=== PATIENT | male | born 1950 | race Hispanic/Latino ===

== ENCOUNTER 2017-01-06 06:16 | Inpatient (IN) | payer BC, MEDICARE ==
[2017-01-06 07:12] VITALS: BMI 32.5
--- NOTE | 2017-01-06 08:01 | ED PDOC ---
Arrival/HPI - General Chief Complaint: GI Problem Time Seen by Provider: 01/06/17 08:01 Historian: Patient - History of Present Illness Narrative History of Present Illness (Text): 01/06/17 13:57 A 66 year old male, whose past medical history includes perianal abscess, presents to the Emergency department complaining of 2 day duration rectal pain. Patient reports feels similar to previous symptoms. Patient denies any fevers, chills, nausea, vomiting, abdominal pain or any other complaints at this time. Time/Duration: Other (2 days) Symptom Onset: Sudden Symptom Course: Unchanged Quality: Other (pain) Activities at Onset: Rest Modifying Factors (Text): none Context: Home Associated Symptoms (Text): none Past Medical History - Provider Review Nursing Documentation Reviewed: Yes - Cardiac Hx Pacemaker: No - Pulmonary Hx Asthma: Yes Hx Chronic Obstructive Pulmonary Disease (COPD): Yes Hx Emphysema: Yes Hx Pneumonia: Yes (03/2014, 03/2016) Hx Sleep Apnea: Yes Other/Comment: c-pap at night, uses portable and home o2 and nubulizer machine at home - Neurological Hx Paralysis: No - Hematological/Oncological Hx Cancer: Yes (colon dx 04/2014) Hx Chemotherapy: Yes (completed 2014) - Musculoskeletal/Rheumatological Hx Falls: No - Genitourinary/Gynecological Other/Comment: colon ca - Psychiatric Hx Anxiety: Yes Hx Emotional Abuse: No Hx Physical Abuse: No Hx Substance Use: No Other/Comment: drinks 4/5 beers a day, smokes 1ppd - Surgical History Other/Comment: umbilical hernia sx, colon resection 2013, vascular acces device r pac 09/2014 rermoved 2 2015, i and d perianal abcess, colonoscopy 2013 and 2014 - Anesthesia Hx Anesthesia Reactions: No Hx Malignant Hyperthermia: No - Suicidal Assessment Feels Threatened In Home Enviroment: No Family/Social History - Physician Review Nursing Documentation Reviewed: Yes Family/Social History: No Known Family HX Smoking Status: Former Smoker Hx Alcohol Use: Yes (4/5 beers) Hx Substance Use: No Allergies/Home Meds Allergies/Adverse Reactions: Allergies No Known Allergies Allergy (Verified 01/06/17 07:12) Home Medications: Home Meds Medication Instructions Recorded Confirmed Arformoterol Tartrate [Brovana] 1 inh INH BID 12/23/14 01/06/17 Budesonide [Pulmicort Respules] 0.25 mg NEB BID PRN 04/27/15 01/06/17 Aspirin [Aspirin EC] 81 mg PO DAILY 10/23/15 01/06/17 Cholecalciferol (Vitamin D3) 1 tab PO DAILY 10/23/15 01/06/17 [Vitamin D3] Albuterol HFA [Ventolin HFA 90 0.09 mg IH PRN PRN 04/12/16 01/06/17 mcg/actuation (8 g)] Prednisone 4 mg PO DAILY 04/12/16 01/06/17 Tiotropium [place] Inhaler 1 inhaler INH DAILY 04/12/16 01/06/17 [Spiriva Inhalation Handihaler Device] Albuterol Sulfate [Proair Hfa] 2 puff IH PRN PRN 01/06/17 01/06/17 Review of Systems - Physician Review All systems were reviewed & negative as marked: Yes Physical Exam - Physical Exam Narrative Physical Exam (Text): 01/06/17 14:06 - Review of Systems Constitutional: Normal. absent: Fatigue, Weight Change, Fevers, chills Eyes: Normal ENT: Normal Respiratory: Normal absent: SOB, Cough, Sputum Cardiovascular: Normal absent: Chest pain, Palpitations, Syncope Gastrointestinal: Normal absent: Abdominal pain, Diarrhea, Nausea, Vomiting Genitourinary: Present: rectal pain, absent: Dysuria, Frequency, Hematuria Musculoskeletal: Normal. absent: Arthralgias, Back Pain, Neck Pain Skin: Normal Neurological: Normal absent: Focal Weakness Endocrine: Normal Hemo/Lymphatic: Normal Psychiatric: Normal - Physical exam Patient appears age appropriate, speaking full sentences without difficulty - Systems Exam Head: Present: Atraumatic, Normocephalic Pupils: Present: PERRL Extraocular Muscles: Present: EOMI Conjunctiva: Present: Normal Mouth: Present: Moist Mucous Membranes Neck: Present: Normal Range of Motion. No: MIDLINE TENDERNESS, Paraspinal Tenderness Respiratory/Chest: Present: Clear to Auscultation, Good Air Exchange. No: Respiratory Distress, Accessory Muscle Use, Tachypneic Cardiovascular: Present: Regular Rate and Rhythm, Normal S1, S2, Peripheral Pulses Present. No: Murmurs Abdomen: Present: Normal Bowel Sounds, No: Tenderness, Peritoneal Signs, Rebound, Guarding, Distention Back: Present: Normal Inspection. No: Midline Tenderness, Paraspinal Tenderness Upper Extremity: Present: Normal Inspection. No: Cyanosis, Edema Lower Extremity: Present: Normal Inspection. No: Edema Neurological: Present: GCS=15, Speech Normal, cranial nerves II through XII fully intact with no cerebellar abnormality, neuro-sensory fully intact. No focal neurological deficits. Skin: Present: Warm, Dry, Normal Color. No: Rashes Lymphatic: Present: OX3, NI, NC Psychiatric: Present: Alert, Oriented x 3, Normal Insight, Normal Concentration Rectal: fluctuant mass around rectum 2 cm in circumference Vital Signs Reviewed: Yes Vital Signs Temp Pulse Resp BP Pulse Ox 01/06/17 15:20 98.8 F 88 18 157/84 H 98 01/06/17 13:34 98.2 F 80 16 138/89 97 01/06/17 13:31 88 16 142/90 96 01/06/17 10:54 95 H 18 123/70 96 01/06/17 07:36 99.3 F 96 H 18 133/74 95 01/06/17 07:14 98.2 F 102 H 17 121/72 93 L Temperature: Afebrile Blood Pressure: Normal Pulse: Tachycardic Respiratory Rate: Normal Appearance: Positive for: Well-Appearing, Non-Toxic, Comfortable Pain Distress: None Mental Status: Positive for: Alert and Oriented X 3 Medical Decision Making ED Course and Treatment: 01/06/17 08:08 Impression: 66 year old male who has a history of perianal abscess, complains of rectal pain. On physical rectal exam, patient had fluctuant mass around rectum about 2 cm in circumference. Plan: -- CT pelvis w/IV contrast -- Labs -- Toradol -- Reassess and disposition Prior Visits: Notes and results from previous visits were reviewed. Patient last seen in the ED on 04/12/16 for evaluation of worsening shortness of breath. Progress Notes: CT pelvis with contrast: Creator : Alfa Solis MD IMPRESSION: Perianal abscess measuring 18 x 34 mm 01/06/17 13:[address] Gallegos and Dr. Penaloza. Dr. Gallegos states to admit patient and he will go to OR tomorrow. patient is aware and agrees with the plan. Dr. Bertrand, PMD, was paged and waiting for her call back. 01/06/17 14:[address] Bertrand, who accepts patient to her service. - Lab Interpretations Lab Results: 01/06/17 08:41 01/06/17 08:41 Lab Results 01/06/17 11:30: Blood Type A POSITIVE, Antibody Screen Negative, BBK History Checked Patient has bt 01/06/17 08:41: WBC 14.2 H, RBC 4.59, Hgb 14.9, Hct 44.7, MCV 97.4, MCH 32.5, MCHC 33.3, RDW 13.5, Plt Count 169, MPV 11.1 H, Gran % 88.7 H, Lymph % (Auto) 6.7 L, [place] % (Auto) 4.3, Eos % (Auto) 0.2 L, Baso % (Auto) 0.1, Gran # 12.61 H , Lymph # 1.0 L, [place] # 0.6, Eos # 0.0, Baso # 0.02, PT 10.4, INR 0.96, APTT 30.2, Sodium 137, Potassium 4.3, Chloride 97, Carbon Dioxide 32, Anion Gap 12, BUN 8, Creatinine 0.6, Est GFR ( Amer) > 60, Est GFR (Non-Af Amer) > 60, Random Glucose 97, Calcium 9.4, Total Bilirubin 0.6, AST 23, ALT 34, Alkaline Phosphatase 65, Total Protein 7.3, Albumin 3.9, Globulin 3.4, Albumin/Globulin Ratio 1.1 I have reviewed the lab results: Yes - RAD Interpretation Radiology Orders: 01/06/17 PELVIS W/IV CONTRAST ONLY [CT] Stat - Medication Orders Current Medication Orders: Aspirin (Ecotrin) 81 mg PO DAILY MARIELA Sodium Chloride (Sodium Chloride 0.9%) 1,000 mls @ 100 mls/hr IV .Q10H MARIELA Last Admin: 01/06/17 14:30 Dose: 100 MLS/HR eMAR Start Stop Document 01/06/17 14:30 VÍCTOR (Rec: 01/06/17 15:01 VÍCTOR [id number]) Intravenous Solution Start Date 01/06/17 Start Time 14:30 Ciprofloxacin (Cipro 200mg/100ml D5w) 100 mls @ 67 mls/hr IVPB Q12 MARIELA PRN Reason: Protocol Stop: 01/06/17 23:30 Metronidazole (Flagyl) 100 mls @ 100 mls/hr IVPB Q8 MARIELA PRN Reason: Protocol Pantoprazole Sodium (Protonix Inj) 40 mg IVP DAILY MARIELA Pantoprazole Sodium (Protonix Inj) 40 mg IVP DAILY MARIELA Tiotropium [place] (Spiriva) mcg INH DAILY MARIELA Discontinued Medications Clindamycin Phosphate 600 mg/ (Sodium Chloride) 54 mls @ 108 mls/hr IVPB STAT STA PRN Reason: Protocol Stop: 01/06/17 14:04 Last Admin: 01/06/17 14:30 Dose: 108 MLS/HR eMAR Start Stop Document 01/06/17 14:30 SZA (Rec: 01/06/17 15:01 SZA [id number]) Intravenous Solution Start Date 01/06/17 Start Time 14:30 End Date 01/06/17 End time 15:00 Total Infusion Time 30 Iohexol (Omnipaque 350 150 Ml) Confirm Administered Dose 150 ml .ROUTE .STK-MED ONE Stop: 01/06/17 10:12 Ketorolac Tromethamine (Toradol) 30 mg IVP STAT STA Stop: 01/06/17 08:20 Last Admin: 01/06/17 08:49 Dose: 30 MG IVP Administration Document 01/06/17 08:49 SS (Rec: 01/06/17 08:51 [facility] [place]-[id number]) Charges for Administration # of IVP Administrations 1 Pneumococcal Polyvalent Vaccine (Pneumovax 23 Vaccine) 0.5 ml IM .ONCE ONE Stop: 01/06/17 16:51 - Scribe Statement The provider has reviewed the documentation as recorded by the Scribemil Martinez All medical record entries made by the Brissaibemil were at my direction and personally dictated by me. I have reviewed the chart and agree that the record accurately reflects my personal performance of the history, physical exam, medical decision making, and the department course for this patient. I have also personally directed, reviewed, and agree with the discharge instructions and disposition. Disposition/Present on Arrival - Present on Arrival Any Indicators Present on Arrival: No History of DVT/PE: No History of Uncontrolled Diabetes: No Urinary Catheter: No History of Decub. Ulcer: No History Surgical Site Infection Following: None - Disposition Have Diagnosis and Disposition been Completed?: Yes Diagnosis: Rectal abscess Disposition: HOSPITALIZED Disposition Time: 13:39 Patient Plan: Admission Patient Problems: Current Active Problems Problem Status Diagnosed Rectal abscess Acute Condition: STABLE
[2017-01-06 08:52] LABS: ADD MANUAL DIFF? NO
[2017-01-06 09:13] LABS: BASO # 0.02 K/mm3 (0.0-2.0); BASO % 0.1 % (0.0-3.0); EOS % 0.2 % (1.5-5.0); GRAN # 12.61 (1.4-6.5); GRAN % 88.7 % (50.0-68.0); HEMATOCRIT 44.7 % (42.0-52.0); LYMPH % 6.7 % (22.0-35.0); MEAN CELL VOLUME 97.4 fL (80.0-105.0); MEAN CORPUSCULAR HEMOGLOBIN 32.5 pg (25.0-35.0); MEAN CORPUSCULAR HGB CONC 33.3 g/dl (31.0-37.0); MEAN PLATELET VOLUME 11.1 fl (7.0-11.0); MONO # 0.6 (0.1-0.6); MONO % 4.3 % (1.0-6.0); PLATELET COUNT 169 10^3/uL (120.0-450.0); RED CELL DISTRIBUTION WIDTH 13.5 % (11.5-14.5); WHITE BLOOD COUNT 14.2 10^3/ul (4.5-11.0)
[2017-01-06 09:23] LABS: INR 0.96 (0.93-1.08); PARTIAL THROMBOPLASTIN TIME 30.2 Seconds (23.7-30.8)
[2017-01-06 09:30] LABS: ALB/GLOB RATIO 1.1 (1.1-1.8); ALKALINE PHOSPHATASE 65 U/L (38-133); ALT/SGPT 34 U/L (7-56); AST/SGOT 23 U/L (15-59); BILIRUBIN,TOTAL 0.6 mg/dL (0.2-1.3); BLOOD UREA NITROGEN 8 mg/dL (7-21); CALCIUM 9.4 mg/dL (8.4-10.5); CARBON DIOXIDE 32 mmol/L (21-33); CHLORIDE 97 mmol/L (95-110); GFR AFRICAN-AMERICAN > 60; GLUCOSE,RANDOM 97 mg/dL (70-110); POTASSIUM 4.3 mmol/L (3.6-5.0); SODIUM 137 mmol/L (132-148); TOTAL PROTEIN 7.3 g/dL (5.8-8.3)
--- NOTE | 2017-01-06 11:12 | CT ---
PROCEDURE: CT Pelvis with contrast HISTORY: perianal abscess COMPARISON: None. TECHNIQUE: Contiguous axial images of the pelvis with contrast. Coronal and sagittal reformats generated. Contrast dose: 150 cc of Omni 350 Radiation dose: Total exam DLP = 1296 mGy-cm. This CT exam was performed using one or more of the following dose reduction techniques: Automated exposure control, adjustment of the mA and/or kV according to patient size, and/or use of iterative reconstruction technique. FINDINGS: BLADDER: Unremarkable. No mass. REPRODUCTIVE ORGANS: Unremarkable. VISUALIZED BOWEL: Unremarkable. PERITONEUM: Unremarkable, as visualized. No free fluid. No free air. LYMPH NODES: Unremarkable. No enlarged lymph nodes. VASCULATURE: Unremarkable. BONES: No fracture or focal lesion. OTHER FINDINGS: There is an 18 x 34 mm fluid collection in the perianal area to the right of midline. This is seen on image 99 series 5. Findings are consistent with an abscess. IMPRESSION: Perianal abscess measuring 18 x 34 mm
--- NOTE | 2017-01-06 14:07 | CP.PCM.CON ---
<Tremaine Sweeney - Last Filed: 01/06/17 14:20> History of Present Illness - History of Present Illness History of Present Illness: General Surgery Consult Note for Dr. Gallegos CC: Perianal Abscess HPI: This is a 66M with a PMH of COPD, Colon Ca, and tiffany-rectal abscess 2 year ago, who presents to the ED with a tiffany-rectal abscess for the past 2 days. Patient reports the abscess as being acutely active now however admits to chronic draining. He denies any subjective fevers at home, chills, SOB, Nausea, vomiting or diarrhea. PMH: See Above PSH: Colectomy, I&D of Tiffany-anal Abscess All: NKDA Social: 80+ pack years tobacco, 40+ years 10 beers per day Review of Systems - Review of Systems All systems: reviewed and no additional remarkable complaints except Past Patient History - Past Social History Smoking Status: Former Smoker - CARDIAC Hx Pacemaker: No - PULMONARY Hx Asthma: Yes Hx Chronic Obstructive Pulmonary Disease (COPD): Yes Hx Emphysema: Yes Hx Pneumonia: Yes (03/2014, 03/2016) Hx Sleep Apnea: Yes Other/Comment: c-pap at night, uses portable and home o2 and nubulizer machine at home - NEUROLOGICAL Hx Paralysis: No - HEMATOLOGICAL/ONCOLOGICAL Hx Cancer: Yes (colon dx 04/2014) Hx Chemotherapy: Yes (completed 2014) - MUSCULOSKELETAL/RHEUMATOLOGICAL Hx Falls: No - GENITOURINARY/GYNECOLOGICAL Other/Comment: colon ca - PSYCHIATRIC Hx Anxiety: Yes Hx Emotional Abuse: No Hx Physical Abuse: No Hx Substance Use: No Other/Comment: drinks 4/5 beers a day, smokes 1ppd - SURGICAL HISTORY Other/Comment: umbilical hernia sx, colon resection 2013, vascular acces device r pac 09/2014 rermoved 2 2015, i and d perianal abcess, colonoscopy 2013 and 2014 - ANESTHESIA Hx Anesthesia Reactions: No Hx Malignant Hyperthermia: No Meds Allergies/Adverse Reactions: Allergies Allergy/AdvReac Type Severity Reaction Status Date / Time No Known Allergies Allergy Verified 01/06/17 07:12 - Medications Medications: Current Medications Clindamycin Phosphate 600 mg/ (Sodium Chloride) 54 mls @ 108 mls/hr IVPB STAT STA PRN Reason: Protocol Stop: 01/06/17 14:04 Physical Exam - Constitutional Appears: Non-toxic, No Acute Distress - Head Exam Head Exam: ATRAUMATIC, NORMOCEPHALIC - Eye Exam Eye Exam: EOMI, Normal appearance - ENT Exam ENT Exam: Mucous Membranes Moist, Normal Exam - Respiratory Exam Respiratory Exam: NORMAL BREATHING PATTERN - Cardiovascular Exam Cardiovascular Exam: +S1, +S2 - GI/Abdominal Exam GI & Abdominal Exam: Hernia. absent: Distended, Firm, Guarding, Soft - Extremities Exam Extremities exam: Positive for: normal inspection - Neurological Exam Neurological exam: Alert, Oriented x3 - Skin Skin Exam: Dry, Intact Results - Vital Signs Recent Vital Signs: Last Vital Signs Temp 98.2 F 01/06/17 13:34 Pulse 80 01/06/17 13:34 Resp 16 01/06/17 13:34 BP 138/89 01/06/17 13:34 Pulse Ox 97 01/06/17 13:34 - Labs Result Diagrams: 01/06/17 08:41 01/06/17 08:41 Labs: Laboratory Results - last 24 hr 01/06/17 01/06/17 08:41 11:30 WBC 14.2 H RBC 4.59 Hgb 14.9 Hct 44.7 MCV 97.4 MCH 32.5 MCHC 33.3 RDW 13.5 Plt Count 169 MPV 11.1 H Gran % 88.7 H Lymph % (Auto) 6.7 L [place] % (Auto) 4.3 Eos % (Auto) 0.2 L Baso % (Auto) 0.1 Gran # 12.61 H Lymph # 1.0 L [place] # 0.6 Eos # 0.0 Baso # 0.02 PT 10.4 INR 0.96 APTT 30.2 Sodium 137 Potassium 4.3 Chloride 97 Carbon Dioxide 32 Anion Gap 12 BUN 8 Creatinine 0.6 Est GFR ( Amer) > 60 Est GFR (Non-Af Amer) > 60 Random Glucose 97 Calcium 9.4 Total Bilirubin 0.6 AST 23 ALT 34 Alkaline Phosphatase 65 Total Protein 7.3 Albumin 3.9 Globulin 3.4 Albumin/Globulin Ratio 1.1 Blood Type A POSITIVE Antibody Screen Negative BBK History Checked Patient has bt - Imaging and Cardiology CT scan - abdomen Status: Image reviewed by me, Report reviewed by me CT scan - pelvis Status: Image reviewed by me, Report reviewed by me Assessment & Plan - Assessment and Plan (Free Text) Assessment: This is a 64M with a PMH of COPD and Colon Ca S/P colectomy presenting with a ventral hernia and a tiffany-anal abscess OR tomorrow for I7D under sedation continue medical management per primary team D/W Dr. El Sweeney PGY-1 <Eric Gallegos - Last Filed: 01/08/17 08:26> Meds - Medications Medications: Current Medications Acetaminophen (Tylenol 325mg Tab) 650 mg PO Q6H PRN PRN Reason: Fever >100.4 F Last Admin: 01/08/17 05:14 Dose: 650 mg Albuterol/Ipratropium (Duoneb 3 Mg/0.5 Mg (3 Ml) Ud) 3 ml IH Q2H PRN PRN Reason: Shortness of Breath Albuterol/Ipratropium (Duoneb 3 Mg/0.5 Mg (3 Ml) Ud) 3 ml IH [id number] [facility] Last Admin: 01/08/17 07:30 Dose: 3 ml Aspirin (Ecotrin) 81 mg PO DAILY [facility] Last Admin: 01/07/17 13:09 Dose: Not Given Hydromorphone HCl (Dilaudid) 1 mg IVP Q3 PRN PRN Reason: Pain, moderate (4-7) Sodium Chloride (Sodium Chloride 0.9%) 1,000 mls @ 100 mls/hr IV .Q10H [facility] Last Admin: 01/07/17 13:39 Dose: 100 mls/hr Metronidazole (Flagyl) 100 mls @ 100 mls/hr IVPB Q8 MARIELA PRN Reason: Protocol Last Admin: 01/08/17 05:13 Dose: 100 mls/hr Ceftriaxone Sodium (Rocephin 1 Gram Ivpb) 1 gm in 100 mls @ 100 mls/hr IVPB DAILY [facility] PRN Reason: Protocol Stop: 01/10/17 03:07 Last Admin: 01/08/17 04:18 Dose: 100 mls/hr Nicotine (Nicoderm Cq) 1 patch TD DAILY [facility] Stop: 01/10/17 10:00 Pantoprazole Sodium (Protonix Inj) 40 mg IVP DAILY [facility] Last Admin: 01/07/17 12:46 Dose: 40 mg Pantoprazole Sodium (Protonix Inj) 40 mg IVP DAILY [facility] Last Admin: 01/07/17 13:26 Dose: Not Given Polyethylene Glycol (Miralax) 17 gm PO BID [facility] Last Admin: 01/07/17 17:22 Dose: 17 gm Tiotropium [place] (Spiriva) 18 mcg INH DAILY [facility] Last Admin: 01/07/17 14:10 Dose: 18 mcg Results - Vital Signs Recent Vital Signs: Last Vital Signs Temp 99.4 F 01/08/17 07:27 Pulse 102 H 01/08/17 07:27 Resp 20 01/08/17 07:27 BP 127/85 01/08/17 07:27 Pulse Ox 94 L 01/08/17 07:27 - Labs Result Diagrams: 01/08/17 06:30 01/08/17 06:30 Labs: Laboratory Results - last 24 hr 01/07/17 01/08/17 01/08/17 06:45 06:30 06:30 WBC 10.0 D RBC 3.92 Hgb 12.5 L Hct 38.8 L MCV 99.0 MCH 31.9 MCHC 32.2 RDW 13.8 Plt Count 145 MPV 10.6 Gran % 88.7 H Lymph % (Auto) 5.4 L [place] % (Auto) 5.3 Eos % (Auto) 0.5 L Baso % (Auto) 0.1 Gran # 8.83 H Lymph # 0.5 L [place] # 0.5 Eos # 0.1 Baso # 0.01 Sodium 138 137 Potassium 4.0 3.6 Chloride 99 98 Carbon Dioxide 30 31 Anion Gap 13 12 BUN 7 6 L Creatinine 0.6 0.6 Est GFR ( Amer) > 60 > 60 Est GFR (Non-Af Amer) > 60 > 60 Random Glucose 96 100 Calcium 8.7 8.5 Total Bilirubin 0.7 0.6 AST 20 19 ALT 36 33 Alkaline Phosphatase 52 53 Total Protein 6.5 6.2 Albumin 3.4 3.2 Globulin 3.1 3.0 Albumin/Globulin Ratio 1.1 1.1 Assessment & Plan - Assessment and Plan (Free Text) Plan: Dx Constipation recurrent perirectal abscess Severe )2 dependent COBPD Obesirt Tobacco addiction Plan I & D with sedation Consult done under my direct supervision Kimberly Gallegos MD FACS
[2017-01-06] MEDS: Sodium Chloride 0.9% 1,000 ML IV SCH (14:30)
--- NOTE | 2017-01-06 14:41 | RAD ---
HISTORY: pre-op COMPARISON: 06/08/2016 FINDINGS: LUNGS: No active pulmonary disease. PLEURA: No significant pleural effusion identified, no pneumothorax apparent. CARDIOVASCULAR: Normal. OSSEOUS STRUCTURES: No significant abnormalities. VISUALIZED UPPER ABDOMEN: Normal. OTHER FINDINGS: None. IMPRESSION: No active disease.
[2017-01-06] MEDS ORDERED: Pneumococcal 23-Valent Vaccine IM ONE (16:50)
[2017-01-06] MEDS ORDERED: Albuterol-Ipratrop 3 mg / 0.5 (3 ml) UD IH PRN (18:07)
[2017-01-06] MEDS: metroNIDAZOLE IV 500 mg/100 ml 100 ML IVPB SCH (18:57)
[2017-01-06] MEDS: Albuterol-Ipratrop 3 mg / 0.5 (3 ml) UD IH SCH (19:50)
--- NOTE | 2017-01-06 20:22 | HP ---
HISTORY OF PRESENT ILLNESS: The patient is a 66-year-old known to me from previous admission, came t o Emergency Room because of perirectal discomfort. He had similar episode almost 2 years ago, so he came to Emergency Room. He states he did have problems going on for some time, but got worse recentl y, so he thought he should get some medical attention denies any fever or chills. No nausea, vomitin g. No rectal bleeding. He does have discharge. PAST MEDICAL HISTORY: Significant for: 1. CA colon and he had hemicolectomy done, followed by chemotherapy. 2. History of chronic obstructive pulmonary disease. 3. History of asthmatic bronchitis. ALLERGIES: He is not allergic to any medication. SOCIAL HISTORY: He is , lives with his . No history of smoking, drinking or alcohol use. MEDICATIONS AT HOME: He is on Spiriva, prednisone 4 mg daily, vitamin D, Pulmicort, aspirin 81 daily , Brovana 1 inhaler twice a day, ProAir 2 puffs q.i.d., and Ventolin. REVIEW OF SYSTEMS: Significant for perirectal discomfort. PHYSICAL EXAMINATION: GENERAL: He is awake and alert, communicative. VITAL SIGNS: He is afebrile, pulse 80, respirations 16, blood pressure 138/89. LUNGS: Bilateral diffusely decreased breath sounds. HEART: S1, S2 audible. ABDOMEN: Soft, nontender, no rebound, no guarding. NEUROLOGIC: He is awake and alert, communicative. He has . LABORATORY DATA: WBC is 14.2, hemoglobin 14.9, hematocrit 44.7, platelet of 169. PT 10.4, INR 0.96, PTT 30.2. Chemistry: Sodium 137, potassium 4.3, chloride 97, CO2 of 32, BUN 8, creatinine 0.6, blo od sugar of 97. LFTs are within normal limits. X-ray chest: No active disease. The patient had a CT scan of the pelvis done that shows 1834 mm fluid collection in the perianal area to the right of t he midline consistent with perianal abscess. ASSESSMENT: 1. Perianal abscess. 2. Chronic obstructive pulmonary disease. 3. Obstructive sleep apnea. 4. Morbid obesity. 5. History of carcinoma of colon. 6. History of asthmatic bronchitis. PLAN: The patient has been started on Cipro and Flagyl. I will continue him on nebulizer treatment. Give him Protonix and IV fluid. He is scheduled for I and D in the OR in a.m. Dr. Gallegos has be en consulted. Will follow up CBC and CMP in a.m. Juan Bertrand MD cc: [phone] TT: 01/06/2017 20:21:29 mn
[2017-01-06] MEDS ORDERED: Morphine 4 mg/ml ISec IVP PRN (21:25)
[2017-01-06] MEDS ORDERED: Ciprofloxacin 200mg/100ml D5W 100 ML IVPB SCH (22:00)
[2017-01-07] MEDS: Sodium Chloride 0.9% 1,000 ML IV SCH ×2 (00:05→13:39)
[2017-01-07] MEDS: metroNIDAZOLE IV 500 mg/100 ml 100 ML IVPB SCH ×3 (00:06→21:50)
[2017-01-07] MEDS: Albuterol-Ipratrop 3 mg / 0.5 (3 ml) UD IH SCH ×4 (01:43→20:47)
[2017-01-07 07:09] LABS: ADD MANUAL DIFF? NO; BASO # 0.01 K/mm3 (0.0-2.0); BASO % 0.1 % (0.0-3.0); EOS # 0.1 (0.0-0.7); EOS % 0.7 % (1.5-5.0); GRAN # 11.08 (1.4-6.5); GRAN % 83.7 % (50.0-68.0); HEMATOCRIT 41.7 % (42.0-52.0); LYMPH # 1.3 (1.2-3.4); LYMPH % 9.8 % (22.0-35.0); MEAN CELL VOLUME 98.1 fL (80.0-105.0); MEAN CORPUSCULAR HGB CONC 32.6 g/dl (31.0-37.0); MEAN PLATELET VOLUME 10.7 fl (7.0-11.0); MONO # 0.8 (0.1-0.6); MONO % 5.7 % (1.0-6.0); PLATELET COUNT 149 10^3/uL (120.0-450.0); RED CELL DISTRIBUTION WIDTH 13.7 % (11.5-14.5); WHITE BLOOD COUNT 13.2 10^3/ul (4.5-11.0)
[2017-01-07 07:53] LABS: ALB/GLOB RATIO 1.1 (1.1-1.8); ALKALINE PHOSPHATASE 52 U/L (38-133); ALT/SGPT 36 U/L (7-56); AST/SGOT 20 U/L (15-59); BILIRUBIN,TOTAL 0.7 mg/dL (0.2-1.3); BLOOD UREA NITROGEN 7 mg/dL (7-21); CALCIUM 8.7 mg/dL (8.4-10.5); CARBON DIOXIDE 30 mmol/L (21-33); CHLORIDE 99 mmol/L (95-110); GFR AFRICAN-AMERICAN > 60; GLUCOSE,RANDOM 96 mg/dL (70-110); SODIUM 138 mmol/L (132-148); TOTAL PROTEIN 6.5 g/dL (5.8-8.3)
[2017-01-07] MEDS ORDERED: Iodixanol 320 MG/ML 100 ML BOTTLE IV ONE (09:45)
[2017-01-07] MEDS ORDERED: Bupivacaine 0.5% Inj(30mL) ONE (10:22)
[2017-01-07] MEDS ORDERED: Lidocaine 1% Inj (20ml) ONE (10:22)
[2017-01-07] MEDS ORDERED: Ketamine 10 mg/ml Inj (20 ml) ONE (10:35)
[2017-01-07] MEDS ORDERED: Midazolam 2 MG/2 ML VIAL ONE (10:38)
[2017-01-07] MEDS ORDERED: metroNIDAZOLE IV 500 mg/100 ml 500 MG/100 ML BAG ONE (10:55)
--- NOTE | 2017-01-07 11:26 | CARD ---
APPROVED REPORT EKG Measurement Heart [id number] MI [id number] <Conclusion> Sinus rhythm with premature atrial complexes Low voltage QRS Septal infarct, age undetermined Abnormal ECG
--- NOTE | 2017-01-07 11:28 | PCM.SURG1 ---
Surgeon's Initial Post Op Note - Surgeon's Notes Surgeon: El Film Washer: Justino PGY2 Type of Anesthesia: IV Sedation, Local Pre-Operative Diagnosis: Perirectal abscess Operative Findings: same Post-Operative Diagnosis: same Operation Performed: I&D of perirectal abscess Specimen/Specimens Removed: cultures Estimated Blood Loss: EBL {In ML}: 30 Blood Products Given: N/A Drains Used: No Drains Post-Op Condition: Good Date of Surgery/Procedure: 01/07/17 Time of Surgery/Procedure: 11:27
[2017-01-07] MEDS ORDERED: HYDROmorphone 1 mg/ml ISec IVP PRN (11:30)
[2017-01-07] MEDS ORDERED: Lactated Ringer's 1,000 ML IV SCH (11:56)
[2017-01-07 12:07] VITALS: RESP 20
[2017-01-07] MEDS: Tiotropium 18 mcg Cap For Inhalation INH SCH (14:10)
[2017-01-07] MEDS: POLYETHYLENE GLYCOL 3350 17 GM/Dose PACKET PO SCH (17:22)
--- NOTE | 2017-01-07 20:24 | PN ---
DATE: 01/07/2017 The patient is a 66-year-old, seen and examined, lying in bed, comfortable. No nausea, vomiting, or diarrhea. PHYSICAL EXAMINATION: VITAL SIGNS: He is afebrile, temperature 100.8, pulse 97, respirations 20, blood pressure 133/74. LUNGS: Bilateral airflow. HEART: S1, S2 audible. ABDOMEN: Soft, obese, nontender, no rebound, no guarding. NEUROLOGIC: He is awake and alert, communicative. LABORATORY EXAMINATION: WBC 13.2, hemoglobin 13.6, hematocrit 41.7, platelets 149. PT 10.4, INR 0.9 6. Chemistry: Sodium 138, potassium 4.0, chloride 99, CO2 30, BUN 7, creatinine 0.6, blood sugar of 96. LFTs are within normal limits. ASSESSMENT: 1. Perianal abscess, status post incision and drainage. 2. Chronic obstructive pulmonary disease. 3. Obstructive sleep apnea. 4. Hypertension. 5. History of carcinoma of colon, status post hemicolectomy. PLAN: Currently, the patient is on analgesic, nebulizer treatment. He is getting metronidazole. He is on a laxative. Will continue IV fluids. Will follow up this patient in a.m. Juan Bertrand MD cc: [phone] TT: 01/07/2017 20:23:45 Confirmation # [id number] Dictation # [id number]
[2017-01-08] MEDS: Albuterol-Ipratrop 3 mg / 0.5 (3 ml) UD IH SCH ×4 (01:16→20:21)
[2017-01-08] MEDS: cefTRIAXone 1 gm 1 GM/100 ML BAG IVPB SCH ×2 (04:18→09:32)
[2017-01-08] MEDS: metroNIDAZOLE IV 500 mg/100 ml 100 ML IVPB SCH ×4 (05:13→21:21)
[2017-01-08 07:09] LABS: ADD MANUAL DIFF? NO
[2017-01-08 07:16] LABS: BASO # 0.01 K/mm3 (0.0-2.0); BASO % 0.1 % (0.0-3.0); EOS # 0.1 (0.0-0.7); EOS % 0.5 % (1.5-5.0); GRAN # 8.83 (1.4-6.5); GRAN % 88.7 % (50.0-68.0); HEMATOCRIT 38.8 % (42.0-52.0); LYMPH # 0.5 (1.2-3.4); LYMPH % 5.4 % (22.0-35.0); MEAN CORPUSCULAR HEMOGLOBIN 31.9 pg (25.0-35.0); MEAN CORPUSCULAR HGB CONC 32.2 g/dl (31.0-37.0); MEAN PLATELET VOLUME 10.6 fl (7.0-11.0); MONO # 0.5 (0.1-0.6); MONO % 5.3 % (1.0-6.0); PLATELET COUNT 145 10^3/uL (120.0-450.0); RED CELL DISTRIBUTION WIDTH 13.8 % (11.5-14.5)
[2017-01-08 07:33] LABS: ALB/GLOB RATIO 1.1 (1.1-1.8); ALKALINE PHOSPHATASE 53 U/L (38-133); ALT/SGPT 33 U/L (7-56); AST/SGOT 19 U/L (15-59); BILIRUBIN,TOTAL 0.6 mg/dL (0.2-1.3); BLOOD UREA NITROGEN 6 mg/dL (7-21); CALCIUM 8.5 mg/dL (8.4-10.5); CARBON DIOXIDE 31 mmol/L (21-33); CHLORIDE 98 mmol/L (98-107); GFR AFRICAN-AMERICAN > 60; GLUCOSE,RANDOM 100 mg/dL (70-110); POTASSIUM 3.6 mmol/L (3.6-5.0); SODIUM 137 mmol/L (132-148); TOTAL PROTEIN 6.2 g/dL (5.8-8.3)
[2017-01-08] MEDS: POLYETHYLENE GLYCOL 3350 17 GM/Dose PACKET PO SCH ×2 (09:31→17:03)
[2017-01-08] MEDS: Tiotropium 18 mcg Cap For Inhalation INH SCH (09:32)
--- NOTE | 2017-01-08 12:15 | CP.PCM.PN ---
Subjective - Date & Time of Evaluation Date of Evaluation: 01/08/17 Time of Evaluation: 07:15 - Subjective Subjective: SURGERY PROGRESS NOTE FOR DR. BENSON 66M seen and examined at bedside. Patient continues to state he has pain in the surgical site. States he had a BM this morning. Objective - Vital Signs/Intake and Output Vital Signs (last 24 hours): Temp Pulse Resp BP Pulse Ox 99.4 F 102 H 20 127/85 94 L 01/08/17 07:27 01/08/17 07:27 01/08/17 07:27 01/08/17 07:27 01/08/17 07:27 Intake and Output: 01/08/17 01/08/17 06:59 18:59 Intake Total 180 Balance 180 - Medications Medications: Current Medications Acetaminophen (Tylenol 325mg Tab) 650 mg PO Q6H PRN PRN Reason: Fever >100.4 F Last Admin: 01/08/17 05:14 Dose: 650 mg Albuterol/Ipratropium (Duoneb 3 Mg/0.5 Mg (3 Ml) Ud) 3 ml IH Q2H PRN PRN Reason: Shortness of Breath Albuterol/Ipratropium (Duoneb 3 Mg/0.5 Mg (3 Ml) Ud) 3 ml IH [id number] [facility] Last Admin: 01/08/17 07:30 Dose: 3 ml Aspirin (Ecotrin) 81 mg PO DAILY [facility] Last Admin: 01/07/17 13:09 Dose: Not Given Hydromorphone HCl (Dilaudid) 1 mg IVP Q3 PRN PRN Reason: Pain, moderate (4-7) Sodium Chloride (Sodium Chloride 0.9%) 1,000 mls @ 100 mls/hr IV .Q10H [facility] Last Admin: 01/07/17 13:39 Dose: 100 mls/hr Metronidazole (Flagyl) 100 mls @ 100 mls/hr IVPB Q8 [facility]A PRN Reason: Protocol Last Admin: 01/08/17 05:13 Dose: 100 mls/hr Ceftriaxone Sodium (Rocephin 1 Gram Ivpb) 1 gm in 100 mls @ 100 mls/hr IVPB DAILY [facility] PRN Reason: Protocol Stop: 01/10/17 03:07 Last Admin: 01/08/17 09:32 Dose: 100 mls/hr Nicotine (Nicoderm Cq) 1 patch TD DAILY [facility] Stop: 01/10/17 10:00 Last Admin: 01/08/17 09:37 Dose: Not Given Pantoprazole Sodium (Protonix Inj) 40 mg IVP DAILY [facility] Last Admin: 01/08/17 09:32 Dose: Not Given Pantoprazole Sodium (Protonix Inj) 40 mg IVP DAILY [facility] Last Admin: 01/08/17 09:04 Dose: Not Given Polyethylene Glycol (Miralax) 17 gm PO BID [facility] Last Admin: 01/08/17 09:31 Dose: Not Given Tiotropium [place] (Spiriva) 18 mcg INH DAILY [facility] Last Admin: 01/08/17 09:32 Dose: 18 mcg - Labs Labs: 01/08/17 06:30 01/08/17 06:30 PT 10.4 Seconds (9.9-11.8) 01/06/17 08:41 INR 0.96 (0.93-1.08) 01/06/17 08:41 APTT 30.2 Seconds (23.7-30.8) 01/06/17 08:41 - Constitutional Appears: Non-toxic, No Acute Distress - Head Exam Head Exam: ATRAUMATIC - Respiratory Exam Respiratory Exam: Clear to Ausculation Bilateral, NORMAL BREATHING PATTERN - Cardiovascular Exam Cardiovascular Exam: REGULAR RHYTHM, +S1, +S2 - GI/Abdominal Exam GI & Abdominal Exam: Soft. absent: Distended, Firm, Guarding, Rigid, Tenderness , Rebound - Rectal Exam Additional comments: packing in place, no current drainage. mild induration. tenderness on palpation - Neurological Exam Neurological Exam: Alert, Awake - Skin Skin Exam: Dry, Intact, Normal Color, Warm Assessment and Plan - Assessment and Plan (Free Text) Assessment: 66M s/p perirectal abscess incision and drainage POD#1 Plan: - pain control - packing changes - dressing changes - continue antibiotics Further recs discuss with Dr. El Blake, PGY1
--- NOTE | 2017-01-09 00:53 | OP ---
PROCEDURE DATE: 01/07/2017 DATE OF ADMISSION: 01/06/2017 to room 566, bed 1. DATE OF PROCEDURE: 01/07/2017. SURGEON: Eric Gallegos MD ASSISTANTS: 1. Adrián Badillo DO (PGY-2). 2. Tyra Alicia DO (medical student). INPATIENT CODER: Dr. Herrera ANESTHESIA: General - LMA -- Marcaine 0.5-11 mL. PREOPERATIVE DIAGNOSES: 1. Recurrent ischial rectal abscess. 2. Constipation. 3. Severe COBPD. 4. Obesity. POSTOPERATIVE DIAGNOSES: 1. Recurrent ischial rectal abscess. 2. Constipation. 3. Severe COBPD. 4. Obesity. PROCEDURE: Incision and drainage of ischial rectal abscess. OPERATIVE INDICATION: The patient is a 66-year-old male who has had severe recurrence of r ight buttock pain that he last had 2 years earlier and was treated in this hospital with incision and drainage under local anesthesia. This time, he is insistent on intravenous sedation as the local dr lopez was exquisitely painful. Risks, benefits, alternatives and their anticipated outcomes were di scussed with the patient and he signs the informed consent for the procedure. Significant comorbidit ies include super morbid obesity and extremely severe COBPD. The patient says he has quit smoking 4 months ago and smokes between 1 and 2 packages of cigarettes a day; however, he continues to smell of cigarette smoke now and it is hard to believe that he quit 4 months ago and still smells of cigarett es. He denies constipation, but, with very careful questioning, it is apparent that he was straining very hard to move his bowels at the time he developed this pain and subsequent infection. OPERATIVE NOTE: The patient was brought to the operating room from the holding area. He is identifi ed by his wrist band and undergoes timeout procedure and is placed on the table in a supine manner. He is left in a lithotomy position with intravenous sedation and oxygenation monitoring by the anesth esiologist and, due to extreme abdominal girth and pressure upon the thoracic cavity, it is apparent that adequate ventilation is not to be obtained this way and intralaryngeal mask anesthesia is initia nancy. The area of the perineum is electrically clipped, prepped with Betadine and, utilizing an 18-gauge ne edle and 5 mL syringe, the abscess cavity is found adjacent to the anus on the right lateral aspect a nd this area is then infiltrated and incised with the scalpel and the hydraulic pile hammer operator's finger inserted into same and loculations broken up and abscess cultured aerobically and anaerobically at this point. Significant bleeding is encountered and this requires packing of 1 inch iodoform gauze to control the bleeding at this point. It is planned that this packing will remain for at least 48 hours because o f this excessive bleeding state. A dry dressing is placed over this, secured with tape and the patient is awakened, extubated and jackman sported to the recovery room in a satisfactory condition. Sponge, instrument and suture count were v erified as correct at the end of the procedure. Estimated blood loss during this procedure was appro ximately 30-35 mL of blood. The physical therapist assistant was present throughout the case from the beginning to the end and was extremel y helpful in obtaining adequate exposure and packing the wound once the bleeding was controlled. This dictation will be electronically signed without being read. Eric Gallegos MD cc: [phone] TT: 01/09/2017 00:52:52 sara
[2017-01-09] MEDS: Albuterol-Ipratrop 3 mg / 0.5 (3 ml) UD IH SCH ×2 (02:00→09:01)
[2017-01-09] MEDS: metroNIDAZOLE IV 500 mg/100 ml 100 ML IVPB SCH (05:12)
[2017-01-09 07:25] VITALS: BP 141/88; PULSE 103; TEMP 98.6; O2SAT 97
--- NOTE | 2017-01-09 08:06 | DS ---
The patient is a 66-year-old, seen and examined, ambulatory. Complained of some perirectal fullness. He has a bit packing there. He had some bleeding on his bed sheets, but denies any nausea or vomit ing. No fever or chills. PHYSICAL EXAMINATION: VITAL SIGNS: He is afebrile, pulse 80, respirations 20, blood pressure 115/74. LUNGS: Bilateral fair airflow, no rhonchi or crackle. HEART: S1, S2 audible. No murmur. ABDOMEN: Soft, nontender, no rebound, no guarding. NEUROLOGIC: He is awake and alert, communicative, ambulatory. LABORATORY EXAMINATION: WBCs 10, hemoglobin 12.5, hematocrit 38, platelet 145. Chemistry: Sodium 1 37, potassium 3.6, chloride 98, CO2 31, BUN 6, creatinine 0.6, blood sugar of 100. ASSESSMENT: 1. Perianal abscess, status post incision and drainage. 2. Hypertension. 3. Hyperlipidemia. 4. Chronic obstructive pulmonary disease. PLAN: The patient is currently getting analgesics. He is on stool softener. He is getting MiraLax twice. He is on nicotine patch. We will continue that. He is getting Rocephin and metronidazole. Currently, he is on liquid diet. That will be advanced as per surgical team. Juan Bertrand MD cc: [phone] TT: 01/09/2017 08:05:45 en
--- NOTE | 2017-01-09 09:07 | CP.PCM.PCO ---
Physician Communication Note - Physician Communication Note Physician Communication Note: OK DC Home-PO AB/NO Packing-f/u prn/Rx Miralax
[2017-01-09] MEDS: cefTRIAXone 1 gm 1 GM/100 ML BAG IVPB SCH (09:16)
[2017-01-09] MEDS: POLYETHYLENE GLYCOL 3350 17 GM/Dose PACKET PO SCH (09:16)
[2017-01-09] MEDS: Tiotropium 18 mcg Cap For Inhalation INH SCH (09:16)
--- NOTE | 2017-01-09 16:33 | DS ---
The patient is a 66-year-old, seen and examined, sitting in chair, comfortable, anxious to go home. Eating and tolerating. PHYSICAL EXAMINATION: VITAL SIGNS: He is afebrile, pulse 103, respirations 20, blood pressure 141/88. LUNGS: Bilateral fair airflow, no rhonchi or crackle. HEART: S1, S2 audible. ABDOMEN: Soft, nontender, no rebound, no guarding. NEUROLOGIC: The patient is awake and alert, communicative, ambulatory. EXTREMITIES: Bilateral legs, no edema. LABORATORY EXAM: There is no new lab available today. ASSESSMENT: 1. Status post perianal abscess, status post incision and drainage. 2. Hypertension. 3. Chronic obstructive pulmonary disease. 4. Hyperlipidemia. PLAN: The patient is being discharged home on Cipro 500 twice a day, Flagyl 500 q. 8 hours. He is g iven prescription for Percocet as needed. He is advised to take MiraLax twice a day. Will follow up this patient as outpatient. He will follow up with Dr. Gallegos as outpatient. Juan Bertrand MD cc: [phone] TT: 01/09/2017 16:33:30 sissy
== END 2017-01-09 12:34 | disposition home or self-care (01) | DRG 989 ==
LOC: ED 06:16 → ERH 14:06 → 5RNO 15:45
PROVIDERS: ADMIT Internal Medicine; ATTEND Internal Medicine
PROC: 0J9B0ZZ Drainage of Perineum Subcutaneous Tissue and Fascia, Open Approach (ICD-10-PCS; principal; 2017-01-07 10:30)
DX: K61.2 Anorectal abscess (principal); J44.9 Chronic obstructive pulmonary disease, unspecified; E66.01 Morbid (severe) obesity due to excess calories; K59.00 Constipation, unspecified; G47.33 Obstructive sleep apnea (adult) (pediatric); E78.5 Hyperlipidemia, unspecified; I10 Essential (primary) hypertension; J45.909 Unspecified asthma, uncomplicated; K43.9 Ventral hernia without obstruction or gangrene; Z79.82 Long term (current) use of aspirin; Z85.038 Personal history of other malignant neoplasm of large intestine; Z87.01 Personal history of pneumonia (recurrent); F17.210 Nicotine dependence, cigarettes, uncomplicated; Z90.49 Acquired absence of other specified parts of digestive tract; Z92.21 Personal history of antineoplastic chemotherapy; F41.9 Anxiety disorder, unspecified; R40.2412 Glasgow coma scale score 13-15, at arrival to emergency department; G47.30 Sleep apnea, unspecified

== ENCOUNTER 2017-04-09 07:57 | Inpatient (IN) | payer BC, MEDICARE ==
--- NOTE | 2017-04-09 09:36 | ED PDOC ---
Arrival/HPI - General Time Seen by Provider: 04/09/17 09:20 Historian: Patient - History of Present Illness Narrative History of Present Illness (Text): 04/09/17 08:10 Miles Neal is a 66 year old male, whose past medical history includes perianal abscess, presents to the Emergency department complaining of four day duration rectal pain. Patient reports taking antibiotics for his symptoms and has improved since. Patient denies any fevers, chills, nausea, vomiting, abdominal pain or any other complaints at this time. Time/Duration: < week (4 days) Symptom Onset: Sudden Symptom Course: Improving Modifying Factors (Text): None Context: Home Associated Symptoms (Text): None Past Medical History - Provider Review Nursing Documentation Reviewed: Yes - Cardiac Hx Pacemaker: No - Pulmonary Hx Asthma: Yes Hx Chronic Obstructive Pulmonary Disease (COPD): Yes Hx Emphysema: Yes Hx Pneumonia: Yes (03/2014, 03/2016) Hx Sleep Apnea: Yes Other/Comment: c-pap at night, uses portable and home o2 and nubulizer machine at home - Neurological Hx Paralysis: No - Hematological/Oncological Hx Blood Transfusions: No Hx Blood Transfusion Reaction: No - Integumentary Hx Dermatological Disorder: Yes Other/Comment: multiple skin discolorations b/l hands and arms - Musculoskeletal/Rheumatological Hx Musculoskeletal Disorders: No - Genitourinary/Gynecological Other/Comment: colon ca - Psychiatric Hx Emotional Abuse: No Hx Physical Abuse: No Hx Substance Use: No - Surgical History Other/Comment: umbilical hernia sx, colon resection 2013, vascular acces device r pac 09/2014 rermoved 2 2015, i and d perianal abcess, colonoscopy 2013 and 2014 - Anesthesia Hx Anesthesia Reactions: No Hx Malignant Hyperthermia: No - Suicidal Assessment Feels Threatened In Home Enviroment: No Family/Social History - Physician Review Nursing Documentation Reviewed: Yes Family/Social History: Unknown Family HX Smoking Status: Former Smoker Hx Alcohol Use: Yes (4/5 beers) Hx Substance Use: No Allergies/Home Meds Allergies/Adverse Reactions: Allergies No Known Allergies Allergy (Verified 04/09/17 12:46) Home Medications: Home Meds Medication Instructions Recorded Confirmed Arformoterol Tartrate [Brovana] 1 inh INH BID 12/23/14 01/06/17 Budesonide [Pulmicort Respules] 0.25 mg NEB BID PRN 04/27/15 01/06/17 Aspirin [Aspirin EC] 81 mg PO DAILY 10/23/15 01/06/17 Cholecalciferol (Vitamin D3) 1 tab PO DAILY 10/23/15 01/06/17 [Vitamin D3] Albuterol HFA [Ventolin HFA 90 0.09 mg IH PRN PRN 04/12/16 01/06/17 mcg/actuation (8 g)] Prednisone 4 mg PO DAILY 04/12/16 01/06/17 Tiotropium [place] Inhaler 1 inhaler INH DAILY 04/12/16 01/06/17 [Spiriva Inhalation Handihaler Device] Albuterol Sulfate [Proair Hfa] 2 puff IH PRN PRN 01/06/17 01/06/17 Review of Systems - Physician Review All systems were reviewed & negative as marked: Yes - Review of Systems Constitutional: absent: Fevers Respiratory: absent: SOB Genitourinary Male: Other (rectal pain). absent: Frequency, Hematuria Physical Exam Vital Signs Reviewed: Yes Vital Signs Pulse Resp BP Pulse Ox 04/09/17 13:14 89 20 120/60 96 Temperature: Afebrile Blood Pressure: Normal Pulse: Regular Respiratory Rate: Normal Appearance: Positive for: Well-Appearing, Non-Toxic, Comfortable Pain Distress: None Mental Status: Positive for: Alert and Oriented X 3 - Systems Exam Head: Present: Atraumatic, Normocephalic Pupils: Present: PERRL Extroacular Muscles: Present: EOMI Conjunctiva: Present: Normal Mouth: Present: Moist Mucous Membranes Neck: Present: Normal Range of Motion Respiratory/Chest: Present: Clear to Auscultation, Good Air Exchange. No: Respiratory Distress, Accessory Muscle Use Cardiovascular: Present: Regular Rate and Rhythm, Normal S1, S2. No: Murmurs Abdomen: Present: Normal Bowel Sounds. No: Tenderness, Distention, Peritoneal Signs Rectal: Present: Other (open wound in anus and erythematous perianal abscess) Back: Present: Normal Inspection Upper Extremity: Present: Normal Inspection. No: Cyanosis, Edema Lower Extremity: Present: Normal Inspection. No: Edema Neurological: Present: GCS=15, CN II-XII Intact, Speech Normal Skin: Present: Warm, Dry, Normal Color. No: Rashes Psychiatric: Present: Alert, Oriented x 3, Normal Insight, Normal Concentration Medical Decision Making ED Course and Treatment: 04/09/17 08:10 Impression: 66 year old male with rectal pain. Plan: -- Labs -- Consultations -- Reassess and disposition Progress Notes: 04/09/2017 08:20 Case was diagnosed with Dr. Gallegos, who is aware of the plan and requested blood work. Patient will follow up for re-evaluation with Dr. Gallegos. 04/09/17 11:15 CT Abdomen and Pelvis: Creator : Alfa Solis MD FINDINGS: LOWER THORAX: Unremarkable. LIVER: Unremarkable. No gross lesion or ductal dilatation. Small cysts. GALLBLADDER AND BILE DUCTS: Unremarkable. PANCREAS: Unremarkable. No gross lesion or ductal dilatation. SPLEEN: Unremarkable. ADRENALS: Unremarkable. No mass. KIDNEYS AND URETERS: Unremarkable. No hydronephrosis. No solid mass. VASCULATURE: Unremarkable. No aortic aneurysm. BOWEL:There are 2 separate left perirectal fluid collections consistent with abscess. The lower most collection measures 28 mm wide by 52 mm AP by 62 mm in height. The more superiorly located collection measures 29 mm with by 41 mm AP and 40 mm in height. These collections most likely communicate. There is some displacement of the rectum to the right. These are seen above the level of the levator muscles. Findings best seen on coronal image 104 and axial images 149 through 163 APPENDIX: Unremarkable. Normal appendix. PERITONEUM: Unremarkable. No free fluid. No free air. There is some thinning and bulging of the anterior abdominal wall without a discrete defect LYMPH NODES: Unremarkable. No enlarged lymph nodes. BLADDER: Unremarkable. REPRODUCTIVE: Unremarkable. BONES: No acute fracture. OTHER FINDINGS:None. IMPRESSION: Left-sided perirectal abscess collections. See comments 04/09/17 12:33 Reevaluation: Case discussed with Dr. El MD who is aware of the plan and be admitting patient for antibiotics and consult will be placed. Request for [facility] consult. Case discussed with Dr. Bertrand who will take patient on her service. - Lab Interpretations Lab Results: 04/09/17 10:00 04/09/17 10:00 Lab Results 04/09/17 10:00: PT 11.8, INR 1.09 H, APTT 32.9 H 04/09/17 10:00: Sodium 134, Potassium 3.9, Chloride 97 L, Carbon Dioxide 28, Anion Gap 13, BUN 10, Creatinine 0.6, Est GFR ( Amer) > 60, Est GFR (Non- Af Amer) > 60, Random Glucose 95, Calcium 9.2, Magnesium 1.9, Total Bilirubin 0.9, AST 22, ALT 31, Alkaline Phosphatase 66, Total Protein 7.1, Albumin 3.8, Globulin 3.3, Albumin/Globulin Ratio 1.2 04/09/17 10:00: WBC 17.4 H D, RBC 4.43, Hgb 14.6, Hct 43.2, MCV 97.5, MCH 33.0, MCHC 33.8, RDW 14.7 H, Plt Count 108 L, MPV 10.7, Gran % 89.9 H, Lymph % (Auto) 4.7 L, [place] % (Auto) 5.2, Eos % (Auto) 0.1 L, Baso % (Auto) 0.1, Gran # 15.63 H , Lymph # 0.8 L, [place] # 0.9 H, Eos # 0.0, Baso # 0.01 WBC elevated at 17 I have reviewed the lab results: Yes - RAD Interpretation Radiology Orders: 04/09/17 09:56 ABD & PELVIS W/O PO OR IV CONT [CT] Stat Supervisor Cell Efficiency: Radiologist - Medication Orders Current Medication Orders: Albuterol/Ipratropium (Duoneb 3 Mg/0.5 Mg (3 Ml) Ud) 3 ml IH [id number] [facility] Last Admin: 04/09/17 15:14 Dose: 3 ml Albuterol/Ipratropium (Duoneb 3 Mg/0.5 Mg (3 Ml) Ud) 3 ml IH Q2H PRN PRN Reason: Shortness of Breath Budesonide (Pulmicort Respules) 0.5 mg IH [id number] [facility]EL[facility] Ciprofloxacin (Cipro 400mg/200ml Dsw) 400 mg in 200 mls @ 133.3 mls/hr IVPB Q12 [facility]ELA PRN Reason: Protocol Stop: 04/10/17 11:31 Metronidazole (Flagyl) 500 mg in 100 mls @ 100 mls/hr IVPB Q8 [facility]ELA PRN Reason: Protocol Folic Acid 1 mg/ Thiamine HCl 100 mg/ Multivitamins/Vitamin C 10 ml/ Dextrose 1 ,011.2 mls @ 150 mls/hr IV .[id number] [facility] Lorazepam (Ativan) 1 mg IVP Q6H PRN; Protocol PRN Reason: Symptoms of alcohol withdrawl Methylprednisolone (Solu-Medrol) 20 mg IVP Q12 [facility] Last Admin: 04/09/17 15:19 Dose: 20 mg Discontinued Medications Ciprofloxacin (Cipro 400mg/200ml Dsw) 400 mg in 200 mls @ 133.3 mls/hr IVPB STAT STA PRN Reason: Protocol Stop: 04/09/17 13:04 Last Admin: 04/09/17 15:56 Dose: 133.3 mls/hr Metronidazole (Flagyl) 500 mg in 100 mls @ 100 mls/hr IVPB STAT STA PRN Reason: Protocol Stop: 04/09/17 12:33 Last Admin: 04/09/17 13:20 Dose: 100 mls/hr - Scribe Statement The provider has reviewed the documentation as recorded by the Scribe 04/09/2017 Nathaly Loyd Provider Scribe Attestation: All medical record entries made by the Scribe were at my direction and personally dictated by me. I have reviewed the chart and agree that the record accurately reflects my personal performance of the history, physical exam, medical decision making, and the department course for this patient. I have also personally directed, reviewed, and agree with the discharge instructions and disposition. Disposition/Present on Arrival - Present on Arrival Any Indicators Present on Arrival: No History of DVT/PE: No History of Uncontrolled Diabetes: No Urinary Catheter: No History Surgical Site Infection Following: None - Disposition Have Diagnosis and Disposition been Completed?: Yes Diagnosis: Rectal abscess Disposition: HOSPITALIZED Disposition Time: 11:36 Patient Plan: Admission Condition: FAIR
[2017-04-09 10:13] LABS: BASO # 0.01 K/mm3 (0.0-2.0); BASO % 0.1 % (0.0-3.0); EOS % 0.1 % (1.5-5.0); GRAN # 15.63 (1.4-6.5); GRAN % 89.9 % (50.0-68.0); HEMOGLOBIN 14.6 gm/dL (14.0-18.0); LYMPH # 0.8 (1.2-3.4); LYMPH % 4.7 % (22.0-35.0); MEAN CELL VOLUME 97.5 fL (80.0-105.0); MEAN CORPUSCULAR HGB CONC 33.8 g/dl (31.0-37.0); MEAN PLATELET VOLUME 10.7 fl (7.0-11.0); MONO # 0.9 (0.1-0.6); MONO % 5.2 % (1.0-6.0); PLATELET COUNT 108 10^3/uL (120.0-450.0); RBC 4.43 10^6/uL (3.5-6.1); RED CELL DISTRIBUTION WIDTH 14.7 % (11.5-14.5); WHITE BLOOD COUNT 17.4 10^3/ul (4.5-11.0)
[2017-04-09 10:22] LABS: ALB/GLOB RATIO 1.2 (1.1-1.8); ALBUMIN 3.8 g/dL (3.0-4.8); ALT/SGPT 31 U/L (7-56); AST/SGOT 22 U/L (15-59); BLOOD UREA NITROGEN 10 mg/dL (7-21); CALCIUM 9.2 mg/dL (8.4-10.5); GFR AFRICAN-AMERICAN > 60; GFR NON-AFRICAN AMERICAN > 60; MAGNESIUM 1.9 mg/dL (1.7-2.2)
[2017-04-09 10:23] LABS: INR 1.09 (0.93-1.08); PARTIAL THROMBOPLASTIN TIME 32.9 Seconds (23.7-30.8); PROTHROMBIN TIME 11.8 Seconds (9.9-11.8)
--- NOTE | 2017-04-09 11:10 | CT ---
PROCEDURE: CT Abdomen and Pelvis without intravenous contrast HISTORY: rectal pain r/o perirectal abscess COMPARISON: None. TECHNIQUE: Without contrast.. Contrast Dose: Radiation dose: Total exam DLP = 1137 mGy-cm. This CT exam was performed using one or more of the following dose reduction techniques: Automated exposure control, adjustment of the mA and/or kV according to patient size, and/or use of iterative reconstruction technique. FINDINGS: LOWER THORAX: Unremarkable. LIVER: Unremarkable. No gross lesion or ductal dilatation. Small cysts. GALLBLADDER AND BILE DUCTS: Unremarkable. PANCREAS: Unremarkable. No gross lesion or ductal dilatation. SPLEEN: Unremarkable. ADRENALS: Unremarkable. No mass. KIDNEYS AND URETERS: Unremarkable. No hydronephrosis. No solid mass. VASCULATURE: Unremarkable. No aortic aneurysm. BOWEL: There are 2 separate left perirectal fluid collections consistent with abscess. The lower most collection measures 28 mm wide by 52 mm AP by 62 mm in height. The more superiorly located collection measures 29 mm with by 41 mm AP and 40 mm in height. These collections most likely communicate. There is some displacement of the rectum to the right. These are seen above the level of the levator muscles. Findings best seen on coronal image 104 and axial images 149 through 163 APPENDIX: Unremarkable. Normal appendix. PERITONEUM: Unremarkable. No free fluid. No free air. There is some thinning and bulging of the anterior abdominal wall without a discrete defect LYMPH NODES: Unremarkable. No enlarged lymph nodes. BLADDER: Unremarkable. REPRODUCTIVE: Unremarkable. BONES: No acute fracture. OTHER FINDINGS: None. IMPRESSION: Left-sided perirectal abscess collections. See comments
[2017-04-09] MEDS ORDERED: metroNIDAZOLE IV 500 mg/100 ml 500 MG/100 ML BAG IVPB STA (11:34)
[2017-04-09] MEDS ORDERED: Ciprofloxacin 400mg/200ml D5W 400 MG/200 ML BAG IVPB STA (11:34)
--- NOTE | 2017-04-09 11:36 | CP.PCM.PCO ---
Physician Communication Note - Physician Communication Note Physician Communication Note: + Abscess(CT)/WBC 17K-Needs OR I & D
--- NOTE | 2017-04-09 11:41 | CP.PCM.HP ---
History of Present Illness - History of Present Illness History of Present Illness: H&P for Dr. Gallegos CC: Perianal abscess Miles Neal 66M, PMHx includes bowel resection in 2013 for colon cancer and perianal abscesses in 2013 and December 2016, presents to the ED complaining of consistent sharp rectal pain starting on Friday which gets better when not laying on that side. Takes advil with minimal relief. Patient reports taking old antibiotics Cipro & Flagyl for his symptoms and has improved since. denies any drainage at this time. Patient denies any fevers, chills, nausea, vomiting, abdominal pain or any other complaints at this time. PMH: COPD, ColonCa, perianal abscess PSH: Colectomy, I&D of Tiffany-anal Abscess All: NKDA SocialHx: smokes 1PPD, 80+ pack years tobacco, 40+ years 10 beers per day Review of Systems - Review of Systems All systems: reviewed and no additional remarkable complaints except Past Patient History - Past Social History Smoking Status: Heavy Smoker > 10 Cigarettes Daily Alcohol: > 2 Drinks/Day - CARDIAC Hx Pacemaker: No - PULMONARY Hx Asthma: Yes Hx Chronic Obstructive Pulmonary Disease (COPD): Yes Hx Emphysema: Yes Hx Pneumonia: Yes (03/2014, 03/2016) Hx Sleep Apnea: Yes Other/Comment: c-pap at night, uses portable and home o2 and nubulizer machine at home - NEUROLOGICAL Hx Paralysis: No - HEMATOLOGICAL/ONCOLOGICAL Hx Blood Transfusions: No Hx Blood Transfusion Reaction: No - INTEGUMENTARY Hx Dermatological Problems: Yes Other/Comment: multiple skin discolorations b/l hands and arms - MUSCULOSKELETAL/RHEUMATOLOGICAL Hx Musculoskeletal Disorders: No - GENITOURINARY/GYNECOLOGICAL Other/Comment: colon ca - PSYCHIATRIC Hx Emotional Abuse: No Hx Physical Abuse: No Hx Substance Use: No - SURGICAL HISTORY Other/Comment: umbilical hernia sx, colon resection 2013, vascular acces device r pac 09/2014 rermoved 2 2015, i and d perianal abcess, colonoscopy 2013 and 2014 - ANESTHESIA Hx Anesthesia Reactions: No Hx Malignant Hyperthermia: No Meds Allergies/Adverse Reactions: Allergies Allergy/AdvReac Type Severity Reaction Status Date / Time No Known Allergies Allergy Verified 01/06/17 07:12 Physical Exam - Constitutional Appears: No Acute Distress, Older Than Stated Age - Head Exam Head Exam: ATRAUMATIC - Eye Exam Eye Exam: EOMI - Respiratory Exam Respiratory Exam: Prolonged Expiratory Phase, Wheezes, NORMAL BREATHING PATTERN. absent: Accessory Muscle Use - Cardiovascular Exam Cardiovascular Exam: RRR, +S1, +S2 - GI/Abdominal Exam GI & Abdominal Exam: Hernia, Normal Bowel Sounds Additional comments: Ventral Hernia - Rectal Exam Additional comments: abscess and incision superior portion of the right anus Results - Labs Result Diagrams: 04/09/17 10:00 04/09/17 10:00 Labs: Laboratory Results - last 24 hr 04/09/17 04/09/17 04/09/17 10:00 10:00 10:00 WBC 17.4 H D RBC 4.43 Hgb 14.6 Hct 43.2 MCV 97.5 MCH 33.0 MCHC 33.8 RDW 14.7 H Plt Count 108 L MPV 10.7 Gran % 89.9 H Lymph % (Auto) 4.7 L Desha % (Auto) 5.2 Eos % (Auto) 0.1 L Baso % (Auto) 0.1 Gran # 15.63 H Lymph # 0.8 L Desha # 0.9 H Eos # 0.0 Baso # 0.01 PT 11.8 INR 1.09 H APTT 32.9 H Sodium 134 Potassium 3.9 Chloride 97 L Carbon Dioxide 28 Anion Gap 13 BUN 10 Creatinine 0.6 Est GFR ( Amer) > 60 Est GFR (Non-Af Amer) > 60 Random Glucose 95 Calcium 9.2 Magnesium 1.9 Total Bilirubin 0.9 AST 22 ALT 31 Alkaline Phosphatase 66 Total Protein 7.1 Albumin 3.8 Globulin 3.3 Albumin/Globulin Ratio 1.2 Assessment & Plan - Assessment and Plan (Free Text) Assessment: 66M recurrent perianal abscess Plan: - admit to hosptial
--- NOTE | 2017-04-09 12:40 | CP.PCM.CON ---
History of Present Illness - History of Present Illness History of Present Illness: Consult General Surgery- Dr. Gallegos CC: Perianal abscess Miles Neal 66M, PMHx includes bowel resection in 2013 for colon cancer and perianal abscesses in 2013 and December 2016, presents to the ED complaining of consistent sharp rectal pain starting on Friday which gets better when not laying on that side. Takes advil with minimal relief. Patient reports taking old antibiotics Cipro & Flagyl for his symptoms and has improved since. denies any drainage at this time. Patient denies any fevers, chills, nausea, vomiting, abdominal pain or any other complaints at this time. PMH: COPD, ColonCa, perianal abscess PSH: Colectomy, I&D of Tiffany-anal Abscess All: NKDA SocialHx: smokes 1PPD, 80+ pack years tobacco, 40+ years 10 beers per day Review of Systems - Review of Systems All systems: reviewed and no additional remarkable complaints except Past Patient History - Past Social History Smoking Status: Heavy Smoker > 10 Cigarettes Daily - CARDIAC Hx Pacemaker: No - PULMONARY Hx Asthma: Yes Hx Chronic Obstructive Pulmonary Disease (COPD): Yes Hx Emphysema: Yes Hx Pneumonia: Yes (03/2014, 03/2016) Hx Sleep Apnea: Yes Other/Comment: c-pap at night, uses portable and home o2 and nubulizer machine at home - NEUROLOGICAL Hx Paralysis: No - HEMATOLOGICAL/ONCOLOGICAL Hx Blood Transfusions: No Hx Blood Transfusion Reaction: No - INTEGUMENTARY Hx Dermatological Problems: Yes Other/Comment: multiple skin discolorations b/l hands and arms - MUSCULOSKELETAL/RHEUMATOLOGICAL Hx Musculoskeletal Disorders: No - GENITOURINARY/GYNECOLOGICAL Other/Comment: colon ca - PSYCHIATRIC Hx Emotional Abuse: No Hx Physical Abuse: No Hx Substance Use: No - SURGICAL HISTORY Other/Comment: umbilical hernia sx, colon resection 2013, vascular acces device r pac 09/2014 rermoved 2 2016, i and d perianal abcess, colonoscopy 2013 and 2014 - ANESTHESIA Hx Anesthesia Reactions: No Hx Malignant Hyperthermia: No Meds Allergies/Adverse Reactions: Allergies Allergy/AdvReac Type Severity Reaction Status Date / Time No Known Allergies Allergy Verified 04/09/17 12:46 - Medications Medications: Current Medications Albuterol/Ipratropium (Duoneb 3 Mg/0.5 Mg (3 Ml) Ud) 3 ml IH [id number] MARIELA Albuterol/Ipratropium (Duoneb 3 Mg/0.5 Mg (3 Ml) Ud) 3 ml IH Q2H PRN PRN Reason: Shortness of Breath Budesonide (Pulmicort Respules) 0.5 mg IH [id number] MARIELA Ciprofloxacin (Cipro 400mg/200ml Dsw) 400 mg in 200 mls @ 133.3 mls/hr IVPB STAT STA PRN Reason: Protocol Stop: 04/09/17 13:04 Methylprednisolone (Solu-Medrol) 20 mg IVP Q12 MARIELA Physical Exam - Constitutional Appears: No Acute Distress, Older Than Stated Age - Eye Exam Eye Exam: EOMI - ENT Exam ENT Exam: Mucous Membranes Moist - Respiratory Exam Respiratory Exam: Decreased Breath Sounds, Wheezes. absent: Accessory Muscle Use - Cardiovascular Exam Cardiovascular Exam: REGULAR RHYTHM, +S1, +S2 Results - Labs Result Diagrams: 04/09/17 10:00 04/09/17 10:00 Assessment & Plan - Assessment and Plan (Free Text) Assessment: 66M recurrent perianal abscess Plan: - IVF & abx - NPO past midnight - Pain control - DVT ppx - OR tomorrow for I&D - further Recs per Dr. El Hahn PGY1 - Date & Time Date: 04/09/17 Time: 10:00
[2017-04-09] MEDS: Albuterol-Ipratrop 3 mg / 0.5 (3 ml) UD IH SCH ×2 (15:14→19:12)
[2017-04-09] MEDS: MethylPREDNISolone 40 mg Vial IVP SCH ×2 (15:19→22:26)
[2017-04-09] MEDS ORDERED: Folic Acid 1 MG, Thiamine 100 MG, Multivitamin (MVI) 10 ML in Dextrose 5% In Water 1,00... IV SCH (16:00)
--- NOTE | 2017-04-09 16:30 | CON ---
REASON FOR CONSULTATION: Chronic obstructive pulmonary disease. REFERRING PHYSICIAN: Dr. Eric Gallegos. HISTORY OF PRESENT ILLNESS: History was obtained via extensive discussion with the patient and . I have also discussed the case with Dr. Eric Gallegos at length. I have also reviewed the chart at length. PAST MEDICAL HISTORY: The patient is a 66-year-old male with past medical history significant for advanced chronic obstructive pulmonary disease, on home oxygen, colon cancer (2013), recurrent perianal abscesses, who presents to [facility] with worsening rectal pain over the past few days. The patient was seen by Dr. Gallegos in the emergency room. Dr. Gallegos does recommend surgery at this point in time. I was thus asked to evaluate this patient prior to surgery. Again, I did discuss the case with the patient and at length. The patient is not short of breath at rest. The patient does suffer from chronic dyspnea on exertion. The patient also has a chronic cough with minimal sputum production--not changed recently. He has no history of chest pain, coughing up of blood, or chest pain--made worse with deep respirations. There is no history of temperature, chills, or infectious exposure. There is no history of night sweats, weight loss or appetite change prior to the above events. No history of leg or calf pains. No history of syncope or diaphoresis. No history of recent travel or trauma. REVIEW OF SYSTEMS: No history of nausea, vomiting, or diarrhea. No acute urinary symptoms. No new neurological or musculoskeletal complaints. Rest of the review of systems is negative. ALLERGIES: No known allergies. SOCIAL HISTORY: Positive for extensive tobacco usage. No alcohol. FAMILY HISTORY: No inheritable diseases. HOME MEDICATIONS: Include oxycodone, Spiriva, prednisone, Flagyl, ciprofloxacin, Pulmicort, Brovana, ProAir, and albuterol HFA. PHYSICAL EXAMINATION GENERAL: The patient appears comfortable at the present time. He is not short of breath at rest. VITALS: Temperature is 98.0, pulse 89, respirations 18. Blood pressure is 102/ 60.. Oxygen saturation on nasal cannula is 98%. HEENT: Normocephalic, atraumatic. No JVD. CARDIOVASCULAR: Systolic ejection murmur at the lower left sternal border. No S3 gallop. LUNGS: Decreased breath sounds at the bases. No rhonchi. No wheezing. EXTREMITIES: No clubbing, cyanosis, or edema. Calves are nontender to palpation. GASTROINTESTINAL: Abdomen is soft, nontender, nondistended. Bowel sounds are positive. SKIN: No acute rash. NEUROLOGIC: Limited at the present time. PERTINENT LABORATORY DATA: CAT scan of the abdomen and pelvis was done earlier today. There is a left-sided perirectal abscess collection noted. The lower thorax is unremarkable. CBC: White count 17.4, hemoglobin 14.6, hematocrit 43.2, platelets of 108,000. Complete metabolic profile: Chloride 97. Rest of the metabolic profiles are within normal limits. IMPRESSION: 1. Perirectal abscess. 2. Leukocytosis. 3. Advanced chronic obstructive pulmonary disease. 4. Hypertension. PLAN: Again, I did discuss the case with the patient, , and Dr. Gallegos at length. The patient presents to [facility] with a 2-day history of worsening rectal pain. CAT scan of the abdomen and pelvis was done--which showed a left perirectal abscess. The patient was thus admitted for additional evaluation and surgery. On extensive questioning, the patient offers no new pulmonary symptoms. There is no significant bronchospasm on physical exam. In addition, there is no significant alveolar/arterial gradient. The patient is currently on daily Medrol. I will start nebulizer treatments and low-dose intravenous steroids for now. I also recommended to Dr. Gallegos that the patient get stress doses of steroids before and after surgery. He agrees. Additional pulmonary intervention will be based on the clinical status of the patient. I also discussed the above with Dr. Bertrand. Thank you very much for this pulmonary consultation. Tulio Hart MD MTDKecia
[2017-04-09 18:54] VITALS: BMI 30.5
[2017-04-09] MEDS ORDERED: Pneumococcal 23-Valent Vaccine IM ONE (18:54)
[2017-04-09] MEDS: Budesonide 0.5 mg/2 ml Inhal Susp UD IH SCH (19:12)
[2017-04-09] MEDS: metroNIDAZOLE IV 500 mg/100 ml 500 MG/100 ML BAG IVPB SCH (22:25)
[2017-04-09] MEDS: Albuterol-Ipratrop 3 mg / 0.5 (3 ml) UD IH PRN (23:01)
[2017-04-10] MEDS: Albuterol-Ipratrop 3 mg / 0.5 (3 ml) UD IH SCH ×4 (01:03→20:58)
--- NOTE | 2017-04-10 02:48 | HP ---
HISTORY OF PRESENT ILLNESS: The patient is 66 years old, known to me from multiple previous admissions. The patient states since yesterday he was having some perirectal discomfort. He thought it was going to get better. The patient stated that he had some old medicine leftover Cipro and Flagyl that he started to take with some improvement, but then persisted, so he came to emergency room for further evaluation. PAST MEDICAL HISTORY: 1. The patient has a significant past medical history of COPD. 2. History of CA colon status post partial colectomy in 2013. 3. History of perianal abscess in 2013 and 2016. 4. COPD. 5. Hypertension. 6. Hyperlipidemia. ALLERGIES: He is not allergic to any medication. MEDICATION AT HOME: The patient is on oxycodone, Spiriva, prednisone, Flagyl 500 t.i.d., Cipro 500 twice a day, vitamin D, Pulmicort, aspirin, and Brovana. SOCIAL HISTORY: He is , lives with his . Actively smokes and is smoking for 45 years. He does drink 4 or 5 beers daily. REVIEW OF SYSTEMS: Significant for perianal discomfort. PHYSICAL EXAMINATION GENERAL: He is awake, alert and oriented, mild shortness of breath VITAL SIGNS: She is afebrile, pulse 89, respirations 20, blood pressure 120/60. LUNGS: Bilateral decreased breath sounds. HEART: S1 and S2 audible. ABDOMEN: Soft, obese, nontender. No rebound, no guarding. NEUROLOGIC: The patient is awake and alert. RECTAL: Has perianal abscess. EXTREMITIES: Bilateral leg, no edema. LABORATORY DATA: WBC 17.4, hemoglobin 14.3, hematocrit 43, platelets 108. PT 11.8, INR 1.09. Chemistry: Sodium 134, potassium 3.9, chloride 97, CO2 of 28, BUN 10, creatinine 0.6, blood sugar of 95. Had CT scan of the abdomen and pelvis done that shows left-sided perirectal abscess. ASSESSMENT: 1. Left perirectal abscess. 2. History of cancer colon status post partial colectomy. 3. Chronic obstructive pulmonary disease. 4. Morbid obesity. PLAN: Start the patient on nebulizer treatment. Currently, he is on IV fluid and he is on Flagyl and Cipro, he will continue that, and Dr. Malagon has arranged for I and D tomorrow. Juan Bertrand MD [facility] # [id number]
[2017-04-10] MEDS ORDERED: Sodium Chloride 0.9% 100 ML IV SCH (04:00)
[2017-04-10] MEDS: Ciprofloxacin 400mg/200ml D5W 400 MG/200 ML BAG IVPB SCH ×2 (05:09→15:06)
[2017-04-10] MEDS: Sodium Chloride 0.9% 100 ML IV SCH ×2 (05:10→18:25)
[2017-04-10] MEDS: Budesonide 0.5 mg/2 ml Inhal Susp UD IH SCH (07:15)
[2017-04-10 07:28] LABS: HEMOGLOBIN 14.1 gm/dL (14.0-18.0); MEAN CORPUSCULAR HEMOGLOBIN 32.5 pg (25.0-35.0); MEAN CORPUSCULAR HGB CONC 33.5 g/dl (31.0-37.0); MEAN PLATELET VOLUME 11.1 fl (7.0-11.0); RBC 4.34 10^6/uL (3.5-6.1); RED CELL DISTRIBUTION WIDTH 14.3 % (11.5-14.5); WHITE BLOOD COUNT 14.5 10^3/ul (4.5-11.0)
[2017-04-10 07:45] LABS: BLOOD UREA NITROGEN 12 mg/dL (7-21); GFR AFRICAN-AMERICAN > 60; GFR NON-AFRICAN AMERICAN > 60
--- NOTE | 2017-04-10 08:17 | PN ---
DATE: 04/10/2017 SUBJECTIVE: The patient appears very comfortable at rest. He is not short of breath. PHYSICAL EXAMINATION VITALS: Temperature is 98.0, pulse 84, respirations 18, Blood pressure 115/72. Oxygen saturation on nasal cannula is 98%. HEENT: Normocephalic and atraumatic. NECK: No JVD. CARDIOVASCULAR: Systolic ejection murmur at the lower left sternal border. No S3 gallop. LUNGS: Decreased breath sounds at the bases. No rhonchi. No wheezing. EXTREMITIES: No clubbing, cyanosis, or edema. Calves are nontender to palpation. GI: Abdomen is soft, nontender, nondistended. Bowel sounds are positive. SKIN: No acute rash. NEUROLOGIC: Limited at the present time. IMPRESSION: 1. Perirectal abscess. 2. Leukocytosis. 3. Advanced chronic obstructive pulmonary disease. 4. Hypertension. PLAN: The patient appears very comfortable this morning. He is not short of breath at rest. Oxygen saturation on nasal canula is 98%. On physical exam, no significant bronchospasm is noted. I will continue with the current nebulizer treatments and low dose intravenous steroids for now. In addition, the patient did receive a stress dose of steroids at approximately 5:00 a.m. - discussed with nurse. The patient will also receive a stress dose of steroids later this afternoon - after surgery. The patient is for rectal surgery later today. I will discuss the above with Dr. Gallegos this morning. Tulio Hart MD MTDD
[2017-04-10] MEDS ORDERED: Succinylcholine 200 mg/10 ml Inj IV ONE (10:07)
[2017-04-10] MEDS ORDERED: Midazolam 2 MG/2 ML VIAL ONE (10:07)
[2017-04-10] MEDS ORDERED: Etomidate 20 mg/10ml Inj IV ONE (10:07)
[2017-04-10] MEDS ORDERED: Lidocaine 1% Inj (20ml) ONE ×2 (10:07→10:48)
[2017-04-10] MEDS ORDERED: Rocuronium 10 mg/ml (5 ml) ONE (10:08)
[2017-04-10] MEDS ORDERED: Bupivacaine 0.5% Inj(30mL) ONE (10:09)
[2017-04-10] MEDS ORDERED: Albuterol HFA 90 mcg/actuation (8 g) ONE (10:20)
[2017-04-10] MEDS ORDERED: Ciprofloxacin 400mg/200ml D5W IVPB ONE (10:25)
[2017-04-10] MEDS ORDERED: MethylPREDNISolone 40 mg Vial ONE (10:30)
[2017-04-10] MEDS ORDERED: Neostigmine Methylsulfate 3mg/3ml Syringe IV ONE ×2 (10:44→11:03)
[2017-04-10] MEDS ORDERED: HYDROmorphone 0.5 mg/0.5 ml ISec IVP PRN ×2 (11:18→11:19)
--- NOTE | 2017-04-10 11:26 | PCM.SURG1 ---
Surgeon's Initial Post Op Note - Surgeon's Notes Surgeon: Dr. Gallegos Fine Craft Artist: PGY1, Eleanor OMS3 Pre-Operative Diagnosis: Perianal abscess Operative Findings: Abscess at 3o'clock position. drained 20cc of pus Post-Operative Diagnosis: same Operation Performed: Incision and drainage of perianal abscess Specimen/Specimens Removed: culture Estimated Blood Loss: EBL {In ML}: 15 Drains Used: No Drains Post-Op Condition: Good Date of Surgery/Procedure: 04/10/17 Time of Surgery/Procedure: 10:40
[2017-04-10] MEDS ORDERED: Sodium Chloride 0.9% 1,000 ML IV SCH (11:30)
[2017-04-10] MEDS ORDERED: cefTRIAXone 1 gm 100 ML IVPB SCH (12:45)
--- NOTE | 2017-04-10 13:24 | PN ---
HISTORY OF PRESENT ILLNESS: The patient is [id number] seen and examined in recovery room status post I and D of perirectal abscess, mild shortness of breath, complaint of some sore throat since he was intubated. PHYSICAL EXAMINATION VITAL SIGNS: He is afebrile, pulse 90, respirations 15, blood pressure 147/78. LUNGS: Bilateral fair airflow, decreased breath sounds. HEART: S1 and S2 audible. ABDOMEN: Soft, obese, nontender. No rebound, no guarding. NEUROLOGIC: He is awake and alert, arousable, answers simple questions. LABORATORY DATA: WBC is 14.5, hemoglobin 14, hematocrit 42, platelets 117. Chemistry: Sodium 136, potassium 4.2, chloride 97, CO2 of 30, BUN 12, creatinine 0.5, blood sugar of 121. ASSESSMENT: 1. Perirectal abscess, status post I and D tomorrow. 2. Chronic obstructive pulmonary disease. 3. As per surgical notes had 20 mL puss drained and sent for cultures. 4. History of cancer colon, status post partial colectomy. PLAN: Currently, the patient is on metronidazole. We will add Rocephin analgesics as noted. He has been started on stool softeners. Followup CBC, CMP in a.m. Juan Bertrand MD
[2017-04-10] MEDS: MethylPREDNISolone 40 mg Vial IVP SCH ×2 (15:09→21:12)
[2017-04-10] MEDS: metroNIDAZOLE IV 500 mg/100 ml 500 MG/100 ML BAG IVPB SCH ×2 (15:10→21:12)
[2017-04-10 18:20] VITALS: RESP 20
[2017-04-10] MEDS: POLYETHYLENE GLYCOL 3350 17 GM/Dose PACKET PO SCH (18:25)
--- NOTE | 2017-04-10 19:43 | CP.PCM.PCO ---
Physician Communication Note - Physician Communication Note Physician Communication Note: I will be away til 04/28:Antionette will cover
[2017-04-11] MEDS: Albuterol-Ipratrop 3 mg / 0.5 (3 ml) UD IH SCH ×4 (01:34→19:55)
[2017-04-11] MEDS: metroNIDAZOLE IV 500 mg/100 ml 500 MG/100 ML BAG IVPB SCH ×3 (05:12→22:04)
[2017-04-11 07:17] LABS: HEMOGLOBIN 12.8 gm/dL (14.0-18.0); MEAN CELL VOLUME 98.3 fL (80.0-105.0); MEAN CORPUSCULAR HGB CONC 32.6 g/dl (31.0-37.0); MEAN PLATELET VOLUME 10.4 fl (7.0-11.0); PLATELET COUNT 142 10^3/uL (120.0-450.0); RED CELL DISTRIBUTION WIDTH 14.6 % (11.5-14.5); WHITE BLOOD COUNT 15.4 10^3/ul (4.5-11.0)
[2017-04-11 08:04] LABS: BAND 1 % (0-2); LYMPHOCYTE 1 % (22.0-35.0); MONOCYTE 1 % (1.0-6.0); NEUTROPHIL 97 % (50.0-70.0); PLATELET ESTIMATE NORMAL (NORMAL)
--- NOTE | 2017-04-11 08:27 | PN ---
DATE: 04/11/2017 PULMONARY NOTE SUBJECTIVE: The patient appears comfortable this morning. He is not short of breath at rest. PHYSICAL EXAMINATION: VITALS: Temperature is 97.6, pulse 88, respirations 16-18, Blood pressure 125/77. Oxygen saturation on nasal cannula is 96%. HEENT: Normocephalic and atraumatic. NECK: No JVD. CARDIOVASCULAR: Systolic ejection murmur at the lower left sternal border. No S3 gallop. LUNGS: Decreased breath sounds at the bases. No rhonchi. No wheezing. EXTREMITIES: No clubbing, cyanosis, or edema. Calves are nontender to palpation. GASTROINTESTINAL: Abdomen is soft, nontender, nondistended. Bowel sounds are positive. SKIN: No acute rash. NEUROLOGIC: Limited at the present time. IMPRESSION: 1. Perirectal abscess--status post surgery. 2. Leukocytosis. 3. Advanced chronic obstructive pulmonary disease. 4. Hypertension. PLAN: The patient appears comfortable this morning. He is not short of breath at rest. He states he is feeling much better overall. I did discuss the case with the night nurse at length. The night nurse stated that the patient had a very good night. On physical exam, no significant bronchospasm is noted. In addition, there is no significant alveolar-arterial gradient. I will continue with the current nebulizer treatments and change analyst to oral steroids this morning. The patient did receive stress-dose steroids before and after surgery. I would continue with the surgical evaluation/treatment. Input by Dr. Gallegos is noted. Clinical status of this patient has certainly improved. He is advised to be out of bed as much as possible. I will discuss the above with the attending physician. Tulio Hart MD MTDD
--- NOTE | 2017-04-11 09:11 | CP.PCM.PN ---
Subjective - Date & Time of Evaluation Date of Evaluation: 04/11/17 Time of Evaluation: 09:06 - Subjective Subjective: General Surgery Dr. Gallegos Patient seen and examined this morning at bedside. No acute events overnight. Patient states that he is feeling well, currently has no complaints. Denies F/C , N/V, SOB or CP. Objective - Vital Signs/Intake and Output Vital Signs (last 24 hours): Temp Pulse Resp BP Pulse Ox 97.9 F 84 20 116/73 94 L 04/11/17 07:30 04/11/17 07:30 04/11/17 07:30 04/11/17 07:30 04/11/17 07:30 Intake and Output: 04/11/17 04/11/17 06:59 18:59 Intake Total 2840 Balance 2840 - Medications Medications: Current Medications Albuterol/Ipratropium (Duoneb 3 Mg/0.5 Mg (3 Ml) Ud) 3 ml IH [id number] [facility] Last Admin: 04/11/17 08:27 Dose: 3 ml Albuterol/Ipratropium (Duoneb 3 Mg/0.5 Mg (3 Ml) Ud) 3 ml IH Q2H PRN PRN Reason: Shortness of Breath Last Admin: 04/09/17 23:01 Dose: 3 ml Budesonide (Pulmicort Respules) 0.5 mg IH [id number] [facility] Last Admin: 04/10/17 07:15 Dose: 0.5 mg Docusate Sodium (Colace) 100 mg PO DAILY [facility] Last Admin: 04/10/17 15:07 Dose: Not Given Hydromorphone HCl (Dilaudid) 0.5 mg IVP Q4H PRN PRN Reason: Pain, moderate (4-7) Metronidazole (Flagyl) 500 mg in 100 mls @ 100 mls/hr IVPB Q8 MARIELA PRN Reason: Protocol Last Admin: 04/11/17 05:12 Dose: 100 mls/hr Sodium Chloride (Sodium Chloride 0.9%) 100 mls @ 75 mls/hr IV .Q1H20M [facility] Last Admin: 04/10/17 18:25 Dose: 75 mls/hr Ceftriaxone Sodium (Rocephin 1 Gram Ivpb) 1 gm in 100 mls @ 100 mls/hr IVPB DAILY MARIELA PRN Reason: Protocol Lorazepam (Ativan) 1 mg IVP Q6H PRN; Protocol PRN Reason: Symptoms of alcohol withdrawl Metoclopramide HCl (Reglan) 10 mg IV ONCE PRN PRN Reason: Nausea/Vomiting Ondansetron HCl (Zofran Inj) 4 mg IVP ONCE PRN PRN Reason: Nausea/Vomiting Polyethylene Glycol (Miralax) 17 gm PO BID [facility] Last Admin: 04/10/17 18:25 Dose: 17 gm Prednisone (Prednisone Tab) 20 mg PO DAILY [facility] Thiamine HCl (Vitamin B1 Tab) 100 mg PO DAILY [facility] Last Admin: 04/10/17 15:10 Dose: 100 mg - Labs Labs: 04/11/17 06:45 04/10/17 07:00 PT 11.8 Seconds (9.9-11.8) 04/09/17 10:00 INR 1.09 (0.93-1.08) H 04/09/17 10:00 APTT 32.9 Seconds (23.7-30.8) H 04/09/17 10:00 - Constitutional Appears: No Acute Distress - ENT Exam ENT Exam: Mucous Membranes Moist - Respiratory Exam Respiratory Exam: NORMAL BREATHING PATTERN. absent: Accessory Muscle Use, Respiratory Distress - Cardiovascular Exam Cardiovascular Exam: REGULAR RHYTHM - Rectal Exam Additional comments: Dressing C/D/I, incision healing appropriately - Neurological Exam Neurological Exam: Alert, Awake, Oriented x3 - Psychiatric Exam Psychiatric exam: Normal Affect, Normal Mood - Skin Skin Exam: Dry, Normal Color, Warm Assessment and Plan - Assessment and Plan (Free Text) Assessment: 66 yo M POD 1 for I&D of rectal abscess Plan: Daily dry dressing changes Clear for discharge Recommend PO steroids and abx on discharge Jose Sargent PGY 1
[2017-04-11] MEDS: POLYETHYLENE GLYCOL 3350 17 GM/Dose PACKET PO SCH ×2 (09:22→18:38)
[2017-04-11] MEDS: cefTRIAXone 1 gm 1 GM/100 ML BAG IVPB SCH (09:22)
--- NOTE | 2017-04-11 15:08 | PN ---
SUBJECTIVE: The patient is a 66-year-old, seen on examined, sitting in chair, seems to be comfortable. PHYSICAL EXAMINATION VITAL SIGNS: He is afebrile. Pulse 84, respirations 20, blood pressure 116/73. LUNGS: Bilateral fair airflow. No rhonchi or crackles. Still have mild shortness of breath. HEART: S1, S2, audible. ABDOMEN: Soft, obese, nontender. No rebound. No guarding. Had soft bowel movements. NEUROLOGIC: He is awake and alert. Communicative. GENITOURINARY: Perirectal area has been removed. LABORATORY DATA: WBC is 15.4, hemoglobin 12.8, hematocrit 39, platelets 142,000. Chemistry; sodium 136, potassium 4.2, chloride 97, CO2 is 30, BUN 12, creatinine 0.5, blood sugar 121. ASSESSMENT: 1. Perirectal sepsis status post incision and drainage. 2. Hypertension. 3. Morbid obesity. 4. History of carcinoma of colon status post partial colectomy. PLAN: Currently, the patient is on nebulizer treatment. We will continue lab. Continue him on stool softener. He is on Flagyl and Rocephin. He is eating and tolerating. I will discontinue his IV fluid, encourage ambulation, and we will reevaluate the patient in a.m. and discharge plan according to surgical team. Juan Bertrand MD
[2017-04-11] MEDS: Albuterol-Ipratrop 3 mg / 0.5 (3 ml) UD IH PRN (23:48)
[2017-04-12] MEDS: Albuterol-Ipratrop 3 mg / 0.5 (3 ml) UD IH SCH ×2 (01:18→07:23)
[2017-04-12] MEDS: metroNIDAZOLE IV 500 mg/100 ml 500 MG/100 ML BAG IVPB SCH ×2 (06:06→06:13)
[2017-04-12 08:19] VITALS: BP 127/81; PULSE 76; TEMP 97.8; O2SAT 96
--- NOTE | 2017-04-12 08:25 | CP.PCM.PN ---
Subjective - Date & Time of Evaluation Date of Evaluation: 04/12/17 Time of Evaluation: 08:21 - Subjective Subjective: General Surgery Progress Note Resident: Yash Attending: El HPI: Patient seen and examined at bedside. Doing well with no complaints at this time. No pain. Ready to go home. Denies N/V/CP/SOB Objective - Vital Signs/Intake and Output Vital Signs (last 24 hours): Temp Pulse Resp BP Pulse Ox 97.8 F 76 20 127/81 96 04/12/17 08:15 04/12/17 08:15 04/12/17 08:15 04/12/17 08:15 04/12/17 08:15 Intake and Output: 04/12/17 04/12/17 06:59 18:59 Intake Total 960 Balance 960 - Medications Medications: Current Medications Albuterol/Ipratropium (Duoneb 3 Mg/0.5 Mg (3 Ml) Ud) 3 ml IH [id number] [facility] Last Admin: 04/12/17 07:23 Dose: 3 ml Albuterol/Ipratropium (Duoneb 3 Mg/0.5 Mg (3 Ml) Ud) 3 ml IH Q2H PRN PRN Reason: Shortness of Breath Last Admin: 04/11/17 23:48 Dose: 3 ml Budesonide (Pulmicort Respules) 0.5 mg IH [id number] [facility] Last Admin: 04/10/17 07:15 Dose: 0.5 mg Docusate Sodium (Colace) 100 mg PO DAILY [facility] Last Admin: 04/11/17 09:21 Dose: 100 mg Hydromorphone HCl (Dilaudid) 0.5 mg IVP Q4H PRN PRN Reason: Pain, moderate (4-7) Metronidazole (Flagyl) 500 mg in 100 mls @ 100 mls/hr IVPB Q8 MARIELA PRN Reason: Protocol Last Admin: 04/12/17 06:13 Dose: 100 mls/hr Ceftriaxone Sodium (Rocephin 1 Gram Ivpb) 1 gm in 100 mls @ 100 mls/hr IVPB DAILY MARIELA PRN Reason: Protocol Last Admin: 04/11/17 09:22 Dose: 100 mls/hr Lorazepam (Ativan) 1 mg IVP Q6H PRN; Protocol PRN Reason: Symptoms of alcohol withdrawl Metoclopramide HCl (Reglan) 10 mg IV ONCE PRN PRN Reason: Nausea/Vomiting Ondansetron HCl (Zofran Inj) 4 mg IVP ONCE PRN PRN Reason: Nausea/Vomiting Polyethylene Glycol (Miralax) 17 gm PO BID [facility] Last Admin: 04/11/17 18:38 Dose: 17 gm Prednisone (Prednisone Tab) 20 mg PO DAILY [facility] Last Admin: 04/11/17 09:22 Dose: 20 mg Thiamine HCl (Vitamin B1 Tab) 100 mg PO DAILY [facility] Last Admin: 04/11/17 09:22 Dose: 100 mg - Labs Labs: 04/11/17 06:45 04/10/17 07:00 PT 11.8 Seconds (9.9-11.8) 04/09/17 10:00 INR 1.09 (0.93-1.08) H 04/09/17 10:00 APTT 32.9 Seconds (23.7-30.8) H 04/09/17 10:00 - Constitutional Appears: Well, No Acute Distress - Eye Exam Eye Exam: EOMI - ENT Exam ENT Exam: Mucous Membranes Moist - Respiratory Exam Respiratory Exam: Clear to Ausculation Bilateral - Cardiovascular Exam Cardiovascular Exam: REGULAR RHYTHM - GI/Abdominal Exam GI & Abdominal Exam: Soft. absent: Distended, Tenderness Additional comments: perirectal abscess s/p ID healing, no evidence of acute infection - Neurological Exam Neurological Exam: Alert, Awake, Oriented x3 Assessment and Plan - Assessment and Plan (Free Text) Assessment: 66 y/o WM s/p I&D * Dressing changed * continue dressing change with 4x4 and tape qd by family member, no visiting nurse necessary * will discuss with Dr. El Berrios DO PGY-1
[2017-04-12] MEDS: POLYETHYLENE GLYCOL 3350 17 GM/Dose PACKET PO SCH (10:17)
[2017-04-12] MEDS: cefTRIAXone 1 gm 1 GM/100 ML BAG IVPB SCH (10:17)
--- NOTE | 2017-04-13 03:39 | DS ---
HISTORY OF PRESENT ILLNESS: The patient is 66 years old morbidly obese who came in with perirectal discomfort. He is having some discomfort for more than 24 hour prior to came into the hospital, was taken to OR, had I and D done. Has been on IV antibiotic, doing well, packing was removed, cleared by surgery. PHYSICAL EXAMINATION: GENERAL: Today, he is awake and alert, communicative. VITAL SIGNS: He is afebrile, pulse 76, respirations 20 and blood pressure 127/81. HEAD AND NECK: sclerae. [place]un[place] conjunctivae. LUNGS: Bilateral diffusely decreased breath sounds. HEART: S1 and S2 audible. No murmur. ABDOMEN: Soft and nontender. No rebound. No guarding. NEUROLOGIC: The patient is awake and alert, communicative. LABORATORY DATA: There is no new labs were available today. ASSESSMENT: 1. Perirectal abscess, status post incision and drainage. 2. Chronic obstructive pulmonary disease. 3. Hypertension. 4. Morbid obesity. 5. History of carcinoma of colon, status post partial colectomy. PLAN: The patient is going to be discharge home on Cipro 500 twice a day, Flagyl 500 q. 8 hours, and she is given tapering dose of Prednisone 20 mg twice a day for 5 days. We will followup with as outpatient and will resume his medication as prior to admission. Juan Bertrand MD
--- NOTE | 2017-04-28 16:05 | OP ---
LOCATION: Room #564, bed 2. PROCEDURE DATE: 04/10/2017 SURGEON: Eric Gallegos MD DROP PIT WORKER: DO Selma, PGY-1. SECOND JOB CHANGE CREW MEMBER: Eleanor, medical student. KNOWLEDGE ENGINEER: Dr. Johnston. PREOPERATIVE DIAGNOSES: 1. Recurring perirenal/prerectal abscess. 2. Severe chronic obstructive bronchopulmonary disease. POSTOPERATIVE DIAGNOSES: 1. Recurring prerectal abscess. 2. Severe chronic obstructive bronchopulmonary disease with extremely deep ischial rectal abscess. 4. Chronic obstructive pulmonary disease. 5. Impending delirium tremens. PROCEDURES: On 04/10/2017 is incision and drainage of a perirectal ischial abscess. OPERATIVE INDICATION: The patient is a 66-year-old male who has had a previous ischial rectal abscess three months earlier drained by this physician and the patient was lost followup. He was advised to start on bowel softening agents (MiraLax), but did not care to do this and with progressive consultation and straining and forcing he developed sudden onset of pain 2 days prior to admission and when the fevers became too high and the pain too much he finally agreed with his 's recommendation to come to the emergency room. He was seen there by this surgeon and the resident staff, found to have an elevated white count of 17,000. CAT scan demonstrating a multiloculated deep ischial rectal abscess on the left side this time as compared to the right three months earlier. His past history includes very severe chronic obstructive pulmonary disease that is steroid dependent and oxygen dependent. He has difficulty walking more than several steps without becoming short of breath. He also admits to drinking 1 to 6 packs of beer daily and has not had anything to drink for the last 24 hours and is looking somewhat shaky at this point. Despite the patient's refusal to stay in the hospital, his insisted that he stay and we explained the risks, benefits, alternatives and their anticipated outcomes and with the anticipated general anesthesia and sedation it involves the patient finally sign the informed consent. Extensive discussion was held at this point with the anesthesiologist, Dr. Johnston explaining the patient's unusual presentation and risks involved. The patient will require intubation for airway control due to massive Pickwickian abdominal girth, compression of the thorax and is extremely advanced steroid dependent emphysema. OPERATIVE NOTE: The patient is brought from the holding area to the operating room. He was identified by his wrist band and undergoes time-out procedure. He was placed on the table under a lithotomy position and undergoes the induction of general anesthesia and insertion of an endotracheal tube. His legs are now placed in lithotomy position on the stirrups with sequential compression devices being employed and the perineum and its region are now examined, prepped with Betadine and then the patient is aseptically draped. Due to the extremely deep location more than 6 cm from the anal verge the abscess localized by the operating surgeon with a 10 mL syringe and an 18-gauge needle. We were able to obtain 5 mL of puss immediately and this is in the anatomic lithotomy position approximately at 3 o'clock from the anal opening. Cruciate incision is made along side of the site with the cautery scalpel using coagulating current to help control the bleeding and deeper incision is made with the cautery and invagination by the operative index finger extended to full length reaches the abscess and is able to breakup loculations and drain the multicompartmented abscess seen. The wound was lavaged with saline, reexamine by the remainder of the team and packed with 1 inch iodoform gauze for hemostatic purposes. A dry dressing was placed on the same, the skin incision has been infiltrated with bupivacaine 0.5% as 12 mL for postoperative pain management. The patient is now awaken. He is extubated carefully. He is breathing freely and he is transported from the operating room in to the recovery room satisfactorily. Sponge, instrument and suture count was verified as correct at the end of the procedure. Estimated blood loss during this procedure was less than 10 to 20 mL of blood. The surgical team was present throughout the operation and was essential exposing, assisting in drainage of this very deep ischial rectal abscess. Eric Gallegos MD
== END 2017-04-12 14:33 | disposition home or self-care (01) | DRG 345 ==
LOC: ED 09:18 → ERH 11:36 → 5RNO 13:45
PROVIDERS: ADMIT Internal Medicine; ATTEND Internal Medicine
PROC: 0D9P0ZZ Drainage of Rectum, Open Approach (ICD-10-PCS; principal; 2017-04-10 10:00)
DX: K61.2 Anorectal abscess (principal); F10.231 Alcohol dependence with withdrawal delirium; Z99.81 Dependence on supplemental oxygen; E66.01 Morbid (severe) obesity due to excess calories; J44.9 Chronic obstructive pulmonary disease, unspecified; I10 Essential (primary) hypertension; E78.5 Hyperlipidemia, unspecified; F17.210 Nicotine dependence, cigarettes, uncomplicated; G47.30 Sleep apnea, unspecified; K62.89 Other specified diseases of anus and rectum; Z90.49 Acquired absence of other specified parts of digestive tract; Z85.038 Personal history of other malignant neoplasm of large intestine; Z87.01 Personal history of pneumonia (recurrent); Z79.82 Long term (current) use of aspirin; R40.2412 Glasgow coma scale score 13-15, at arrival to emergency department; Z68.30 Body mass index [BMI] 30.0-30.9, adult; B95.2 Enterococcus as the cause of diseases classified elsewhere; J02.9 Acute pharyngitis, unspecified

== ENCOUNTER 2017-05-16 09:18 | Inpatient (IN) | payer MEDICARE, OTHER ==
[2017-05-16 09:27] VITALS: BMI 29.8
[2017-05-16] MEDS ORDERED: Albuterol-Ipratrop 3 mg / 0.5 (3 ml) UD IH STA (09:41)
[2017-05-16] MEDS ORDERED: Magnesium Sulfate 2 GM in Sodium Chloride 0.9% 100 ML IVPB ONE (09:43)
[2017-05-16] MEDS ORDERED: Albuterol-Ipratrop 3 mg / 0.5 (3 ml) UD IH PRN (10:01)
[2017-05-16 10:04] LABS: BASO # 0.02 K/mm3 (0.0-2.0); BASO % 0.2 % (0.0-3.0); EOS # 0.2 (0.0-0.7); EOS % 2.1 % (1.5-5.0); GRAN # 7.65 (1.4-6.5); GRAN % 76.8 % (50.0-68.0); LYMPH # 1.4 (1.2-3.4); LYMPH % 13.9 % (22.0-35.0); MEAN PLATELET VOLUME 10.5 fl (7.0-11.0); MONO # 0.7 (0.1-0.6); RED CELL DISTRIBUTION WIDTH 13.9 % (11.5-14.5)
--- NOTE | 2017-05-16 10:08 | ED PDOC ---
Arrival/HPI - General Chief Complaint: Shortness Of Breath Time Seen by Provider: 05/16/17 09:27 Historian: Patient - History of Present Illness Narrative History of Present Illness (Text): 05/16/17 10:06 A 67 year old male ex smoker, whose past medical history includes, perianal abscess, dyspenea on exertion, COPD exacerbation, presents to the emergency department for shortness of breath, which began several days ago. The patient reports associated with the sob he has a productive cough with green phlegm and a subjective fever. He denies chest pain, nausea, vomiting, or any other complaints at this time. The patient has a 90 pack smoke history. Time/Duration: < week (few days ) Symptom Onset: Gradual Symptom Course: Unchanged Activities at Onset: Light Context: Home Past Medical History - Provider Review Nursing Documentation Reviewed: Yes - Travel History Have you recently traveled outside [place] w/in the past 3 mons?: No - Infectious Disease Hx of Infectious Diseases: None - Cardiac Hx Pacemaker: No - Pulmonary Hx Respiratory Disorders: Yes Hx Asthma: Yes Hx Chronic Obstructive Pulmonary Disease (COPD): Yes Hx Emphysema: Yes Hx Pneumonia: Yes (03/2014, 03/2016) Hx Sleep Apnea: Yes Other/Comment: c-pap at night, uses portable and home o2 and nebulizer machine at home - Neurological Hx Paralysis: No - HEENT Hx HEENT Disorder: No - Renal Hx Renal Disorder: No - Endocrine/Metabolic Hx Endocrine Disorders: No - Hematological/Oncological Hx Blood Transfusions: No Hx Blood Transfusion Reaction: No - Integumentary Hx Dermatological Disorder: Yes (PERIRECTAL ABSCESS 04-09-17) Other/Comment: multiple skin discolorations b/l hands and arms - Musculoskeletal/Rheumatological Hx Musculoskeletal Disorders: No - Gastrointestinal Hx Gastrointestinal Disorders: Yes (PERIRECTAL ABSCESS 04-09-17,PERIANAL ABSCESS ) Other/Comment: COLON RESECTION-COLON CA COMPLETED CHEMO. - Genitourinary/Gynecological Hx Genitourinary Disorders: No - Psychiatric Hx Substance Use: No - Surgical History Other/Comment: umbilical hernia sx, colon resection 2013, vascular acces device r pac 09/2014 rermoved 2 2015, i and d perianal abcess, colonoscopy 2013 and 2014 - Anesthesia Hx Anesthesia Reactions: No Hx Malignant Hyperthermia: No - Suicidal Assessment Feels Threatened In Home Enviroment: No Family/Social History - Physician Review Nursing Documentation Reviewed: Yes Family/Social History: No Known Family HX Smoking Status: Current Some Days Smoker Hx Alcohol Use: Yes ([employer].LAST DRANK LAST WEEK 6 BEERS.) Hx Substance Use: No Allergies/Home Meds Allergies/Adverse Reactions: Allergies No Known Allergies Allergy (Verified 05/16/17 11:37) Home Medications: Home Meds Medication Instructions Recorded Confirmed Arformoterol Tartrate [Brovana] 1 inh INH BID 12/23/14 05/16/17 Budesonide [Pulmicort Respules] 0.25 mg NEB BID PRN 04/27/15 05/16/17 Aspirin [Aspirin EC] 81 mg PO DAILY 10/23/15 05/16/17 Cholecalciferol (Vitamin D3) 1 tab PO DAILY 10/23/15 05/16/17 [Vitamin D3] Albuterol HFA [Ventolin HFA 90 0.09 mg IH PRN PRN 04/12/16 05/16/17 mcg/actuation (8 g)] Prednisone 4 mg PO DAILY 04/12/16 05/16/17 Tiotropium Melissa Inhaler 1 inhaler INH DAILY 04/12/16 05/16/17 [Spiriva Inhalation Handihaler Device] Albuterol Sulfate [Proair Hfa] 2 puff IH PRN PRN 01/06/17 05/16/17 Review of Systems - Physician Review All systems were reviewed & negative as marked: Yes - Review of Systems Constitutional: Fevers (subjective) Respiratory: SOB, Cough, Sputum Cardiovascular: absent: Chest Pain Gastrointestinal: absent: Diarrhea, Nausea, Vomiting Physical Exam Vital Signs Reviewed: Yes Vital Signs Temp Pulse Resp BP Pulse Ox 05/16/17 11:35 97.8 F 102 H 05/16/17 11:19 107 H 20 131/82 95 05/16/17 10:29 20 96 05/16/17 09:19 97.8 F 98 H 24 130/101 H 97 Temperature: Afebrile Blood Pressure: Hypertensive Pulse: Tachycardic Respiratory Rate: Normal Appearance: Positive for: Well-Appearing, Non-Toxic, Comfortable Pain Distress: Mild Mental Status: Positive for: Alert and Oriented X 3 - Systems Exam Head: Present: Atraumatic, Normocephalic Pupils: Present: PERRL Extroacular Muscles: Present: EOMI Conjunctiva: Present: Normal Mouth: Present: Moist Mucous Membranes Neck: Present: Normal Range of Motion Respiratory/Chest: Present: Wheezes (bilateral expiratory wheezing with fair air entry), Other (no focal consolidation is appreciated). No: Respiratory Distress, Accessory Muscle Use Cardiovascular: Present: Regular Rate and Rhythm, Normal S1, S2. No: Murmurs Abdomen: Present: Normal Bowel Sounds. No: Tenderness, Distention, Peritoneal Signs Back: Present: Normal Inspection Upper Extremity: Present: Normal Inspection. No: Cyanosis, Edema Lower Extremity: Present: Normal Inspection. No: Edema Neurological: Present: GCS=15, CN II-XII Intact, Speech Normal Skin: Present: Warm, Dry, Normal Color. No: Rashes Psychiatric: Present: Alert, Oriented x 3, Normal Insight, Normal Concentration Medical Decision Making ED Course and Treatment: 05/16/17 10:22 Impression: A 67 year old male with shortness of breath Differential Diagnosis included but are not limited to: Plan: -- Chest X-ray -- EKG -- Labs -- Douneb, Budesonide, Levaquin, IV fluids, Prednisolone -- Reassess and disposition Prior Visits: Notes and results from previous visits were reviewed. The patient was last seen in the emergency department on 04/09/17 for rectal pain. The patient was hospitalized. Progress Notes: EKG: Ordered, reviewed, and independently interpreted the EKG. Rate : 97 BPM Rhythm : Sinus Rhythm Interpretation : Normal axis, normal intervals. 05/16/17 10:25 Chest X-ray Impression: No active disease. 05/16/17 11:[address] Ellis and he wants the patient to be monitored in ICU for 24 hours, will admit to Dr. Mera for admission. - Lab Interpretations Lab Results: 05/16/17 09:50 05/16/17 09:50 Lab Results 05/16/17 09:58: pCO2 73 H*, pO2 99.0, HCO3 43.2 H*, ABG pH 7.38, ABG Total CO2 45.4 H, ABG O2 Saturation 98.8 H, ABG O2 Content 20.1, ABG Base Excess 14.0 H, ABG Hemoglobin 15.1, ABG Carboxyhemoglobin 3.2 H, POC ABG HHb (Measured) 1.1, ABG Methemoglobin 1.2, ABG O2 Capacity 20.3, Hgb O2 Saturation 94.5 L, FiO2 28.0 05/16/17 09:50: Sodium 136, Potassium 3.8, Chloride 89 L, Carbon Dioxide 38 H, Anion Gap 13, BUN 12, Creatinine 0.5, Est GFR ( Amer) > 60, Est GFR (Non- Af Amer) > 60, Random Glucose 100, Calcium 9.1, Total Bilirubin 0.7, AST 30, ALT 41, Alkaline Phosphatase 68, Lactate Dehydrogenase 234 L, Total Creatine Kinase 33 L, Troponin I < 0.01, NT-Pro-B Natriuret Pep 188, Total Protein 7.0, Albumin 4.0, Globulin 3.0, Albumin/Globulin Ratio 1.3 05/16/17 09:50: WBC 10.0 D, RBC 4.60, Hgb 15.2, Hct 46.0, MCV 100.0, MCH 33.0, MCHC 33.0, RDW 13.9, Plt Count 175, MPV 10.5, Gran % 76.8 H, Lymph % (Auto) 13.9 L, Barnes % (Auto) 7.0 H, Eos % (Auto) 2.1, Baso % (Auto) 0.2, Gran # 7.65 H , Lymph # 1.4, Barnes # 0.7 H, Eos # 0.2, Baso # 0.02 - RAD Interpretation Radiology Orders: 05/16/17 09:40 CHEST PORTABLE [RAD] Stat - Medication Orders Current Medication Orders: Albuterol/Ipratropium (Duoneb 3 Mg/0.5 Mg (3 Ml) Ud) 3 ml IH [id number] [facility] Last Admin: 05/16/17 15:57 Dose: 3 ml Albuterol/Ipratropium (Duoneb 3 Mg/0.5 Mg (3 Ml) Ud) 3 ml IH Q2H PRN PRN Reason: Shortness of Breath Aspirin (Ecotrin) 81 mg PO DAILY [facility] Last Admin: 05/16/17 11:20 Dose: 81 mg Budesonide (Pulmicort Respules) 0.5 mg IH [id number] [facility] Famotidine (Pepcid) 20 mg PO 1000,2200 [facility] Heparin Sodium (Porcine) (Heparin) 5,000 units SC Q12 [facility] PRN Reason: Protocol Levofloxacin (Levaquin) 500 mg PO DAILY [facility] Last Admin: 05/16/17 10:59 Dose: 500 mg Methylprednisolone (Solu-Medrol) 60 mg IVP Q6 [facility] Last Admin: 05/16/17 11:41 Dose: Discontinued Medications Albuterol/Ipratropium (Duoneb 3 Mg/0.5 Mg (3 Ml) Ud) 3 ml IH STAT STA Stop: 05/16/17 09:42 Last Admin: 05/16/17 09:50 Dose: 3 ml Magnesium Sulfate 2 gm/ Sodium (Chloride) 104 mls @ 102 mls/hr IVPB ONCE ONE Stop: 05/16/17 10:44 Last Admin: 05/16/17 10:13 Dose: 102 mls/hr Methylprednisolone (Solu-Medrol) 125 mg IVP STAT STA Stop: 05/16/17 09:41 Last Admin: 05/16/17 10:13 Dose: 125 mg Pneumococcal Polyvalent Vaccine (Pneumovax 23 Vaccine) 0.5 ml IM .ONCE ONE Stop: 05/16/17 13:38 - Scribe Statement The provider has reviewed the documentation as recorded by the Lisa Richey Provider Scribe Attestation: All medical record entries made by the Brissaibemil were at my direction and personally dictated by me. I have reviewed the chart and agree that the record accurately reflects my personal performance of the history, physical exam, medical decision making, and the department course for this patient. I have also personally directed, reviewed, and agree with the discharge instructions and disposition. Disposition/Present on Arrival - Present on Arrival Any Indicators Present on Arrival: No History of DVT/PE: No History of Uncontrolled Diabetes: No Urinary Catheter: No History of Decub. Ulcer: No History Surgical Site Infection Following: None - Disposition Have Diagnosis and Disposition been Completed?: Yes Diagnosis: COPD exacerbation, Dyspnea on exertion Disposition: HOSPITALIZED Disposition Time: 10:50 Condition: FAIR ED Critical Care Documentation - Critical Care Total Time (mins): 40 Documented critical care: time excludes all time spent performing seperately billable procedures.
[2017-05-16 10:16] LABS: ALB/GLOB RATIO 1.3 (1.1-1.8); ALKALINE PHOSPHATASE 68 U/L (38-126); ALT/SGPT 41 U/L (7-56); AST/SGOT 30 U/L (17-59); BILIRUBIN,TOTAL 0.7 mg/dL (0.2-1.3); BLOOD UREA NITROGEN 12 mg/dL (7-21); CALCIUM 9.1 mg/dL (8.4-10.5); CARBON DIOXIDE 38 mmol/L (21-33); CHLORIDE 89 mmol/L (98-107); GFR AFRICAN-AMERICAN > 60; GLUCOSE,RANDOM 100 mg/dL (70-110); POTASSIUM 3.8 mmol/L (3.6-5.0); SODIUM 136 mmol/L (132-148)
--- NOTE | 2017-05-16 10:16 | RAD ---
HISTORY: r/o infiltrate COMPARISON: 01/06/2017 FINDINGS: LUNGS: No active pulmonary disease. PLEURA: No significant pleural effusion identified, no pneumothorax apparent. CARDIOVASCULAR: Normal. OSSEOUS STRUCTURES: No significant abnormalities. VISUALIZED UPPER ABDOMEN: Normal. OTHER FINDINGS: None. IMPRESSION: No active disease.
[2017-05-16 10:17] LABS: ARTERIAL BLOOD GAS O2 CAPACITY 20.3 mL/dl (16-24); ARTERIAL BLOOD GAS O2 CONTENT 20.1 ML/dl (15-23); ARTERIAL BLOOD GAS PH 7.38 (7.35-7.45); ARTERIAL BLOOD HGB O2 SAT 94.5 % (95.0-98.0); CARBOXYHEMOGLOBIN 3.2 % (0.5-1.5); HHB 1.1 % (0-5); METHEMOGLOBIN 1.2 % (0.0-3.0)
[2017-05-16 10:21] LABS: ARTERIAL BLOOD GAS HCO3 43.2 mmol/L (21-28)
[2017-05-16 10:29] LABS: TROPONIN I < 0.01 ng/mL
[2017-05-16] MEDS: levoFLOXacin 500 MG TAB PO SCH (10:59)
--- NOTE | 2017-05-16 11:17 | CP.PCM.CON ---
History of Present Illness - History of Present Illness History of Present Illness: Pqtient is 67yo male with PMHx of COPD, on home o2, 2LPM, SHORTY on CPAP, presents with worsening SOB. Pt reports symptoms of SOB began 2 days ago characterized by increased cough productive of yellow sputum, worsening SOB, particularly on exertion, without any fever, chills, chest pain, N/V, dizziness, ALONZO, abd pain. No other constitutional symptoms. Upon arrival to the ER patient given, Solumedrol 125mg x 1 IV, Magnesium, Levaquin, Duonebs. Pt reports feeling better since arrival. CXR clear. PMHx: as above PSHx: umbilical hernia sx, colon resection 2013, vascular acces device r pac 2014 rermoved 2 2015, i and d perianal abcess, colonoscopy 2013 and 2014 Allergies: NKDA FHx: NC Meds: as per EMR Review of Systems - Review of Systems Review of Systems: as per hpi Past Patient History - Infectious Disease Hx of Infectious Diseases: None - Past Social History Smoking Status: Current Some Days Smoker - CARDIAC Hx Pacemaker: No - PULMONARY Hx Respiratory Disorders: Yes Hx Asthma: Yes Hx Chronic Obstructive Pulmonary Disease (COPD): Yes Hx Emphysema: Yes Hx Pneumonia: Yes (03/2014, 03/2016) Hx Sleep Apnea: Yes Other/Comment: c-pap at night, uses portable and home o2 and nebulizer machine at home - NEUROLOGICAL Hx Paralysis: No - HEENT Hx HEENT Problems: No - RENAL Hx Chronic Kidney Disease: No - ENDOCRINE/METABOLIC Hx Endocrine Disorders: No - HEMATOLOGICAL/ONCOLOGICAL Hx Blood Transfusions: No Hx Blood Transfusion Reaction: No - INTEGUMENTARY Hx Dermatological Problems: Yes (PERIRECTAL ABSCESS 04-09-17) Other/Comment: multiple skin discolorations b/l hands and arms - MUSCULOSKELETAL/RHEUMATOLOGICAL Hx Musculoskeletal Disorders: No - GASTROINTESTINAL Hx Gastrointestinal Disorders: Yes (PERIRECTAL ABSCESS 04-09-17,PERIANAL ABSCESS ) Other/Comment: COLON RESECTION-COLON CA COMPLETED CHEMO. - GENITOURINARY/GYNECOLOGICAL Hx Genitourinary Disorders: No - PSYCHIATRIC Hx Substance Use: No - SURGICAL HISTORY Other/Comment: umbilical hernia sx, colon resection 2013, vascular acces device r pac 09/2014 rermoved 2 2015, i and d perianal abcess, colonoscopy 2013 and 2014 - ANESTHESIA Hx Anesthesia Reactions: No Hx Malignant Hyperthermia: No Meds Allergies/Adverse Reactions: Allergies Allergy/AdvReac Type Severity Reaction Status Date / Time No Known Allergies Allergy Verified 04/09/17 12:46 - Medications Medications: Current Medications Albuterol/Ipratropium (Duoneb 3 Mg/0.5 Mg (3 Ml) Ud) 3 ml IH [id number] [facility] Albuterol/Ipratropium (Duoneb 3 Mg/0.5 Mg (3 Ml) Ud) 3 ml IH Q2H PRN PRN Reason: Shortness of Breath Aspirin (Ecotrin) 81 mg PO DAILY [facility] Budesonide (Pulmicort Respules) 0.5 mg IH [id number] [facility] Levofloxacin (Levaquin) 500 mg PO DAILY [facility] Last Admin: 05/16/17 10:59 Dose: 500 mg Methylprednisolone (Solu-Medrol) 60 mg IVP Q6 [facility] Physical Exam - Constitutional Appears: Well, Non-toxic - Head Exam Head Exam: ATRAUMATIC, NORMAL INSPECTION - Eye Exam Eye Exam: EOMI - Neck Exam Neck exam: Positive for: Full Rom - Respiratory Exam Respiratory Exam: Decreased Breath Sounds, Wheezes - Cardiovascular Exam Cardiovascular Exam: RRR, +S1, +S2 - GI/Abdominal Exam GI & Abdominal Exam: Normal Bowel Sounds, Soft - Extremities Exam Extremities exam: Positive for: normal inspection - Back Exam Back exam: NORMAL INSPECTION - Neurological Exam Neurological exam: Alert, Oriented x3 - Psychiatric Exam Psychiatric exam: Normal Affect Results - Vital Signs Recent Vital Signs: Last Vital Signs Temp 97.8 F 05/16/17 09:19 Pulse 98 H 05/16/17 09:19 Resp 20 05/16/17 10:29 BP 130/101 H 05/16/17 09:19 Pulse Ox 96 05/16/17 10:29 - Labs Result Diagrams: 05/16/17 09:50 05/16/17 09:50 Labs: Laboratory Results - last 24 hr 05/16/17 05/16/17 05/16/17 09:50 09:50 09:58 WBC 10.0 D RBC 4.60 Hgb 15.2 Hct 46.0 MCV 100.0 MCH 33.0 MCHC 33.0 RDW 13.9 Plt Count 175 MPV 10.5 Gran % 76.8 H Lymph % (Auto) 13.9 L Meeker % (Auto) 7.0 H Eos % (Auto) 2.1 Baso % (Auto) 0.2 Gran # 7.65 H Lymph # 1.4 Meeker # 0.7 H Eos # 0.2 Baso # 0.02 pCO2 73 H* pO2 99.0 HCO3 43.2 H* ABG pH 7.38 ABG Total CO2 45.4 H ABG O2 Saturation 98.8 H ABG O2 Content 20.1 ABG Base Excess 14.0 H ABG Hemoglobin 15.1 ABG Carboxyhemoglobin 3.2 H POC ABG HHb (Measured) 1.1 ABG Methemoglobin 1.2 ABG O2 Capacity 20.3 Hgb O2 Saturation 94.5 L FiO2 28.0 Sodium 136 Potassium 3.8 Chloride 89 L Carbon Dioxide 38 H Anion Gap 13 BUN 12 Creatinine 0.5 Est GFR ( Amer) > 60 Est GFR (Non-Af Amer) > 60 Random Glucose 100 Calcium 9.1 Total Bilirubin 0.7 AST 30 ALT 41 Alkaline Phosphatase 68 Lactate Dehydrogenase 234 L Total Creatine Kinase 33 L Troponin I < 0.01 NT-Pro-B Natriuret Pep 188 Total Protein 7.0 Albumin 4.0 Globulin 3.0 Albumin/Globulin Ratio 1.3 - Imaging and Cardiology Chest x-ray Status: Image reviewed by me, Report reviewed by me Assessment & Plan - Assessment and Plan (Free Text) Assessment: 67yo male a/w SOB, COPD exacerbation - currently afebrile, HD stable, mild increased work of breathing - ABG with compensated chronic resp acidosis, pH 7.38 - CXR with no definitive infiltrate - not requiring BIPAP at this time COPD exacerbation SOB Recommend: - Solumedrol IV 60mg Q6hr IV - Duonebs Q4hr PRN - Levaquin IV - BIPAP PRN - FS control - Resume home meds - DVT ppx - Admit to MICU monitoring
[2017-05-16] MEDS: Albuterol-Ipratrop 3 mg / 0.5 (3 ml) UD IH SCH ×4 (11:41→23:34)
[2017-05-16] MEDS ORDERED: Pneumococcal 23-Valent Vaccine IM ONE (13:37)
--- NOTE | 2017-05-16 15:40 | CARD ---
APPROVED REPORT EKG Measurement Heart [id number] <Conclusion> Sinus rhythm with premature atrial complexes Low voltage QRS Cannot rule out Anteroseptal infarct, age undetermined Abnormal ECG
[2017-05-16] MEDS: Budesonide 0.5 mg/2 ml Inhal Susp UD IH SCH (19:33)
--- NOTE | 2017-05-16 19:39 | CON ---
DATE: 05/16/2017 HISTORY OF PRESENT ILLNESS: The patient is a 67-year-old male, with past medical history significant for advanced chronic obstructive pulmonary disease, positive extensive smoking history, hypertension, history of recent perianal abscess, history of colon cancer, who presents to [facility] with a 4-day history of increasing shortness of breath at rest, dyspnea on exertion, cough, and sputum production. There is no history of chest pain, coughing up of blood, or chest pain-made worse with deep respirations. There is no history of temperatures, chills, or infectious exposure. There is no history of night sweats, weight loss, or appetite change prior to the above events. No history of leg or calf pains. No history of syncope or diaphoresis. No history of recent travel or trauma. ALLERGIES: NO KNOWN ALLERGIES. SOCIAL HISTORY: Positive for extensive tobacco usage. No alcohol. FAMILY HISTORY: No inheritable diseases. HOME MEDICATIONS: Include Brovana, ProAir, Spiriva, prednisone, budesonide, aspirin, and vitamin D. REVIEW OF SYSTEMS: No history of nausea, vomiting, or diarrhea. No acute urinary symptoms. No new neurologic or musculoskeletal complaints. Rest of the review of systems is negative. PHYSICAL EXAMINATION: GENERAL: The patient is moderately short of breath, but in no acute distress. He is not using accessory muscles for breathing. VITAL SIGNS: Temperature 97.8, pulse 98, respirations approximately 24, blood pressure 130/100. oxygen saturation on nasal cannula is 96%. HEENT: Normocephalic, atraumatic. No JVD. CARDIOVASCULAR: Systolic ejection murmur at the lower left sternal border. No S3 gallop. LUNGS: Severely decreased breath sounds bilaterally. End expiratory wheezing is appreciated. No rhonchi. GASTROINTESTINAL: Abdomen is soft, nontender, and nondistended. Bowel sounds are positive. EXTREMITIES: No clubbing, cyanosis, or edema. Calves are nontender to palpation. SKIN: No acute rash. NEUROLOGIC: Limited at the present time. PERTINENT LABORATORY DATA: Chest x-ray was done this morning and reviewed. It shows no acute disease. Arterial blood gas was also done on 2 L nasal cannula. Results are: The pH 7.38, PCO2 of 73, PO2 of 99. CBC: White count 10.0, hemoglobin 15.2, hematocrit 46.0, and platelets are 175. Complete metabolic profile: Chloride 89, carbon dioxide 38, and LDH 234. Rest of the metabolic profile is within normal limits. IMPRESSION: 1. Acute bronchitis. 2. Severe chronic obstructive pulmonary disease. 3. Compensated respiratory insufficiency. 4. Hypertension. PLAN: I did discuss the case with the patient and at length. I have also discussed the case with the ER physician (Dr. Gambino) at length. The patient presents to [facility] with a 4-day history of worsening pulmonary symptoms. I did review the chest x-ray as above. It shows no acute disease. I have also reviewed arterial blood gas. The arterial blood gas reveals CO2 retention, but with normal pH. I did review the patient's old records. His current CO2 level is well above his baseline. Again, I did discuss the case with Dr. Gambino at length. At this point in time, I am recommending an ICU evaluation. Hopefully, the ICU team will see him shortly. On physical examination, there is severe bronchospasm noted. I will start frequent nebulizer treatments and high dose intravenous steroids. There is no history of temperature or chills. There is no leukocytosis. However, given the patient's age and above history, I will also start oral antibiotic therapy. Pancultures have been obtained and will be analyzed when feasible. Again, I did the case with the patient and at length. I will also touch-base with the ICU team and the attending physician as well. Thank you very much for this pulmonary consultation. Tulio Hart MD MTDD
[2017-05-17] MEDS: Albuterol-Ipratrop 3 mg / 0.5 (3 ml) UD IH SCH ×6 (04:25→23:38)
[2017-05-17 05:20] LABS: HEMATOCRIT 45.1 % (42.0-52.0); MEAN CELL VOLUME 99.6 fl (80.0-105.0); MEAN CORPUSCULAR HEMOGLOBIN 33.1 pg (25.0-35.0); MEAN CORPUSCULAR HGB CONC 33.3 g/dl (31.0-37.0); MEAN PLATELET VOLUME 10.3 fl (7.0-11.0); RED CELL DISTRIBUTION WIDTH 13.9 % (11.5-14.5); WHITE BLOOD COUNT 7.2 10^3/ul (4.5-11.0)
[2017-05-17 05:25] LABS: ALB/GLOB RATIO 1.3 (1.1-1.8); ALKALINE PHOSPHATASE 65 U/L (38-126); ALT/SGPT 47 U/L (7-56); AST/SGOT 28 U/L (17-59); BILIRUBIN,TOTAL 0.6 mg/dL (0.2-1.3); BLOOD UREA NITROGEN 12 mg/dL (7-21); CALCIUM 9.1 mg/dL (8.4-10.5); CHLORIDE 90 mmol/L (98-107); GFR AFRICAN-AMERICAN > 60; GLUCOSE,RANDOM 151 mg/dL (70-110); POTASSIUM 4.1 mmol/L (3.6-5.0); SODIUM 138 mmol/L (132-148); TOTAL PROTEIN 7.1 g/dL (5.8-8.3)
[2017-05-17 05:32] LABS: CARBON DIOXIDE 38 mmol/L (21-33)
[2017-05-17] MEDS: Budesonide 0.5 mg/2 ml Inhal Susp UD IH SCH ×2 (07:10→19:47)
[2017-05-17 07:35] LABS: ARTERIAL BLOOD GAS O2 CAPACITY 20.6 mL/dl (16-24); ARTERIAL BLOOD GAS O2 CONTENT 20.4 ML/dl (15-23); ARTERIAL BLOOD GAS PH 7.35 (7.35-7.45); ARTERIAL BLOOD HGB O2 SAT 95.6 % (95.0-98.0); CARBOXYHEMOGLOBIN 2.4 % (0.5-1.5); HHB 0.8 % (0-5); METHEMOGLOBIN 1.2 % (0.0-3.0)
[2017-05-17 07:37] LABS: ARTERIAL BLOOD GAS HCO3 45.3 mmol/L (21-28)
[2017-05-17] MEDS: levoFLOXacin 500 MG TAB PO SCH (09:28)
--- NOTE | 2017-05-17 11:39 | PN ---
DIGITAL MEDIA COORDINATOR NOTE DATE: 05/17/2017 SUBJECTIVE: The patient is resting in bed. No acute distress this morning. Has nasal cannula O2. Oxygenation is stable. Has history of hypercapnic respiratory failure and does wear a BiPAP at bedtime. No significant congestion, no increase cough. No chest pain. No fever, chills, nausea, vomiting. PHYSICAL EXAMINATION VITAL SIGNS: The patient is afebrile, pulse is 99, respirations are 24, BP is 126/84. SKIN: Warm and dry. HEENT: Head is atraumatic and normocephalic. Eyes reactive to light. Ears, nose and throat seem to be within normal limits. NECK: Supple. No JVD, no thyroid enlargement, no lymph nodes. HEART: Regular rate and rhythm. Normal S1 and S2. LUNGS: Reveal decreased breath sounds bilaterally. ABDOMEN: Soft, but obese. GENITALIA AND RECTAL: Deferred. MUSCULOSKELETAL: No joint deformities. EXTREMITIES: Reveal no significant lower extremity edema. NEUROLOGIC: He seemed to be grossly intact. LABORATORY DATA: As far as his laboratories, his white count is 7.2, hemoglobin is 15.0, hematocrit 45.1 and platelets of 172,000. Arterial blood gas reveals a pH of 7.35, pCO2 of 82, pO2 of 111. He is still on 2 liters of nasal cannula. The patient's sodium is 138, potassium 4.1, chloride 90, CO2 of 38 with a BUN of 12, creatinine is 0.5 and glucose of 151. Chest x-ray reveals no infiltrates. IMPRESSION: This patient has respiratory failure with hypercapnia and severe exacerbation of his COPD. He has history of obstructive sleep apnea, obesity, as well as past history of colon CA. PLAN: We will continue with BiPAP p.r.n. Patient is getting O2 via nasal cannula. He is on DuoNeb as a bronchodilator. He is getting subcutaneously heparin, Levaquin as an antibiotic and is getting Pulmicort via nebulizer and Solu-Medrol. We will continue to treat aggressively along with the other consultants and the primary care doctor. Ilya Ho MD
--- NOTE | 2017-05-17 12:56 | HP ---
CHIEF COMPLAINT AND HISTORY OF PRESENT ILLNESS: This is a 67-year-old male, who has come in to the hospital with shortness of breath. He said that shortness of breath started about a week ago and since progressively getting worse. He does have COPD that is advanced and requires home O2. He has obstructive sleep apnea and uses a CPAP machine. The patient says his coughing was getting worse. The patient has no complaints of any chest pain. He says his shortness of breath is better this morning after getting his initial treatment in the ER. He has no nausea, no vomiting, no fevers or chills, no dysuria or frequency. He denies any hemoptysis. He has no night sweats or weight loss. No swelling in the legs. REVIEW OF SYMPTOMS: All other review of symptoms are within normal limits except what is mentioned. ALLERGIES: NO KNOWN DRUG ALLERGIES. HOME MEDICATIONS: He is on vitamin D, aspirin, budesonide, Spiriva, ProAir, Brovana. PAST SURGICAL HISTORY: 1. Umbilical hernia surgery. 2. Colon resection in 2013. 3. I and D of perianal abscess. 4. Colonoscopy. SOCIAL HISTORY: He does have history of smoking. He has a [id number] smoking history. He denies drug use. PHYSICAL EXAMINATION: VITAL SIGNS: Temperature is 98.2, pulse of 90, blood pressure is 135/103, respiration is 30, O2 saturation is 94%. Height is 6 feet. Weight is 220 pounds. BMI is 29.8. GENERAL: The patient lying in bed, uncomfortable, and in no acute distress. HEENT: Atraumatic and normocephalic. Anicteric sclerae. Moist mucosa. [place] conjunctivae. No oral lesions. NECK: No JVD, anterior and posterior adenopathy, thyromegaly, or bruits. CARDIOVASCULAR: S1 and S2 regular. No murmur, rubs, or gallop. LUNGS: Good bilateral air entry. Mild wheezing bilaterally. No rhonchi. ABDOMEN: Bowel sounds are positive. Soft, nontender and nondistended. No hepatosplenomegaly. No rebound and no guarding EXTREMITIES: No cyanosis, clubbing, or edema. NEUROLOGIC: No facial asymmetry. Tongue is midline. No uvula deviation. Power is 5/5 upper extremity and lower extremity. Sensation intact in upper extremity and lower extremity. PSYCHIATRIC: He is awake, alert and oriented x3. No anxiety or depression. He has normal affect. GENITOURINARY: No CVA tenderness. VASCULAR: 2+ pulses in the carotid pulses and pedal pulses. SKIN: No erythema or nodules SPINE: Shows normal curvature. EXTREMITIES: No cyanosis and clubbing, no edema. LABORATORY DATA: White count of 10.0, hemoglobin 15.2, platelet count is 175. He has ABG that shows a pH of 7.38 with a pCO2 of 73. Sodium 136, potassium is 3.8. He has AST/ALT 30 and 41. Troponin 0.01. His chest x-ray shows no infiltrates. EKG done shows sinus rhythm with PAC, heart rate is 97, low voltage QRS. ASSESSMENT: 1. Acute chronic obstructive pulmonary disease exacerbation. 2. Acute bronchitis. 3. Hypertension. 4. History of colon cancer. PLAN: At this time, the patient is going to be admitted to the hospital. He is in the ICU because of an elevated pCO2 and the fact that he is tachypneic. He does say he is feeling better. He has mild tachycardia on the monitor at about 100. He was given Pepcid. He is on Solu-Medrol. He is going to continue with aspirin. He is on heparin for DVT prophylaxis. The patient is on Levaquin for antibiotics. He is going to continue with BiPAP at night. Kendell Mera MD
--- NOTE | 2017-05-17 15:44 | PN ---
PULMONARY PROGRESS NOTE LOCATION: Room 128, bed 5, ICU. SUBJECTIVE: The patient is feeling remarkably better from his admission yesterday. He was in acute respiratory distress with impending respiratory failure. He had progression of cold, cough and expectoration for several days and failed to call us. By the time they called, he was on his way to the emergency room. He was seen by myself and Dr. Hart. He was put in the intensive care unit where he is at the present time. He had significant CO2 retention with impending respiratory failure. His baseline pCO2 is usually elevated at baseline, so that normalizing this was inconceivable. The patient feels much better today, although he was so weak and could not talk yesterday. He is awake and alert. He has no appetite and he is not eating, but he certainly is able to talk and to remember his past to a great detail. He is nervous about this hospital admission stating that this was the worse he has ever been. He has been on vigorous bronchodilator therapy with corticosteroids and Daliresp. He has done well on the Daliresp but this is a major deterioration. He has past history of colon cancer, perianal abscess, long smoking history, hypertension. He is currently not smoking and feeling better. PHYSICAL EXAMINATION: GENERAL: He is more comfortable, in no acute respiratory distress, in extreme this; however, he is still dyspneic at rest with some tachypnea. VITAL SIGNS: His respiratory rate is 22. He is afebrile with a blood pressure 138/84, oxygen saturation is 96% on supplemental oxygen. NECK: Supple. No JVD, no lymphadenopathy, no bruits. CARDIOVASCULAR: Regular rhythm S1 and S2. Has no gallop or rub. There is a soft murmur at the lower left sternal border. CHEST: Reveals global decrease in breath sounds. There is still some wheezing noted, minimal rhonchi. Remarkably better when compared to the noted yesterday, but still not normal for him. ABDOMEN: Abdomen is soft. Bowel sounds normoactive without mass, guarding, rebound. No organomegaly. EXTREMITIES: Reveals no clubbing, cyanosis, or edema. There is no Lucie's sign. SKIN: Shows no rashes, excoriations. NEUROLOGIC: Awake, alert, orientated. Motor, sensory, and coordination is normal. Babinski downgoing with deep tendon reflexes normal. LABORATORY DATA: Most recent blood gas done this morning still shows an elevated pCO2, but the pH is 7.35 showing that this is compensated. We will see what his eventual blood gas will be after continuing vigorous therapy. CLINICAL IMPRESSION: 1. Severe chronic obstructive pulmonary disease. 2. Status post impending respiratory failure. 3. Respiratory insufficiency. 4. Acute bronchitis. 5. Compensated respiratory acidosis. 6. Morbid obesity. 7. Obstructive sleep apnea. 8. Hypertension. PLAN: At this time, I have spoken to the patient's who will bring in the CPAP from home. He will use that while he is here in the hospital. He will continue with his current medications. We will continue the same doses, decrease steroids in the morning. Continue vigorous support with antibiotics. I would like to keep him in the intensive care unit overnight. Again repeat the blood gas in the morning and see how he is doing at that time. If he is better he may be able to be discharged to telemetry. He will need several more days here, but his improvement at this point in time is almost miraculous. I am happy, I want to see him improve this morning, but if he is still not "out of the wood". We will continue to work with him carefully and decide on the need for further intervention. Thank you for the opportunity. Actually it is always a pleasure to see my patient Miles and we will follow him closely until he is significantly better and able to be discharged. David Humphreys MD
[2017-05-17] MEDS: Simethicone 80 mg Chewtab PO PRN (16:59)
[2017-05-18] MEDS: Albuterol-Ipratrop 3 mg / 0.5 (3 ml) UD IH SCH ×5 (04:17→20:59)
[2017-05-18 05:26] LABS: BASO # 0.02 K/mm3 (0.0-2.0); BASO % 0.1 % (0.0-3.0); EOS % 0.1 % (1.5-5.0); GRAN # 15.14 (1.4-6.5); GRAN % 91.8 % (50.0-68.0); HEMATOCRIT 45.5 % (42.0-52.0); LYMPH # 0.8 (1.2-3.4); LYMPH % 4.7 % (22.0-35.0); MEAN CELL VOLUME 101.8 fl (80.0-105.0); MEAN CORPUSCULAR HEMOGLOBIN 32.7 pg (25.0-35.0); MEAN CORPUSCULAR HGB CONC 32.1 g/dl (31.0-37.0); MEAN PLATELET VOLUME 10.6 fl (7.0-11.0); MONO # 0.6 (0.1-0.6); MONO % 3.3 % (1.0-6.0); PLATELET COUNT 187 10^3/uL (120.0-450.0); WHITE BLOOD COUNT 16.5 10^3/ul (4.5-11.0)
[2017-05-18 05:36] LABS: BLOOD UREA NITROGEN 21 mg/dL (7-21); CALCIUM 9.2 mg/dL (8.4-10.5); CHLORIDE 90 mmol/L (98-107); GFR AFRICAN-AMERICAN > 60; GLUCOSE,RANDOM 135 mg/dL (70-110); POTASSIUM 4.2 mmol/L (3.6-5.0); SODIUM 138 mmol/L (132-148)
[2017-05-18 05:42] LABS: CARBON DIOXIDE 40 mmol/L (21-33)
[2017-05-18 05:48] LABS: ARTERIAL BLOOD GAS HCO3 36.1 mmol/L (21-28); ARTERIAL BLOOD GAS O2 CAPACITY 17.2 mL/dl (16-24); ARTERIAL BLOOD GAS O2 CONTENT 16.8 ML/dl (15-23); ARTERIAL BLOOD GAS PH 7.45 (7.35-7.45); ARTERIAL BLOOD HGB O2 SAT 94.5 % (95.0-98.0); CARBOXYHEMOGLOBIN 2.1 % (0.5-1.5); HHB 2.1 % (0-5); METHEMOGLOBIN 1.3 % (0.0-3.0)
[2017-05-18] MEDS: Budesonide 0.5 mg/2 ml Inhal Susp UD IH SCH ×2 (07:02→20:59)
[2017-05-18 07:25] LABS: NEUTROPHIL 93 % (50.0-70.0); PLATELET ESTIMATE NORMAL (NORMAL)
[2017-05-18] MEDS: Simethicone 80 mg Chewtab PO PRN (08:30)
[2017-05-18] MEDS: levoFLOXacin 500 MG TAB PO SCH (09:17)
--- NOTE | 2017-05-18 09:17 | RAD ---
HISTORY: COPD COMPARISON: Chest x-ray performed 05/16/17 TECHNIQUE: Chest, one view. FINDINGS: LUNGS: No focal consolidation. Please note that chest x-ray has limited sensitivity for the detection of pulmonary masses. PLEURA: No significant pleural effusion identified. No definite pneumothorax . CARDIOVASCULAR: Mild cardiomegaly. OSSEOUS STRUCTURES: Degenerative changes of the spine. VISUALIZED UPPER ABDOMEN: Unremarkable. OTHER FINDINGS: None. IMPRESSION: No focal consolidation, significant pleural effusion, or definite pneumothorax identified.
--- NOTE | 2017-05-18 09:46 | PN ---
DATE: 05/18/2017 SUBJECTIVE: The patient has no complaints of any chest pain or shortness of breath. No headache. He states his breathing is better. PHYSICAL EXAMINATION: VITAL SIGNS: Temperature is 97.7, pulse of 100, blood pressure of 130/67, respirations 28. GENERAL: The patient is lying in bed, flat, comfortable. HEENT: No oral lesion. Anicteric sclerae. Moist mucosa. NECK: No JVD, adenopathy, or thyromegaly. CARDIOVASCULAR: S1 and S2, regular. No murmurs, rubs, or gallops. LUNGS: Clear to auscultation bilaterally. No wheeze, rales, or rhonchi. ABDOMEN: Bowel sounds are positive, soft, nontender and nondistended. EXTREMITIES: No cyanosis, clubbing or edema. LABORATORY DATA: White count of 16.5, hemoglobin 14.6. Creatinine 0.6. ASSESSMENT: 1. Acute chronic obstructive pulmonary disease exacerbation. 2. Acute bronchitis. 3. Hypertension. 4. History of colon cancer. PLAN: The patient is currently comfortable. The patient's elevated white count is most likely secondary to the steroids. The patient had an ABG done, pH is 7.45 and the pCO2 is 52, it has improved. The patient's bicarb is 40. He is on heparin for DVT prophylaxis. He is on nebulizer treatment. He is on antibiotics with Levaquin. The patient is on steroids. We will need to start decreasing the patient's steroids. I will defer to pulmonary. The patient is on CPAP at night. Kendell Mera MD
--- NOTE | 2017-05-18 09:47 | PN ---
[employer] NOTE DATE: 05/18/2017 SUBJECTIVE: The patient is resting in bed, breathing comfortably with O2 via nasal canula. He did tolerate his BiPAP overnight. The patient has no complaints of increased cough or congestion. No fever or chills. No nausea or vomiting. No chest pain. No abdominal pain. No diarrhea. PHYSICAL EXAMINATION VITAL SIGNS: Note that he has temperature of 97.7, pulse is 100, respirations are 28, and blood pressure is 13/67. HEENT: Head is atraumatic and normocephalic. Eyes; reactive to light. Ear, nose, and throat seem to be within normal limits. NECK: Supple. No JVD. No thyroid enlargement. No lymph nodes. HEART: Regular rate and rhythm. Normal S1 and S2, but slightly tachycardic. LUNGS: Reveals decreased breath sounds bilaterally. No significant rales or rhonchi. ABDOMEN: Soft, nontender. Normal bowel sounds, but sightly obese. GENITALIA AND RECTAL: Deferred. MUSCULOSKELETAL: No joint deformities. EXTREMITIES: Reveal no significant lower extremity edema. NEUROLOGIC: He seemed to be grossly intact. LABORATORY DATA: As far as his laboratories are concern his white count is of 16.5, hemoglobin is 14.6, hematocrit 45.5 with platelets of 187,000. Arterial blood gas reveals a pH of 7.45, pCO2 of 52, pO2 of 75. Sodium is 138, potassium 4.2, chloride 90, CO2 of 40 with a BUN of 21, creatinine is 0.6, and glucose of 135. Chest x-ray is pending. IMPRESSION: The patient has respiratory failure with hypercapnia and was admitted with severe exacerbation of his chronic obstructive pulmonary disease. He does have a history of obstructive sleep apnea, obesity, and a past history of colon cancer. PLAN: As far as our plan, we will continue with BiPAP p.r.n. Patient is getting O2 via nasal cannula and we will continue with his DuoNeb as a bronchodilator, Levaquin antibiotic, heparin subcutaneously prophylactically, and he is on Pulmicort and Solu-Medrol as well. The patient will be followed closely and at this time we will consult the primary care doctor to see if, being transfer to the floor if appropriate. Ilya Ho MD [facility] # [id number]
--- NOTE | 2017-05-18 13:44 | PN ---
PULMONARY PROGRESS NOTE LOCATION: In the ICU, 128, bed 5. SUBJECTIVE: The patient is markedly improved today. He is sitting up in the chair talking and eating. He is feeling considerably better. He did have his CPAP last night and feels better. His CO2 retention is improving slowly. It is progressively lower with each blood drawing. This morning his pCO2 is 50 and he is compensating better. He is feeling stronger and is being prepared to leave the intensive care unit for a telemetry bed. PHYSICAL EXAMINATION GENERAL: The patient is comfortable, in no acute respiratory distress. VITAL SIGNS: Vital signs are stable. He is afebrile. His respiratory rate is down to 18, blood pressure is 138/80, oxygen saturation is 96% on room air. NECK: Supple. No JVD. No lymphadenopathy. No bruits. CARDIOVASCULAR: Regular rhythm, S1 and S2 without murmur, gallop or rub. CHEST: Better breath sounds. No wheezing appreciated. Minimal rhonchi. Clinically improved. ABDOMEN: Soft. Bowels sounds normoactive without mass, guarding, rebound or organomegaly. EXTREMITIES: Revealed no clubbing, cyanosis or edema. NEUROLOGIC: Reveals no focal findings. LABORATORY DATA: No new laboratory studies are known except for the blood gas which is discussed here above. CLINICAL IMPRESSION: 1. More than severe chronic obstructive pulmonary disease. 2. Status post impending respiratory failure. 3. Respiratory insufficiency. 4. Acute bronchitis. 5. Obstructive sleep apnea. 6. Morbid obesity. PLAN: The patient may go up to the floor and we will taper his corticosteroids appropriately. He will need his CPAP now and for ever. Weight loss is essential but he must be eating to permit discharge down the road. He has been urged to do so. We will discuss the case with Dr. Wade who is following tomorrow and decide on the need for further intervention. I will see him one week after discharge in my office as usual and continue to follow as necessary in the hospital. It is always a pleasure to see the patient. David Humphreys MD
[2017-05-19] MEDS: Albuterol-Ipratrop 3 mg / 0.5 (3 ml) UD IH SCH ×6 (00:22→20:07)
[2017-05-19] MEDS: Budesonide 0.5 mg/2 ml Inhal Susp UD IH SCH ×2 (07:29→20:07)
[2017-05-19] MEDS: levoFLOXacin 500 MG TAB PO SCH (11:07)
--- NOTE | 2017-05-19 13:54 | PN ---
DATE: 05/19/2017 SUBJECTIVE: The patient has no complaints of any chest pain. No shortness of breath. No headache or dizziness. PHYSICAL EXAMINATION: VITAL SIGNS: Temperature is 97.8, pulse of 95, blood pressure of 132/94, respirations 18. GENERAL: The patient is lying in bed, flat, comfortable. HEENT: No oral lesion. Anicteric sclerae. Moist mucosa. NECK: No JVD, adenopathy, or thyromegaly. CARDIOVASCULAR: S1 and S2, regular. No murmurs, rubs, or gallops. LUNGS: Clear to auscultation bilaterally. No wheeze, rales, or rhonchi. ABDOMEN: Bowel sounds are positive, soft, nontender and nondistended. EXTREMITIES: No cyanosis, clubbing or edema. ASSESSMENT: 1. Acute chronic obstructive pulmonary disease exacerbation, improving. 2. Acute bronchitis. 3. Hypertension. 4. History of colon cancer. PLAN: The patient is currently improving in his symptomatology. The patient's last ABG done yesterday shows that the pH is 7.45 with a pCO2 of 52. He does get Levaquin for antibiotics. The patient is on Solu-Medrol. I will decrease the patient's Solu-Medrol dosages. He is going to continue on heparin for DVT prophylaxis. He is on nebulizer treatment, as he continues to do well, possible discharge tomorrow. He has been seen by physical therapy. Kendell Mera MD
--- NOTE | 2017-05-19 18:56 | PN ---
PULMONARY PROGRESS NOTE DATE OF SERVICE: 05/19/2017 SUBJECTIVE: The patient was seen and examined at bedside. He states he feels better. He is currently receiving inhalation treatment with DuoNeb with added inhalant steroids and he is also on intravenous steroids as well as antibiotics Levaquin. PHYSICAL EXAMINATION: VITAL SIGNS: His temperature is 97.8 orally, pulse 95, respirations 20, pulse oximetry is 94% on nasal cannula, blood pressure is 132/94. HEAD, EARS, NOSE, AND THROAT: This was in normal limits. NECK: Supple with no jugular vein distention. CHEST: Symmetrical. CARDIOVASCULAR: Regular S1 and S2. No S3. No murmur. LUNGS: Markedly diminished breath sounds bilaterally with prolonged expiration. No wheezing but [id number] airway obstruction. GASTROINTESTINAL: Soft and nontender with no organomegaly. EXTREMITIES: No clubbing, cyanosis, or edema. NEUROLOGIC: No focal deficits. SKIN: Clear with no skin rashes. LABORATORY DATA: There is no new laboratory data for today. IMPRESSION: 1. Exacerbation of severe chronic obstructive pulmonary disease. 2. Chronic respiratory acidosis. 3. Acute bronchitis. 4. Obstructive sleep apnea. 5. Morbid obesity. PLAN: The patient's condition is gradually improving. He is currently relatively comfortable at rest, although on the physical examination appears very tight. There is no wheezing, but breath sounds are markedly diminished bilaterally. He will continue to receive high doses of intravenous steroids as well as inhalant steroids and DuoNeb. With this treatment, his airway obstruction should continue to resolve. Repeat arterial blood gasses will be advised in the next day or 2. Dr. Hart will follow this patient starting tomorrow. Beltran Wade MD
[2017-05-20] MEDS: Albuterol-Ipratrop 3 mg / 0.5 (3 ml) UD IH SCH ×4 (00:01→11:26)
--- NOTE | 2017-05-20 07:39 | PN ---
DATE: 05/20/2017 SUBJECTIVE: The patient appears comfortable this morning. He is not short of breath at rest. PHYSICAL EXAMINATION VITAL SIGNS: Temperature is 97.9, pulse 80, respirations 18, blood pressure is 143/86. Oxygen saturation on nasal canula is 95%. HEENT: Normocephalic, atraumatic. NECK: No JVD. CARDIOVASCULAR: Systolic ejection murmur at lower left sternal border. No S3 gallop. LUNGS: Much improved breath sounds bilaterally. Minimal rhonchi. Much less wheezing. EXTREMITIES: No clubbing, cyanosis, or edema. Calves are nontender to palpation. GASTROINTESTINAL: Abdomen is soft, nontender, nondistended. Bowel sounds are positive. SKIN: No acute rash. NEUROLOGIC: Limited at the present time. IMPRESSION: 1. Acute bronchitis. 2. Severe chronic obstructive pulmonary disease. 3. Compensated respiratory insufficiency. 4. Hypertension. PLAN: The patient appears much more comfortable this morning. He is not short of breath at rest. He does state that he is feeling much better overall. On physical exam, his bronchospasm is significantly less. In addition, the oxygen saturation on nasal cannula is now 95%. I will continue the current nebulizer treatments and decrease the intravenous steroids this morning. The patient remains on oral antibiotic therapy. There are no temperatures noted. Clinical status of the patient is significantly improved - compared to the initial presentation. The patient is advised to be out of bed as much as possible. I will discuss the above with the attending physician. Tulio Hart MD MTDD
[2017-05-20] MEDS: Budesonide 0.5 mg/2 ml Inhal Susp UD IH SCH (07:46)
[2017-05-20] MEDS: levoFLOXacin 500 MG TAB PO SCH (09:22)
[2017-05-20] MEDS ORDERED: MethylPREDNISolone 40 mg Vial IVP SCH (10:00)
[2017-05-20 11:01] VITALS: BP 127/83; PULSE 79; RESP 20; TEMP 98; O2SAT 96
--- NOTE | 2017-05-21 22:26 | DS ---
DISCHARGE DIAGNOSES: 1. Chronic obstructive pulmonary disease acute exacerbation. 2. Hypertension. 3. History of colon cancer. 4. Leukocytosis. HOSPITAL COURSE: The patient was admitted with COPD exacerbation, treated with Solu-Medrol and IV antibiotics. He is being discharged in stable condition. Respiratory status improved. PHYSICAL EXAMINATION: GENERAL: On discharge, comfortable in bed in no acute distress. VITAL SIGNS: Temperature 98.7, heart rate 90 per minute, blood pressure 130/90, respiratory rate 18 per minute, oxygen saturation 98% room air. HEENT: Normal. CHEST: Air entry present and equal bilaterally. No added sounds. CARDIOVASCULAR: Exam within normal limits. ABDOMEN: Soft and nontender. No hepatosplenomegaly. EXTREMITIES: No edema. CENTRAL NERVOUS SYSTEM: Alert and oriented x3. No focal sensory or motor deficit. CONDITION ON DISCHARGE: Stable. DISPOSITION: Discharge home. FOLLOWUP: Follow up with the PCP in one week. Follow up with Dr. Bertrand in one week. DISCHARGE MEDICATIONS: 1. Aspirin 81 mg daily. 2. Pepcid 20 mg daily. 3. Levaquin 500 mg p.o. daily. 4. Medrol pack. DIET: Regular. Time spent in preparing discharge and coordinating care 60 minutes. Sandy Jackson MD
== END 2017-05-20 16:25 | disposition home or self-care (01) | DRG 191 ==
LOC: ED 09:18 → ERH 10:50 → CCU 12:13 → 3RNO 05-18 15:31
PROVIDERS: ADMIT Internal Medicine Nephrology; ATTEND Internal Medicine Nephrology
PROC: 3E0F7GC Introduction of Other Therapeutic Substance into Respiratory Tract, Via Natural or Artificial Opening (ICD-10-PCS; 2017-05-16)
PROC: 5A09457 Assistance with Respiratory Ventilation, 24-96 Consecutive Hours, Continuous Positive Airway Pressure (ICD-10-PCS; principal; 2017-05-17)
DX: J44.1 Chronic obstructive pulmonary disease with (acute) exacerbation (principal); E87.2 Acidosis; J20.9 Acute bronchitis, unspecified; J44.0 Chronic obstructive pulmonary disease with (acute) lower respiratory infection; I10 Essential (primary) hypertension; G47.33 Obstructive sleep apnea (adult) (pediatric); Z99.81 Dependence on supplemental oxygen; D72.829 Elevated white blood cell count, unspecified; T38.0X5A Adverse effect of glucocorticoids and synthetic analogues, initial encounter; E66.9 Obesity, unspecified; Z68.29 Body mass index [BMI] 29.0-29.9, adult; Z87.01 Personal history of pneumonia (recurrent); Z85.038 Personal history of other malignant neoplasm of large intestine; Z87.891 Personal history of nicotine dependence

== ENCOUNTER 2018-09-14 05:17 | Inpatient (IN) | payer MEDICARE, SELFPAY ==
[2018-09-14] MEDS ORDERED: Albuterol-Ipratrop 3 mg / 0.5 (3 ml) UD IH STA ×3 (05:25→05:57)
[2018-09-14] MEDS ORDERED: Albuterol-Ipratrop 3 mg / 0.5 (3 ml) UD ONE (05:25)
--- NOTE | 2018-09-14 05:25 | ED PDOC ---
Arrival/HPI - General Time Seen by Provider: 09/14/18 05:20 Historian: Patient, Spouse, EMS - History of Present Illness Narrative History of Present Illness (Text): 09/14/18 05:23 Miles Neal is a 68 year old male, whose past medical history includes COPD, obstructive sleep apnea, hypertension, perianal abscess, and colon cancer, who presents to the emergency department brought in by EMS for shortness of breath. Patient states he has been experiencing progressively worsening shortness of breath over the past 2 days. notified EMS and patient was given 1 Albuterol and 1 Atrovent treatment en route to the hospital. Patient denies any chest pain, back pain, abdominal pain, headache, dizziness, or any other complaints. Time/Duration: < week Symptom Onset: Gradual Symptom Course: Unchanged Activities at Onset: Light Context: Home Past Medical History - Infectious Disease Hx of Infectious Diseases: None - Cardiac Hx Pacemaker: No - Pulmonary Hx Chronic Obstructive Pulmonary Disease (COPD): Yes - Neurological Hx Paralysis: No - HEENT Hx HEENT Disorder: No - Renal Hx Renal Disorder: No - Endocrine/Metabolic Hx Endocrine Disorders: No - Hematological/Oncological Hx Blood Transfusions: No Hx Blood Transfusion Reaction: No - Integumentary Hx Dermatological Disorder: Yes (PERIRECTAL ABSCESS 04-09-17) Other/Comment: multiple skin discolorations b/l hands and arms - Musculoskeletal/Rheumatological Hx Musculoskeletal Disorders: No - Gastrointestinal Hx Gastrointestinal Disorders: Yes (PERIRECTAL ABSCESS 04-09-17,PERIANAL ABSCESS -2016) Other/Comment: COLON RESECTION-COLON CA COMPLETED CHEMO. - Genitourinary/Gynecological Hx Genitourinary Disorders: No - Psychiatric Hx Substance Use: No - Surgical History Other/Comment: umbilical hernia sx, colon resection 2013, vascular acces device r pac 09/2014 rermoved 2 2016, i and d perianal abcess, colonoscopy 2013 and 2014 - Anesthesia Hx Anesthesia Reactions: No Hx Malignant Hyperthermia: No - Suicidal Assessment Feels Threatened In Home Enviroment: No Family/Social History - Physician Review Nursing Documentation Reviewed: Yes Family/Social History: Unknown Family HX Smoking Status: Current Some Days Smoker Hx Alcohol Use: Yes ([employer].LAST DRANK LAST WEEK 6 BEERS.) Hx Substance Use: No Allergies/Home Meds Allergies/Adverse Reactions: Allergies No Known Allergies Allergy (Verified 05/16/17 11:37) Home Medications: Home Meds Medication Instructions Recorded Confirmed Arformoterol Tartrate [Brovana] 1 inh INH BID 12/23/14 09/14/18 Budesonide [Pulmicort Respules] 0.25 mg NEB BID PRN 04/27/15 09/14/18 Cholecalciferol (Vitamin D3) 1 tab PO DAILY 10/23/15 09/14/18 [Vitamin D3] Albuterol HFA [Ventolin HFA 90 0.09 mg IH PRN PRN 04/12/16 09/14/18 mcg/actuation (8 g)] Prednisone 4 mg PO BID 04/12/16 09/14/18 Tiotropium [place] Inhaler 1 puff INH DAILY 04/12/16 09/14/18 [Spiriva Inhalation Handihaler Device] Albuterol Sulfate [Proair Hfa] 2 puff IH PRN PRN 01/06/17 09/14/18 Review of Systems - Physician Review All systems were reviewed & negative as marked: Yes - Review of Systems Constitutional: Normal. absent: Fevers Eyes: Normal ENT: Normal Respiratory: SOB Cardiovascular: absent: Chest Pain Gastrointestinal: Normal. absent: Abdominal Pain, Nausea, Vomiting Genitourinary Male: Normal. absent: Dysuria, Frequency, Hematuria, Urinary Output Changes Musculoskeletal: Normal. absent: Back Pain, Neck Pain Skin: Normal. absent: Rash Neurological: Normal. absent: Headache, Dizziness Endocrine: Normal Hemo/Lymphatic: Normal Psychiatric: Normal Physical Exam Vital Signs Reviewed: Yes Appearance: Positive for: Comfortable - Systems Exam Head: Present: Atraumatic, Normocephalic Pupils: Present: PERRL Extroacular Muscles: Present: EOMI Conjunctiva: Present: Normal Mouth: Present: Moist Mucous Membranes Neck: Present: Normal Range of Motion Respiratory/Chest: Present: Decreased Breath Sounds (Decreased breath sounds bilaterally). No: Respiratory Distress, Accessory Muscle Use Cardiovascular: Present: Regular Rate and Rhythm, Normal S1, S2. No: Murmurs Abdomen: No: Tenderness, Distention, Peritoneal Signs Back: Present: Normal Inspection Upper Extremity: Present: Normal Inspection. No: Cyanosis, Edema Lower Extremity: Present: Normal Inspection. No: Edema Neurological: Present: GCS=15, CN II-XII Intact, Speech Normal Skin: Present: Warm, Dry, Normal Color. No: Rashes Psychiatric: Present: Alert, Oriented x 3, Normal Insight, Normal Concentration Medical Decision Making ED Course and Treatment: 09/14/18 05:23 Impression: 68 year old male brought in by EMS complaining of worsening shortness of breath. Plan: -- EKG -- CXR -- Labs, cardiac enzymes, BNP -- Reassess and disposition Prior Visits: Notes and results from previous visits were reviewed. Progress Notes: Reviewed EKG, sinus tachycardia at 122 bpm. Wavy baseline. Non-specific ST/T wave changes. 09/14/18 05:55 CXR reviewed, shows no acute processes. - Scribe Statement The provider has reviewed the documentation as recorded by the Lisa Rosas Provider Scribe Attestation: All medical record entries made by the Scribe were at my direction and personally dictated by me. I have reviewed the chart and agree that the record accurately reflects my personal performance of the history, physical exam, medical decision making, and the department course for this patient. I have also personally directed, reviewed, and agree with the discharge instructions and disposition. Disposition/Present on Arrival - Present on Arrival Any Indicators Present on Arrival: No History of DVT/PE: No History of Uncontrolled Diabetes: No Urinary Catheter: No History of Decub. Ulcer: No History Surgical Site Infection Following: None - Disposition Have Diagnosis and Disposition been Completed?: Yes Diagnosis: COPD exacerbation Disposition: HOSPITALIZED Disposition Time: 07:09 Condition: GOOD
[2018-09-14] MEDS ORDERED: Magnesium Sulfate 2 gm/50 ml 2 GM/50 ML BAG IVPB ONE (05:57)
[2018-09-14 06:16] LABS: HEMOGLOBIN 16.7 g/dL (14.0-18.0); MEAN CELL VOLUME 99.4 fl (80.0-105.0); MEAN CORPUSCULAR HEMOGLOBIN 32.3 pg (25.0-35.0); MEAN CORPUSCULAR HGB CONC 32.5 g/dl (31.0-37.0); MEAN PLATELET VOLUME 12.3 fl (7.0-11.0); RBC 5.17 10^6/uL (3.5-6.1); RED CELL DISTRIBUTION WIDTH 14.4 % (11.5-14.5); WHITE BLOOD COUNT 16.2 10^3/uL (4.5-11.0)
[2018-09-14] MEDS ORDERED: cefTRIAXone 1 gm 1 GM/100 ML BAG IV STA (06:43)
[2018-09-14] MEDS ORDERED: Azithromycin 500MG/NS 250ml 500 MG/250 ML BAG IV STA (06:43)
[2018-09-14 07:31] LABS: INR 0.94; PARTIAL THROMBOPLASTIN TIME 35.8 Seconds (25.1-36.5); PROTHROMBIN TIME 10.8 SECONDS (9.4-12.5)
[2018-09-14 07:36] LABS: ALB/GLOB RATIO 1.3 (1.1-1.8); ALBUMIN 4.2 g/dL (3.0-4.8); ALT/SGPT 30 U/L (7-56); AST/SGOT 35 U/L (17-59); BLOOD UREA NITROGEN 10 mg/dL (7-21); CALCIUM 9.5 mg/dL (8.4-10.5); GFR NON-AFRICAN AMERICAN > 60
[2018-09-14 07:43] LABS: B-TYPE NATRIURETIC PEPTIDE 402 pg/mL (0-450); TROPONIN I 0.06 ng/mL
[2018-09-14] MEDS: Albuterol-Ipratrop 3 mg / 0.5 (3 ml) UD IH SCH ×3 (08:59→20:02)
--- NOTE | 2018-09-14 09:15 | RAD ---
Date of service: 09/14/2018 HISTORY: sob COMPARISON: 09/01/2018 FINDINGS: LUNGS: No active pulmonary disease. PLEURA: No significant pleural effusion identified, no pneumothorax apparent. CARDIOVASCULAR: No aortic atherosclerotic calcification present. Normal cardiac size. No pulmonary vascular congestion. OSSEOUS STRUCTURES: No significant abnormalities. VISUALIZED UPPER ABDOMEN: Normal. OTHER FINDINGS: None. IMPRESSION: No active disease.
[2018-09-14 11:23] LABS: ARTERIAL BLOOD GAS HCO3 32.1 mmol/L (21-28); ARTERIAL BLOOD GAS O2 CAPACITY 21.9 mL/dl (16-24); ARTERIAL BLOOD GAS O2 CONTENT 21.9 ML/dl (15-23); ARTERIAL BLOOD GAS O2 SAT 100.1 % (95-98); ARTERIAL BLOOD GAS TCO2 34.8 mmol.L (22-28)
[2018-09-14 11:36] LABS: ARTERIAL BLOOD GAS PCO2 88 mm/Hg (35-45); ARTERIAL BLOOD GAS PH 7.17 (7.35-7.45)
[2018-09-14] MEDS: diltiaZEM 120 mg/24 Hours CD Cap PO SCH (12:33)
[2018-09-14] MEDS: MethylPREDNISolone 40 mg Vial IV SCH ×2 (12:37→18:22)
[2018-09-14 12:53] LABS: ARTERIAL BLOOD GAS HCO3 31.9 mmol/L (21-28); ARTERIAL BLOOD GAS HEMOGLOBIN 15.1 g/dL (11.7-17.4); ARTERIAL BLOOD GAS O2 CAPACITY 20.7 mL/dl (16-24); ARTERIAL BLOOD GAS O2 CONTENT 20.6 ML/dl (15-23); ARTERIAL BLOOD GAS O2 SAT 99.5 % (95-98); ARTERIAL BLOOD GAS PH 7.26 (7.35-7.45); ARTERIAL BLOOD GAS TCO2 34.1 mmol.L (22-28)
[2018-09-14 12:54] LABS: ARTERIAL BLOOD GAS PCO2 71 mm/Hg (35-45)
--- NOTE | 2018-09-14 14:11 | CARD ---
APPROVED REPORT Date of service: 09/14/2018 EKG Measurement Heart [id number] CO [id number] [id number] <Conclusion> Sinus tachycardia with premature supraventricular complexes and fusion complexes Low voltage QRS Cannot rule out Anteroseptal infarct, age undetermined Abnormal ECG Baseline Artefact ,please repeat
--- NOTE | 2018-09-14 18:20 | HP ---
DATE OF EXAM: 09/14/2018 HISTORY OF PRESENT ILLNESS: The patient is 68 years old, who states he has not been feeling well for couple of weeks. He is followed by Dr. Musa, who has been sending this practitioner. He was given [id number] Robitussin and denies any fever, no chills. He states, lately, his shortness of breath has been getting worse to the point he could not catch his breath, so he came to the emergency room for further evaluation. The patient states last night, his shortness of breath got well, he told his who called EMS and they gave him a nebulizer treatment. He was found to be hypoxic, so they brought him to emergency room. PAST MEDICAL HISTORY: Significant for: 1. COPD. 2. Hypertension. 3. History of colon cancer. 4. History of perianal abscess, he was admitted for that in 05/2017. 5. Obstructive sleep apnea. PAST SURGICAL HISTORY: Significant for: 1. Umbilical hernia repair. 2. Colon resection in 2013 for CA colon and has partial colectomy done. 3. History of perianal abscess I&D. SOCIAL HISTORY: He used to be a heavy smoker, socially drinks here and there. MEDICATIONS AT HOME: He is on aspirin 81 daily, he is on Spiriva, prednisone 4 mg daily, vitamin D. He is on Pulmicort. He is on Brovana, ProAir as needed. REVIEW OF SYSTEMS: Significant for shortness of breath and cough. PHYSICAL EXAMINATION: GENERAL: He is awake, alert, oriented, communicative. VITAL SIGNS: He is afebrile, pulse 116, respirations 18, blood pressure 129/81. LUNGS: Bilateral fair airflow. Few expiratory rhonchi. decreased breath sounds. HEART: S1 and S2 audible. ABDOMEN: Soft, obese, nontender. No rebound, no guarding. NEUROLOGIC: The patient is awake. alert, oriented, communicative. LABORATORY EXAM: WBC 16, hemoglobin 16.7, hematocrit 51.4, platelets 274. PT 10.8, INR 0.94. Chemistry: Sodium 137, potassium 4.2, chloride 94, CO2 34, BUN 10, creatinine 0.6, blood sugar 176. ASSESSMENT: 1. Chronic obstructive pulmonary disease exacerbation. 2. History of hypertension. 3. History of cancer of colon. 4. History of active smoking. PLAN: The patient will be admitted on telemetry. We will start him on IV steroid. He is on nebulizer treatment. He is on aspirin 81 daily. We will start him on Rocephin and Zithromax and pulmonary consult by has been requested. Juan Bertrand MD
[2018-09-14 18:55] VITALS: BMI 29.5
[2018-09-14] MEDS ORDERED: Influenza Vaccine 60 mcg/0.5 mL SYR (4YR UP) IM ONE (18:56)
[2018-09-14] MEDS ORDERED: Pneumococcal 23-Valent Vaccine IM ONE (18:56)
[2018-09-15] MEDS: MethylPREDNISolone 40 mg Vial IV SCH ×4 (00:47→17:28)
[2018-09-15] MEDS: Albuterol-Ipratrop 3 mg / 0.5 (3 ml) UD IH SCH ×4 (01:48→21:20)
[2018-09-15] MEDS: diltiaZEM 120 mg/24 Hours CD Cap PO SCH (09:30)
[2018-09-15] MEDS: cefTRIAXone 1 gm 1 GM/100 ML BAG IVPB SCH (09:31)
[2018-09-15] MEDS ORDERED: Azithromycin 500MG/NS 250ml 500 MG/250 ML BAG IVPB SCH (10:00)
--- NOTE | 2018-09-15 10:34 | CARD ---
APPROVED REPORT Date of service: 09/15/2018 EKG Measurement Heart [id number] IL 150P15 [id number] <Conclusion> Normal sinus rhythm Low voltage QRS Cannot rule out Anterior infarct, age undetermined T wave abnormality, consider lateral ischemia Abnormal ECG
--- NOTE | 2018-09-15 14:08 | PN ---
DATE: 09/14/2018 PULMONARY PROGRESS NOTE SUBJECTIVE: The patient feels markedly improved today following admission yesterday. The patient on further questioning, states that there was an error at home with oxygen being put up to 5 or 6 liters per minute. This caused progressive shortness of breath and lethargy. When he came to the emergency room, he had CO2 retention and respiratory insufficiency. He is markedly improved today. The patient does state that he had been feeling feverish over several days prior to admission, but this feeling was not progressive, it was evaluated by Dr. Musa's office. He was a receiving antitussives. It is unknown whether he received antibiotics. The patient remains compliant with outpatient therapy including continuous positive airway pressure for sleep apnea. PHYSICAL EXAMINATION: GENERAL: The patient is awake, alert, oriented, in no acute respiratory distress. VITAL SIGNS: Stable. The patient remains afebrile, pulse 80, respiratory rate 16, blood pressure 130/80, oxygen saturation 96% on supplemental oxygen. CHEST AND HEART: Regular rhythm, S1 and S2. Soft systolic ejection murmur at the lower left sternal border. LUNGS: Global decrease in breath sound. Minimal rhonchi. No wheezing appreciated. ABDOMEN: Soft. Bowels sounds normoactive without mass, guarding, rebound or organomegaly. EXTREMITIES: Reveal no clubbing, cyanosis or edema. There is no Homans' sign. NEUROLOGICAL: Reveals no focal findings. LABORATORY DATA: Reviewed. At this time, the patient was concerned of hypoglycemia which had been a problem in the recent past. We did a stat fingerstick which showed his blood sugar to be 141. The nurse was to call his primary medical doctor with these results. ASSESSMENT: 1. Exacerbation of chronic obstructive pulmonary disease. 2. Carbon dioxide retention secondary to increased FIO2 oxygen. 3. Cancer of his colon. 4. Obstructive sleep apnea. PLAN: Continue vigorous supportive care. Use of BiPAP while here in the hospital. Continue antibiotics; being treated with Rocephin and Zithromax. We will follow closely with you and decide on the need for further intervention based on his clinical findings. We will discuss case with the patient's later today. David Humphreys MD [facility] # [id number]
--- NOTE | 2018-09-15 15:53 | PN ---
DATE: 09/15/2018 SUBJECTIVE: The patient has no complaints of any chest pain or shortness of breath. He says his breathing is better . PHYSICAL EXAMINATION: VITAL SIGNS: Temperature is 97.9, pulse of 95, blood pressure is 131/77, respirations 20. GENERAL: The patient is lying in bed, flat, comfortable. HEENT: No oral lesion. Anicteric sclerae. Moist mucosa. NECK: No JVD, adenopathy, or thyromegaly. CARDIOVASCULAR: S1 and S2, regular. No murmurs, rubs, or gallops. LUNGS: Clear to auscultation bilaterally. No wheeze, rales, or rhonchi. ABDOMEN: Bowel sounds are positive, soft, nontender and nondistended. EXTREMITIES: No cyanosis, clubbing or edema. LABS: The patient had a white count of 16.2, hemoglobin 16.7, creatinine is 0.6. Troponin was 0.2 and then was 0.09. ASSESSMENT: 1. Acute chronic obstructive pulmonary disease. 2. Hypertension. 3 Tobacco use. 4. Obese with the body mass index of 29. PLAN: The patient had an elevated troponin. He has been placed on aspirin. He is on Rocephin for antibiotics and the patient is on Solu-Medrol for his breathing. The patient is on Tylenol as needed for pain. He is on Zofran for nausea. He is on Cardizem for his blood pressure. He is on nebulizer treatments and this will be continued. Kendell Mera MD
[2018-09-16] MEDS: MethylPREDNISolone 40 mg Vial IV SCH ×2 (00:05→05:08)
[2018-09-16] MEDS: Albuterol-Ipratrop 3 mg / 0.5 (3 ml) UD IH SCH ×3 (02:12→20:55)
--- NOTE | 2018-09-16 08:26 | CON ---
DATE: 09/14/2018 PULMONARY CONSULTATION HISTORY OF PRESENT ILLNESS: We were asked to evaluate this 68 years old man in the emergency room. He was brought in by his spouse with chief complaint of increased shortness of breath. The also stated that his breathing got worse since he started coughing and not being able to expectorate very thick secretions. Otherwise, he is known with severe chronic obstructive pulmonary disease, on home oxygen 24/7. He is also on oral steroids 8 mg of Medrol every day. He is on nebulizer treatment with Brovana and budesonide twice a day. He also has obstructive sleep apnea and using CPAP nightly. 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 PAST MEDICAL HISTORY: Includes colon cancer, perianal abscess and obesity. PAST SURGICAL HISTORY: Includes colon resection in 2013, vascular abscess in 2015. FAMILY HISTORY: Negative for inherited diseases. SOCIAL HISTORY: Included heavy smoking, he smoked up until recently. He was also a social drinker, never used illicit drugs. ALLERGIES: NO KNOWN ALLERGIES. HOME MEDICATIONS: As above in history of present illness. Prednisone, Spiriva, Brovana, budesonide and CPAP. REVIEW OF SYSTEMS: Conducted by reviewing all sources. CONSTITUTIONAL: No fevers. No fatigue. HEAD, EAR, NOSE AND THROAT: No sore throat. No runny nose. PULMONARY: See history of present illness. CARDIOVASCULAR: No chest pain. No palpitations. GASTROINTESTINAL: No nausea, vomiting or diarrhea. The rest of the systems was reviewed and found to be negative. PHYSICAL EXAMINATION: VITAL SIGNS: His blood pressure is 140/70, pulse 84, respirations 22, oxygen saturation on BiPAP is 92%. HEENT: Head normocephalic and atraumatic. NECK: Supple with no jugular vein distentions. CHEST: Few bilateral rhonchi and few expiratory wheezes. GASTROINTESTINAL: Soft, nontender, obese. Bowel sounds present. EXTREMITIES: 2+ pedal edema. No cyanosis. SKIN: No acute skin rash. NEUROLOGIC: No focal deficits. ASSESSMENT: 1. Exacerbation of severe chronic obstructive pulmonary disease. 2. Chronic respiratory failure. 3. Hypoxia. 4. Obstructive sleep apnea. PLAN: I have reviewed his chest x-ray that reveals mild hyperinflation. No cardiomegaly, no congestive changes, and no infiltrates. The patient started on BiPAP, tolerating BiPAP well so far. He will be able to be downgraded to nasal cannula with nebulizer treatment, intravenous steroids. Blood cultures and blood work still pending. The patient's condition is extremely guarded. Beltran Wade MD
--- NOTE | 2018-09-16 09:24 | PN ---
DATE: 09/16/2018 PULMONARY NOTE SUBJECTIVE: The patient appears comfortable this morning. He is not short of breath at rest. PHYSICAL EXAMINATION: VITAL SIGNS: Temperature is 97.1, pulse 78, respirations 18, and blood pressure 128/84. Oxygen saturation on nasal cannula is 97%. HEENT: Normocephalic, atraumatic. NECK: No JVD. CARDIOVASCULAR: Systolic ejection murmur at the lower left sternal border. No S3 gallop. LUNGS: Decreased breath sounds at the bases. Minimal rhonchi. No wheezing. EXTREMITIES: No clubbing, cyanosis, or edema. Calves are nontender to palpation. GI: Abdomen is soft, nontender, and nondistended. Bowel sounds are positive. SKIN: No acute rash. NEUROLOGIC: Exam limited at the present time. PERTINENT LABORATORY DATA: Chest x-ray was done on 09/14/2018, and reviewed. There is no active disease present. IMPRESSION: 1. Acute bronchitis. 2. Advanced chronic obstructive pulmonary disease. 3. Obstructive sleep apnea. 4. Chronic respiratory insufficiency. 5. Hypertension. PLAN: The patient appears comfortable this morning. He is not short of breath at rest. He does state to feeling much better overall. On physical exam, there is no significant bronchospasm noted. In addition, there is no significant alveolar-arterial gradient. I will continue the current nebulizer treatments and decrease the intravenous steroids this morning. I will also add inhaled Pulmicort. The patient remains on antibiotic therapy. There are no temperatures noted. Clinical status of the patient is certainly improved this morning - compared to his initial presentation. However, given the above, the patient's future status/prognosis does remain guarded. I will discuss the above the attending physician. Tulio Hart MD [facility]
[2018-09-16] MEDS ORDERED: Enoxaparin 100 mg Syringe ONE (11:59)
[2018-09-16 13:07] LABS: HEMOGLOBIN 14.8 g/dL (14.0-18.0); MEAN CELL VOLUME 99.6 fl (80.0-105.0); MEAN CORPUSCULAR HEMOGLOBIN 31.8 pg (25.0-35.0); MEAN PLATELET VOLUME 10.5 fl (7.0-11.0); RBC 4.65 10^6/uL (3.5-6.1); RED CELL DISTRIBUTION WIDTH 13.9 % (11.5-14.5); WHITE BLOOD COUNT 14.3 10^3/uL (4.5-11.0)
[2018-09-16 14:27] LABS: BLOOD UREA NITROGEN 29 mg/dL (7-21); CALCIUM 9.7 mg/dL (8.4-10.5); GFR NON-AFRICAN AMERICAN > 60
[2018-09-16 14:28] LABS: ALB/GLOB RATIO 1.3 (1.1-1.8); ALBUMIN 3.9 g/dL (3.0-4.8); ALT/SGPT 42 U/L (7-56); AST/SGOT 37 U/L (17-59)
--- NOTE | 2018-09-16 16:29 | PN ---
DATE: 09/16/2018 SUBJECTIVE: The patient is 68 years old, seen and examined, sitting by the edge of the bed, compliant of shortness of breath, complaint of decreased appetite, complaint of headache. As per , he is getting very weak, has difficulty walking even at home. PHYSICAL EXAMINATION: VITAL SIGNS: He is afebrile, pulse 78, respirations 18, and blood pressure 128/84. LUNGS: Bilateral diffusely decreased breath sounds. HEART: S1 and S2 audible. ABDOMEN: Soft, obese, nontender. No rebound, no guarding. NEUROLOGIC: The patient is awake. alert, oriented, able to communicate. EXTREMITIES: Bilateral legs no edema. LABORATORY EXAMINATION: His blood sugar is 191, troponin of 0.21, followup was 0.09. Blood pressures are negative. ASSESSMENT: 1. Chronic obstructive pulmonary disease exacerbation. 2. Positive troponin, probably demand ischemia. 3. Terminal chronic obstructive pulmonary disease and exacerbation. 4. History of cancer of colon, status post partial colectomy. 5. Deconditioning and difficulty walking. PLAN: We will request for physical therapy evaluation and probably we will benefit from TCU. We will request for TCU evaluation also. We will follow up echocardiogram. Awaiting cardiology input. Juan Bertrand MD
--- NOTE | 2018-09-16 16:33 | CP.PCM.PCO ---
Physician Communication Note - Physician Communication Note Physician Communication Note: COPD exac, on solumedrol, antibx, duonebs, bronchodilators, PT eval pending
[2018-09-16] MEDS: MethylPREDNISolone 40 mg Vial IVP SCH (17:00)
[2018-09-16] MEDS: Budesonide 0.5 mg/2 ml Inhal Susp UD IH SCH (20:55)
[2018-09-16] MEDS: Enoxaparin 100 mg Syringe SC SCH (22:28)
[2018-09-17] MEDS: MethylPREDNISolone 40 mg Vial IVP SCH ×3 (01:10→21:51)
--- NOTE | 2018-09-17 01:33 | CON ---
DATE: 09/16/2018 CARDIOLOGY CONSULTATION HISTORY: The patient is a 68-year-old male, who presents with exertional dyspnea including dyspnea at rest. He denies chest pain. On admission, he was found to have elevated troponins consistent with a non-STEMI. The patient's overwhelming problem is severe COPD and the patient continues to smoke. He has had no cardiac workup in the past. However, according to his significant other, an echocardiogram in the past showed ischemic and segmental wall motion abnormalities. SOCIAL HISTORY: The patient is an active smoker. REVIEW OF SYSTEM: A 14-point review of systems is reviewed in detail. The patient had colon cancer in 2013, treated with surgery, and currently he is on a baby aspirin. No previous myocardial infarction that he is aware of. PHYSICAL EXAMINATION: GENERAL: The patient is in bed with mild dyspnea. VITAL SIGNS: Stable. NECK: Negative JVD. LUNGS: Markedly decreased breath sounds. HEART: Reveals S1, S2. EXTREMITIES: Chronic edematous changes noted. LABORATORY DATA: EKG shows normal sinus rhythm with right axis deviation with nonspecific ST-T changes. The troponins were reported to be mildly elevated. IMPRESSION: 1. Jbm-FH-[id number] myocardial infarction. 2. High probability for coronary artery disease. 3. Severe chronic obstructive pulmonary disease. 4. Rule out pulmonary hypertension. 5. Dyspnea. 6. History of colon cancer. PLAN: Given these findings, the patient will be started on anticoagulation. He will need a catheterization once his dyspnea is a little more stable. His old records cannot be obtained at this time, given the [employer] is nonfunctional. Sreedhar Bell MD
[2018-09-17] MEDS: Albuterol-Ipratrop 3 mg / 0.5 (3 ml) UD IH SCH ×4 (02:30→20:57)
[2018-09-17 06:41] LABS: BASO # 0.01 K/mm3 (0.0-2.0); BASO % 0.1 % (0.0-3.0); GRAN # 9.78 (1.4-6.5); GRAN % 89.8 % (50.0-68.0); HEMOGLOBIN 14.4 g/dL (14.0-18.0); LYMPH # 0.8 (1.2-3.4); LYMPH % 7.4 % (22.0-35.0); MEAN CELL VOLUME 101.1 fl (80.0-105.0); MEAN CORPUSCULAR HEMOGLOBIN 31.2 pg (25.0-35.0); MEAN CORPUSCULAR HGB CONC 30.9 g/dl (31.0-37.0); MEAN PLATELET VOLUME 10.9 fl (7.0-11.0); MONO # 0.3 (0.1-0.6); MONO % 2.7 % (1.0-6.0); RBC 4.61 10^6/uL (3.5-6.1); RED CELL DISTRIBUTION WIDTH 14.1 % (11.5-14.5); WHITE BLOOD COUNT 10.9 10^3/uL (4.5-11.0)
[2018-09-17 07:11] LABS: ALB/GLOB RATIO 1.4 (1.1-1.8); ALT/SGPT 42 U/L (7-56); AST/SGOT 39 U/L (17-59); BLOOD UREA NITROGEN 30 mg/dL (7-21); CALCIUM 9.5 mg/dL (8.4-10.5); GFR NON-AFRICAN AMERICAN > 60
[2018-09-17] MEDS: Budesonide 0.5 mg/2 ml Inhal Susp UD IH SCH ×2 (08:15→20:57)
[2018-09-17] MEDS: cefTRIAXone 1 gm 1 GM/100 ML BAG IVPB SCH (09:28)
[2018-09-17] MEDS: diltiaZEM 120 mg/24 Hours CD Cap PO SCH (09:29)
[2018-09-17] MEDS: Enoxaparin 100 mg Syringe SC SCH ×2 (09:30→21:51)
--- NOTE | 2018-09-17 10:32 | CP.PCM.CON ---
<Edi Brewer - Last Filed: 09/17/18 10:49> History of Present Illness - History of Present Illness History of Present Illness: Davy Brewer PGY2 - ICU Consult Note Consult Reason: ICU Evaluation HPI: 68 year old male with past medical history of colon cancer s/p resection, tobacco abuse, COPD on home O2 who presented to [facility] [place] ED complaining of difficulty breathing x 2 days and confusion. Patient was evaluated in ED with EKG showing sinus tachycardia and non-specific ST/T wave changes, CXR with mild hyperinflation and absent congestion and admitted for COPD exacerbation. Patient noted to have elevated troponin and cardiology was consulted for NSTEMI placed on anticoagulation. While on floors patient exhibited increased effort in breathing while on BiPAP and ICU was consulted for the increased respiratory effort. Patient reports his respiratory effort has improved since admission. at bedside reports that patient does appear to look better than while at their residence but does show continued periods of confusion and forgetfulness. Patient denies chest pain, nausea, vomiting, fever, chills, headache, changes in vision, abdominal pain, diarrhea, constipation, weakness, urinary complaints, swelling of his lower extremities. He does report skin changes on his posterior forearms bilaterally. PMH: Colon cancer s/p resection, COPD on home O2, Tobacco abuse, SHORTY, HTN, perianal abscess PSH: Colon resection 2013 SOCHX: Tobacco: Current every day smoker, ETOH:Social, ID: Denies ALL: NKDA MEDS: Brovana BID Pulmicort 0.25mg NEB BID PRN Vit D3 1 tab daily Ventolin HFA 90mcg 0.09 mg IH PRN Spiriva 1 inhalation Daily Proair Hfa 2 puff PRN Review of Systems - Review of Systems All systems: reviewed and no additional remarkable complaints except (as mentioned in HPI) Past Patient History - Infectious Disease Hx of Infectious Diseases: None - Past Social History Smoking Status: Current Some Days Smoker Alcohol: Social Drugs: Denies - CARDIAC Hx Pacemaker: No - PULMONARY Hx Chronic Obstructive Pulmonary Disease (COPD): Yes - NEUROLOGICAL Hx Paralysis: No - HEENT Hx HEENT Problems: No - RENAL Hx Chronic Kidney Disease: No - ENDOCRINE/METABOLIC Hx Endocrine Disorders: No - HEMATOLOGICAL/ONCOLOGICAL Hx Blood Transfusions: No Hx Blood Transfusion Reaction: No - INTEGUMENTARY Hx Dermatological Problems: Yes (PERIRECTAL ABSCESS 04-09-17) Other/Comment: multiple skin discolorations b/l hands and arms - MUSCULOSKELETAL/RHEUMATOLOGICAL Hx Musculoskeletal Disorders: No - GASTROINTESTINAL Hx Gastrointestinal Disorders: Yes (PERIRECTAL ABSCESS 04-09-17,PERIANAL ABSCESS ) Other/Comment: COLON RESECTION-COLON CA COMPLETED CHEMO. - GENITOURINARY/GYNECOLOGICAL Hx Genitourinary Disorders: No - PSYCHIATRIC Hx Substance Use: No - SURGICAL HISTORY Other/Comment: umbilical hernia sx, colon resection 2013, vascular acces device r pac 09/2014 rermoved 2 2015, i and d perianal abcess, colonoscopy 2013 and 2014 - ANESTHESIA Hx Anesthesia Reactions: No Hx Malignant Hyperthermia: No Meds Allergies/Adverse Reactions: Allergies Allergy/AdvReac Type Severity Reaction Status Date / Time No Known Allergies Allergy Verified 05/16/17 11:37 - Medications Medications: Current Medications Acetaminophen (Tylenol 325mg Tab) 650 mg PO Q6H PRN PRN Reason: Fever >100.4 F Albuterol/Ipratropium (Duoneb 3 Mg/0.5 Mg (3 Ml) Ud) 3 ml IH Q2H PRN PRN Reason: Shortness of Breath Albuterol/Ipratropium (Duoneb 3 Mg/0.5 Mg (3 Ml) Ud) 3 ml IH [id number] [facility] Last Admin: 09/17/18 08:15 Dose: 3 ml Aspirin (Ecotrin) 81 mg PO DAILY [facility] Last Admin: 09/17/18 09:29 Dose: 81 mg Azithromycin (Zithromax) 500 mg PO DAILY [facility] Last Admin: 09/17/18 09:29 Dose: 500 mg Budesonide (Pulmicort Respules) 0.5 mg IH [id number] [facility] Last Admin: 09/17/18 08:15 Dose: 0.5 mg Diltiazem HCl (Cardizem Cd) 120 mg PO DAILY [facility] Last Admin: 09/17/18 09:29 Dose: 120 mg Enoxaparin Sodium (Lovenox) 100 mg SC Q12 [facility] Last Admin: 09/17/18 09:30 Dose: 100 mg Ceftriaxone Sodium (Rocephin 1 Gram Ivpb) 1 gm in 100 mls @ 100 mls/hr IVPB DAILY [facility]; Protocol Stop: 09/19/18 10:59 Last Admin: 09/17/18 09:28 Dose: 100 mls/hr Methylprednisolone (Solu-Medrol) 40 mg IVP Q12 [facility] Last Admin: 09/17/18 09:30 Dose: 40 mg Ondansetron HCl (Zofran Inj) 4 mg IVP Q6H PRN PRN Reason: Nausea/Vomiting Physical Exam - Constitutional Additional comments: dyspnea - Head Exam Head Exam: ATRAUMATIC, NORMAL INSPECTION, NORMOCEPHALIC - Eye Exam Eye Exam: EOMI, PERRL - ENT Exam ENT Exam: Mucous Membranes Moist - Neck Exam Neck exam: Positive for: Full Rom - Respiratory Exam Respiratory Exam: Decreased Breath Sounds. absent: Rales, Rhonchi Additional comments: increased respiratory effort - Cardiovascular Exam Cardiovascular Exam: REGULAR RHYTHM, +S1, +S2. absent: Systolic Murmur - GI/Abdominal Exam GI & Abdominal Exam: Distended, Normal Bowel Sounds, Soft. absent: Firm, Guarding, Rigid, Tenderness - Extremities Exam Extremities exam: Negative for: calf tenderness, pedal edema - Neurological Exam Neurological exam: Alert, Oriented x3 Additional comments: motor and sensory grossly intact Patient able to move extremities past midline - Psychiatric Exam Psychiatric exam: Normal Affect, Normal Mood - Skin Skin Exam: Dry Additional comments: ecchymosis noted along bilateral forearms Results - Vital Signs Recent Vital Signs: Last Vital Signs Temp 97.6 F 09/17/18 08:12 Pulse 88 09/17/18 09:29 Resp 20 09/17/18 08:12 BP 133/87 09/17/18 09:29 Pulse Ox 94 L 09/17/18 08:12 - Labs Result Diagrams: 09/17/18 06:00 09/17/18 06:00 Labs: Laboratory Results - last 24 hr 09/16/18 09/16/18 09/17/18 10:30 10:30 06:00 WBC 14.3 H 10.9 D RBC 4.65 4.61 Hgb 14.8 14.4 Hct 46.3 46.6 MCV 99.6 101.1 MCH 31.8 31.2 MCHC 32.0 30.9 L RDW 13.9 14.1 Plt Count 196 204 MPV 10.5 10.9 Gran % 89.8 H Lymph % (Auto) 7.4 L [place] % (Auto) 2.7 Eos % (Auto) 0.0 L Baso % (Auto) 0.1 Gran # 9.78 H Lymph # (Auto) 0.8 L [place] # (Auto) 0.3 Eos # (Auto) 0.0 Baso # (Auto) 0.01 Sodium 138 Potassium 5.1 H Chloride 95 L Carbon Dioxide 39 H Anion Gap 9 L BUN 29 H Creatinine 0.6 L Est GFR ( Amer) > 60 Est GFR (Non-Af Amer) > 60 Random Glucose 138 H Calcium 9.7 Phosphorus Magnesium Total Bilirubin 0.4 AST 37 ALT 42 Alkaline Phosphatase 66 Total Protein 7.0 Albumin 3.9 Globulin 3.1 Albumin/Globulin Ratio 1.3 09/17/18 06:00 WBC RBC Hgb Hct MCV MCH MCHC RDW Plt Count MPV Gran % Lymph % (Auto) [place] % (Auto) Eos % (Auto) Baso % (Auto) Gran # Lymph # (Auto) [place] # (Auto) Eos # (Auto) Baso # (Auto) Sodium 139 Potassium 5.4 H Chloride 93 L Carbon Dioxide > 40 H Anion Gap 12 BUN 30 H Creatinine 0.6 L Est GFR ( Amer) > 60 Est GFR (Non-Af Amer) > 60 Random Glucose 114 H Calcium 9.5 Phosphorus 3.3 Magnesium 2.5 H Total Bilirubin 0.5 AST 39 ALT 42 Alkaline Phosphatase 60 Total Protein 6.9 Albumin 4.0 Globulin 2.9 Albumin/Globulin Ratio 1.4 Assessment & Plan - Assessment and Plan (Free Text) Assessment: 68 year old male with past medical history of HTN, SHORTY, obesity, tobacco abuse, COPD on home O2 who presented to [facility] for 2 day history of shortness of breath, admitted for COPD exacerbation and NSTEMI. Cardiology, Pulmonology are consulted and following patient. Patient is admitted to ICU for increased respiratory effort and monitoring. Plan: NEURO: -AAOX3 -Monitor neuro status for changes CARDIO: NSTEMI -Troponin elevation with EKG showin nonspecific ST/T wave changes -Continue aspirin, cardizem, lovenox per cardio -Cardio consulted and following -On anticoagulation, pending potential cath when dyspnea improves Hx HTN -Continue cardizem -Maintain MAP >65 PULM: Acute COPD exacerbation -Leukocytosis, dyspnea, productive cough -Pulmonology consulted and following -Continue IV steroids, Aithromycin, rocephin, duoneb, pulmicort -Maintain SaO2 >88% -Continue BiPAP on 02/03 with FiO2 35% GI: -Hx of Colon cancer s/p resection -HHD -IV zofran RENAL: - Maintain euvolemia, replete lytes - Goal Mg 2, Phos 4 ID: COPD exacerbation -Continue abx as per primary -Leukocytosis resolved, afebrile -Blood culture negative s/p 3 days DERM: Ecchymosis of bilateral foearm/wrist -likely secondary to anti-coagulation GI/DVT ppx HHD, tolerating diet Lovenox for NSTEMI Patient seen, case and plan discussed with attending, Dr. Gan - Date & Time Date: 09/17/18 Time: 11:29 <Peterson Mora - Last Filed: 09/17/18 13:08> Meds - Medications Medications: Current Medications Acetaminophen (Tylenol 325mg Tab) 650 mg PO Q6H PRN PRN Reason: Fever >100.4 F Albuterol/Ipratropium (Duoneb 3 Mg/0.5 Mg (3 Ml) Ud) 3 ml IH Q2H PRN PRN Reason: Shortness of Breath Albuterol/Ipratropium (Duoneb 3 Mg/0.5 Mg (3 Ml) Ud) 3 ml IH [id number] [facility] Last Admin: 09/17/18 08:15 Dose: 3 ml Aspirin (Ecotrin) 81 mg PO DAILY [facility] Last Admin: 09/17/18 09:29 Dose: 81 mg Azithromycin (Zithromax) 500 mg PO DAILY [facility] Last Admin: 09/17/18 09:29 Dose: 500 mg Budesonide (Pulmicort Respules) 0.5 mg IH [id number] [facility] Last Admin: 09/17/18 08:15 Dose: 0.5 mg Diltiazem HCl (Cardizem Cd) 120 mg PO DAILY [facility] Last Admin: 09/17/18 09:29 Dose: 120 mg Enoxaparin Sodium (Lovenox) 100 mg SC Q12 [facility] Last Admin: 09/17/18 09:30 Dose: 100 mg Ceftriaxone Sodium (Rocephin 1 Gram Ivpb) 1 gm in 100 mls @ 100 mls/hr IVPB DA JOANNA [facility]; Protocol Stop: 09/19/18 10:59 Last Admin: 09/17/18 09:28 Dose: 100 mls/hr Methylprednisolone (Solu-Medrol) 40 mg IVP Q12 [facility] Last Admin: 09/17/18 09:30 Dose: 40 mg Ondansetron HCl (Zofran Inj) 4 mg IVP Q6H PRN PRN Reason: Nausea/Vomiting Results - Vital Signs Recent Vital Signs: Last Vital Signs Temp 97.6 F 09/17/18 08:12 Pulse 94 H 09/17/18 11:50 Resp 20 09/17/18 08:12 BP 133/87 09/17/18 09:29 Pulse Ox 94 L 09/17/18 08:12 - Labs Result Diagrams: 09/17/18 06:00 09/17/18 06:00 Labs: Laboratory Results - last 24 hr 09/16/18 09/16/18 09/17/18 10:30 10:30 06:00 WBC 14.3 H 10.9 D RBC 4.65 4.61 Hgb 14.8 14.4 Hct 46.3 46.6 MCV 99.6 101.1 MCH 31.8 31.2 MCHC 32.0 30.9 L RDW 13.9 14.1 Plt Count 196 204 MPV 10.5 10.9 Gran % 89.8 H Lymph % (Auto) 7.4 L [place] % (Auto) 2.7 Eos % (Auto) 0.0 L Baso % (Auto) 0.1 Gran # 9.78 H Lymph # (Auto) 0.8 L [place] # (Auto) 0.3 Eos # (Auto) 0.0 Baso # (Auto) 0.01 Sodium 138 Potassium 5.1 H Chloride 95 L Carbon Dioxide 39 H Anion Gap 9 L BUN 29 H Creatinine 0.6 L Est GFR ( Amer) > 60 Est GFR (Non-Af Amer) > 60 Random Glucose 138 H Calcium 9.7 Phosphorus Magnesium Total Bilirubin 0.4 AST 37 ALT 42 Alkaline Phosphatase 66 Total Protein 7.0 Albumin 3.9 Globulin 3.1 Albumin/Globulin Ratio 1.3 09/17/18 06:00 WBC RBC Hgb Hct MCV MCH MCHC RDW Plt Count MPV Gran % Lymph % (Auto) [place] % (Auto) Eos % (Auto) Baso % (Auto) Gran # Lymph # (Auto) [place] # (Auto) Eos # (Auto) Baso # (Auto) Sodium 139 Potassium 5.4 H Chloride 93 L Carbon Dioxide > 40 H Anion Gap 12 BUN 30 H Creatinine 0.6 L Est GFR ( Amer) > 60 Est GFR (Non-Af Amer) > 60 Random Glucose 114 H Calcium 9.5 Phosphorus 3.3 Magnesium 2.5 H Total Bilirubin 0.5 AST 39 ALT 42 Alkaline Phosphatase 60 Total Protein 6.9 Albumin 4.0 Globulin 2.9 Albumin/Globulin Ratio 1.4 Assessment & Plan - Assessment and Plan (Free Text) Plan: Patient seen and examined on rounds with resident, agree with note with following additions/exceptions: Patient is 68 year old male with past medical history of colon cancer s/p resection, tobacco abuse, COPD on home O2 who presented to [facility] [facility] ED complaining of difficulty breathing x 2 days. Admitted for COPD exacerbation, on BIPAP. Currently afebrile, BP stable, comfortable in NAD, RR 18-20. Labs, imaging, chart reveiwed. ABG with chronic resp acidosis Troponin downtrending Elevated troponin COPD exacerbation Tobacco use SOB Recommend: - supp o2 as needed, goal sat 90%, BIPAP at night and as needed - duonebs PRN - Solumedrol 40mg IV BID - titrate off BIPAP - ASA, Plavix, Statin, - would avoid BB - Lovenox - follow up cardio, possible cath - GI ppx - DVT ppx - Transfer to MICU Critical care time 35 minutes
--- NOTE | 2018-09-17 12:54 | PN ---
DATE: 09/17/2018 SUBJECTIVE: The patient appears comfortable this morning. He is not short of breath at rest. PHYSICAL EXAMINATION: VITAL SIGNS: Temperature 98.9, pulse 77, respirations 18/20, blood pressure 129/88. Oxygen saturation on room air - 94%. Oxygen saturation on nasal cannula - 96%. HEENT: Normocephalic, atraumatic. NECK: No JVD. CARDIOVASCULAR: Systolic ejection murmur at the lower left sternal border. No S3 gallop. LUNGS: Improved breath sounds at the bases. Minimal/less rhonchi. No wheezing. EXTREMITIES: No clubbing, cyanosis or edema. Calves are nontender to palpation. GASTROINTESTINAL: Abdomen is soft, nontender and nondistended. Bowel sounds are positive. SKIN: No acute rash. NEUROLOGIC: Limited at the present time. IMPRESSION: 1. Acute bronchitis. 2. Advanced chronic obstructive pulmonary disease. 3. Obstructive sleep apnea. 4. [id number] respiratory insufficiency. 5. Hypertension. PLAN: The patient appears very comfortable this morning. He is not short of breath at rest. He does state to feeling much better overall. On physical exam, his bronchospasm continues to slowly resolve. In addition, the alveolar-arterial gradient is also less. I will continue with the current nebulizer treatments and decrease the intravenous steroids this morning. The patient remains on antibiotic therapy. There are no temperatures noted. The leukocytosis has resolved. Inputs by Internal Medicine and Cardiology are also noted. Clinical status of the patient appears significantly improved - compared to the initial presentation. However, again, the future status/prognosis for this patient remains guarded - as he continues to have advanced lung disease. I will discuss the above with the attending physician. Tuilo Hart MD MTDD
--- NOTE | 2018-09-17 13:32 | PN ---
DATE: 09/17/2018 CARDIOLOGY FOLLOWUP SUBJECTIVE: The patient remains dyspneic and is currently on BiPAP. OBJECTIVE: VITAL SIGNS: Blood pressure 133/87, heart rates in the 80s. NECK: Negative JVD. LUNGS: Markedly decreased breath sounds. HEART: Reveal S1, S2. EXTREMITIES: Without change. LABORATORY DATA: BUN and creatinine unremarkable. Hemoglobin is 14. IMPRESSION: 1. Marked dyspnea. 2. Severe chronic obstructive pulmonary disease. 3. Non-ST elevation myocardial infarction. 4. Coronary artery disease. 5. History of colon cancer. Given these findings, I will call the ICU to transfer into the intensive care unit. The patient's respiratory distress with warrant following his respiratory status more closely. Sreedhar Bell MD
[2018-09-18 06:34] LABS: BASO # 0.01 K/mm3 (0.0-2.0); BASO % 0.1 % (0.0-3.0); GRAN # 6.32 (1.4-6.5); GRAN % 84.7 % (50.0-68.0); HEMOGLOBIN 13.9 g/dL (14.0-18.0); LYMPH # 0.9 (1.2-3.4); LYMPH % 12.1 % (22.0-35.0); MEAN CELL VOLUME 100.9 fl (80.0-105.0); MEAN CORPUSCULAR HEMOGLOBIN 31.1 pg (25.0-35.0); MEAN CORPUSCULAR HGB CONC 30.8 g/dl (31.0-37.0); MEAN PLATELET VOLUME 10.7 fl (7.0-11.0); MONO # 0.2 (0.1-0.6); MONO % 3.1 % (1.0-6.0); RBC 4.47 10^6/uL (3.5-6.1); RED CELL DISTRIBUTION WIDTH 13.7 % (11.5-14.5); WHITE BLOOD COUNT 7.5 10^3/uL (4.5-11.0)
[2018-09-18 07:22] LABS: BLOOD UREA NITROGEN 31 mg/dL (7-21); CALCIUM 9.3 mg/dL (8.4-10.5); GFR NON-AFRICAN AMERICAN > 60
[2018-09-18] MEDS: Albuterol-Ipratrop 3 mg / 0.5 (3 ml) UD IH SCH ×3 (07:45→20:01)
[2018-09-18] MEDS: Budesonide 0.5 mg/2 ml Inhal Susp UD IH SCH ×2 (07:45→20:02)
--- NOTE | 2018-09-18 07:48 | CP.CCUPN ---
<DaniellaEdi - Last Filed: 09/18/18 10:03> CCU Subjective - Physician Review Subjective (Free Text): 09/18/18 09:58 Patient seen and examined this AM. No acute events reported overnight. Patient is noted to be resting comfrtably in bed in no apparent distress off of BIPAP. Patient reports improved respiratory effort. Denies chest pain, abdominal pain, weakness, numbness, headache, nausea, vomiting, fever, chills. CCU Objective - Vital Signs / Intake & Output Intake and Output (Last 8hrs): Intake & Output 09/17/18 09/18/18 09/18/18 22:59 06:59 14:59 Output Total 350 Balance -350 Output: Urine 350 Urine, Voided 350 Other: # Voids Urine, Voided 1 - Physical Exam Head: Positive for: Atraumatic, Normocephalic Pupils: Positive for: PERRL Extroacular Muscles: Positive for: EOMI Conjunctiva: Positive for: Normal Mouth: Positive for: Moist Mucous Membranes Neck: Positive for: Normal Range of Motion Respiratory/Chest: Positive for: Decreased Breath Sounds (Decreased breath sounds bilaterally). Negative for: Respiratory Distress, Accessory Muscle Use, Wheezes, Rales, Rhonchi, Tachypneic Cardiovascular: Positive for: Regular Rate and Rhythm, Normal S1, S2. Negative for: Murmurs Abdomen: Negative for: Tenderness, Distention, Peritoneal Signs Back: Positive for: Normal Inspection Upper Extremity: Positive for: Normal Inspection. Negative for: Cyanosis, Edema Lower Extremity: Positive for: Normal Inspection. Negative for: Edema Neurological: Positive for: GCS=15, CN II-XII Intact, Speech Normal Skin: Positive for: Warm, Dry, Other (ecchymosis of uper extremities b/l). Negative for: Rashes Psychiatric: Positive for: Alert, Oriented x 3, Normal Insight, Normal Concentration - Medications Active Medications: Active Medications Generic Name Dose Route Start Last Admin Trade Name Freq PRN Reason Stop Dose Admin Acetaminophen 650 mg 09/14/18 07:48 Tylenol 325mg Tab PO Q6H PRN Fever >100.4 F Albuterol/Ipratropium 3 ml 09/14/18 07:48 Duoneb 3 Mg/0.5 Mg (3 Ml) Ud IH Q2H PRN Shortness of Breath Albuterol/Ipratropium 3 ml 09/14/18 08:00 09/17/18 20:57 Duoneb 3 Mg/0.5 Mg (3 Ml) Ud IH 3 ml [id number] MARIELA Administration Aspirin 81 mg 09/14/18 10:00 09/17/18 09:29 Ecotrin PO 81 mg DAILY MARIELA Administration Azithromycin 500 mg 09/17/18 10:00 09/17/18 09:29 Zithromax PO 500 mg DAILY MARIELA Administration Budesonide 0.5 mg 09/16/18 20:00 09/17/18 20:57 Pulmicort Respules IH 0.5 mg [id number] MARIELA Administration Diltiazem HCl 120 mg 09/14/18 12:00 09/17/18 09:29 Cardizem Cd PO 120 mg DAILY MARIELA Administration Enoxaparin Sodium 100 mg 09/16/18 22:00 09/17/18 21:51 Lovenox SC 100 mg Q12 MARIELA Administration Ceftriaxone Sodium 1 gm in 100 mls @ 100 mls/hr 09/15/18 10:00 09/17/18 09:28 Rocephin 1 Gram Ivpb IVPB 09/19/18 10:59 100 mls/hr DAILY MARIELA Administration Protocol Methylprednisolone 40 mg 09/17/18 10:00 09/17/18 21:51 Solu-Medrol IVP 40 mg Q12 MARIELA Administration Ondansetron HCl 4 mg 09/14/18 07:48 Zofran Inj IVP Q6H PRN Nausea/Vomiting Polyethylene Glycol 17 gm 09/18/18 10:00 Miralax PO DAILY [facility] - Patient Studies Lab Studies: Microbiology Studies 09/14/18 08:40 Blood Culture - Preliminary Blood NO GROWTH AFTER 3 DAYS 09/14/18 08:20 Blood Culture - Preliminary Blood NO GROWTH AFTER 3 DAYS Lab Studies 09/18/18 09/18/18 Range/Units 06:00 06:00 WBC 7.5 D (4.5-11.0) 10^3/uL RBC 4.47 (3.5-6.1) 10^6/uL Hgb 13.9 L (14.0-18.0) g/dL Hct 45.1 (42.0-52.0) % MCV 100.9 (80.0-105.0) fl MCH 31.1 (25.0-35.0) pg MCHC 30.8 L (31.0-37.0) g/dl RDW 13.7 (11.5-14.5) % Plt Count 163 (120.0-450.0) 10^3/uL MPV 10.7 (7.0-11.0) fl Gran % 84.7 H (50.0-68.0) % Lymph % (Auto) 12.1 L (22.0-35.0) % [place] % (Auto) 3.1 (1.0-6.0) % Eos % (Auto) 0.0 L (1.5-5.0) % Baso % (Auto) 0.1 (0.0-3.0) % Gran # 6.32 (1.4-6.5) Lymph # (Auto) 0.9 L (1.2-3.4) [place] # (Auto) 0.2 (0.1-0.6) Eos # (Auto) 0.0 (0.0-0.7) Baso # (Auto) 0.01 (0.0-2.0) K/mm3 Sodium 138 (132-148) mmol/L Potassium 5.2 H (3.6-5.0) mmol/L Chloride 94 L (98-107) mmol/L Carbon Dioxide 40 H (21-33) mmol/L Anion Gap 9 L (10-20) BUN 31 H (7-21) mg/dL Creatinine 0.5 L (0.8-1.5) mg/dl Est GFR ( Amer) > 60 Est GFR (Non-Af Amer) > 60 Random Glucose 110 (70-110) mg/dL Calcium 9.3 (8.4-10.5) mg/dL Laboratory Results - last 24 hr 09/18/18 09/18/18 06:00 06:00 WBC 7.5 D RBC 4.47 Hgb 13.9 L Hct 45.1 MCV 100.9 MCH 31.1 MCHC 30.8 L RDW 13.7 Plt Count 163 MPV 10.7 Gran % 84.7 H Lymph % (Auto) 12.1 L [place] % (Auto) 3.1 Eos % (Auto) 0.0 L Baso % (Auto) 0.1 Gran # 6.32 Lymph # (Auto) 0.9 L [place] # (Auto) 0.2 Eos # (Auto) 0.0 Baso # (Auto) 0.01 Sodium 138 Potassium 5.2 H Chloride 94 L Carbon Dioxide 40 H Anion Gap 9 L BUN 31 H Creatinine 0.5 L Est GFR ( Amer) > 60 Est GFR (Non-Af Amer) > 60 Random Glucose 110 Calcium 9.3 Review of Systems - Review of Systems All systems: reviewed and no additional remarkable complaints except (as mentioned in HPI) Critical Care Progress Note - Nutrition Nutrition: Nutrition Category Date Time Status Heart Healthy Diet [DIET] Diets 09/14/18 Breakfast Active Assessment/Plan - Assessment and Plan (Free Text) Assessment: 68 year old male with past medical history of HTN, SHORTY, obesity, tobacco abuse, COPD on home O2 who presented to [facility] for 2 day history of shortness of breath, admitted for COPD exacerbation and NSTEMI. Cardiology, Pulmonology are consulted and following patient. Patient has been stabilized from a respiratory stand point. Plan: NEURO: -AAOX3, resting comfortably in bed -Monitor neuro status for changes CARDIO: NSTEMI -Troponin elevation with EKG showin nonspecific ST/T wave changes -Continue aspirin, cardizem, lovenox per cardio -Cardio consulted and following -On anticoagulation, potential cath per cardio Hx HTN -Continue cardizem -Maintain MAP >65 PULM: Acute COPD exacerbation -Leukocytosis, dyspnea, productive cough -Pulmonology consulted and following -Continue IV steroids, Azithromycin, rocephin, duoneb, pulmicort -Maintain SaO2 >90% -Continue BiPAP on 02/03 with FiO2 35% GI: -Hx of Colon cancer s/p resection -HHD -IV zofran RENAL: - Maintain euvolemia, replete lytes as necessary - Goal Mg 2, Phos 4 ID: COPD exacerbation -Continue abx as per primary -Leukocytosis resolved, afebrile -Blood culture negative GI/DVT ppx HHD, tolerating diet Lovenox for NSTEMI Dispo: Patient to be transferred out of ICU to telemetry Patient seen, case and plan discussed with attending, Dr. Gan - Date & Time Date: 09/18/18 Time: 10:03 <Peterson Mora - Last Filed: 09/18/18 11:37> CCU Objective - Vital Signs / Intake & Output Vital Signs (Last 4 hours): Vital Signs Pulse BP 09/18/18 09:57 86 128/77 Intake and Output (Last 8hrs): Intake & Output 09/17/18 09/18/18 09/18/18 22:59 06:59 14:59 Intake Total 240 Output Total 350 400 Balance -350 -160 Weight 204 lb 4.8 oz Intake: Oral 240 Output: Urine 350 400 Urine, Voided 350 400 Other: # Voids Urine, Voided 1 - Medications Active Medications: Active Medications Generic Name Dose Route Start Last Admin Trade Name Freq PRN Reason Stop Dose Admin Acetaminophen 650 mg 09/14/18 07:48 Tylenol 325mg Tab PO Q6H PRN Fever >100.4 F Albuterol/Ipratropium 3 ml 09/14/18 07:48 Duoneb 3 Mg/0.5 Mg (3 Ml) Ud IH Q2H PRN Shortness of Breath Albuterol/Ipratropium 3 ml 09/14/18 08:00 09/18/18 07:45 Duoneb 3 Mg/0.5 Mg (3 Ml) Ud IH 3 ml [id number] MARIELA Administration Aspirin 81 mg 09/14/18 10:00 09/18/18 09:56 Ecotrin PO 81 mg DAILY MARIELA Administration Azithromycin 500 mg 09/17/18 10:00 09/18/18 09:55 Zithromax PO 500 mg DAILY MARIELA Administration Budesonide 0.5 mg 09/16/18 20:00 09/18/18 07:45 Pulmicort Respules IH 0.5 mg [id number] MARIELA Administration Diltiazem HCl 120 mg 09/14/18 12:00 09/18/18 09:57 Cardizem Cd PO 120 mg DAILY MARIELA Administration Enoxaparin Sodium 100 mg 09/16/18 22:00 09/18/18 09:58 Lovenox SC 100 mg Q12 MARIELA Administration Ceftriaxone Sodium 1 gm in 100 mls @ 100 mls/hr 09/15/18 10:00 09/18/18 09:56 Rocephin 1 Gram Ivpb IVPB 09/19/18 10:59 100 mls/hr DAILY MARIELA Administration Protocol Methylprednisolone 40 mg 09/17/18 10:00 09/18/18 09:57 Solu-Medrol IVP 40 mg Q12 MARIELA Administration Ondansetron HCl 4 mg 09/14/18 07:48 Zofran Inj IVP Q6H PRN Nausea/Vomiting Polyethylene Glycol 17 gm 09/18/18 10:00 09/18/18 09:58 Miralax PO 17 gm DAILY MARIELA Administration - Patient Studies Lab Studies: Microbiology Studies 09/14/18 08:40 Blood Culture - Preliminary Blood NO GROWTH AFTER 4 DAYS 09/14/18 08:20 Blood Culture - Preliminary Blood NO GROWTH AFTER 4 DAYS Lab Studies 09/18/18 09/18/18 09/18/18 Range/Units 06:00 06:00 06:00 WBC 7.5 D (4.5-11.0) 10^3/uL RBC 4.47 (3.5-6.1) 10^6/uL Hgb 13.9 L (14.0-18.0) g/dL Hct 45.1 (42.0-52.0) % MCV 100.9 (80.0-105.0) fl MCH 31.1 (25.0-35.0) pg MCHC 30.8 L (31.0-37.0) g/dl RDW 13.7 (11.5-14.5) % Plt Count 163 (120.0-450.0) 10^3/uL MPV 10.7 (7.0-11.0) fl Gran % 84.7 H (50.0-68.0) % Lymph % (Auto) 12.1 L (22.0-35.0) % [place] % (Auto) 3.1 (1.0-6.0) % Eos % (Auto) 0.0 L (1.5-5.0) % Baso % (Auto) 0.1 (0.0-3.0) % Gran # 6.32 (1.4-6.5) Lymph # (Auto) 0.9 L (1.2-3.4) [place] # (Auto) 0.2 (0.1-0.6) Eos # (Auto) 0.0 (0.0-0.7) Baso # (Auto) 0.01 (0.0-2.0) K/mm3 Sodium 138 (132-148) mmol/L Potassium 5.2 H (3.6-5.0) mmol/L Chloride 94 L (98-107) mmol/L Carbon Dioxide 40 H (21-33) mmol/L Anion Gap 9 L (10-20) BUN 31 H (7-21) mg/dL Creatinine 0.5 L (0.8-1.5) mg/dl Est GFR ( Amer) > 60 Est GFR (Non-Af Amer) > 60 Random Glucose 110 (70-110) mg/dL Calcium 9.3 (8.4-10.5) mg/dL Phosphorus 3.3 (2.5-4.5) mg/dL Magnesium 2.5 H (1.7-2.2) mg/dL Laboratory Results - last 24 hr 09/18/18 09/18/18 09/18/18 06:00 06:00 06:00 WBC 7.5 D RBC 4.47 Hgb 13.9 L Hct 45.1 MCV 100.9 MCH 31.1 MCHC 30.8 L RDW 13.7 Plt Count 163 MPV 10.7 Gran % 84.7 H Lymph % (Auto) 12.1 L [place] % (Auto) 3.1 Eos % (Auto) 0.0 L Baso % (Auto) 0.1 Gran # 6.32 Lymph # (Auto) 0.9 L [place] # (Auto) 0.2 Eos # (Auto) 0.0 Baso # (Auto) 0.01 Sodium 138 Potassium 5.2 H Chloride 94 L Carbon Dioxide 40 H Anion Gap 9 L BUN 31 H Creatinine 0.5 L Est GFR ( Amer) > 60 Est GFR (Non-Af Amer) > 60 Random Glucose 110 Calcium 9.3 Phosphorus 3.3 Magnesium 2.5 H Critical Care Progress Note - Nutrition Nutrition: Nutrition Category Date Time Status Heart Healthy Diet [DIET] Diets 09/14/18 Breakfast Active Assessment/Plan - Assessment and Plan (Free Text) Plan: Patient seen and examined on rounds with resident, agree with note with following additions/exceptions: Patient is 68 year old male with past medical history of colon cancer s/p resection, tobacco abuse, COPD on home O2 who presented to [facility] complaining of difficulty breathing x 2 days. Admitted for COPD exacerbation, on BIPAP. Currently afebrile, BP stable, comfortable in NAD, RR 18-20 on 2LNC sat 95% Labs, imaging, chart reveiwed. ABG with chronic resp acidosis Troponin downtrending Cardiology following, no plans for cath for now Elevated troponin COPD exacerbation Tobacco use SOB Recommend: - supp o2 as needed, goal sat 90%, BIPAP at night and as needed - duonebs PRN - Solumedrol 40mg IV BID - ASA, Plavix, Statin, - would avoid BB - Lovenox - follow up cardio - GI ppx - DVT ppx - transfer to telemetry, stable
--- NOTE | 2018-09-18 08:16 | PN ---
DATE: 09/18/2018 SUBJECTIVE: The patient appears comfortable this morning. He is not short of breath at rest. He is now in the ICU. OBJECTIVE: VITAL SIGNS: Temperature is 98.2, pulse 84, respirations 18, blood pressure 158/94. Oxygen saturation on nasal cannula is 96%. HEENT: Normocephalic, atraumatic. NECK: No JVD. CARDIOVASCULAR: Systolic ejection murmur at the lower left sternal border. No S3 gallop. LUNGS: Minimal bilateral rhonchi. No wheezing. EXTREMITIES: No clubbing, cyanosis or edema. Calves are nontender to palpation. GASTROINTESTINAL: Abdomen is soft, nontender and nondistended. Bowel sounds are positive. SKIN: No acute rash. NEUROLOGIC: Limited at the present time. IMPRESSION: 1. Acute bronchitis. 2. Advanced chronic obstructive pulmonary disease. 3. Obstructive sleep apnea. 4. Acute on chronic respiratory insufficiency. 5. Hypertension. PLAN: The patient appears quite comfortable this morning. He is not short of breath at rest. He is currently in the ICU. I did discuss the case with the ICU team and nurse at length. Apparently, the patient did become more short of breath late yesterday morning and was transferred to the ICU. Again, today, he appears quite comfortable, and feels much better. On physical exam, there is certainly less bronchospasm noted. In addition, there is no significant alveolar-arterial gradient. I will continue the current nebulizer treatments and intravenous steroids (decreased yesterday) for now. Input by Cardiology (Dr. Bell) is also noted. Clinical status of the patient is certainly improved - compared to his initial presentation. However, given the above, the future status/prognosis for this patient does remain very guarded. Again, I did discuss the above with the ICU team this morning. I will discuss the above with the attending physician later this morning. Tulio Hart MD KATIA
--- NOTE | 2018-09-18 08:26 | PN ---
DATE: 09/17/2018 SUBJECTIVE: The patient is a 68-year-old, was seen and examined this morning. Seemed to be very short of breath, tachypneic, tachycardic and was hypoxic, so he was started on BiPAP. His pulse ox improved and was being transferred to ICU. PHYSICAL EXAMINATION GENERAL: He was on BiPAP, unable to eat because of shortness of breath getting worse when he eats. VITAL SIGNS: He is afebrile, pulse 93, respirations 37, and blood pressure 131/69. LUNGS: Bilateral diffusely decreased breath sound. HEART: S1 and S2 audible. ABDOMEN: Soft, obese, nontender. No rebound. No guarding. NEUROLOGICAL: The patient is awake, alert, oriented, and communicative. LABORATORY EXAM: WBC is 10.9, hemoglobin 14, hematocrit 46 and platelet 204. Chemistry: Sodium 139, potassium 5.4, chloride 93, CO2 of 14, BUN 30, creatinine 0.6, blood sugar of 114. ASSESSMENT AND PLAN: 1. Chronic obstructive pulmonary disease exacerbation. 2. Hypoxia. 3. Bronchospasm. 4. Non-ST elevation myocardial infarction, probably demand ischemia, rule out coronary artery disease. 5. History of colon cancer, status post partial colectomy. 6. Chronic anemia. PLAN: The patient is being transferred to ICU. We will continue the patient on calcium channel blockers, continue nebulizer treatment. He is on aspirin. He has been started on Lovenox. Continue on Rocephin. He is on IV steroids, Zithromax. We will follow up the patient in a.m. He is complaining of constipation. We will start him on MiraLax. We will reevaluate the patient in a.m. Juan Bertrand MD
[2018-09-18] MEDS: cefTRIAXone 1 gm 1 GM/100 ML BAG IVPB SCH (09:56)
[2018-09-18] MEDS: MethylPREDNISolone 40 mg Vial IVP SCH ×2 (09:57→21:53)
[2018-09-18] MEDS: diltiaZEM 120 mg/24 Hours CD Cap PO SCH (09:57)
[2018-09-18] MEDS: POLYETHYLENE GLYCOL 3350 17 GM/Dose PACKET PO SCH (09:58)
[2018-09-18] MEDS: Enoxaparin 100 mg Syringe SC SCH ×2 (09:58→21:53)
[2018-09-18] MEDS ORDERED: Magnesium Citrate Oral SOL (300 ml) PO ONE (12:22)
--- NOTE | 2018-09-18 14:00 | CP.PCM.PCO ---
Physician Communication Note - Physician Communication Note Physician Communication Note: Pt.breathing better,on oxygen nasal cannula,for transfer to telemetry,cont.
--- NOTE | 2018-09-18 14:42 | PN ---
DATE: 09/18/2018 CARDIOLOGY FOLLOWUP SUBJECTIVE: The patient's breathing is improved today. PHYSICAL EXAMINATION: VITAL SIGNS: Blood pressure 128/77, heart rate in the 80s. The patient is on nasal O2. NECK: Neck negative JVD. LUNGS: Decreased breath sounds. HEART: Reveal S1 and S2. EXTREMITIES: Without change. LABORATORY DATA: Hemoglobin is 13.9. Chemistries, BUN and creatinine unremarkable. IMPRESSION: 1. Exacerbation of chronic obstructive pulmonary disease. 2. Non-ST elevated myocardial infarction. 3. Dyspnea, which is better. 4. High probability for coronary artery disease. 5. History of a dilated cardiomyopathy. Given these findings, we will repeat the echocardiogram today. The patient will likely need a cardiac catheterization once his breathing is improved, so that he can tolerate the procedure. Sreedhar Bell MD
--- NOTE | 2018-09-18 15:02 | PN ---
DATE: 09/18/2018 SUBJECTIVE: The patient is 68-year-old, who yesterday because of . He was on BiPAP and started IV steroids and nebulizer treatment, doing well. He is off of BiPAP on nasal cannula. Seems to be comfortable. No shortness of breath. PHYSICAL EXAMINATION: VITAL SIGNS: He is afebrile, pulse 86, respirations 19, and blood pressure 128/77. LUNGS: Bilateral diffusely decreased breath sound. HEART: S1 and S2 audible. ABDOMEN: Soft, obese, and nontender. No rebound. No guarding. NEUROLOGICAL: He is awake, alert, oriented, and communicative. Moves all extremities. EXTREMITIES: Bilateral leg no edema. LABORATORY DATA: WBC 7.5, hemoglobin 13.9, hematocrit 45.1, and platelets 163. Chemistry; sodium 138, potassium 5.2, chloride 94, CO2 of 40, BUN 31, and creatinine 0.5. Blood sugar of 110. ASSESSMENT: 1. Chronic obstructive pulmonary disease exacerbation. 2. Hypoxia, status post CO2 retention. 3. Non-ST elevation myocardial infarction. 4. History of carcinoma of colon. PLAN: Currently the patient is on diltiazem. He is getting nebulizer treatment. He is on aspirin. He is on Lovenox. Complaint of constipation, I will give a dose of magnesium sulfate. The patient is clinically stable. He will be transferred to telemetry later on today or tomorrow. Juan Bertrand MD
[2018-09-19] MEDS: Albuterol-Ipratrop 3 mg / 0.5 (3 ml) UD IH SCH ×3 (02:10→20:00)
[2018-09-19] MEDS: Budesonide 0.5 mg/2 ml Inhal Susp UD IH SCH ×2 (08:09→21:30)
--- NOTE | 2018-09-19 09:03 | PN ---
DATE: 09/19/2018 PULMONARY NOTE SUBJECTIVE: The patient appears comfortable this morning. He is not short of breath at rest. He does state to feeling much better. PHYSICAL EXAMINATION: VITALS: Temperature is 98.1, pulse is 88, respiratory rate 20, blood pressure 115/86. Oxygen saturation on nasal cannula is 95%. HEENT: Normocephalic, atraumatic. No JVD. CARDIOVASCULAR: Systolic ejection murmur at the lower left sternal border. No S3 gallop. LUNGS: Minimal/less rhonchi. No wheezing. EXTREMITIES: No clubbing, cyanosis, or edema. Calves are nontender to palpation. GASTROINESTINAL: Abdomen is soft, nontender, and nondistended. Bowel sounds are positive. SKIN: No acute rash. NEUROLOGIC EXAM: Limited at the present time. IMPRESSION: 1. Acute bronchitis. 2. Advanced chronic obstructive pulmonary disease. 3. Obstructive sleep apnea. 4. Acute on chronic respiratory insufficiency. 5. Rule out myocardial infarction. PLAN: The patient appears very comfortable this morning. He is not short of breath at rest. He does state to feeling much, much better overall. I did discuss the case with the ICU nurse. The ICU nurse stated that the patient had a very good night. On physical exam, the patient's bronchospasm continues to resolve. In addition, the alveolar-arterial gradient also continues to resolve. I will continue the current nebulizer treatments and decrease the intravenous steroids this morning. Input by Cardiology (Dr. Bell) is also noted. Clinical status of the patient is significantly improved - compared to the initial presentation. However, given the above, the patient's overall status/prognosis does remain guarded. I will discuss the above with the entire ICU team in the next few moments. I will also discuss the above with the attending physician later this morning. Tulio Hart MD MTDKecia
[2018-09-19] MEDS: MethylPREDNISolone 40 mg Vial IVP SCH ×2 (09:20→21:13)
[2018-09-19] MEDS: cefTRIAXone 1 gm 1 GM/100 ML BAG IVPB SCH (09:21)
[2018-09-19] MEDS: Enoxaparin 100 mg Syringe SC SCH ×2 (09:22→21:14)
[2018-09-19] MEDS: POLYETHYLENE GLYCOL 3350 17 GM/Dose PACKET PO SCH (09:23)
[2018-09-19] MEDS: diltiaZEM 120 mg/24 Hours CD Cap PO SCH (09:24)
[2018-09-19] MEDS ORDERED: A C T ELECTRONICS XX ONE ×2 (15:31→19:35)
[2018-09-19] MEDS: Albuterol-Ipratrop 3 mg / 0.5 (3 ml) UD IH PRN ×2 (18:03→21:30)
--- NOTE | 2018-09-19 20:50 | PN ---
DATE: 09/19/2018 SUBJECTIVE: The patient is 68-year-old, seen and examined. He seems to be more comfortable, still has shortness of breath. PHYSICAL EXAMINATION: VITAL SIGNS: He is afebrile, pulse 92, respirations 21, and blood pressure 129/75. LUNGS: Bilateral poor airflow. Diffusely decreased breath sounds. Occasional soft rhonchi. HEART: S1 and S2 audible. ABDOMEN: Soft, obese, and nontender. No rebound. No guarding. NEUROLOGICAL: He is awake and alert, able to communicative. Moves all extremities. EXTREMITIES: Bilateral leg, no edema. LABORATORY DATA: No new labs available today. ASSESSMENT: 1. Chronic obstructive pulmonary disease exacerbation. 2. Bronchospasm. 3. Non-ST elevation myocardial infarction. 4. History of carcinoma of colon. PLAN: The patient is being transferred to telemetry. We will continue diltiazem. He is being given IV steroid. He is on Lovenox. His steroids are being tapped slowly. I will discussed with Dr. Bell. If we need to do nuclear stress test, that might be hard since he has bronchospasm and terminal COPD. We will follow him closely. Juan Bertrand MD
[2018-09-20] MEDS: Albuterol-Ipratrop 3 mg / 0.5 (3 ml) UD IH SCH ×3 (07:00→19:59)
[2018-09-20] MEDS: Budesonide 0.5 mg/2 ml Inhal Susp UD IH SCH ×2 (07:00→19:59)
--- NOTE | 2018-09-20 07:50 | PN ---
DATE: 09/20/2018 PULMONARY NOTE SUBJECTIVE: The patient appears quite comfortable this morning. He is not short of breath at rest. PHYSICAL EXAMINATION: VITALS: Temperature is 98.2, pulse 95, respirations 18, blood pressure 118/84. Oxygen saturation on nasal cannula is 97%. HEENT: Normocephalic and atraumatic. No JVD. CARDIOVASCULAR: Systolic ejection murmur at the lower left sternal border. No S3 gallop. LUNGS: Much less/minimal rhonchi. No wheezing. EXTREMITIES: No clubbing, cyanosis, or edema. Calves are nontender to palpation. GASTROINTESTINAL: Abdomen is soft, nontender, and nondistended. Bowel sounds are positive. SKIN: No acute rash. NEUROLOGIC: Exam limited at the present time. IMPRESSION: 1. Acute bronchitis. 2. Advanced chronic obstructive pulmonary disease. 3. Obstructive sleep apnea. 4. Pwmno-[id number] respiratory insufficiency. 5. Rule out myocardial infarction. PLAN: The patient appears quite comfortable this morning. He is not short of breath at rest. He does state to feeling much, much better overall. The patient is now on the telemetry unit. On physical exam, the patient's bronchospasm continues to resolve. In addition, the alveolar-arterial gradient also continues to resolve. I will continue the current nebulizer treatments and low-dose intravenous steroids (decreased yesterday) for now. Input by Cardiology is also noted. The patient remains on therapeutic Lovenox. Clinical status of the patient is significantly improved - compared to the initial presentation. However, given the above, the patient's overall status/prognosis does remain guarded. I will discuss the above with Dr. Bertrand. Tulio Hart MD [facility]
[2018-09-20] MEDS: POLYETHYLENE GLYCOL 3350 17 GM/Dose PACKET PO SCH (09:10)
[2018-09-20] MEDS: Enoxaparin 100 mg Syringe SC SCH ×2 (09:10→22:24)
[2018-09-20] MEDS: diltiaZEM 120 mg/24 Hours CD Cap PO SCH (09:11)
[2018-09-20] MEDS: MethylPREDNISolone 40 mg Vial IVP SCH ×2 (09:19→22:24)
--- NOTE | 2018-09-20 14:00 | PN ---
DATE: 09/20/2018 CARDIOLOGY FOLLOWUP SUBJECTIVE: The patient's breathing is somewhat better. PHYSICAL EXAMINATION: VITAL SIGNS: Blood pressure 130/84, heart rate in the 90s. NECK: Negative JVD. LUNGS: Decreased breath sounds. HEART: Reveal S1, S2. EXTREMITIES: Without edema. SKIN: Has multiple ecchymoses. LABORATORY DATA: Hemoglobin is 12.9. Chemistries; BUN and creatinine are 21 and 0.5. His INR is 0.94 with a platelet count of 163. IMPRESSION: 1. Severe chronic obstructive pulmonary disease. 2. Non-ST elevation myocardial infarction. 3. Improvement of his dyspnea. 4. History of a dilated cardiomyopathy. RECOMMENDATIONS: Given these findings, I have discussed with the patient and his ; I have recommended a cardiac catheterization to the patient given his non-STEMI and high probability for CAD. Risks and benefits have been discussed with the patient. The patient refuses at this time and does not want the procedure done at all costs. He understands the implication of his decision. Sreedhar Bell MD
--- NOTE | 2018-09-20 15:22 | PN ---
DATE: 09/20/2018 SUBJECTIVE: The patient is 68-year-old, seen and examined, sitting in chair, having his lunch. Still has shortness of breath, off of BiPAP. On the 2 liter nasal canula, seems to be comfortable. PHYSICAL EXAMINATION: VITAL SIGNS: He is afebrile. Pulse 99, respiration 21 and blood pressure 136/79. LUNGS: Bilateral diffusely decreased breath sounds. HEART: S1 and S2, audible. ABDOMEN: Soft, obese and nontender. No rebound. No guarding. NEUROLOGICAL: The patient is awake, alert, oriented, communicative and able to ambulate. Complaining of constipation. Has a big blood blister. ASSESSMENT: 1. Chronic obstructive pulmonary disease, exacerbation. 2. Terminal chronic obstructive pulmonary disease. 3. Positive troponin, possible non-ST elevation myocardial infarction. 4. Morbid obesity. 5. Hypertension. 6. History of cancer colon. PLAN: Currently, the patient is on IV steroid. He is on Zithromax. He is on nebulizer treatment. Give him one stool softener. I will request for TCU evaluation. If accepted can be transferred to TCU. Juan Bertrand MD
[2018-09-21] MEDS: Albuterol-Ipratrop 3 mg / 0.5 (3 ml) UD IH SCH ×5 (03:35→21:05)
[2018-09-21] MEDS: Budesonide 0.5 mg/2 ml Inhal Susp UD IH SCH ×3 (07:08→21:05)
--- NOTE | 2018-09-21 08:09 | PN ---
DATE: 09/21/2018 SUBJECTIVE: The patient appears very comfortable this morning. He is not short of breath at rest. PHYSICAL EXAMINATION: VITAL SIGNS: Temperature 97.8, pulse 85, respirations 19, blood pressure 113/70. Oxygen saturation on nasal cannula is 95%. HEENT: Normocephalic, atraumatic. No JVD. CARDIOVASCULAR: Systolic ejection murmur at the lower left sternal border. No S3 gallop. LUNGS: Clear bilaterally this morning. EXTREMITIES: No clubbing, cyanosis or edema. Calves are nontender to palpation. GASTROINTESTINAL: Abdomen is soft, nontender and nondistended. Bowel sounds are positive. SKIN: No acute rash. NEUROLOGIC: Exam limited at the present time. IMPRESSION: 1. Acute bronchitis. 2. Advanced chronic obstructive pulmonary disease. 3. Obstructive sleep apnea. 4. Qrruk-gc-ivwrher respiratory insufficiency. 5. Rule out myocardial infarction. PLAN: The patient appears very comfortable this morning. He is not short of breath at rest. He does state to feeling much, much better overall. On physical exam, the patient's lungs are now clear. In addition, the oxygen saturation on nasal cannula is 95%. I will continue the current nebulizer treatments and change to oral steroids this morning. The patient also remains on oral antibiotic therapy. There are no temperatures noted. The leukocytosis has resolved. Input by Cardiology (Dr. Bell) is also noted. Clinical status of the patient is significantly improved - compared to the initial presentation. However, given the above, the future status/prognosis for this patient does remain guarded. I will discuss the above with the attending physician. Tulio Hart MD MTDD
--- NOTE | 2018-09-21 08:41 | PN ---
DATE: 09/19/2018 SUBJECTIVE: The patient's breathing is better at rest. OBJECTIVE: VITAL SIGNS: Blood pressure 116/80, heart rates in the 80s. NECK: Negative JVD. LUNGS: Decreased breath sounds. HEART: Reveal S1, S2. EXTREMITIES: Without change. LABORATORY DATA: BUN and creatinine is 31 and 0.5. Hemoglobin is 13.9. IMPRESSION: 1. Severe chronic obstructive pulmonary disease. 2. Dyspnea, which is better. 3. Non-ST elevation myocardial infarction. 4. High probability for coronary artery disease. 5. History of dilated cardiomyopathy. Given these findings and the an partial prerenal azotemia, we will hold off on any diuretics. I have discussed with the patient about the need for a cardiac catheterization given his high probability for CAD, given his non-STEMI and extensive smoking history. The patient will think about it and he will considered it after he wants to go home and before considering any cardiac procedures. Sreedhar Bell MD
[2018-09-21] MEDS ORDERED: Lidocaine 2% Inj (20ml) ONE (09:13)
[2018-09-21] MEDS ORDERED: Iohexol 350mgl/ml 50 ML ONE (09:15)
[2018-09-21] MEDS ORDERED: Midazolam 2 MG/2 ML VIAL ONE (09:42)
[2018-09-21] MEDS ORDERED: Iohexol 350 MG/100 ML VIAL ONE (09:48)
[2018-09-21] MEDS ORDERED: Sodium Chloride 0.9% 1,000 ML IV SCH (10:15)
--- NOTE | 2018-09-21 12:29 | CARDCATH ---
PROCEDURE DATE: 09/21/2018 HISTORY: The patient is a 68-year-old male who presented with severe COPD exacerbation. He was found to have elevated troponins. After stabilization of his dyspnea, the patient was brought here for cardiac catheterization. PROCEDURE: The right and left heart catheterization with coronary arteriography, left ventriculogram, and supra-aortic valvular injection. The right femoral artery was cannulated with a 6-Macanese sheath. The right femoral vein was cannulated with a 7-Macanese sheath. There were no complications. I performed moderate sedation which included the presence of an independent trained observer that assisted in monitoring the patient's level of consciousness and physiologic status. After administration of Versed and fentanyl, my intraservice time was 30 minutes. The findings on catheterization included; Hemodynamic data which revealed a mean right atrial pressure of 8 mmHg, RV pressure was 28/13 mmHg, PA pressure was 27/20 mmHg, mean pulmonary capillary wedge pressure was 14 mmHg. His coronary anatomy revealed a right dominant circulation. The RCA was within normal limits. No critical lesions were noted. The left main artery was unremarkable. The LAD and diagonal vessels revealed intimal irregularities without critical lesions. There is a 50% stenosis in the proximal portion of the diagonal vessel. The circumflex artery consisted of two branching obtuse marginal branches. The first obtuse marginal branch revealed a 50% stenosis in its proximal portion. Supra-aortic valvular injection revealed no aortic insufficiency. Manual compression was used to close the femoral artery site. The patient tolerated the procedure well. In summary, the procedure revealed mildly elevated pulmonary pressures with no significant pulmonary hypertension. Dilated cardiomyopathy with an EF of 35%. 50% lesions in the obtuse marginal branch and diagonal vessels. No stents were necessary. Given these findings, the patient's treatment will be cessation of smoking, daily aspirin, as well as statin therapy. Afterload reduction for his cardiomyopathy would be appropriate. I have asked the patient to stop his alcohol intake for 2 months to evaluate its effect on alcohol and see whether there is improvement of his LV function. Sreedhar Bell MD
[2018-09-21 13:45] LABS: ALB/GLOB RATIO 1.3 (1.1-1.8); ALBUMIN 3.4 g/dL (3.0-4.8); ALT/SGPT 68 U/L (7-56); AST/SGOT 33 U/L (17-59); BLOOD UREA NITROGEN 28 mg/dL (7-21); CALCIUM 8.9 mg/dL (8.4-10.5); GFR NON-AFRICAN AMERICAN > 60
--- NOTE | 2018-09-21 13:51 | CARD ---
APPROVED REPORT Date of service: 09/21/2018 EKG Measurement Heart [id number] <Conclusion> Sinus rhythm with premature atrial complexes Septal infarct, age undetermined Abnormal ECG
[2018-09-21] MEDS: Digoxin 250 mcg (0.25 mg) Tab PO SCH (17:28)
--- NOTE | 2018-09-21 20:22 | CP.PCM.PCO ---
Physician Communication Note - Physician Communication Note Physician Communication Note: s/p cardiac cath revealed pulm htn,non obstructive cad,dilated cmpthy
--- NOTE | 2018-09-21 20:24 | CP.PCM.PCO ---
Physician Communication Note - Physician Communication Note Physician Communication Note: pt eval pending,tcu eval pending
[2018-09-22] MEDS: Albuterol-Ipratrop 3 mg / 0.5 (3 ml) UD IH SCH ×4 (01:29→20:23)
[2018-09-22 07:32] LABS: BASO # 0.01 K/mm3 (0.0-2.0); BASO % 0.1 % (0.0-3.0); EOS % 0.1 % (1.5-5.0); GRAN # 11.65 (1.4-6.5); GRAN % 80.3 % (50.0-68.0); HEMOGLOBIN 14.8 g/dL (14.0-18.0); LYMPH # 1.9 (1.2-3.4); LYMPH % 13.4 % (22.0-35.0); MEAN CELL VOLUME 98.3 fl (80.0-105.0); MEAN CORPUSCULAR HGB CONC 31.6 g/dl (31.0-37.0); MEAN PLATELET VOLUME 11.4 fl (7.0-11.0); MONO # 0.9 (0.1-0.6); MONO % 6.1 % (1.0-6.0); RBC 4.77 10^6/uL (3.5-6.1); RED CELL DISTRIBUTION WIDTH 13.3 % (11.5-14.5); WHITE BLOOD COUNT 14.5 10^3/uL (4.5-11.0)
--- NOTE | 2018-09-22 07:34 | PN ---
DATE: 09/22/2018 PULMONARY NOTE SUBJECTIVE: The patient appears comfortable this morning. He is not short of breath at rest. PHYSICAL EXAMINATION: VITALS: Temperature is 97.6, pulse 96, respirations 17, blood pressure 122/70. Oxygen saturation on nasal cannula is 96%. HEENT: Normocephalic, atraumatic. No JVD. CARDIOVASCULAR: Systolic ejection murmur at the lower left sternal border. No S3 gallop. LUNGS: Clear bilaterally this morning. EXTREMITIES: No clubbing, cyanosis, or edema. Calves are nontender to palpation. GASTROINTESTINAL: Abdomen is soft, nontender, and nondistended. Bowel sounds are positive. SKIN: No acute rash. +ecchymotic areas on arms. NEUROLOGIC: Exam limited at the present time. IMPRESSION: 1. Acute bronchitis. 2. Advanced chronic obstructive pulmonary disease. 3. Obstructive sleep apnea. 4. Psilr-cc-klbiyvl respiratory insufficiency. 5. Rule out myocardial infarction. 6. Dilated cardiomyopathy. PLAN: The patient appears comfortable this morning. He is not short of breath at rest. He does state to feeling much better overall. I did discuss the case with the night nurse at length. The night nurse stated that the patient had a quiet night pulmonary-art. On physical exam, the patient's lungs are now clear. In addition, the alveolar-arterial gradient is also much less. I will continue the current nebulizer treatments and oral steroids (changed yesterday) for now. The patient remains on oral antibiotic therapy. There are no temperatures noted. The leukocytosis has resolved. Clinical status of the patient is significantly improved - compared to the initial presentation. However, given the above, the future status/prognosis for this patient does remain guarded. I will discuss the above with the attending physician. Tulio Hart MD KATIA
[2018-09-22] MEDS: Budesonide 0.5 mg/2 ml Inhal Susp UD IH SCH ×2 (07:40→20:24)
[2018-09-22 07:44] LABS: ALB/GLOB RATIO 1.4 (1.1-1.8); ALBUMIN 3.7 g/dL (3.0-4.8); ALT/SGPT 65 U/L (7-56); AST/SGOT 35 U/L (17-59); BLOOD UREA NITROGEN 25 mg/dL (7-21); CALCIUM 8.9 mg/dL (8.4-10.5); GFR NON-AFRICAN AMERICAN > 60
--- NOTE | 2018-09-22 08:07 | PN ---
DATE: 09/21/2018 SUBJECTIVE: The patient is 68 years old, seen and examined, lying in bed, seems to be comfortable except for mild shortness of breath, underwent cardiac cath. No significant dizziness, however, he has 50% occlusion in RCA and LAD, requiring no intervention; however, he had left ventricular dysfunction with ejection fraction of 35%. As per Dr. Bell, no pulmonary hypertension noted and RV function seem to be okay. PHYSICAL EXAMINATION: On examination; GENERAL: He is awake, alert, oriented, and communicative. VITAL SIGNS: He is afebrile. Pulse 97, respirations 19, and blood pressure 113/70. LUNGS: Bilateral diffusely decreased breath sounds. HEART: S1 and S2 audible. ABDOMEN: Soft and nontender. No rebound. No guarding. NEUROLOGIC: The patient is awake, alert, oriented, and communicative. LABORATORY DATA: There is no lab available today. ASSESSMENT: 1. Chronic obstructive pulmonary disease exacerbation. 2. Hypertension. 3. Hyperlipidemia. 4. Active smoker. 5. Status post CO2 retention and was on bilateral positive airway pressure. PLAN: Continue the patient on nebulizer treatment. He has been started on digoxin, cut down his steroids slowly. He is on IV fluid. We will follow up CMP and CBC in a.m. Juan Bertrand MD
[2018-09-22] MEDS: POLYETHYLENE GLYCOL 3350 17 GM/Dose PACKET PO SCH (10:19)
--- NOTE | 2018-09-22 11:47 | CP.PCM.APN ---
Subjective - Date & Time of Evaluation Date of Evaluation: 09/22/18 Time of Evaluation: 10:00 - Subjective Subjective: pt seen and examined at bedside. pt states he is weak and cannot walk - states he wants to go home, pt refusing P.T with physical therapist present Review of Systems - Constitutional Constitutional: Fatigue, Weakness Objective - Vital Signs/Intake and Output Vital Signs (last 24 hours): Temp Pulse Resp BP Pulse Ox 97.6 F 100 H 17 105/57 L 96 09/21/18 18:28 09/22/18 10:20 09/21/18 18:28 09/22/18 10:20 09/21/18 17:00 Intake and Output: 09/22/18 09/22/18 06:59 18:59 Intake Total 180 Output Total 600 Balance -420 - Medications Medications: Current Medications Acetaminophen (Tylenol 325mg Tab) 650 mg PO Q6H PRN PRN Reason: Fever >100.4 F Last Admin: 09/21/18 17:27 Dose: 650 mg Albuterol/Ipratropium (Duoneb 3 Mg/0.5 Mg (3 Ml) Ud) 3 ml IH Q2H PRN PRN Reason: Shortness of Breath Last Admin: 09/19/18 21:30 Dose: 3 ml Albuterol/Ipratropium (Duoneb 3 Mg/0.5 Mg (3 Ml) Ud) 3 ml IH [id number] [facility] Last Admin: 09/22/18 07:40 Dose: 3 ml Aspirin (Ecotrin) 81 mg PO DAILY [facility] Last Admin: 09/22/18 10:19 Dose: 81 mg Azithromycin (Zithromax) 500 mg PO DAILY [facility] Last Admin: 09/22/18 10:18 Dose: 500 mg Budesonide (Pulmicort Respules) 0.5 mg IH [id number] [facility] Last Admin: 09/22/18 07:40 Dose: 0.5 mg Digoxin (Lanoxin) 0.25 mg PO 1400 [facility] Last Admin: 09/21/18 17:28 Dose: 0.25 mg Lisinopril (Zestril) 5 mg PO DAILY [facility] Last Admin: 09/22/18 10:20 Dose: 5 mg Ondansetron HCl (Zofran Inj) 4 mg IVP Q6H PRN PRN Reason: Nausea/Vomiting Polyethylene Glycol (Miralax) 17 gm PO DAILY [facility] Last Admin: 09/22/18 10:19 Dose: Not Given Prednisone (Prednisone Tab) 40 mg PO DAILY [facility] Last Admin: 09/22/18 10:18 Dose: 40 mg - Labs Labs: 09/22/18 07:00 09/22/18 07:00 PT 10.8 SECONDS (9.4-12.5) 09/14/18 06:50 INR 0.94 09/14/18 06:50 APTT 35.8 Seconds (25.1-36.5) 09/14/18 06:50 - Constitutional Appears: Non-toxic - Head Exam Head Exam: NORMAL INSPECTION, NORMOCEPHALIC - ENT Exam ENT Exam: Mucous Membranes Moist - Neck Exam Neck Exam: Normal Inspection - Respiratory Exam Respiratory Exam: Decreased Breath Sounds - Cardiovascular Exam Cardiovascular Exam: +S1, +S2 - GI/Abdominal Exam GI & Abdominal Exam: Soft, Normal Bowel Sounds - Extremities Exam Additional comments: right hand hematoma, right and left upper extremeties very ecchomytic - Psychiatric Exam Psychiatric exam: Normal Affect, Normal Mood - Skin Skin Exam: Mottled, Warm Assessment and Plan - Assessment and Plan (Free Text) Plan: All Active Problems COPD exacerbation (Acute) Dyspnea on exertion (Acute) Pt is a 68 yr old male with pmh sig for COPD, active tobacco usage, htn, hld admitted with sob treated for COPD exacerbation, acute bronchitis and elevated trop s/p cardiac cath with dilated cm and ef 35% now with medical mgmt copd exacerbation and acute bronchitis stable continue dounebs prednisone 40daily pulmicort pul recs reviewed elevated trop s/p cardaic cath - Nonobst. CAD, EF 35% active smoker smoking cessation recommended right hand hematoma Dr Gallegos consulted per discussion with PmD, plan for home in am will continue to monitor BPCI/TIC - BPCIA/TIC Educated pt/family on BPCIA/CIR/Med to Bed Programs: Yes Flyers given, including [facility] Beneficiary letter: Yes Pt/family verbalized understanding & agreed to program: Yes
[2018-09-22] MEDS: Digoxin 250 mcg (0.25 mg) Tab PO SCH (14:33)
--- NOTE | 2018-09-22 15:15 | CARD ---
APPROVED REPORT Date of service: 09/18/2018 EXAM: Two-dimensional and M-mode echocardiogram with Doppler and color Doppler. INDICATION Dyspnea 2D DIMENSIONS Left Atrium (2D)4.1 (1.6-4.0cm)IVSd1.2 (0.7-1.1cm) LVDd5.5 (3.9-5.9cm)PWd1.2 (0.7-1.1cm) LVDs5.0 (2.5-4.0cm)FS (%) 9.6 % LVEF (%)25.0 (>50%) M-Mode DIMENSIONS Aortic Root3.50 (2.2-3.7cm)Aortic Cusp Exc.1.70 (1.5-2.0cm) Aortic Valve AoV Peak Ralurmas617.0cm/Gala Peak GR.9mmHg Mitral Valve MV E Hcpjaqve88.5cm/sMV A Bgvutxpn97.4cm/sE/A ratio0.9 TDI Lateral E' Peak V7.60cm/sMedial E' Peak V7.99cm/sE/Lateral E'10.1 E/Medial E'9.6 Pulmonary Valve PV Peak Mcbjxtpv93.4cm/sPV Peak Grad.3mmHg Tricuspid Valve TR Peak Xgssuznk363bh/sRAP IPSVAMGQ52ocRrNH Peak Gr.7mmHg [id number] LEFT VENTRICLE There is borderline concentric left ventricular hypertrophy. The systolic function is moderately to severely impaired. RIGHT VENTRICLE The right ventricle apex is not well visualized. ATRIA The left atrium is mildly dilated. The right atrium is not well visualized. AORTIC VALVE The aortic valve is calcified but opens well. MITRAL VALVE The mitral valve is thickened but opens well. Mitral regurgitation is mild. TRICUSPID VALVE The tricuspid valve leaflets are thickened , but open well. There is mild tricuspid regurgitation. There is no pulmonary hypertension. PULMONIC VALVE The pulmonic valve is not well visualized. PERICARDIAL EFFUSION There is no pericardial effusion. <Conclusion> Global LV hypokinesis Dilated LA Mild MR and TR No pulmoanry hypertension
--- NOTE | 2018-09-22 16:19 | PN ---
DATE: 09/22/2018 CARDIOLOGY FOLLOWUP SUBJECTIVE: The patient's breathing is much improved. PHYSICAL EXAMINATION: VITAL SIGNS: Blood pressure 105/68, heart rate 100. NECK: Negative JVD. LUNGS: Without rales. HEART: Reveal S1, S2. EXTREMITIES: Without edema. LABORATORY DATA: BUN and creatinine are unremarkable. The hemoglobin is 14. IMPRESSION: 1. Status post catheterization without complications. 2. Nonobstructive coronary artery disease. 3. No pulmonary hypertension. 4. Dilated cardiomyopathy with an ejection fraction of 35%. Given these findings, the patient's COPD has improved. I have advised the patient to stop drinking alcohol. We will reevaluate his LV function to rule out alcoholic cause of his dilated cardiomyopathy. Sreedhar Bell MD
--- NOTE | 2018-09-22 21:16 | PN ---
DATE: 09/22/2018 SUBJECTIVE: The patient is 68 years old, seen and examined. He has a big blood blister on his right dorsum of the hand since he was on Lovenox. He had cardiac cath done. He has noncritical coronaries. He states his breathing is better, although he got short of breath when he was walking to the bathroom. PHYSICAL EXAMINATION: VITAL SIGNS: He is afebrile, pulse 102, respirations 20, and blood pressure 102/65. LUNGS: Bilateral fair airflow. Diffusely decreased breath sounds. HEART: S1 and S2 audible. ABDOMEN: Soft, obese, and nontender. No rebound. No guarding. NEUROLOGIC: He is awake, alert, oriented, able to communicate. EXTREMITIES: On his bilateral forearm, he has purplish bruise because of subcutaneous bleed. LABORATORY DATA: WBC 14.5, hemoglobin 14, hematocrit 46, and platelets 193. Chemistry, sodium 138, potassium 4.7, chloride 97, CO2 of 38, BUN 25, creatinine 0.85, and blood sugar 83. ASSESSMENT: 1. Chronic obstructive pulmonary disease exacerbation. 2. History of cancer of colon. 3. Nonocclusive coronaries. 4. Bilateral hand bruise, status post aspiration by Dr. Malagon. 5. Carbon dioxide retention. 6. Left ventricular dysfunction. PLAN: Currently, the patient is off of anticoagulant. We will continue him on aspirin, continue digoxin, and continue nebulizer treatment. We will discontinue his Zithromax, taper down his steroid. The patient is refusing to go to TCU. If he remains stable, possible discharge in the a.m. Juan Bertrand MD
[2018-09-23] MEDS: Albuterol-Ipratrop 3 mg / 0.5 (3 ml) UD IH SCH ×4 (01:21→19:47)
--- NOTE | 2018-09-23 07:49 | PN ---
DATE: 09/23/2018 PULMONARY NOTE SUBJECTIVE: The patient appears very comfortable this morning. He is not short of breath at rest. PHYSICAL EXAMINATION: VITALS: Temperature is 98, pulse 97, respirations 18-20, blood pressure 94/60. Oxygen saturation on nasal cannula is 99%. HEENT: Normocephalic, atraumatic. No JVD. CARDIOVASCULAR: Systolic ejection murmur at the lower left sternal border. No S3 gallop. LUNGS: Clear bilaterally. EXTREMITIES: No clubbing, cyanosis, or edema. Calves are nontender to palpation. GASTROINTESTINAL: Abdomen is soft, nontender, and nondistended. Bowel sounds are positive. SKIN: No acute rash. Positive ecchymotic areas on arms. NEUROLOGIC: Exam limited at the present time. IMPRESSION: 1. Acute bronchitis. 2. Advanced chronic obstructive pulmonary disease. 3. Obstructive sleep apnea. 4. Irqep-vj-oncauae respiratory insufficiency. 5. Rule out myocardial infarction. 6. Dilated cardiomyopathy. PLAN: The patient appears very comfortable this morning. He is not short of breath at rest. He does state to feeling much, much better overall. On physical exam, his lungs remain clear. In addition, the oxygen saturation on nasal cannula is now 99%. I will continue the current nebulizer treatments and oral steroids for now. Input by Cardiology (Dr. Bell) is also noted. Clinical status of the patient is significantly improved - compared to the initial presentation. The patient is now stating that he wants to go home, and is refusing a transfer to the transitional unit. Given the above, his overall status/prognosis does remain guarded. I will discuss the above with Dr. Bertrand. Tulio Hart MD KATIA
[2018-09-23] MEDS: Budesonide 0.5 mg/2 ml Inhal Susp UD IH SCH ×2 (08:44→19:47)
[2018-09-23] MEDS: POLYETHYLENE GLYCOL 3350 17 GM/Dose PACKET PO SCH (09:56)
--- NOTE | 2018-09-23 11:58 | PN ---
DATE: 09/23/2018 SUBJECTIVE: The patient's breathing is much improved. PHYSICAL EXAMINATION: VITAL SIGNS: Blood pressure is 94/60, the heart rates in the 90s. NECK: Negative JVD. LUNGS: Better air movement noted without rales or rhonchi. HEART: S1, S2. EXTREMITIES: Without edema. SKIN: Multiple ecchymoses. LABORATORY DATA: Hemoglobin is 14. Chemistries, BUN and creatinine are unremarkable. IMPRESSION: 1. Exacerbation of chronic obstructive pulmonary disease. 2. Severe chronic obstructive pulmonary disease. 3. No pulmonary hypertension. 4. Dilated cardiomyopathy which may be alcohol-related 5. Nonobstructive coronary artery disease. PLAN: Given these findings, the patient's cardiac status is doing well. From a cardiac perspective, the patient can be sent home on HANNAH inhibitor. I have asked the patient to refrain from alcohol. We should re-measure his LV function after several months of sustaining off of alcohol. Sreedhar Bell MD
[2018-09-23] MEDS: Digoxin 250 mcg (0.25 mg) Tab PO SCH (14:16)
--- NOTE | 2018-09-23 20:18 | PN ---
DATE: 09/23/2018 SUBJECTIVE: The patient is a 68-year-old, seen and examined, feels like shortness of breath better than before. He has large bruise, Dr. Malagon tried to aspirate, but it is probably clotted, so is in the dressing. The patient was offered to go to TCU, but he is adamant to go home; however, he desaturated and gets short of breath on walking. PHYSICAL EXAMINATION: VITAL SIGNS: He is afebrile, pulse 74, respirations 19, and blood pressure 87/62. LUNGS: Bilateral diffusely decreased breath sounds. HEART: S1 and S2 audible. ABDOMEN: Soft and nontender. No rebound. No guarding. NEUROLOGIC: The patient is awake, alert, oriented, and communicative. LABORATORY DATA: There is no new lab available today. ASSESSMENT: 1. Chronic obstructive pulmonary disease exacerbation. 2. Demand ischemia with positive troponin. 3. Hypotension. 4. Right hand hematoma. PLAN: The patient refused to go to TCU. We will reduce his lisinopril to 2.5 daily and cut down his steroid to 30 mg daily. We will reevaluate in a.m. and make disposition plan in a.m. Juan Bertrand MD
[2018-09-24] MEDS: Albuterol-Ipratrop 3 mg / 0.5 (3 ml) UD IH SCH ×3 (02:24→13:34)
[2018-09-24 06:01] VITALS: O2SAT 98
--- NOTE | 2018-09-24 08:12 | PN ---
DATE: 09/24/2018 SUBJECTIVE: The patient appears very comfortable this morning. He is not short of breath at rest. OBJECTIVE: VITAL SIGNS: Temperature is 98.2, pulse on the monitor is 86, respiratory rate 18, blood pressure 110/75. Oxygen saturation on nasal cannula is 98-100%. HEENT: Normocephalic, atraumatic. NECK: No JVD. CARDIOVASCULAR: Systolic ejection murmur at the lower left sternal border. No S3 gallop. LUNGS: Clear bilaterally. EXTREMITIES: No clubbing, cyanosis or edema. Calves are nontender to palpation. GI: Abdomen is soft, nontender and nondistended. Bowel sounds are positive. SKIN: No acute rash. Positive ecchymotic areas on arms. NEUROLOGIC: Limited at the present time. IMPRESSION: 1. Acute bronchitis. 2. Advanced chronic obstructive pulmonary disease. 3. Obstructive sleep apnea. 4. Tirgn-zm-kayhqvg respiratory insufficiency. 5. Rule out myocardial infarction. 6. Dilated cardiomyopathy. PLAN: The patient appears very comfortable this morning. He is not short of breath at rest. He does state to feeling much better overall and is asking to go home. On physical exam, his lungs remain clear. In addition, the oxygen saturation on nasal cannula is 98-100%. I will continue with the current nebulizer treatments and oral steroids for now. Input by Cardiology (Dr. Bell) is also noted. Clinical status of the patient is significantly improved - compared to the initial presentation. Again, he is asking to go home. I will discuss the above with the attending physician. Tulio Hart MD MTDD
[2018-09-24] MEDS: Budesonide 0.5 mg/2 ml Inhal Susp UD IH SCH (08:33)
[2018-09-24] MEDS: POLYETHYLENE GLYCOL 3350 17 GM/Dose PACKET PO SCH (10:23)
--- NOTE | 2018-09-24 11:25 | PN ---
DATE: 09/24/2018 SUBJECTIVE: The patient's breathing is much improved. PHYSICAL EXAMINATION: VITAL SIGNS: Blood pressure 110/75, heart rate in the 80s. NECK: Negative JVD. LUNGS: Without rales. HEART: With decreased breath sounds. HEART: S1, S2. EXTREMITIES: Without change. There is diffuse ecchymosis. LABORATORY DATA: Laboratories include hemoglobin of 14.8. Chemistries was not obtained today. IMPRESSION: 1. Dilated cardiomyopathy. 2. Severe chronic obstructive pulmonary disease. 3. Nonobstructive CAD. 4. No pulmonary hypertension. 5. Resolution of dyspnea. ASSESSMENT AND PLAN: Given these findings, the patient's cardiac status is stable on HANNAH inhibitors. I have discussed with the patient about his need to refrain from alcohol and cigarettes. We will re-measure his LV function after several months of refraining from alcohol. Sreedhar Bell MD
[2018-09-24 13:51] VITALS: BP 92/64; PULSE 115; RESP 21; TEMP 98.3
[2018-09-24] MEDS: Digoxin 250 mcg (0.25 mg) Tab PO SCH (14:50)
[2018-09-24 14:53] VITALS: PULSE 111
[2018-09-24] MEDS ORDERED: Mupirocin 2% Ointment 15 GM TUBE TOP SCH (18:00)
--- NOTE | 2018-09-24 20:16 | DS ---
HISTORY OF PRESENT ILLNESS: The patient is 68 years old, seen and examined, initially he was admitted with acute cough, congestion, and shortness of breath. He was unable to catch breath. He was hypoxic, tachycardic, and tachypneic. Initially, he was admitted on telemetry, later on he was transferred to ICU and remained on BiPAP. He remained on IV steroids, nebulizer treatment, started to respond. He was transferred back to telemetry. He has been doing well. During this episode, his troponin was positive. He was evaluated by Dr. Bell, who took him to [facility]. He was found to have 50% occlusive disease. No indication to do angioplasty. However, he was found to have LV function with ejection fraction of 35%, started on digoxin and lisinopril 2.5 to 5 mg daily, but the patient became hypotensive, so it was reduced to 2.5 daily. The patient was offered to go to TCU, but he refused and rather wanted to go home. PHYSICAL EXAMINATION: GENERAL: Today, he looks comfortable, less shortness of breath. VITAL SIGNS: He is afebrile, pulse 89, respirations 21, and blood pressure 110/75. LUNGS: Bilateral diffusely decreased breath sounds. HEART: S1 and S2, audible. ABDOMEN: Soft, obese, and nontender. No rebound. No guarding. NEUROLOGIC: The patient is awake, alert, oriented, and communicative. LABORATORY DATA: There is no new lab available today. ASSESSMENT: 1. Status post chronic obstructive pulmonary disease exacerbation. 2. Positive troponin, probably demand ischemia. 3. Status post cardiac cath and nonocclusive coronaries. 4. Right hand dorsum hematoma when he was on Lovenox. DISCHARGE PLAN: The patient is being discharged home. He is given tapering dose of steroids. He is on prednisone 20 mg twice a day for 3 days and 20 mg daily for 5 days. He has nebulized treatment. He has Spiriva and budesonide at home. He was given prescription of digoxin and lisinopril. He will follow with Dr. Humphreys and myself in two weeks. Juan Bertrand MD [facility] # [id number]
== END 2018-09-24 17:29 | disposition home or self-care (01) | DRG 191 ==
LOC: ED 05:17 → ERH 07:09 → 3RNO 15:34 → CCU 09-17 12:42 → 2RNO 09-19 13:56 → 2RSO 09-21 11:10
PROVIDERS: ADMIT Internal Medicine; ATTEND Internal Medicine
PROC: 4A023N8 Measurement of Cardiac Sampling and Pressure, Bilateral, Percutaneous Approach (ICD-10-PCS; principal; 2018-09-21)
PROC: B2111ZZ Fluoroscopy of Multiple Coronary Arteries using Low Osmolar Contrast (ICD-10-PCS; 2018-09-21)
PROC: B2161ZZ Fluoroscopy of Right and Left Heart using Low Osmolar Contrast (ICD-10-PCS; 2018-09-21)
DX: J44.1 Chronic obstructive pulmonary disease with (acute) exacerbation (principal); J96.11 Chronic respiratory failure with hypoxia; E87.2 Acidosis; I42.0 Dilated cardiomyopathy; J44.0 Chronic obstructive pulmonary disease with (acute) lower respiratory infection; J20.9 Acute bronchitis, unspecified; G47.33 Obstructive sleep apnea (adult) (pediatric); E78.5 Hyperlipidemia, unspecified; I25.89 Other forms of chronic ischemic heart disease; I25.10 Atherosclerotic heart disease of native coronary artery without angina pectoris; I10 Essential (primary) hypertension; D64.9 Anemia, unspecified; E66.01 Morbid (severe) obesity due to excess calories; F17.200 Nicotine dependence, unspecified, uncomplicated; S60.221A Contusion of right hand, initial encounter; S60.222A Contusion of left hand, initial encounter; Z68.29 Body mass index [BMI] 29.0-29.9, adult; Z79.82 Long term (current) use of aspirin; Z85.038 Personal history of other malignant neoplasm of large intestine; Z90.49 Acquired absence of other specified parts of digestive tract; Z99.81 Dependence on supplemental oxygen; T45.515A Adverse effect of anticoagulants, initial encounter

== ENCOUNTER 2018-11-28 10:47 | Inpatient (IN) | payer MEDICARE, SELFPAY ==
[2018-11-28] MEDS: Albuterol-Ipratrop 3 mg / 0.5 (3 ml) UD IH SCH ×4 (11:20→20:20)
[2018-11-28 11:35] LABS: HEMOGLOBIN 13.7 g/dL (14.0-18.0); RBC 4.49 10^6/uL (3.5-6.1); WHITE BLOOD COUNT 10.7 10^3/uL (4.5-11.0)
--- NOTE | 2018-11-28 11:35 | ED PDOC ---
Arrival/HPI - General Chief Complaint: Shortness Of Breath Time Seen by Provider: 11/28/18 11:04 Historian: Patient - History of Present Illness Narrative History of Present Illness (Text): 11/28/18 11:26 68 year old male, whose past medical history includes COPD, obstructive sleep apnea, hypertension, perianal abscess, and colon cancer s/p resection in 2013, who presents to the emergency department brought in by EMS for COPD exacerbation, worsening today. Patient states he has been feeling symptoms for 3 days, including possible low-grade fever. Patient informs of shortness of breath and cough with green sputum. Patient denies any sore throat, abdominal pain, headache, dizziness, nausea, vomiting, diarrhea, or any other complaints. Time/Duration: Prior to Arrival, < week (3 days) Symptom Onset: Gradual Symptom Course: Unchanged Activities at Onset: Light Context: Home Past Medical History - Provider Review Nursing Documentation Reviewed: Yes - Infectious Disease Hx of Infectious Diseases: None - Cardiac Hx Hypertension: Yes - Pulmonary Hx Chronic Obstructive Pulmonary Disease (COPD): Yes - Neurological Hx Paralysis: No - HEENT Hx HEENT Disorder: No - Renal Hx Renal Disorder: No - Endocrine/Metabolic Hx Endocrine Disorders: No - Hematological/Oncological Hx Blood Disorders: No - Integumentary Hx Dermatological Disorder: Yes (PERIRECTAL ABSCESS 04-09-17) - Musculoskeletal/Rheumatological Hx Musculoskeletal Disorders: No - Gastrointestinal Hx Gastrointestinal Disorders: Yes (PERIRECTAL ABSCESS 04-09-17,PERIANAL ABSCESS ) Other/Comment: COLON RESECTION-COLON CA COMPLETED CHEMO. - Genitourinary/Gynecological Hx Genitourinary Disorders: No - Psychiatric Hx Substance Use: No - Surgical History Other/Comment: umbilical hernia sx, colon resection 2013, vascular acces device r pac 09/2014 rermoved 2 2016, i and d perianal abcess, colonoscopy 2013 and 2014 - Anesthesia Hx Anesthesia Reactions: No Hx Malignant Hyperthermia: No - Suicidal Assessment Feels Threatened In Home Enviroment: No Family/Social History - Physician Review Nursing Documentation Reviewed: Yes Family/Social History: No Known Family HX Smoking Status: Current Some Days Smoker Hx Alcohol Use: Yes ([employer].LAST DRANK LAST WEEK 6 BEERS.) Hx Substance Use: No Allergies/Home Meds Allergies/Adverse Reactions: Allergies No Known Allergies Allergy (Verified 05/16/17 11:37) Home Medications: Home Meds Medication Instructions Recorded Confirmed Arformoterol Tartrate [Brovana] 1 inh INH BID 12/23/14 11/28/18 Budesonide [Pulmicort Respules] 0.25 mg NEB BID PRN 04/27/15 11/28/18 Cholecalciferol (Vitamin D3) 1 tab PO DAILY 10/23/15 11/28/18 [Vitamin D3] Albuterol HFA [Ventolin HFA 90 0.09 mg IH PRN PRN 04/12/16 11/28/18 mcg/actuation (8 g)] Tiotropium [place] Inhaler 1 puff INH DAILY 04/12/16 11/28/18 [Spiriva Inhalation Handihaler Device] Albuterol Sulfate [Proair Hfa] 2 puff IH PRN PRN 01/06/17 11/28/18 predniSONE [predniSONE Tab] 4 mg PO BID 11/28/18 11/28/18 Review of Systems - Physician Review All systems were reviewed & negative as marked: Yes - Review of Systems Constitutional: Fevers (subjective low-grade fever) Respiratory: SOB, Cough, Sputum, Wheezing Gastrointestinal: absent: Abdominal Pain, Diarrhea, Nausea, Vomiting Neurological: absent: Headache, Dizziness Physical Exam Vital Signs Reviewed: Yes Vital Signs Temp Pulse Resp BP Pulse Ox 11/28/18 11:06 22 11/28/18 10:47 97.8 F 118 H 22 153/82 H 95 Temperature: Afebrile Blood Pressure: Normal Pulse: Tachycardic Respiratory Rate: Normal Appearance: Positive for: Well-Appearing, Non-Toxic, Comfortable Pain Distress: None Mental Status: Positive for: Alert and Oriented X 3 - Systems Exam Head: Present: Atraumatic, Normocephalic Pupils: Present: PERRL Extroacular Muscles: Present: EOMI Conjunctiva: Present: Normal Mouth: Present: Moist Mucous Membranes Neck: Present: Normal Range of Motion Respiratory/Chest: Present: Wheezes (Bilaterally), Decreased Breath Sounds (Decreased breath sound bilaterally on anterior and posterior sides). No: Respiratory Distress Cardiovascular: Present: Regular Rate and Rhythm, Normal S1, S2. No: Murmurs Abdomen: No: Tenderness, Distention, Peritoneal Signs Back: Present: Normal Inspection Upper Extremity: Present: Normal Inspection. No: Cyanosis, Edema Lower Extremity: Present: Normal Inspection. No: Edema Neurological: Present: GCS=15, CN II-XII Intact, Speech Normal Skin: Present: Warm, Dry, Normal Color. No: Rashes Psychiatric: Present: Alert, Oriented x 3, Normal Insight, Normal Concentration Medical Decision Making ED Course and Treatment: 11/28/18 11:42 Impression: 68 year old male presents with COPD exacerbation Differential Diagnosis included but are not limited to: COPD Rule out pneumonia Plan: -- EKG -- Cardiac Iso, CMP, Mg -- CBC -- Chest X-ray -- Duoneb -- Solumedrol -- Reassess and disposition Prior Visits: Notes and results from previous visits were reviewed. Progress Notes: 11/28/18 14:50 Patient is feeling and doing better. Initial tests showed CO2 of 80 and has now dropped 54. 11/28/18 15:20 Patient states he is feeling much better and wants to go home. - RAD Interpretation Radiology Orders: 11/28/18 11:12 CHEST PORTABLE [RAD] Stat - Medication Orders Current Medication Orders: Albuterol/Ipratropium (Duoneb 3 Mg/0.5 Mg (3 Ml) Ud) 3 ml IH Q15M MARIELA Discontinued Medications Methylprednisolone (Solu-Medrol) 125 mg IVP STAT STA Stop: 11/28/18 11:12 - Scribe Statement The provider has reviewed the documentation as recorded by the Brissaibemil Friedman Provider Scribe Attestation: All medical record entries made by the Scribe were at my direction and personally dictated by me. I have reviewed the chart and agree that the record accurately reflects my personal performance of the history, physical exam, medical decision making, and the department course for this patient. I have also personally directed, reviewed, and agree with the discharge instructions and disposition. Disposition/Present on Arrival - Present on Arrival History of DVT/PE: No History of Uncontrolled Diabetes: No Urinary Catheter: No History of Decub. Ulcer: No History Surgical Site Infection Following: None - Disposition Forms: [employer] (Turkmen)
[2018-11-28 11:36] LABS: BASO # 0.03 K/mm3 (0.0-2.0); BASO % 0.3 % (0.0-3.0); EOS # 0.1 (0.0-0.7); EOS % 1.1 % (1.5-5.0); LYMPH # 0.9 (1.2-3.4); LYMPH % 8.2 % (22.0-35.0); MEAN CELL VOLUME 99.6 fl (80.0-105.0); MEAN CORPUSCULAR HEMOGLOBIN 30.5 pg (25.0-35.0); MEAN CORPUSCULAR HGB CONC 30.6 g/dl (31.0-37.0); MEAN PLATELET VOLUME 10.1 fl (7.0-11.0); MONO # 1.2 (0.1-0.6); MONO % 10.8 % (1.0-6.0); RED CELL DISTRIBUTION WIDTH 13.8 % (11.5-14.5)
[2018-11-28 11:40] LABS: VENOUS BLOOD GAS BASE EXCESS 9.6 mmol/L (0.0-2.0); VENOUS BLOOD GAS PO2 25 mm/Hg (30-55)
[2018-11-28] MEDS ORDERED: Albuterol-Ipratrop 3 mg / 0.5 (3 ml) UD IH SCH (11:45)
[2018-11-28 11:50] LABS: ALB/GLOB RATIO 1.1 (1.1-1.8); ALBUMIN 3.7 g/dL (3.0-4.8); ALT/SGPT 11 U/L (7-56); AST/SGOT 21 U/L (17-59); BLOOD UREA NITROGEN 13 mg/dL (7-21); CALCIUM 9.5 mg/dL (8.4-10.5); GFR NON-AFRICAN AMERICAN > 60
[2018-11-28 11:56] LABS: TROPONIN I 0.01 ng/mL
--- NOTE | 2018-11-28 12:07 | RAD ---
Date of service: 11/28/2018 HISTORY: r/o pneumonia COMPARISON: 09/14/2018 FINDINGS: LUNGS: No active pulmonary disease. PLEURA: No significant pleural effusion identified, no pneumothorax apparent. CARDIOVASCULAR: No atherosclerotic calcification present No radiographic findings to suggest acute or significant cardiovascular disease. OSSEOUS STRUCTURES: No significant abnormalities. VISUALIZED UPPER ABDOMEN: Normal. OTHER FINDINGS: None. IMPRESSION: No active disease. No significant interval change compared to the prior examination(s).
[2018-11-28 14:47] LABS: ARTERIAL BLOOD GAS HCO3 30.5 mmol/L (21-28); ARTERIAL BLOOD GAS HEMOGLOBIN 13.8 g/dL (11.7-17.4); ARTERIAL BLOOD GAS O2 CAPACITY 18.9 mL/dl (16-24); ARTERIAL BLOOD GAS O2 CONTENT 18.5 ML/dl (15-23); ARTERIAL BLOOD GAS O2 SAT 97.9 % (95-98); ARTERIAL BLOOD GAS PCO2 54 mm/Hg (35-45); ARTERIAL BLOOD GAS PH 7.36 (7.35-7.45); ARTERIAL BLOOD GAS TCO2 32.2 mmol.L (22-28)
[2018-11-28] MEDS ORDERED: Budesonide 0.25 mg/2 ml Inhal Susp UD INH SCH ×2 (18:21→21:04)
[2018-11-28] MEDS ORDERED: Albuterol-Ipratrop 3 mg / 0.5 (3 ml) UD IH PRN (18:22)
[2018-11-28] MEDS: Arformoterol 15 mcg/2 ml Inh Sol IH SCH (20:20)
[2018-11-28] MEDS: MethylPREDNISolone 40 mg Vial IV SCH (20:28)
[2018-11-28 21:08] VITALS: BMI 29.1
[2018-11-28] MEDS ORDERED: Pneumococcal 23-Valent Vaccine IM ONE (21:08)
[2018-11-28] MEDS ORDERED: Influenza Vaccine 60 mcg/0.5 mL SYR (4YR UP) IM ONE (21:08)
[2018-11-29] MEDS: Albuterol-Ipratrop 3 mg / 0.5 (3 ml) UD IH SCH ×4 (01:05→21:09)
--- NOTE | 2018-11-29 01:44 | HP ---
DATE OF EXAM: 11/28/2018 HISTORY OF PRESENT ILLNESS: The patient is a 68-year-old known to me from multiple previous admissions. The patient says he has been having cough, congestion, and upper respiratory symptoms for the last couple of days. One nurse practitioner came to the house, gave him Z-Nakul, he has been using his nebulizer, his cough and congestion got worse, so he came to emergency room for further evaluation. Currently, he has no sore throat. He was short of breath. He was found to have pulse ox of 80% on his way to the hospital. PAST MEDICAL HISTORY: 1. The patient does have a history of advanced COPD. 2. Hypertension. 3. Hyperlipidemia. 4. History of perianal abscess drainage 3 to 4 years ago. 5. History of CA colon, status post partial colectomy in 2013. 6. History of sleep apnea. ALLERGIES: THE PATIENT IS NOT ALLERGIC TO ANY MEDICATIONS. MEDICATIONS AT HOME: He is on lisinopril 2.5 daily, digoxin 0.25 daily, aspirin 81 daily, prednisone 4 mg twice a day, Spiriva, he is on vitamin D, he is getting Pulmicort, he is on Brovana, and he is on nebulizer treatment. SOCIAL HISTORY: He used to be very heavy smoker. He used to use 1 to 2 pack everyday for more than 45 years. He still smokes here and there. He used to drink heavy, but still drinks, but not as heavy as he used to drink before. He is and lives with his who also suffers from chronic disease including chronic pain in back and the neck area under the care of chronic pain management. PHYSICAL EXAMINATION: GENERAL: He is awake and alert, mild shortness of breath. VITAL SIGNS: He is afebrile, pulse 94, respirations 20, and blood pressure 114/74. LUNGS: Bilateral fair airflow. No rhonchi or crackle. Posteriorly on lung exam; he has bilateral expiratory rhonchi more pronounced in upper and mid lung area. HEART: S1 and S2 audible, ABDOMEN: Soft and nontender. No rebound. No guarding. NEUROLOGIC: He is awake and alert. Able to communicate. EXTREMITIES: He has bruises on his both arms. Bilateral leg, no edema. LABORATORY DATA: WBC 10.7, hemoglobin 13.7, hematocrit 44.7, and platelet 204. Chemistry; sodium 136, potassium 4.1, chloride 91, CO2 of 38, BUN 13, creatinine 0.5, blood sugar 106, . CPK 26. Troponin 0.01. His flu test is negative. X-ray chest, no active disease. ASSESSMENT: 1. Chronic obstructive pulmonary disease exacerbation. 2. Asthmatic bronchitis. 3. Hypertension. 4. History of carcinoma of colon. 5. Bronchospasm. 6. History of heavy smoking in the past. PLAN: The patient has been started on nebulizer treatment. He is on IV steroid. He is on nebulizer treatment. Dr. Humphreys has been consulted. We will follow up the patient in a.m. Juan Bertrand MD
[2018-11-29] MEDS: MethylPREDNISolone 40 mg Vial IV SCH (03:03)
--- NOTE | 2018-11-29 05:17 | CARD ---
APPROVED REPORT Date of service: 11/28/2018 EKG Measurement Heart [id number] [id number] <Conclusion> Sinus tachycardia Low voltage QRS Cannot rule out Anterior infarct, age undetermined Abnormal ECG
[2018-11-29] MEDS: Pantoprazole 40 mg EC Tab PO SCH (05:36)
[2018-11-29] MEDS: Budesonide 0.5 mg/2 ml Inhal Susp UD IH SCH ×2 (07:16→21:09)
[2018-11-29] MEDS: Arformoterol 15 mcg/2 ml Inh Sol IH SCH ×2 (07:16→21:09)
[2018-11-29] MEDS: MethylPREDNISolone 40 mg Vial IVP SCH ×2 (09:57→21:03)
[2018-11-29] MEDS ORDERED: levoFLOXacin 500 mg in D5W 500 MG/100 ML BAG IVPB SCH (10:00)
--- NOTE | 2018-11-29 11:46 | CON ---
DATE OF CONSULTATION: 11/29/2018 PULMONARY CONSULTATION REASON FOR PULMONARY CONSULTATION: Chronic obstructive pulmonary disease. REFERRING PHYSICIAN FOR THIS PULMONARY CONSULTATION: Dr. Bertrand HISTORY OF PRESENT ILLNESS: The patient is a chronically ill 68-year-old male, with past medical history significant for advanced chronic obstructive pulmonary disease, on home oxygen, obstructive sleep apnea, chronic respiratory insufficiency, hypertension, colon cancer, status post resection in 2013, who presents to [facility] with increasing shortness of breath at rest, dyspnea on exertion, cough, and sputum production for the past 3 days. There is no history of chest pain, coughing up of blood, or chest pain - brought on with deep respirations. The patient does state to low-grade fevers at home. No history of chills or infectious exposure. No history of night sweats, weight loss or appetite change prior to the above events. No history of calf pains. No history of syncope or diaphoresis. No history of recent travel or trauma. REVIEW OF SYSTEMS: No history of nausea, vomiting or diarrhea. No acute urinary symptoms. No new neurologic complaints. Rest of the review of systems is negative. ALLERGIES: NO KNOWN ALLERGIES. SOCIAL HISTORY: Positive for extensive tobacco usage, also positive for extensive alcohol usage. FAMILY HISTORY: No inheritable diseases. HOME MEDICATIONS: Include Zestril, Lanoxin, Ecotrin, prednisone, Spiriva, vitamins, Pulmicort, Brovana, ProAir, albuterol HFA. PHYSICAL EXAMINATION: GENERAL: The patient appears comfortable this morning. He is not short of breath at rest. He is not using accessory muscles for breathing. VITAL SIGNS: Last temperature recorded is 98.8, pulse this morning is approximately 88, respiratory rate 18/20, blood pressure 123/78. Oxygen saturation on nasal cannula is 94-95%. HEENT: Normocephalic, atraumatic. NECK: No JVD. CARDIOVASCULAR: Systolic ejection murmur at the lower left sternal border. No S3, gallop. LUNGS: Decreased breath sounds at the bases. Mild bilateral rhonchi. No wheezing. EXTREMITIES: No clubbing, cyanosis or edema. Calves are nontender to palpation. GI: Abdomen is soft, nontender and nondistended. Bowel sounds are positive. SKIN: No acute rash. NEUROLOGIC: Exam limited at the present time. PERTINENT LABORATORY DATA: Chest x-ray was done yesterday and reviewed. There is no active pulmonary disease noted. CBC: White count 10.7K, hemoglobin 13.7, hematocrit of 44.7, platelets of 207,000. Arterial blood gas was done on nasal cannula. Results are: PH 7.36, pCO2 of 54, pO2 of 81. Complete metabolic profile: Chloride 91, carbon dioxide 38, LDH 280. Rest of the metabolic profile is within normal limits. IMPRESSION: 1. Acute bronchitis. 2. Advanced chronic obstructive pulmonary disease, on home oxygen. 3. Obstructive sleep apnea. 4. Chronic respiratory insufficiency. 5. Hypertension. PLAN: This patient is a chronically ill 68-year-old male, with past medical history significant for advanced chronic obstructive pulmonary disease, who presents with a 3-day history of worsening pulmonary symptoms. I did review the chest x-ray as above. There are no acute significant changes noted. The patient has been placed on antibiotic therapy. There have been no temperatures measured in the hospital. There is no leukocytosis. On physical exam, the patient is in mild bronchospasm. I will continue with the current nebulizer treatments, but increase the dosage of inhaled steroids. I will also try decreasing the intravenous steroids. Hopefully, we can change to oral therapy in the next 24-48 hours. I have also reviewed the arterial blood gas. There is CO2 retention noted, but with normal pH - indicating that the patient has an advanced chronic pulmonary problem. We will continue with the supplemental oxygen for now. The patient does state to feeling much better this morning, and is clinically improved. However, given the above, the future status/prognosis for this patient does remain somewhat guarded. Additional pulmonary intervention will be based on the clinical status of the patient. I will discuss the above with Dr. Bertrand later this morning. Thank you very much for this pulmonary consultation. Tulio Hart MD [facility]
[2018-11-29] MEDS: Digoxin 250 mcg (0.25 mg) Tab PO SCH (15:07)
--- NOTE | 2018-11-29 19:51 | PN ---
DATE: 11/29/2018 SUBJECTIVE: The patient has no complaints of any chest pain. No shortness of breath or headaches. OBJECTIVE: VITAL SIGNS: Temperature is 98.2, pulse of 95, blood pressure is 79/54, and respirations 18. LABORATORY DATA: White count of 10.7, hemoglobin 13.7, and creatinine 0.5. ASSESSMENT: 1. Acute chronic obstructive pulmonary disease. 2. Hypertension. 3. Dyslipidemia. 4. Obstructive sleep apnea. 5. Bronchitis. PLAN: The patient is currently feeling better. He is on arformoterol for his acute COPD. The patient is on DuoNeb treatments. He is receiving aspirin daily. He is on Levaquin for antibiotics. He is on Protonix daily. He is on Solu-Medrol for his COPD. He is on lisinopril for his hypertension. He is on a heart-healthy diet. Kendell Mera MD
[2018-11-30] MEDS: Albuterol-Ipratrop 3 mg / 0.5 (3 ml) UD IH SCH ×4 (01:25→20:06)
[2018-11-30] MEDS: Pantoprazole 40 mg EC Tab PO SCH (06:44)
[2018-11-30] MEDS: Arformoterol 15 mcg/2 ml Inh Sol IH SCH ×2 (07:27→20:06)
[2018-11-30] MEDS: Budesonide 0.5 mg/2 ml Inhal Susp UD IH SCH ×2 (07:27→20:06)
--- NOTE | 2018-11-30 07:35 | PN ---
DATE: 11/30/2018 PULMONARY PROGRESS NOTE SUBJECTIVE: The patient appears comfortable this morning. He is not short of breath at rest. PHYSICAL EXAMINATION VITAL SIGNS: (Last noted in the computer); temperature is 97.6, pulse is 77, respirations 18/20, blood pressure 102/62. Oxygen saturation on nasal cannula is 96%. HEENT: Normocephalic, atraumatic. No JVD. CARDIOVASCULAR: Systolic ejection murmur at the lower left sternal border. No S3 gallop. LUNGS: Improved breath sounds at the bases. Minimal/less rhonchi. No wheezing. GI: Abdomen is soft, nontender and nondistended. Bowel sounds are positive. EXTREMITIES: No clubbing, cyanosis or edema. Calves are nontender to palpation. SKIN: No acute rash. NEUROLOGIC: Limited at the present time. IMPRESSION 1. Acute bronchitis. 2. Advanced chronic obstructive pulmonary disease, on home oxygen. 3. Obstructive sleep apnea. 4. Chronic respiratory insufficiency. 5. Hypertension. PLAN: The patient appears comfortable this morning. He is not short of breath at rest. He does state to feeling much better overall. On physical exam, his bronchospasm is certainly less. In addition, the alveolar-arterial gradient is also less. I will continue with the current nebulizer treatments and decrease the intravenous steroids this morning. The patient remains on intravenous Levaquin. There are no temperatures noted. There is no leukocytosis. Clinical status of the patient appears significantly improved overall. However, given the above, the patient's future status/prognosis does remain guarded. Hopefully, we can change to oral therapy in the next 24 hours. I will discuss the above with Dr. Bertrand. Tulio Hart MD MTDD
[2018-11-30 09:03] VITALS: RESP 18
[2018-11-30] MEDS: levoFLOXacin 500 MG TAB PO SCH (10:49)
[2018-11-30] MEDS: MethylPREDNISolone 40 mg Vial IVP SCH ×2 (10:56→21:06)
--- NOTE | 2018-11-30 13:41 | PN ---
DATE: 11/30/2018 SUBJECTIVE: The patient is a 68-year-old, seen and examined. He state he feel much better than before, still has cough and congestion, but definitely better than yesterday. PHYSICAL EXAMINATION: VITAL SIGNS: He is afebrile, pulse 89, respirations 18, blood pressure 107/66. LUNGS: Bilateral diffusely decreased breath sounds. Occasional expiratory rhonchi. HEART: S1 and S2 audible. ABDOMEN: Soft and nontender. No rebound. No guarding. NEUROLOGIC: He is awake and alert. Able to communicate. EXTREMITIES: Bilateral leg, no edema. LABORATORY DATA: Blood sugar is 140. Flu test is negative. ASSESSMENT: 1. Chronic obstructive pulmonary disease exacerbation. 2. Hypertension. 3. Bilateral leg edema. 4. Hyperlipidemia. 5. History of carcinoma of colon, status post partial colectomy. 6. Sleep apnea. PLAN: We will continue the patient on IV steroids. He is on nebulizer treatment. He is on GI prophylaxis. We will monitor his respiratory status in another 24 hours and if he remains stable and continue to improve, possible discharged plan in a.m. Juan Bertrand MD
[2018-11-30] MEDS: Digoxin 250 mcg (0.25 mg) Tab PO SCH (14:20)
[2018-11-30 14:21] VITALS: PULSE 81
[2018-11-30 14:58] VITALS: O2SAT 95
[2018-12-01] MEDS: Albuterol-Ipratrop 3 mg / 0.5 (3 ml) UD IH SCH ×3 (02:05→13:24)
[2018-12-01] MEDS ORDERED: Pantoprazole 40 mg EC Tab PO SCH (06:30)
[2018-12-01] MEDS: Arformoterol 15 mcg/2 ml Inh Sol IH SCH (07:27)
[2018-12-01] MEDS: Budesonide 0.5 mg/2 ml Inhal Susp UD IH SCH (07:27)
[2018-12-01 07:41] VITALS: TEMP 98.1
[2018-12-01] MEDS: Pantoprazole 40 mg EC Tab PO SCH (09:03)
[2018-12-01] MEDS: levoFLOXacin 500 MG TAB PO SCH (10:12)
[2018-12-01 10:14] VITALS: BP 118/73; PULSE 84
--- NOTE | 2018-12-01 12:04 | PN ---
DATE: 12/01/2018 PULMONARY NOTE SUBJECTIVE: The patient appears very comfortable this morning. He is not short of breath at rest. OBJECTIVE: VITALS (Last noted in the computer): Temperature is 97.9, pulse 90, respirations 18, blood pressure 101/65. Oxygen saturation on nasal cannula is 95% to 96%. HEENT: Normocephalic, atraumatic. No JVD. CARDIOVASCULAR: Systolic ejection murmur at the lower left sternal border. No S3 gallop. LUNGS: Clear bilaterally. EXTREMITIES: No clubbing, cyanosis, or edema. Calves are nontender to palpation. GASTROINTESTINAL: Abdomen is soft, nontender, and nondistended. Bowel sounds are positive. SKIN: No acute rash. NEUROLOGIC: Limited at the present time. IMPRESSION: 1. Acute bronchitis. 2. Advanced chronic obstructive pulmonary disease, on home oxygen. 3. Obstructive sleep apnea. 4. Chronic respiratory insufficiency. 5. Hypertension. PLAN: The patient appears very comfortable this morning. He is not short of breath at rest. He does state to feeling much, much better overall. On physical exam, the patient's lungs are now clear. In addition, there is no significant alveolar-arterial gradient. I will continue the current nebulizer treatments and change to oral steroids this morning. The patient has also been transitioned to oral antibiotic therapy. There are no temperatures noted. There is no leukocytosis. Clinical status of the patient is significantly improved overall. However, given the above, the future status/prognosis for this patient remains guarded. The patient is for discharge in the very near future - hopefully today. I will discuss the above with the attending physician. Tulio Hart MD MTDK[facility]
--- NOTE | 2018-12-01 23:25 | DS ---
HISTORY OF PRESENT ILLNESS: The patient is 68 years old, who came to emergency room for increasing cough, congestion, shortness of breath. On his way in the ambulance, he was desaturating up to 80%, was initially given BiPAP, given IV steroid, nebulizer treatment, started to improve, he was admitted for further management. No history of chest pain, however, he did have fever and chills. The patient responded very well to the treatment and being discharged home today. PHYSICAL EXAMINATION: GENERAL: Today, he is awake, alert, oriented, communicative. VITAL SIGNS: He is afebrile, pulse 84, respirations 18, and blood pressure 118/73. LUNGS: Bilateral good air flow. No rhonchi or crackle. HEART: S1 and S2 audible. ABDOMEN: Soft and nontender. No rebound. No guarding. NEUROLOGIC: The patient is awake and alert, able to communicate. ASSESSMENT: 1. Chronic obstructive pulmonary disease exacerbation. 2. Status post cardiac cath in 09/2018, he was found to have dilated cardiomyopathy with ejection fraction of 35% and 50% lesion in the obtuse marginal and diagonal vessel and there was no stent placed. 3. Hypertension. DISPOSITION: The patient is being discharged home today. DISCHARGE MEDICATIONS: He will continue lisinopril 2.5 mg daily, digoxin 0.25 mg daily, aspirin 81 mg daily, he was given prednisone 20 mg twice a day for 3 days and 20 mg daily for 5 days. He is advised to continue Pulmicort, Brovana, and he will be given Levaquin 500 mg daily for 5 more days. DISCHARGE INSTRUCTIONS: He will follow up with Dr. Humphreys and myself as outpatient. Juan Bertrand MD
== END 2018-12-01 14:09 | disposition home health service (06) | DRG 192 ==
LOC: ED 10:47 → ERH 15:22 → 5RSO 17:40
PROVIDERS: ADMIT Internal Medicine; ATTEND Internal Medicine
DX: J44.1 Chronic obstructive pulmonary disease with (acute) exacerbation (principal); J44.0 Chronic obstructive pulmonary disease with (acute) lower respiratory infection; G47.33 Obstructive sleep apnea (adult) (pediatric); Z99.81 Dependence on supplemental oxygen; Z85.038 Personal history of other malignant neoplasm of large intestine; I10 Essential (primary) hypertension; J20.9 Acute bronchitis, unspecified; E78.5 Hyperlipidemia, unspecified; F17.210 Nicotine dependence, cigarettes, uncomplicated; Z90.49 Acquired absence of other specified parts of digestive tract; G89.29 Other chronic pain; M54.9 Dorsalgia, unspecified; R60.0 Localized edema

== ENCOUNTER 2018-12-21 07:25 | Inpatient (IN) | payer MEDICARE, SELFPAY ==
[2018-12-21] MEDS ORDERED: Magnesium Sulfate 2 gm/50 ml 2 GM/50 ML BAG IVPB ONE (07:40)
[2018-12-21] MEDS: Albuterol-Ipratrop 3 mg / 0.5 (3 ml) UD IH SCH ×5 (07:46→19:29)
--- NOTE | 2018-12-21 07:46 | ED PDOC ---
Arrival/HPI - General Chief Complaint: Shortness Of Breath Time Seen by Provider: 12/21/18 07:33 Historian: Patient - History of Present Illness Narrative History of Present Illness (Text): 12/21/18 07:43 68 year old male, with past medical history of COPD, obstructive sleep apnea, hypertension, perianal abscess, and colon cancer, presents to the ED for evaluation of worsening shortness of breath since past few nights. Patient reports symptoms consistent with past episodes of COPD exacerbation. Patient additionally notes mukul-anal swelling and pain, requesting medical attention. He denies any other medical complaints. He denies any fever, chills, nausea, vomiting, diarrhea, abdominal pain, chest pain, headache, dizziness or any other complaints. PMD: Dr. Bertrand Time/Duration: < week Symptom Onset: Gradual Symptom Course: Unchanged Activities at Onset: Light Context: Home Past Medical History - Provider Review Nursing Documentation Reviewed: Yes - Infectious Disease Hx of Infectious Diseases: None - Cardiac Hx Hypertension: Yes - Pulmonary Hx Chronic Obstructive Pulmonary Disease (COPD): Yes - Neurological Hx Paralysis: No - HEENT Hx HEENT Disorder: No - Renal Hx Renal Disorder: No - Endocrine/Metabolic Hx Endocrine Disorders: No - Hematological/Oncological Hx Blood Disorders: No - Integumentary Hx Dermatological Disorder: Yes (PERIRECTAL ABSCESS 04-09-17) - Musculoskeletal/Rheumatological Hx Musculoskeletal Disorders: No - Gastrointestinal Hx Gastrointestinal Disorders: Yes (PERIRECTAL ABSCESS 04-09-17,PERIANAL ABSCESS ) Other/Comment: COLON RESECTION-COLON CA COMPLETED CHEMO. - Genitourinary/Gynecological Hx Genitourinary Disorders: No - Psychiatric Hx Psychophysiologic Disorder: Yes (H/O SMOKING CIGARETTES,DRINKS BEER OCCASIONALLY) Hx Emotional Abuse: No Hx Physical Abuse: No Hx Substance Use: No - Surgical History Other/Comment: umbilical hernia sx, colon resection 2013, vascular acces device r pac 09/2014 rermoved 2 2016, i and d perianal abcess, colonoscopy 2013 and 2014 - Anesthesia Hx Anesthesia Reactions: No Hx Malignant Hyperthermia: No - Suicidal Assessment Feels Threatened In Home Enviroment: No Family/Social History - Physician Review Nursing Documentation Reviewed: Yes Family/Social History: Unknown Family HX Smoking Status: Current Some Days Smoker Hx Alcohol Use: Yes (DRINKS BEER SOCIALLY.LAST DRANK LAST WEEK 6 BEERS.) Hx Substance Use: No Allergies/Home Meds Allergies/Adverse Reactions: Allergies No Known Allergies Allergy (Verified 11/28/18 17:56) Home Medications: Home Meds Medication Instructions Recorded Confirmed Arformoterol Tartrate [Brovana] 1 inh INH BID 12/23/14 12/21/18 Budesonide [Pulmicort Respules] 0.25 mg NEB BID PRN 04/27/15 12/21/18 Albuterol HFA [Ventolin HFA 90 0.09 mg IH PRN PRN 04/12/16 12/21/18 mcg/actuation (8 g)] Tiotropium [place] Inhaler 1 puff INH DAILY 04/12/16 12/21/18 [Spiriva Inhalation Handihaler Device] Albuterol Sulfate [Proair Hfa] 2 puff IH PRN PRN 01/06/17 12/21/18 predniSONE [predniSONE Tab] 4 mg PO BID 11/28/18 12/21/18 Review of Systems - Physician Review All systems were reviewed & negative as marked: Yes - Review of Systems Constitutional: absent: Fevers Eyes: absent: Vision Changes Respiratory: SOB Cardiovascular: absent: Chest Pain, FRASER Gastrointestinal: absent: Abdominal Pain, Diarrhea, Nausea, Vomiting Genitourinary Male: absent: Dysuria, Urinary Output Changes Musculoskeletal: absent: Back Pain, Neck Pain Skin: absent: Rash Neurological: absent: Headache, Dizziness, Focal Weakness Endocrine: absent: Diaphoresis Psychiatric: absent: Anxiety Physical Exam Vital Signs Reviewed: Yes Vital Signs Temp Pulse Resp BP Pulse Ox 12/21/18 07:26 98.3 F 118 H 20 135/62 97 Temperature: Afebrile Blood Pressure: Normal Pulse: Tachycardic Respiratory Rate: Normal Appearance: Positive for: Well-Appearing, Non-Toxic, Comfortable Pain Distress: None Mental Status: Positive for: Alert and Oriented X 3 - Systems Exam Head: Present: Atraumatic, Normocephalic Pupils: Present: PERRL Extroacular Muscles: Present: EOMI Conjunctiva: Present: Normal Mouth: Present: Moist Mucous Membranes Respiratory/Chest: Present: Decreased Breath Sounds (Diminished breath sounds bilaterally). No: Respiratory Distress, Accessory Muscle Use Cardiovascular: Present: Regular Rate and Rhythm, Normal S1, S2. No: Murmurs Abdomen: No: Tenderness, Distention, Peritoneal Signs Rectal: Present: Other (Perianal swelling) Upper Extremity: Present: Normal Inspection. No: Cyanosis, Edema Lower Extremity: Present: Normal Inspection. No: Edema Neurological: Present: GCS=15, CN II-XII Intact, Speech Normal Skin: Present: Warm, Dry, Normal Color. No: Rashes Psychiatric: Present: Alert, Oriented x 3, Normal Insight, Normal Concentration Medical Decision Making ED Course and Treatment: 12/21/18 07:40 Impression: 68 year old male presents to the ED for evaluation of worsening shortness of breath. Differential Diagnosis included but are not limited to: COPD exacerbation Plan: -- VBG -- EKG -- Labs -- Chest X-ray -- Duoneb -- Magnesium Sulfate -- Solumedrol -- Urinalysis -- Reassess and disposition Prior Visits: Notes and results from previous visits were reviewed. Progress Notes: 12/21/18 07:30 EKG reviewed, shows multifocal atrial tachycardia at 122 bpm, no acute ST/T wave changes. 12/21/18 09:55 Chest X-ray reviewed by radiologist, shows: FINDINGS: LUNGS: No active pulmonary disease. PLEURA: No significant pleural effusion identified, no pneumothorax apparent. CARDIOVASCULAR: No aortic atherosclerotic calcification present. Normal cardiac size. No pulmonary vascular congestion. OSSEOUS STRUCTURES: No significant abnormalities. VISUALIZED UPPER ABDOMEN: Normal. OTHER FINDINGS: None. IMPRESSION: No active disease. 12/21/18 14:39 initial bllod gas acut marilee chroinc res acidosis. nebs steriod mg given. tolerating bipap. mild improvement on abg. anbitiocs and surgery consulted for perianal abcess. accepted dr zuluaga icu. - RAD Interpretation Radiology Orders: 12/21/18 07:39 CHEST PORTABLE [RAD] Stat [place]term[place]k Drier Operator: Radiologist - EKG Interpretation Interpreted by ED Physician: Yes Type: 12 lead EKG - Medication Orders Current Medication Orders: Albuterol/Ipratropium (Duoneb 3 Mg/0.5 Mg (3 Ml) Ud) 3 ml IH Q15M MARIELA Stop: 12/21/18 08:16 Magnesium Sulfate (Magnesium Sulfate 2 Gm/50 Ml Water) 2 gm in 50 mls @ 50 mls/hr IVPB ONCE ONE Stop: 12/21/18 08:39 Discontinued Medications Methylprednisolone (Solu-Medrol) 125 mg IVP STAT STA Stop: 12/21/18 07:41 - Scribe Statement The provider has reviewed the documentation as recorded by the Brissaibe Manuel Fortune. All medical record entries made by the Brissaibemil were at my direction and personally dictated by me. I have reviewed the chart and agree that the record accurately reflects my personal performance of the history, physical exam, medical decision making, and the department course for this patient. I have also personally directed, reviewed, and agree with the discharge instructions and disposition. Disposition/Present on Arrival - Present on Arrival Any Indicators Present on Arrival: No History of DVT/PE: No History of Uncontrolled Diabetes: No Urinary Catheter: No History of Decub. Ulcer: No History Surgical Site Infection Following: None - Disposition Have Diagnosis and Disposition been Completed?: Yes Diagnosis: COPD exacerbation Disposition: HOSPITALIZED Disposition Time: 13:30 Condition: STABLE
[2018-12-21 08:08] LABS: VENOUS BLOOD GAS BASE EXCESS 13.9 mmol/L (0.0-2.0); VENOUS BLOOD GAS PO2 42 mm/Hg (30-55); VENOUS BLOOD PH 7.27 (7.32-7.43)
[2018-12-21 08:16] LABS: EOS % 0.2 % (1.5-5.0); HEMOGLOBIN 13.8 g/dL (14.0-18.0); LYMPH # 0.7 (1.2-3.4); LYMPH % 3.2 % (22.0-35.0); MEAN CELL VOLUME 100.9 fl (80.0-105.0); MEAN CORPUSCULAR HEMOGLOBIN 30.5 pg (25.0-35.0); MEAN CORPUSCULAR HGB CONC 30.2 g/dl (31.0-37.0); MONO # 1.4 (0.1-0.6); MONO % 6.1 % (1.0-6.0); PLATELET COUNT 150 10^3/uL (120.0-450.0); RBC 4.53 10^6/uL (3.5-6.1); RED CELL DISTRIBUTION WIDTH 14.4 % (11.5-14.5)
[2018-12-21 08:27] LABS: ALB/GLOB RATIO 1.2 (1.1-1.8); ALBUMIN 3.6 g/dL (3.0-4.8); ALT/SGPT 9 U/L (7-56); AST/SGOT 27 U/L (17-59); BLOOD UREA NITROGEN 18 mg/dL (7-21); CALCIUM 9.2 mg/dL (8.4-10.5); GFR NON-AFRICAN AMERICAN > 60
[2018-12-21 08:29] LABS: INR 1.08; PROTHROMBIN TIME 12.2 SECONDS (9.4-12.5)
[2018-12-21 08:38] LABS: B-TYPE NATRIURETIC PEPTIDE 435 pg/mL (0-450); LYMPHOCYTE 2 % (22.0-35.0); MONOCYTE 10 % (1.0-6.0); NEUTROPHIL 88 % (50.0-70.0); TROPONIN I 0.03 ng/mL
[2018-12-21 08:59] LABS: PARTIAL THROMBOPLASTIN TIME 31.6 Seconds (26.9-38.3)
[2018-12-21 09:22] LABS: ARTERIAL BLOOD GAS HCO3 41.3 mmol/L (21-28); ARTERIAL BLOOD GAS HEMOGLOBIN 12.9 g/dL (11.7-17.4); ARTERIAL BLOOD GAS O2 CAPACITY 17.6 mL/dl (16-24); ARTERIAL BLOOD GAS O2 CONTENT 17.5 ML/dl (15-23); ARTERIAL BLOOD GAS O2 SAT 99.7 % (95-98); ARTERIAL BLOOD GAS PCO2 84 mm/Hg (35-45); ARTERIAL BLOOD GAS TCO2 43.9 mmol.L (22-28)
--- NOTE | 2018-12-21 09:51 | RAD ---
Date of service: 12/21/2018 HISTORY: sob COMPARISON: 11/28/2018 TECHNIQUE: 1 view obtained. FINDINGS: LUNGS: No active pulmonary disease. PLEURA: No significant pleural effusion identified, no pneumothorax apparent. CARDIOVASCULAR: No aortic atherosclerotic calcification present. Normal cardiac size. No pulmonary vascular congestion. OSSEOUS STRUCTURES: No significant abnormalities. VISUALIZED UPPER ABDOMEN: Normal. OTHER FINDINGS: None. IMPRESSION: No active disease.
[2018-12-21] MEDS ORDERED: Piperacillin/Tazobact 3.375 gm 100 ML IVPB STA (09:57)
[2018-12-21] MEDS ORDERED: Vancomycin 1gm in NS 250ml 1 GM/250 ML BAG IVPB STA (09:57)
--- NOTE | 2018-12-21 10:35 | CP.PCM.CON ---
<Peterson Winn - Last Filed: 12/21/18 16:50> History of Present Illness - History of Present Illness History of Present Illness: General surgery consult note for Dr. Eric Gallegos This is a 68 year old male with PMH of COPD, HTN, HLD, colon CA (s/p partial colectomy 2013), multiple perianal abscess drainages who complains of sob for the past few days. Placed on BPAP, and was admitted to ICU for COPD exacerbation. Surgical team consulted due to pt reporting mukul-anal swelling and pain, requesting medical attention. Pt only endorses pain to the area, denies discharge or bleeding from the area. Denies fever, chills, chest pain, abdominal pain, n/v/d, hematochezia, melena. Pts last BM was last night, which was loose due to miralax. No urinary complaints. Endorses having similar symptoms in the past, most recent I and D to the area in 2018. Heme/Onc: Jian ANTUNEZ reviewed PMH: COPD, HTN, HLD, colon CA (s/p partial colectomy 2013 with chemotherapy completed in 2014) PSH: right hemicolon resection 2013, right portacath insertion and removal, perirectal abscess I and D multiple times, with most recent being [address] Nirmala Gallegos Meds: as per MAR Allx: NKDA SHx: Former heavy smoker (approximately 90 pack year history), EtOH socially. and live with . Review of Systems - Review of Systems All systems: reviewed and no additional remarkable complaints except (as per HPI) Past Patient History - Infectious Disease Hx of Infectious Diseases: None - Past Social History Smoking Status: Current Some Days Smoker - CARDIAC Hx Hypertension: Yes - PULMONARY Hx Chronic Obstructive Pulmonary Disease (COPD): Yes - NEUROLOGICAL Hx Paralysis: No - HEENT Hx HEENT Problems: No - RENAL Hx Chronic Kidney Disease: No - ENDOCRINE/METABOLIC Hx Endocrine Disorders: No - HEMATOLOGICAL/ONCOLOGICAL Hx Blood Disorders: No - INTEGUMENTARY Hx Dermatological Problems: Yes (PERIRECTAL ABSCESS 04-09-17) - MUSCULOSKELETAL/RHEUMATOLOGICAL Hx Musculoskeletal Disorders: No - GASTROINTESTINAL Hx Gastrointestinal Disorders: Yes (PERIRECTAL ABSCESS 04-09-17,PERIANAL ABSCESS ) Other/Comment: COLON RESECTION-COLON CA COMPLETED CHEMO. - GENITOURINARY/GYNECOLOGICAL Hx Genitourinary Disorders: No - PSYCHIATRIC Hx Psychophysiologic Disorder: Yes (H/O SMOKING CIGARETTES,DRINKS BEER OCCASIONALLY) Hx Emotional Abuse: No Hx Physical Abuse: No Hx Substance Use: No - SURGICAL HISTORY Other/Comment: umbilical hernia sx, colon resection 2013, vascular acces device r pac 09/2014 rermoved 2 2015, i and d perianal abcess, colonoscopy 2013 and 2014 - ANESTHESIA Hx Anesthesia Reactions: No Hx Malignant Hyperthermia: No Meds Allergies/Adverse Reactions: Allergies Allergy/AdvReac Type Severity Reaction Status Date / Time No Known Allergies Allergy Verified 11/28/18 17:56 - Medications Medications: Current Medications Vancomycin HCl (Vancomycin 1gm) 1 gm in 250 mls @ 167 mls/hr IVPB STAT STA; Protocol Stop: 12/21/18 11:26 Physical Exam - Constitutional Appears: No Acute Distress - Head Exam Head Exam: ATRAUMATIC, NORMAL INSPECTION - Eye Exam Eye Exam: EOMI - ENT Exam ENT Exam: Mucous Membranes Moist - Respiratory Exam Respiratory Exam: Decreased Breath Sounds (very poor air movement). absent: Accessory Muscle Use, Rales, Wheezes, Stridor Additional comments: (+) on BPAP - Cardiovascular Exam Cardiovascular Exam: REGULAR RHYTHM, +S1, +S2 - GI/Abdominal Exam GI & Abdominal Exam: Hernia (umbilical hernia, reducible), Normal Bowel Sounds, Soft. absent: Firm, Guarding, Rebound, Rigid, Tenderness - Rectal Exam Rectal Exam: absent: Black Stool, Bloody Stool, Fecal Impaction, NORMAL INSPECTION Additional comments: Rectal examination as PGY1 Yehya: External exam: (-) erythhema, (-) warmth (+) 10 o'clock 3 cm x 1 cm area of fluctuance, no erythema, no warmth, no tenderness, (+) possible fistula, (-) active drainage or bleeding. Internal exam as per PGY1 Yehya: Good rectal tone No tract, induration, fluctuance noted during internal exam. (+) 12 o'clock small palpable internal hemorrhoid - Extremities Exam Extremities exam: Positive for: normal inspection, pedal pulses present. Negative for: pedal edema, tenderness - Back Exam Back exam: NORMAL INSPECTION - Neurological Exam Neurological exam: Alert, Oriented x3 - Psychiatric Exam Psychiatric exam: Normal Affect, Normal Mood - Skin Skin Exam: Dry, Normal Color, Warm Results - Vital Signs Recent Vital Signs: Last Vital Signs Temp 98.3 F 12/21/18 07:26 Pulse 114 H 12/21/18 08:48 Resp 20 12/21/18 07:53 BP 135/62 12/21/18 07:26 Pulse Ox 98 12/21/18 07:53 - Labs Result Diagrams: 12/21/18 08:04 12/21/18 08:04 Labs: Laboratory Results - last 24 hr 12/21/18 12/21/18 12/21/18 08:00 08:04 08:04 WBC 23.0 H D RBC 4.53 Hgb 13.8 L Hct 45.7 MCV 100.9 MCH 30.5 MCHC 30.2 L RDW 14.4 Plt Count 150 MPV 10.0 Neut % (Auto) 90.5 H Lymph % (Auto) 3.2 L [place] % (Auto) 6.1 H Eos % (Auto) 0.2 L Baso % (Auto) 0.0 Lymph # (Auto) 0.7 L [place] # (Auto) 1.4 H Eos # (Auto) 0.0 Baso # (Auto) 0.00 Absolute Neuts (auto) 20.77 H Neutrophils % (Manual) 88 H Lymphocytes % (Manual) 2 L Monocytes % (Manual) 10 H PT 12.2 INR 1.08 APTT 31.6 pCO2 pO2 42 HCO3 ABG pH ABG Total CO2 ABG O2 Saturation ABG O2 Content ABG Base Excess ABG Hemoglobin ABG Carboxyhemoglobin POC ABG HHb (Measured) ABG Methemoglobin ABG O2 Capacity VBG pH 7.27 L VBG pCO2 99.0 H* VBG HCO3 45.5 H VBG Total CO2 48.5 H VBG O2 Sat (Calc) 79.2 H VBG Base Excess 13.9 H VBG Potassium 4.2 Hgb O2 Saturation Sodium 132.0 Chloride 89.0 L Glucose 102 Lactate 1.1 FiO2 21.0 Crit Value Called To Norma Crit Value Called By [id number] Blood Gas Notified Time 810 Potassium Carbon Dioxide Anion Gap BUN Creatinine Est GFR ( Amer) Est GFR (Non-Af Amer) Random Glucose Calcium Magnesium Total Bilirubin AST ALT Alkaline Phosphatase Lactate Dehydrogenase Total Creatine Kinase Troponin I NT-Pro-B Natriuret Pep Total Protein Albumin Globulin Albumin/Globulin Ratio Venous Blood Potassium 4.2 12/21/18 12/21/18 08:04 09:00 WBC RBC Hgb Hct MCV MCH MCHC RDW Plt Count MPV Neut % (Auto) Lymph % (Auto) [place] % (Auto) Eos % (Auto) Baso % (Auto) Lymph # (Auto) [place] # (Auto) Eos # (Auto) Baso # (Auto) Absolute Neuts (auto) Neutrophils % (Manual) Lymphocytes % (Manual) Monocytes % (Manual) PT INR APTT pCO2 84 H* pO2 121.0 H HCO3 41.3 H* ABG pH 7.30 L ABG Total CO2 43.9 H ABG O2 Saturation 99.7 H ABG O2 Content 17.5 ABG Base Excess 11.4 H ABG Hemoglobin 12.9 ABG Carboxyhemoglobin 3.1 H POC ABG HHb (Measured) 0.3 ABG Methemoglobin 1.2 ABG O2 Capacity 17.6 VBG pH VBG pCO2 VBG HCO3 VBG Total CO2 VBG O2 Sat (Calc) VBG Base Excess VBG Potassium Hgb O2 Saturation 95.4 Sodium 134 Chloride 84 L Glucose Lactate FiO2 40.0 Crit Value Called To Crit Value Called By 3769 Blood Gas Notified Time 925 Potassium 4.3 Carbon Dioxide 40 H Anion Gap 14 BUN 18 Creatinine 0.4 L Est GFR ( Amer) > 60 Est GFR (Non-Af Amer) > 60 Random Glucose 98 Calcium 9.2 Magnesium 1.7 Total Bilirubin 0.9 AST 27 ALT 9 Alkaline Phosphatase 75 Lactate Dehydrogenase 266 L Total Creatine Kinase < 20 L Troponin I 0.03 D NT-Pro-B Natriuret Pep 435 Total Protein 6.7 Albumin 3.6 Globulin 3.0 Albumin/Globulin Ratio 1.2 Venous Blood Potassium Assessment & Plan - Assessment and Plan (Free Text) Assessment: This is a 68 year old male with PMH of advanced COPD, HTN, HLD, colon CA (s/p partial colectomy 2013), perianal abscess drainage multiple times who complains of sob for the past few days. Placed on BPAP, and was admitted to ICU for COPD exacerbation. Surgical team consulted due to pt reporting mukul-anal swelling and pain, requesting medical attention. Plan: Perianal abscess vs fistula: Mupirocin to the area bid Abd/Pelv CT with po and IV contrast to evaluate abscess vs fistula Labs reviewed, WNL Planned OR 12/22 for Incision and Drainage Will f/u Abd/Pelv CT as above Further recommendations as per Dr. Nirmala Gallegos Case discussed with Dr. Nirmala Gallegos. Peterson Winn PGY1 Pager#[phone] <Eric Gallegos - Last Filed: 12/21/18 21:24> Meds - Medications Medications: Current Medications Albuterol/Ipratropium (Duoneb 3 Mg/0.5 Mg (3 Ml) Ud) 3 ml IH Q2H PRN PRN Reason: Shortness of Breath Albuterol/Ipratropium (Duoneb 3 Mg/0.5 Mg (3 Ml) Ud) 3 ml IH [id number] [facility] Last Admin: 12/21/18 19:29 Dose: 3 ml Arformoterol Tartrate (Brovana) 15 mcg IH [id number] [facility] Last Admin: 12/21/18 19:29 Dose: 15 mcg Aspirin (Ecotrin) 81 mg PO DAILY MARIELA Budesonide (Pulmicort Respules) 0.5 mg IH [id number] [facility] Last Admin: 12/21/18 19:29 Dose: 0.5 mg Digoxin (Lanoxin) 0.25 mg PO 1400 MARIELA Last Admin: 12/21/18 17:26 Dose: 0.25 mg Ceftriaxone Sodium (Rocephin 1 Gram Ivpb) 1 gm in 100 mls @ 100 mls/hr IVPB DAILY MARIELA; Protocol Azithromycin (Zithromax 500mg In Ns) 500 mg in 250 mls @ 167 mls/hr IVPB DAILY MARIELA; Protocol Lisinopril (Zestril) 2.5 mg PO DAILY [facility] Methylprednisolone (Solu-Medrol) 40 mg IVP Q12 [facility] Mupirocin (Bactroban Ointment) 1 gm TOP BID [facility] Last Admin: 12/21/18 17:20 Dose: 1 applic Pantoprazole Sodium (Protonix Inj) 40 mg IVP DAILY [facility] Results - Vital Signs Recent Vital Signs: Last Vital Signs Temp 98.5 F 12/21/18 12:57 Pulse 112 H 12/21/18 18:30 Resp 21 12/21/18 18:30 BP 131/71 12/21/18 17:32 Pulse Ox 93 L 12/21/18 18:30 - Labs Result Diagrams: 12/21/18 08:04 12/21/18 08:04 Labs: Laboratory Results - last 24 hr 12/21/18 12/21/18 12/21/18 08:00 08:04 08:04 WBC 23.0 H D RBC 4.53 Hgb 13.8 L Hct 45.7 MCV 100.9 MCH 30.5 MCHC 30.2 L RDW 14.4 Plt Count 150 MPV 10.0 Neut % (Auto) 90.5 H Lymph % (Auto) 3.2 L [place] % (Auto) 6.1 H Eos % (Auto) 0.2 L Baso % (Auto) 0.0 Lymph # (Auto) 0.7 L [place] # (Auto) 1.4 H Eos # (Auto) 0.0 Baso # (Auto) 0.00 Absolute Neuts (auto) 20.77 H Neutrophils % (Manual) 88 H Lymphocytes % (Manual) 2 L Monocytes % (Manual) 10 H PT 12.2 INR 1.08 APTT 31.6 pCO2 pO2 42 HCO3 ABG pH ABG Total CO2 ABG O2 Saturation ABG O2 Content ABG Base Excess ABG Hemoglobin ABG Carboxyhemoglobin POC ABG HHb (Measured) ABG Methemoglobin ABG O2 Capacity VBG pH 7.27 L VBG pCO2 99.0 H* VBG HCO3 45.5 H VBG Total CO2 48.5 H VBG O2 Sat (Calc) 79.2 H VBG Base Excess 13.9 H VBG Potassium 4.2 Hgb O2 Saturation Sodium 132.0 Chloride 89.0 L Glucose 102 Lactate 1.1 FiO2 21.0 Crit Value Called To Norma Crit Value Called By 3769 Blood Gas Notified Time 810 Potassium Carbon Dioxide Anion Gap BUN Creatinine Est GFR ( Amer) Est GFR (Non-Af Amer) Random Glucose Calcium Magnesium Total Bilirubin AST ALT Alkaline Phosphatase Lactate Dehydrogenase Total Creatine Kinase Troponin I NT-Pro-B Natriuret Pep Total Protein Albumin Globulin Albumin/Globulin Ratio Venous Blood Potassium 4.2 12/21/18 12/21/18 12/21/18 08:04 09:00 15:30 WBC RBC Hgb Hct MCV MCH MCHC RDW Plt Count MPV Neut % (Auto) Lymph % (Auto) [place] % (Auto) Eos % (Auto) Baso % (Auto) Lymph # (Auto) [place] # (Auto) Eos # (Auto) Baso # (Auto) Absolute Neuts (auto) Neutrophils % (Manual) Lymphocytes % (Manual) Monocytes % (Manual) PT INR APTT pCO2 84 H* 75 H* pO2 121.0 H 86.0 HCO3 41.3 H* 41.4 H* ABG pH 7.30 L 7.35 ABG Total CO2 43.9 H 43.7 H ABG O2 Saturation 99.7 H 98.4 H ABG O2 Content 17.5 17.2 ABG Base Excess 11.4 H 12.5 H ABG Hemoglobin 12.9 12.9 ABG Carboxyhemoglobin 3.1 H 2.9 H POC ABG HHb (Measured) 0.3 1.5 ABG Methemoglobin 1.2 1.4 ABG O2 Capacity 17.6 17.5 VBG pH VBG pCO2 VBG HCO3 VBG Total CO2 VBG O2 Sat (Calc) VBG Base Excess VBG Potassium Hgb O2 Saturation 95.4 94.3 L Sodium 134 Chloride 84 L Glucose Lactate FiO2 40.0 40.0 Crit Value Called To Dr.raswant Dr. levim Crit Value Called By 376 Margot Blood Gas Notified Time 925 1737 Potassium 4.3 Carbon Dioxide 40 H Anion Gap 14 BUN 18 Creatinine 0.4 L Est GFR ( Amer) > 60 Est GFR (Non-Af Amer) > 60 Random Glucose 98 Calcium 9.2 Magnesium 1.7 Total Bilirubin 0.9 AST 27 ALT 9 Alkaline Phosphatase 75 Lactate Dehydrogenase 266 L Total Creatine Kinase < 20 L Troponin I 0.03 D NT-Pro-B Natriuret Pep 435 Total Protein 6.7 Albumin 3.6 Globulin 3.0 Albumin/Globulin Ratio 1.2 Venous Blood Potassium Assessment & Plan - Assessment and Plan (Free Text) Plan: Dx:Recurrent PeriAnal Abscess Pt needs I & D in or 12/22/18 This consult done under my direct supervision Kimberly Gallegos MD FACS
[2018-12-21] MEDS ORDERED: Albuterol-Ipratrop 3 mg / 0.5 (3 ml) UD IH PRN (12:11)
[2018-12-21 13:39] VITALS: BMI 27.1
[2018-12-21] MEDS ORDERED: Barium Sulfate Susp 2.1% w/v, 2.0% w/w 450 mL Bottle PO ONE (14:00)
--- NOTE | 2018-12-21 14:18 | CP.PCM.CON ---
<Kendall Kurtz - Last Filed: 12/21/18 14:50> History of Present Illness - History of Present Illness History of Present Illness: ICU Consultation CC: COPD Exacerbation HPI: Mr. Neal is a 68 year old male with a past medical history significant for COPD (on home oxygen), tobacco abuse, SHORTY, HTN, colon cancer s/p resection, and perirectal abscess who presents with shortness of breath for several days. Patient endorses that he has been taking his medications as prescribed at home without relief. He also endorses that his shortness of breath is consistent with COPD exacerbations in the past and decided that he should come to the ED for further evaluation. While in the ED, an ABG revealed that patient was hypercapneic and he was started on BiPAP. Patient also endorses mild pain associated with his rectal abscess, for which surgery has been consulted. Further 12 point ROS, including fevers/chills, sore throat, chest pain, wheezing, and productive cough, was reviewed and is unremarkable at this time. PMH: As stated above PSH: Colon resection (2013) Family History: Non-contributory Social History: Current smoker, endorses social alcohol consumption and denies any illicit drug use Allergies: NKDA Home Medications: Brovana, Pulmicort, Ventolin, Spiriva, Digoxin, Lisinopril and ASA PMD: Dr. Bertrand Review of Systems - Review of Systems Review of Systems: As stated in HPI, otherwise negative Past Patient History - Infectious Disease Hx of Infectious Diseases: None - Past Social History Smoking Status: Current Some Days Smoker - CARDIAC Hx Hypertension: Yes - PULMONARY Hx Chronic Obstructive Pulmonary Disease (COPD): Yes - NEUROLOGICAL Hx Paralysis: No - HEENT Hx HEENT Problems: No - RENAL Hx Chronic Kidney Disease: No - ENDOCRINE/METABOLIC Hx Endocrine Disorders: No - HEMATOLOGICAL/ONCOLOGICAL Hx Blood Disorders: No - INTEGUMENTARY Hx Dermatological Problems: Yes (PERIRECTAL ABSCESS 04-09-17) - MUSCULOSKELETAL/RHEUMATOLOGICAL Hx Musculoskeletal Disorders: No - GASTROINTESTINAL Hx Gastrointestinal Disorders: Yes (PERIRECTAL ABSCESS 04-09-17,PERIANAL ABSCESS ) Other/Comment: COLON RESECTION-COLON CA COMPLETED CHEMO. - GENITOURINARY/GYNECOLOGICAL Hx Genitourinary Disorders: No - PSYCHIATRIC Hx Psychophysiologic Disorder: Yes (H/O SMOKING CIGARETTES,DRINKS BEER OCCASIONALLY) Hx Emotional Abuse: No Hx Physical Abuse: No Hx Substance Use: No - SURGICAL HISTORY Other/Comment: umbilical hernia sx, colon resection 2013, vascular acces device r pac 09/2014 rermoved 2 2016, i and d perianal abcess, colonoscopy 2013 and 2014 - ANESTHESIA Hx Anesthesia Reactions: No Hx Malignant Hyperthermia: No Meds Allergies/Adverse Reactions: Allergies Allergy/AdvReac Type Severity Reaction Status Date / Time No Known Allergies Allergy Verified 11/28/18 17:56 - Medications Medications: Current Medications Albuterol/Ipratropium (Duoneb 3 Mg/0.5 Mg (3 Ml) Ud) 3 ml IH Q2H PRN PRN Reason: Shortness of Breath Albuterol/Ipratropium (Duoneb 3 Mg/0.5 Mg (3 Ml) Ud) 3 ml IH [id number] [facility] Last Admin: 12/21/18 13:30 Dose: 3 ml Arformoterol Tartrate (Brovana) 15 mcg IH [id number] [facility] Aspirin (Ecotrin) 81 mg PO DAILY [facility] Budesonide (Pulmicort Respules) 0.5 mg IH [id number] [facility] Digoxin (Lanoxin) 0.25 mg PO 1400 [facility] Enoxaparin Sodium (Lovenox) 40 mg SC DAILY [facility]; Protocol Ceftriaxone Sodium (Rocephin 1 Gram Ivpb) 1 gm in 100 mls @ 100 mls/hr IVPB DAILY [facility]; Protocol Azithromycin (Zithromax 500mg In Ns) 500 mg in 250 mls @ 167 mls/hr IVPB DAILY [facility]; Protocol Lisinopril (Zestril) 2.5 mg PO DAILY [facility] Methylprednisolone (Solu-Medrol) 40 mg IVP Q12 [facility] Mupirocin (Bactroban Ointment) 1 gm TOP BID [facility] Pantoprazole Sodium (Protonix Inj) 40 mg IVP DAILY [facility] Physical Exam - Constitutional Appears: No Acute Distress, Chronically Ill - Head Exam Head Exam: ATRAUMATIC, NORMOCEPHALIC - Eye Exam Eye Exam: EOMI, Normal appearance, PERRL - ENT Exam ENT Exam: Mucous Membranes Moist - Neck Exam Neck exam: Positive for: Full Rom - Respiratory Exam Respiratory Exam: Accessory Muscle Use, Decreased Breath Sounds (Diffusely). absent: Clear to Auscultation Bilateral, Rales, Rhonchi, Wheezes, Respiratory Distress, NORMAL BREATHING PATTERN (on BiPAP) - Cardiovascular Exam Cardiovascular Exam: REGULAR RHYTHM, +S1, +S2 - GI/Abdominal Exam GI & Abdominal Exam: Normal Bowel Sounds, Soft. absent: Tenderness - Extremities Exam Extremities exam: Positive for: pedal edema (Trace pitting edema), pedal pulses present - Neurological Exam Neurological exam: Alert, Oriented x3 - Psychiatric Exam Psychiatric exam: Normal Affect, Normal Mood - Skin Skin Exam: Dry, Intact, Warm Additional comments: Multiple scattered chronic ecchymosis on bilateral upper extremities Results - Vital Signs Recent Vital Signs: Last Vital Signs Temp 98.3 F 12/21/18 07:26 Pulse 105 H 12/21/18 13:30 Resp 32 H 12/21/18 12:57 BP 133/78 12/21/18 10:38 Pulse Ox 95 12/21/18 10:38 - Labs Result Diagrams: 12/21/18 08:04 12/21/18 08:04 Labs: Laboratory Results - last 24 hr 12/21/18 12/21/18 12/21/18 08:00 08:04 08:04 WBC 23.0 H D RBC 4.53 Hgb 13.8 L Hct 45.7 MCV 100.9 MCH 30.5 MCHC 30.2 L RDW 14.4 Plt Count 150 MPV 10.0 Neut % (Auto) 90.5 H Lymph % (Auto) 3.2 L [place] % (Auto) 6.1 H Eos % (Auto) 0.2 L Baso % (Auto) 0.0 Lymph # (Auto) 0.7 L [place] # (Auto) 1.4 H Eos # (Auto) 0.0 Baso # (Auto) 0.00 Absolute Neuts (auto) 20.77 H Neutrophils % (Manual) 88 H Lymphocytes % (Manual) 2 L Monocytes % (Manual) 10 H PT 12.2 INR 1.08 APTT 31.6 pCO2 pO2 42 HCO3 ABG pH ABG Total CO2 ABG O2 Saturation ABG O2 Content ABG Base Excess ABG Hemoglobin ABG Carboxyhemoglobin POC ABG HHb (Measured) ABG Methemoglobin ABG O2 Capacity VBG pH 7.27 L VBG pCO2 99.0 H* VBG HCO3 45.5 H VBG Total CO2 48.5 H VBG O2 Sat (Calc) 79.2 H VBG Base Excess 13.9 H VBG Potassium 4.2 Hgb O2 Saturation Sodium 132.0 Chloride 89.0 L Glucose 102 Lactate 1.1 FiO2 21.0 Crit Value Called To Norma Crit Value Called By [id number] Blood Gas Notified Time 810 Potassium Carbon Dioxide Anion Gap BUN Creatinine Est GFR ( Amer) Est GFR (Non-Af Amer) Random Glucose Calcium Magnesium Total Bilirubin AST ALT Alkaline Phosphatase Lactate Dehydrogenase Total Creatine Kinase Troponin I NT-Pro-B Natriuret Pep Total Protein Albumin Globulin Albumin/Globulin Ratio Venous Blood Potassium 4.2 12/21/18 12/21/18 08:04 09:00 WBC RBC Hgb Hct MCV MCH MCHC RDW Plt Count MPV Neut % (Auto) Lymph % (Auto) [place] % (Auto) Eos % (Auto) Baso % (Auto) Lymph # (Auto) [place] # (Auto) Eos # (Auto) Baso # (Auto) Absolute Neuts (auto) Neutrophils % (Manual) Lymphocytes % (Manual) Monocytes % (Manual) PT INR APTT pCO2 84 H* pO2 121.0 H HCO3 41.3 H* ABG pH 7.30 L ABG Total CO2 43.9 H ABG O2 Saturation 99.7 H ABG O2 Content 17.5 ABG Base Excess 11.4 H ABG Hemoglobin 12.9 ABG Carboxyhemoglobin 3.1 H POC ABG HHb (Measured) 0.3 ABG Methemoglobin 1.2 ABG O2 Capacity 17.6 VBG pH VBG pCO2 VBG HCO3 VBG Total CO2 VBG O2 Sat (Calc) VBG Base Excess VBG Potassium Hgb O2 Saturation 95.4 Sodium 134 Chloride 84 L Glucose Lactate FiO2 40.0 Crit Value Called To Crit Value Called By [id number] Blood Gas Notified Time 925 Potassium 4.3 Carbon Dioxide 40 H Anion Gap 14 BUN 18 Creatinine 0.4 L Est GFR ( Amer) > 60 Est GFR (Non-Af Amer) > 60 Random Glucose 98 Calcium 9.2 Magnesium 1.7 Total Bilirubin 0.9 AST 27 ALT 9 Alkaline Phosphatase 75 Lactate Dehydrogenase 266 L Total Creatine Kinase < 20 L Troponin I 0.03 D NT-Pro-B Natriuret Pep 435 Total Protein 6.7 Albumin 3.6 Globulin 3.0 Albumin/Globulin Ratio 1.2 Venous Blood Potassium Assessment & Plan - Assessment and Plan (Free Text) Assessment: 68 year old male with a past medical history significant for COPD (on home oxygen), tobacco abuse, SHORTY, HTN, colon cancer s/p resection, and perirectal abscess who presents with shortness of breath for several days. Patient was found to be hypercapneic on ABG and is now on BiPAP being monitored in the ICU. Plan: Neuro: -Alert and oriented to person, place, time and event -No focal deficits -Continue to monitor for neurological status changes Cardio: -Continue home Digoxin, ASA and Lisinopril -Maintain MAP >65mmHg Pulm: -Duonebs Q6H scheduled and Q2H PRN -Pulmicort/Pulmicort Q12H -Solumedrol 40mg IV Q12 -Repeat ABG this afternoon and tomorrow AM -HOB greater than 30 degrees -Supplemental oxygen as needed to maintain an oxygen saturation between 88-92% GI: -NPO except medications -GI prophylaxis Renal: -BUN/Creatinine stable -Freely voiding without catheterization Endo: -Maintain euglycemia Hematology: -Hemoglobin/Hematocrit stable -Leukocytosis noted; Likely secondary to chronic steroid use -Continue to monitor with CBC in AM ID: -Leukocytosis noted; See above -Start Rocephin and Zithromax for empiric coverage -Surgery consulted for perirectal abscess GI Prophylaxis: Protonix DVT Prophylaxis: Lovenox Diet: NPO (except medications) Code Status: Full code Patient seen and case discussed with attending, Dr. Marija Choi. Kendall Kurtz PGY2 - Date & Time Date: 12/21/18 Time: 14:12 <Marija Choi - Last Filed: 12/22/18 18:10> Meds - Medications Medications: Current Medications Albuterol/Ipratropium (Duoneb 3 Mg/0.5 Mg (3 Ml) Ud) 3 ml IH Q2H PRN PRN Reason: Shortness of Breath Albuterol/Ipratropium (Duoneb 3 Mg/0.5 Mg (3 Ml) Ud) 3 ml IH [id number] [facility] Last Admin: 12/22/18 13:11 Dose: 3 ml Arformoterol Tartrate (Brovana) 15 mcg IH [id number] [facility] Last Admin: 12/22/18 07:20 Dose: 15 mcg Aspirin (Ecotrin) 81 mg PO DAILY [facility] Last Admin: 12/22/18 09:24 Dose: Not Given Budesonide (Pulmicort Respules) 0.5 mg IH [id number] [facility] Last Admin: 12/22/18 07:21 Dose: 0.5 mg Digoxin (Lanoxin) 0.25 mg PO 1400 [facility] Last Admin: 12/22/18 14:01 Dose: Not Given Ceftriaxone Sodium (Rocephin 1 Gram Ivpb) 1 gm in 100 mls @ 100 mls/hr IVPB DAILY [facility]; Protocol Last Admin: 12/22/18 09:29 Dose: 100 mls/hr Azithromycin (Zithromax 500mg In Ns) 500 mg in 250 mls @ 167 mls/hr IVPB DAILY [facility]; Protocol Last Admin: 12/22/18 09:28 Dose: 167 mls/hr Dextrose/Sodium Chloride (Dextrose 5%/0.9% Ns 1000 Ml) 1,000 mls @ 125 mls/hr IV .Q8H [facility] Last Admin: 12/22/18 06:08 Dose: 125 mls/hr Lisinopril (Zestril) 2.5 mg PO DAILY [facility] Last Admin: 12/22/18 09:25 Dose: Not Given Methylprednisolone (Solu-Medrol) 40 mg IVP Q12 [facility] Last Admin: 12/22/18 09:28 Dose: 40 mg Mupirocin (Bactroban Ointment) 1 gm TOP BID [facility] Last Admin: 12/22/18 18:00 Dose: Not Given Ondansetron HCl (Zofran Inj) 4 mg IVP ONCE PRN PRN Reason: Nausea/Vomiting Stop: 12/22/18 23:59 Oxycodone/Acetaminophen (Percocet 5/325 Mg Tab) 1 tab PO Q6H PRN PRN Reason: Pain, moderate (4-7) Stop: 12/25/18 16:19 Pantoprazole Sodium (Protonix Inj) 40 mg IVP DAILY [facility] Last Admin: 12/22/18 09:28 Dose: 40 mg Results - Vital Signs Recent Vital Signs: Last Vital Signs Temp 98.4 F 12/22/18 17:06 Pulse 94 H 12/22/18 17:06 Resp 15 12/22/18 17:06 BP 112/70 12/22/18 17:06 Pulse Ox 99 12/22/18 17:06 - Labs Result Diagrams: 12/22/18 06:20 12/22/18 06:20 Labs: Laboratory Results - last 24 hr 12/21/18 12/22/18 12/22/18 22:49 05:10 06:20 WBC 17.9 H D RBC 3.94 Hgb 11.8 L D Hct 38.8 L MCV 98.5 MCH 29.9 MCHC 30.4 L RDW 14.2 Plt Count 156 MPV 10.3 Neut % (Auto) 94.9 H Lymph % (Auto) 1.5 L [place] % (Auto) 3.6 Eos % (Auto) 0.0 L Baso % (Auto) 0.0 Lymph # (Auto) 0.3 L [place] # (Auto) 0.7 H Eos # (Auto) 0.0 Baso # (Auto) 0.00 Absolute Neuts (auto) 16.98 H pCO2 61 H pO2 73.0 L HCO3 42.4 H* ABG pH 7.45 ABG Total CO2 44.3 H ABG O2 Saturation 97.8 ABG O2 Content 16.2 ABG Base Excess 15.6 H ABG Hemoglobin 12.2 ABG Carboxyhemoglobin 2.7 H POC ABG HHb (Measured) 2.1 ABG Methemoglobin 1.1 ABG O2 Capacity 16.6 Hgb O2 Saturation 94.1 L FiO2 50.0 Crit Value Called To [place] Crit Value Called By [facility] Blood Gas Notified Time 531 Sodium Potassium Chloride Carbon Dioxide Anion Gap BUN Creatinine Est GFR ( Amer) Est GFR (Non-Af Amer) POC Glucose (mg/dL) Random Glucose Calcium Total Bilirubin AST ALT Alkaline Phosphatase Total Protein Albumin Globulin Albumin/Globulin Ratio Urine Color Yellow Urine Appearance Sl cloudy Urine pH 6.0 Ur Specific Lillian 1.025 Urine Protein Trace H Urine Glucose (UA) Negative Urine Ketones >=80 Urine Blood Negative Urine Nitrate Negative Urine Bilirubin Small H Urine Urobilinogen 1.0 H Ur Leukocyte Esterase Negative Urine RBC 0 - 2 Urine WBC 0 - 2 Ur Epithelial Cells 1 - 3 Urine Bacteria None Urine Other Mucus 12/22/18 12/22/18 12/22/18 06:20 07:23 12:45 WBC RBC Hgb Hct MCV MCH MCHC RDW Plt Count MPV Neut % (Auto) Lymph % (Auto) [place] % (Auto) Eos % (Auto) Baso % (Auto) Lymph # (Auto) [place] # (Auto) Eos # (Auto) Baso # (Auto) Absolute Neuts (auto) pCO2 pO2 HCO3 ABG pH ABG Total CO2 ABG O2 Saturation ABG O2 Content ABG Base Excess ABG Hemoglobin ABG Carboxyhemoglobin POC ABG HHb (Measured) ABG Methemoglobin ABG O2 Capacity Hgb O2 Saturation FiO2 Crit Value Called To Crit Value Called By Blood Gas Notified Time Sodium 135 Potassium 4.1 Chloride 89 L Carbon Dioxide 42 H Anion Gap 8 L BUN 18 Creatinine 0.4 L Est GFR ( Amer) > 60 Est GFR (Non-Af Amer) > 60 POC Glucose (mg/dL) 161 H 134 H Random Glucose 139 H Calcium 8.7 Total Bilirubin 0.3 AST 20 ALT 15 Alkaline Phosphatase 61 Total Protein 6.0 Albumin 3.2 Globulin 2.8 Albumin/Globulin Ratio 1.1 Urine Color Urine Appearance Urine pH Ur Specific Lillian Urine Protein Urine Glucose (UA) Urine Ketones Urine Blood Urine Nitrate Urine Bilirubin Urine Urobilinogen Ur Leukocyte Esterase Urine RBC Urine WBC Ur Epithelial Cells Urine Bacteria Urine Other Addendum Addendum: 12/22/18 18:09 MICU Attending Addendum: Patient seen and examined in the ED on 12/21 ( Documentation delayed)with housestaff, case discussed on rounds. I agree with resident note above with the following additions/exceptions: 68M with a past medical history significant for COPD (on home oxygen), tobacco abuse, SHORTY, HTN, colon cancer s/p resection, and perirectal abscess who presents with shortness of breath in a COPD exascerbation. WIll admit to ICU His blood gas is not far from his baseline but he is lethargic. Arousable on sternal rub. Cont Bipap for now, ABG in AM steroids/abx as ordered f/u surgical rec for abscess hepSQ for dvt ppx ppi for gi ppx Rest of care as per resident note above Marija Choi MD Attending Pulmonary Critical Care Sleep Medicine
[2018-12-21 15:39] LABS: ARTERIAL BLOOD GAS HCO3 41.4 mmol/L (21-28); ARTERIAL BLOOD GAS HEMOGLOBIN 12.9 g/dL (11.7-17.4); ARTERIAL BLOOD GAS O2 CAPACITY 17.5 mL/dl (16-24); ARTERIAL BLOOD GAS O2 CONTENT 17.2 ML/dl (15-23); ARTERIAL BLOOD GAS O2 SAT 98.4 % (95-98); ARTERIAL BLOOD GAS PCO2 75 mm/Hg (35-45); ARTERIAL BLOOD GAS PH 7.35 (7.35-7.45); ARTERIAL BLOOD GAS TCO2 43.7 mmol.L (22-28)
--- NOTE | 2018-12-21 16:09 | CARD ---
APPROVED REPORT Date of service: 12/21/2018 EKG Measurement Heart [id number] <Conclusion> Poor data quality, interpretation may be adversely affected Sinus tachycardia with occasional premature ventricular complexes and fusion complexes Low voltage QRS Septal infarct, age undetermined Abnormal ECG
[2018-12-21] MEDS: Mupirocin 2% Ointment 15 GM TUBE TOP SCH (17:20)
[2018-12-21] MEDS: Digoxin 250 mcg (0.25 mg) Tab PO SCH (17:26)
[2018-12-21] MEDS: Budesonide 0.5 mg/2 ml Inhal Susp UD IH SCH (19:29)
[2018-12-21] MEDS: Arformoterol 15 mcg/2 ml Inh Sol IH SCH (19:29)
[2018-12-21] MEDS: MethylPREDNISolone 40 mg Vial IVP SCH (21:53)
[2018-12-21] MEDS: Dextrose 5%/0.9% NS 1,000 ML IV SCH (21:54)
[2018-12-21 23:06] LABS: URINE BILIRUBIN SMALL (NEGATIVE); URINE BLOOD NEGATIVE (NEGATIVE); URINE GLUCOSE (UA) NEGATIVE (NEGATIVE); URINE LEUKOCYTE ESTERASE NEGATIVE Leu/uL (NEGATIVE); URINE PROTEIN TRACE mg/dL (<30 mg/dL)
[2018-12-21 23:23] LABS: URINE APPEARANCE SL CLOUDY (CLEAR); URINE COLOR YELLOW (YELLOW)
[2018-12-21 23:28] LABS: URINE RBC 0 - 2 /hpf (0-2); URINE WBC 0 - 2 /hpf (0-6)
[2018-12-22] MEDS: Albuterol-Ipratrop 3 mg / 0.5 (3 ml) UD IH SCH ×4 (02:44→20:35)
[2018-12-22 05:31] LABS: ARTERIAL BLOOD GAS HCO3 42.4 mmol/L (21-28); ARTERIAL BLOOD GAS HEMOGLOBIN 12.2 g/dL (11.7-17.4); ARTERIAL BLOOD GAS O2 CAPACITY 16.6 mL/dl (16-24); ARTERIAL BLOOD GAS O2 CONTENT 16.2 ML/dl (15-23); ARTERIAL BLOOD GAS O2 SAT 97.8 % (95-98); ARTERIAL BLOOD GAS PCO2 61 mm/Hg (35-45); ARTERIAL BLOOD GAS PH 7.45 (7.35-7.45); ARTERIAL BLOOD GAS TCO2 44.3 mmol.L (22-28)
--- NOTE | 2018-12-22 06:05 | HP ---
DATE OF EXAM: 12/21/2018 HISTORY OF PRESENT ILLNESS: The patient is a 68-year-old brought to emergency room when called ambulance because of continued shortness of breath that started last night. According to , he has been having shortness of breath, but got worse last night she called ambulance. No history of fever or chills. Does have scanty cough. Also complaining of some perianal discomfort. PAST MEDICAL HISTORY: He has significant past medical history of: 1. Severe COPD. 2. Hypertension. 3. Congestive heart failure. 4. History of CA colon, status post partial colectomy in 2013. ALLERGIES: HE IS NOT ALLERGIC TO ANY MEDICATION. MEDICATIONS AT HOME: He is on Spiriva, he is on digoxin 0.25 daily, he is on Brovana, he is on prednisone 4 mg twice a day, aspirin 81 daily, and lisinopril 2.5 daily. SOCIAL HISTORY: He is and lives with his . He used to be heavy smoker, still smokes lightly. He drinks beer socially, last drink was 4-5 weeks ago. PHYSICAL EXAMINATION: GENERAL: He is sleepy, but arousable. VITAL SIGNS: He is afebrile, pulse 106, respirations 21, and blood pressure 131/71. LUNGS: Bilaterally decreased breath sounds. HEART: S1 and S2 audible, tachycardic. ABDOMEN: Soft and nontender. No rebound. No guarding. Obese. No hepatosplenomegaly. He has perirectal discomfort. NEUROLOGIC: He is sleepy, but arousable. EXTREMITIES: Bilateral legs, +1 edema. LABORATORY DATA: WBC 23, hemoglobin 13.8, hematocrit 45.7, and platelets 150. PT of 12.2 and INR of 1.08. Chemistries; sodium 134, potassium 4.3, chloride 84, CO2 of 40, BUN 18, creatinine 0.4, and blood sugar 98. LFTs are within normal limits. LDH is 266. CPK less than 20. Troponin 0.03. ASSESSMENT: 1. Chronic obstructive pulmonary disease exacerbation. 2. Perirectal abscess. 3. History of carcinoma of the colon, status post partial colectomy. 4. Hypertension. 5. Status post cardiac catheterization on 09/21/2018 that showed dilated cardiomyopathy with ejection fraction of 35%. PLAN: Currently, the patient is n.p.o. He is on IV fluid and nebulizer treatment. He is on IV steroid. He is on IV antibiotics. He is scheduled to have I and D done in a.m. Juan Bertrand MD
[2018-12-22] MEDS: Dextrose 5%/0.9% NS 1,000 ML IV SCH ×2 (06:08→21:48)
[2018-12-22 07:07] LABS: ALB/GLOB RATIO 1.1 (1.1-1.8); ALBUMIN 3.2 g/dL (3.0-4.8); ALT/SGPT 15 U/L (7-56); AST/SGOT 20 U/L (17-59); BLOOD UREA NITROGEN 18 mg/dL (7-21); CALCIUM 8.7 mg/dL (8.4-10.5); GFR NON-AFRICAN AMERICAN > 60
[2018-12-22] MEDS: Arformoterol 15 mcg/2 ml Inh Sol IH SCH ×2 (07:20→20:35)
[2018-12-22] MEDS: Budesonide 0.5 mg/2 ml Inhal Susp UD IH SCH ×2 (07:21→20:35)
[2018-12-22 07:34] LABS: LYMPH # 0.3 (1.2-3.4); LYMPH % 1.5 % (22.0-35.0); MEAN CELL VOLUME 98.5 fl (80.0-105.0); MEAN CORPUSCULAR HEMOGLOBIN 29.9 pg (25.0-35.0); MEAN CORPUSCULAR HGB CONC 30.4 g/dl (31.0-37.0); MEAN PLATELET VOLUME 10.3 fl (7.0-11.0); MONO # 0.7 (0.1-0.6); MONO % 3.6 % (1.0-6.0); RBC 3.94 10^6/uL (3.5-6.1); RED CELL DISTRIBUTION WIDTH 14.2 % (11.5-14.5); WHITE BLOOD COUNT 17.9 10^3/uL (4.5-11.0)
[2018-12-22 07:35] LABS: HEMOGLOBIN 11.8 g/dL (14.0-18.0)
--- NOTE | 2018-12-22 08:45 | CP.PCM.PCO ---
Physician Communication Note - Physician Communication Note Physician Communication Note: Left mukul rectal abscess draining quynh-OR (Local)for furtheer drainage
--- NOTE | 2018-12-22 09:06 | CP.CCUPN ---
<Lazaro Rivers - Last Filed: 12/22/18 11:14> CCU Subjective - Physician Review Events Since Last Encounter (Free Text): Lazaro Rivers DO, PGY-1 MICU Progress Note for Dr. Cady Choi No acute events overnight, tolerated bipap. Subjective (Free Text): Patient was seen and examined at bedside this AM. He reports tolerating bipap reasonably well last night but had to stop using it twice because of discomfort. He has been NPO since midnight last night for planned I & D of mukul-rectal abscess later today. He states his breathing has improved significantly since admission. He admits that he was supposed to f/u with nurse staff community health, Dr. Hart, after his last discharge but has followed up with him yet. He otherwise offers no additional complaints and denies fever/chills, worsened CP, worsened cough, abd pain/nausea/vomiting, or urinary complaints. 12-point ROS otherwise unremarkable except as stated above. CCU Objective - Vital Signs / Intake & Output Vital Signs (Last 4 hours): Vital Signs Temp Pulse Resp BP Pulse Ox 12/22/18 08:32 98 H 115/62 96 12/22/18 08:00 97.9 F 100 H 18 96 12/22/18 07:32 92 H 16 109/62 100 12/22/18 07:00 92 H 16 95 12/22/18 06:32 93 H 33 H 105/62 94 L 12/22/18 06:00 95 H 12/22/18 05:32 85 22 123/73 94 L Intake and Output (Last 8hrs): Intake & Output 12/21/18 12/22/18 12/22/18 22:59 06:59 14:59 Intake Total 1125 Output Total 200 Balance 925 Intake: IV 1125 Left Antecubital 1125 Oral 0 Output: Stool 200 - Physical Exam Head: Positive for: Atraumatic, Normocephalic Pupils: Positive for: PERRL Extroacular Muscles: Positive for: EOMI Conjunctiva: Positive for: Normal Mouth: Positive for: Moist Mucous Membranes Pharnyx: Positive for: Normal. Negative for: ERYTHEMA, EXUDATE Nose (External): Positive for: Atraumatic Nose (Internal): Positive for: Normal Inspection. Negative for: No Active Bleeding Neck: Positive for: Normal Range of Motion. Negative for: JVD Respiratory/Chest: Positive for: Decreased Breath Sounds (Diminished breath sounds bilaterally). Negative for: Respiratory Distress, Accessory Muscle Use, Wheezes, Rales, Rhonchi Cardiovascular: Positive for: Regular Rate and Rhythm, Normal S1, S2. Negative for: Murmurs, Rub, Gallop Abdomen: Negative for: Tenderness, Distention, Peritoneal Signs Rectal: Positive for: Rectal Tenderness, Normal Rectal Tone, Other (perirectal abscess noted with purulent drainage, tender to palpation). Negative for: Gross Blood Upper Extremity: Positive for: Normal Inspection. Negative for: Cyanosis, Edema Lower Extremity: Positive for: Normal Inspection. Negative for: Edema Neurological: Positive for: GCS=15, CN II-XII Intact, Speech Normal Skin: Positive for: Warm, Dry, Normal Color. Negative for: Rashes Psychiatric: Positive for: Alert, Oriented x 3, Normal Insight, Normal Concentration - Medications Active Medications: Active Medications Generic Name Dose Route Start Last Admin Trade Name Freq PRN Reason Stop Dose Admin Albuterol/Ipratropium 3 ml 12/21/18 12:11 Duoneb 3 Mg/0.5 Mg (3 Ml) Ud IH Q2H PRN Shortness of Breath Albuterol/Ipratropium 3 ml 12/21/18 14:00 12/22/18 07:21 Duoneb 3 Mg/0.5 Mg (3 Ml) Ud IH 3 ml [id number] MARIELA Administration Arformoterol Tartrate 15 mcg 12/21/18 20:00 12/22/18 07:20 Brovana IH 15 mcg [id number] MARIELA Administration Aspirin 81 mg 12/22/18 10:00 Ecotrin PO DAILY MARIELA Budesonide 0.5 mg 12/21/18 20:00 12/22/18 07:21 Pulmicort Respules IH 0.5 mg [id number] MARIELA Administration Digoxin 0.25 mg 12/21/18 14:00 12/21/18 17:26 Lanoxin PO 0.25 mg 1400 MARIELA Administration Ceftriaxone Sodium 1 gm in 100 mls @ 100 mls/hr 12/22/18 10:00 Rocephin 1 Gram Ivpb IVPB DAILY MARIELA Protocol Azithromycin 500 mg in 250 mls @ 167 mls/hr 12/22/18 10:00 Zithromax 500mg In Ns IVPB DAILY MARIELA Protocol Dextrose/Sodium Chloride 1,000 mls @ 125 mls/hr 12/21/18 21:45 12/22/18 06:08 Dextrose 5%/0.9% Ns 1000 Ml IV 125 mls/hr .Q8H MARIELA Administration Lisinopril 2.5 mg 12/22/18 10:00 Zestril PO DAILY MARIELA Methylprednisolone 40 mg 12/21/18 22:00 12/21/18 21:53 Solu-Medrol IVP 40 mg Q12 MARIELA Administration Mupirocin 1 gm 12/21/18 18:00 12/21/18 17:20 Bactroban Ointment TOP 1 applic BID MARIELA Administration Pantoprazole Sodium 40 mg 12/22/18 10:00 Protonix Inj IVP DAILY MARIELA - Patient Studies Lab Studies: Lab Studies 12/22/18 12/22/18 12/22/18 Range/Units 07:23 06:20 06:20 WBC 17.9 H D (4.5-11.0) 10^3/uL RBC 3.94 (3.5-6.1) 10^6/uL Hgb 11.8 L D (14.0-18.0) g/dL Hct 38.8 L (42.0-52.0) % MCV 98.5 (80.0-105.0) fl MCH 29.9 (25.0-35.0) pg MCHC 30.4 L (31.0-37.0) g/dl RDW 14.2 (11.5-14.5) % Plt Count 156 (120.0-450.0) 10^3/uL MPV 10.3 (7.0-11.0) fl Neut % (Auto) 94.9 H (50.0-68.0) % Lymph % (Auto) 1.5 L (22.0-35.0) % Snyder % (Auto) 3.6 (1.0-6.0) % Eos % (Auto) 0.0 L (1.5-5.0) % Baso % (Auto) 0.0 (0.0-3.0) % Lymph # (Auto) 0.3 L (1.2-3.4) Snyder # (Auto) 0.7 H (0.1-0.6) Eos # (Auto) 0.0 (0.0-0.7) Baso # (Auto) 0.00 (0.0-2.0) K/mm3 Absolute Neuts (auto) 16.98 H (1.4-6.5) pCO2 (35-45) mm/Hg pO2 (80-100) mm/Hg HCO3 (21-28) mmol/L ABG pH (7.35-7.45) ABG Total CO2 (22-28) mmol.L ABG O2 Saturation (95-98) % ABG O2 Content (15-23) ML/dl ABG Base Excess (-2.0-3.0) mmol/L ABG Hemoglobin (11.7-17.4) g/dL ABG Carboxyhemoglobin (0.5-1.5) % POC ABG HHb (Measured) (0-5) % ABG Methemoglobin (0.0-3.0) % ABG O2 Capacity (16-24) mL/dl Hgb O2 Saturation (95.0-98.0) % FiO2 % Crit Value Called To Crit Value Called By Blood Gas Notified Time Sodium 135 (132-148) mmol/L Potassium 4.1 (3.6-5.0) mmol/L Chloride 89 L (98-107) mmol/L Carbon Dioxide 42 H (21-33) mmol/L Anion Gap 8 L (10-20) BUN 18 (7-21) mg/dL Creatinine 0.4 L (0.8-1.5) mg/dl Est GFR ( Amer) > 60 Est GFR (Non-Af Amer) > 60 POC Glucose (mg/dL) 161 H (65-110) mg/dL Random Glucose 139 H (70-110) mg/dL Calcium 8.7 (8.4-10.5) mg/dL Total Bilirubin 0.3 (0.2-1.3) mg/dL AST 20 (17-59) U/L ALT 15 (7-56) U/L Alkaline Phosphatase 61 (38-126) U/L Total Protein 6.0 (5.8-8.3) g/dL Albumin 3.2 (3.0-4.8) g/dL Globulin 2.8 gm/dL Albumin/Globulin Ratio 1.1 (1.1-1.8) Urine Color (YELLOW) Urine Appearance (CLEAR) Urine pH (4.7-8.0) Ur Specific [place] (1.005-1.035) Urine Protein (<30 mg/dL) mg/dL Urine Glucose (UA) (NEGATIVE) mg/dL Urine Ketones (NEGATIVE) mg/dL Urine Blood (NEGATIVE) Urine Nitrate (NEGATIVE) Urine Bilirubin (NEGATIVE) Urine Urobilinogen (<1 E.U./dL) E.U./dL Ur Leukocyte Esterase (NEGATIVE) Piter/uL Urine RBC (0-2) /hpf Urine WBC (0-6) /hpf Ur Epithelial Cells (0-5) /hpf Urine Bacteria (NONE) /hpf Urine Other /hpf 12/22/18 12/21/18 12/21/18 Range/Units 05:10 22:49 15:30 WBC (4.5-11.0) 10^3/uL RBC (3.5-6.1) 10^6/uL Hgb (14.0-18.0) g/dL Hct (42.0-52.0) % MCV (80.0-105.0) fl MCH (25.0-35.0) pg MCHC (31.0-37.0) g/dl RDW (11.5-14.5) % Plt Count (120.0-450.0) 10^3/uL MPV (7.0-11.0) fl Neut % (Auto) (50.0-68.0) % Lymph % (Auto) (22.0-35.0) % Snyder % (Auto) (1.0-6.0) % Eos % (Auto) (1.5-5.0) % Baso % (Auto) (0.0-3.0) % Lymph # (Auto) (1.2-3.4) Snyder # (Auto) (0.1-0.6) Eos # (Auto) (0.0-0.7) Baso # (Auto) (0.0-2.0) K/mm3 Absolute Neuts (auto) (1.4-6.5) pCO2 61 H 75 H* (35-45) mm/Hg pO2 73.0 L 86.0 (80-100) mm/Hg HCO3 42.4 H* 41.4 H* (21-28) mmol/L ABG pH 7.45 7.35 (7.35-7.45) ABG Total CO2 44.3 H 43.7 H (22-28) mmol.L ABG O2 Saturation 97.8 98.4 H (95-98) % ABG O2 Content 16.2 17.2 (15-23) ML/dl ABG Base Excess 15.6 H 12.5 H (-2.0-3.0) mmol/L ABG Hemoglobin 12.2 12.9 (11.7-17.4) g/dL ABG Carboxyhemoglobin 2.7 H 2.9 H (0.5-1.5) % POC ABG HHb (Measured) 2.1 1.5 (0-5) % ABG Methemoglobin 1.1 1.4 (0.0-3.0) % ABG O2 Capacity 16.6 17.5 (16-24) mL/dl Hgb O2 Saturation 94.1 L 94.3 L (95.0-98.0) % FiO2 50.0 40.0 % Crit Value Called To Luis levim Crit Value Called By [facility] Blood Gas Notified Time [id number] Sodium (132-148) mmol/L Potassium (3.6-5.0) mmol/L Chloride (98-107) mmol/L Carbon Dioxide (21-33) mmol/L Anion Gap (10-20) BUN (7-21) mg/dL Creatinine (0.8-1.5) mg/dl Est GFR ( Amer) Est GFR (Non-Af Amer) POC Glucose (mg/dL) (65-110) mg/dL Random Glucose (70-110) mg/dL Calcium (8.4-10.5) mg/dL Total Bilirubin (0.2-1.3) mg/dL AST (17-59) U/L ALT (7-56) U/L Alkaline Phosphatase (38-126) U/L Total Protein (5.8-8.3) g/dL Albumin (3.0-4.8) g/dL Globulin gm/dL Albumin/Globulin Ratio (1.1-1.8) Urine Color Yellow (YELLOW) Urine Appearance Sl cloudy (CLEAR) Urine pH 6.0 (4.7-8.0) Ur Specific [place] 1.025 (1.005-1.035) Urine Protein Trace H (<30 mg/dL) mg/dL Urine Glucose (UA) Negative (NEGATIVE) mg/dL Urine Ketones >=80 (NEGATIVE) mg/dL Urine Blood Negative (NEGATIVE) Urine Nitrate Negative (NEGATIVE) Urine Bilirubin Small H (NEGATIVE) Urine Urobilinogen 1.0 H (<1 E.U./dL) E.U./dL Ur Leukocyte Esterase Negative (NEGATIVE) Piter/uL Urine RBC 0 - 2 (0-2) /hpf Urine WBC 0 - 2 (0-6) /hpf Ur Epithelial Cells 1 - 3 (0-5) /hpf Urine Bacteria None (NONE) /hpf Urine Other Mucus /hpf 12/21/18 Range/Units 09:00 WBC (4.5-11.0) 10^3/uL RBC (3.5-6.1) 10^6/uL Hgb (14.0-18.0) g/dL Hct (42.0-52.0) % MCV (80.0-105.0) fl MCH (25.0-35.0) pg MCHC (31.0-37.0) g/dl RDW (11.5-14.5) % Plt Count (120.0-450.0) 10^3/uL MPV (7.0-11.0) fl Neut % (Auto) (50.0-68.0) % Lymph % (Auto) (22.0-35.0) % Snyder % (Auto) (1.0-6.0) % Eos % (Auto) (1.5-5.0) % Baso % (Auto) (0.0-3.0) % Lymph # (Auto) (1.2-3.4) Snyder # (Auto) (0.1-0.6) Eos # (Auto) (0.0-0.7) Baso # (Auto) (0.0-2.0) K/mm3 Absolute Neuts (auto) (1.4-6.5) pCO2 84 H* (35-45) mm/Hg pO2 121.0 H (80-100) mm/Hg HCO3 41.3 H* (21-28) mmol/L ABG pH 7.30 L (7.35-7.45) ABG Total CO2 43.9 H (22-28) mmol.L ABG O2 Saturation 99.7 H (95-98) % ABG O2 Content 17.5 (15-23) ML/dl ABG Base Excess 11.4 H (-2.0-3.0) mmol/L ABG Hemoglobin 12.9 (11.7-17.4) g/dL ABG Carboxyhemoglobin 3.1 H (0.5-1.5) % POC ABG HHb (Measured) 0.3 (0-5) % ABG Methemoglobin 1.2 (0.0-3.0) % ABG O2 Capacity 17.6 (16-24) mL/dl Hgb O2 Saturation 95.4 (95.0-98.0) % FiO2 40.0 % Crit Value Called To Crit Value Called By 3769 Blood Gas Notified Time 925 Sodium (132-148) mmol/L Potassium (3.6-5.0) mmol/L Chloride (98-107) mmol/L Carbon Dioxide (21-33) mmol/L Anion Gap (10-20) BUN (7-21) mg/dL Creatinine (0.8-1.5) mg/dl Est GFR ( Amer) Est GFR (Non-Af Amer) POC Glucose (mg/dL) (65-110) mg/dL Random Glucose (70-110) mg/dL Calcium (8.4-10.5) mg/dL Total Bilirubin (0.2-1.3) mg/dL AST (17-59) U/L ALT (7-56) U/L Alkaline Phosphatase (38-126) U/L Total Protein (5.8-8.3) g/dL Albumin (3.0-4.8) g/dL Globulin gm/dL Albumin/Globulin Ratio (1.1-1.8) Urine Color (YELLOW) Urine Appearance (CLEAR) Urine pH (4.7-8.0) Ur Specific [place] (1.005-1.035) Urine Protein (<30 mg/dL) mg/dL Urine Glucose (UA) (NEGATIVE) mg/dL Urine Ketones (NEGATIVE) mg/dL Urine Blood (NEGATIVE) Urine Nitrate (NEGATIVE) Urine Bilirubin (NEGATIVE) Urine Urobilinogen (<1 E.U./dL) E.U./dL Ur Leukocyte Esterase (NEGATIVE) Piter/uL Urine RBC (0-2) /hpf Urine WBC (0-6) /hpf Ur Epithelial Cells (0-5) /hpf Urine Bacteria (NONE) /hpf Urine Other /hpf Laboratory Results - last 24 hr 12/21/18 12/21/18 12/21/18 09:00 15:30 22:49 WBC RBC Hgb Hct MCV MCH MCHC RDW Plt Count MPV Neut % (Auto) Lymph % (Auto) Snyder % (Auto) Eos % (Auto) Baso % (Auto) Lymph # (Auto) Snyder # (Auto) Eos # (Auto) Baso # (Auto) Absolute Neuts (auto) pCO2 84 H* 75 H* pO2 121.0 H 86.0 HCO3 41.3 H* 41.4 H* ABG pH 7.30 L 7.35 ABG Total CO2 43.9 H 43.7 H ABG O2 Saturation 99.7 H 98.4 H ABG O2 Content 17.5 17.2 ABG Base Excess 11.4 H 12.5 H ABG Hemoglobin 12.9 12.9 ABG Carboxyhemoglobin 3.1 H 2.9 H POC ABG HHb (Measured) 0.3 1.5 ABG Methemoglobin 1.2 1.4 ABG O2 Capacity 17.6 17.5 Hgb O2 Saturation 95.4 94.3 L FiO2 40.0 40.0 Crit Value Called To Dr.raswant Dr. levim Crit Value Called By [facility] Blood Gas Notified Time 961 1315 Sodium Potassium Chloride Carbon Dioxide Anion Gap BUN Creatinine Est GFR ( Amer) Est GFR (Non-Af Amer) POC Glucose (mg/dL) Random Glucose Calcium Total Bilirubin AST ALT Alkaline Phosphatase Total Protein Albumin Globulin Albumin/Globulin Ratio Urine Color Yellow Urine Appearance Sl cloudy Urine pH 6.0 Ur Specific [place] 1.025 Urine Protein Trace H Urine Glucose (UA) Negative Urine Ketones >=80 Urine Blood Negative Urine Nitrate Negative Urine Bilirubin Small H Urine Urobilinogen 1.0 H Ur Leukocyte Esterase Negative Urine RBC 0 - 2 Urine WBC 0 - 2 Ur Epithelial Cells 1 - 3 Urine Bacteria None Urine Other Mucus 12/22/18 12/22/18 12/22/18 05:10 06:20 06:20 WBC 17.9 H D RBC 3.94 Hgb 11.8 L D Hct 38.8 L MCV 98.5 MCH 29.9 MCHC 30.4 L RDW 14.2 Plt Count 156 MPV 10.3 Neut % (Auto) 94.9 H Lymph % (Auto) 1.5 L Snyder % (Auto) 3.6 Eos % (Auto) 0.0 L Baso % (Auto) 0.0 Lymph # (Auto) 0.3 L Snyder # (Auto) 0.7 H Eos # (Auto) 0.0 Baso # (Auto) 0.00 Absolute Neuts (auto) 16.98 H pCO2 61 H pO2 73.0 L HCO3 42.4 H* ABG pH 7.45 ABG Total CO2 44.3 H ABG O2 Saturation 97.8 ABG O2 Content 16.2 ABG Base Excess 15.6 H ABG Hemoglobin 12.2 ABG Carboxyhemoglobin 2.7 H POC ABG HHb (Measured) 2.1 ABG Methemoglobin 1.1 ABG O2 Capacity 16.6 Hgb O2 Saturation 94.1 L FiO2 50.0 Crit Value Called To [place] Crit Value Called By [facility] Blood Gas Notified Time 531 Sodium 135 Potassium 4.1 Chloride 89 L Carbon Dioxide 42 H Anion Gap 8 L BUN 18 Creatinine 0.4 L Est GFR ( Amer) > 60 Est GFR (Non-Af Amer) > 60 POC Glucose (mg/dL) Random Glucose 139 H Calcium 8.7 Total Bilirubin 0.3 AST 20 ALT 15 Alkaline Phosphatase 61 Total Protein 6.0 Albumin 3.2 Globulin 2.8 Albumin/Globulin Ratio 1.1 Urine Color Urine Appearance Urine pH Ur Specific [place] Urine Protein Urine Glucose (UA) Urine Ketones Urine Blood Urine Nitrate Urine Bilirubin Urine Urobilinogen Ur Leukocyte Esterase Urine RBC Urine WBC Ur Epithelial Cells Urine Bacteria Urine Other 12/22/18 07:23 WBC RBC Hgb Hct MCV MCH MCHC RDW Plt Count MPV Neut % (Auto) Lymph % (Auto) Snyder % (Auto) Eos % (Auto) Baso % (Auto) Lymph # (Auto) Snyder # (Auto) Eos # (Auto) Baso # (Auto) Absolute Neuts (auto) pCO2 pO2 HCO3 ABG pH ABG Total CO2 ABG O2 Saturation ABG O2 Content ABG Base Excess ABG Hemoglobin ABG Carboxyhemoglobin POC ABG HHb (Measured) ABG Methemoglobin ABG O2 Capacity Hgb O2 Saturation FiO2 Crit Value Called To Crit Value Called By Blood Gas Notified Time Sodium Potassium Chloride Carbon Dioxide Anion Gap BUN Creatinine Est GFR ( Amer) Est GFR (Non-Af Amer) POC Glucose (mg/dL) 161 H Random Glucose Calcium Total Bilirubin AST ALT Alkaline Phosphatase Total Protein Albumin Globulin Albumin/Globulin Ratio Urine Color Urine Appearance Urine pH Ur Specific [place] Urine Protein Urine Glucose (UA) Urine Ketones Urine Blood Urine Nitrate Urine Bilirubin Urine Urobilinogen Ur Leukocyte Esterase Urine RBC Urine WBC Ur Epithelial Cells Urine Bacteria Urine Other Radiology Impressions: Radiology Impressions Chest X-Ray 12/21/18 07:39 IMPRESSION: No active disease. Critical Care Progress Note - Nutrition Nutrition: Nutrition Category Date Time Status NPO Diet [DIET] Diets 12/21/18 Dinner Ordered Assessment/Plan - Assessment and Plan (Free Text) Assessment: 68 yo M with PMH of COPD (on home oxygen), systolic CHF (last TTE 09/2018 with EF of 25%), tobacco abuse, SHORTY, HTN, colon cancer s/p resection, and perirectal abscess admitted to MICU for management of hypercapnic respiratory failure 2/2 COPD exacerbation. Patient was managed on bipap overnight and tolerated well with improvement of ABG. Plan: Neuro: AAOx3, no focal deficit, moving extremities past midline, able to protect airway Reorient as necessary Cardio: RRR, normotensive, no signs of HD compromise EKG: sinus tachycardia on admission, likely 2/2 tachypnea/SOB Patient has remained in NSR since admission to MICU Troponin negative on admission Maintain MAP>65 Monitor for S/Sx of HD compromise Continue medical management of systolic CHF with digoxin, lisinopril Pulm: Acute on chronic hypercapnic respiratory failure 2/2 COPD exacerbation Continue duo-neb, solumedrol 40 mg IVP q12h and wean per primary team Nightly Bipap: IPEP 16, EPEP 5, FiO2 40%, RR 14 CXR without significant changes Maintain SpO2 88-92% with supplemental O2 NC Recommend outpatient pulmonology f/u for better management of COPD GI: NPO pending I & D of mukul-rectal abscess today ADAT per surgery recs afterwards /Nephro: BUN/Cr stable at 18/0.4 UOP adequate Replete electrolytes as needed Maintain euvolemia Endo: Random glucose: 139 Maintain euglycemia Heme/Onc: H/H stable at 11.8/38.8 New anemia with MCV near 100 may warrant additional w/u per primary team Continue monitoring H/H and for s/sx of HD compromise ID: Leukocytosis noted, likely 2/2 steroid use Has remained afebrile without other SIRS On prophylactic rocephin/zithromax Blood cx negative x 24 hrs Monitor for sx of infection DVT/GI PPX: DVT ppx held for planned I & D today, may restart afterward/protonix Full Code Diet: NPO pending I & D today, then ADAT per surgery team recs Transfer to med/surg Patient seen, examined with, and plan discussed with my attending Dr. Cady Rivers, D.O. IM Resident PGY-1 Pager: [phone] <Marija Choi - Last Filed: 12/22/18 18:11> CCU Objective - Vital Signs / Intake & Output Vital Signs (Last 4 hours): Vital Signs Temp Pulse Resp BP Pulse Ox 12/22/18 17:06 98.4 F 94 H 15 112/70 99 12/22/18 16:51 98.4 F 93 H 16 116/76 99 12/22/18 16:36 98.4 F 99 H 15 117/70 99 12/22/18 16:21 98.4 F 96 H 18 114/57 L 99 12/22/18 15:00 98 H 15 95 12/22/18 14:32 104 H 25 H 114/65 95 Intake and Output (Last 8hrs): Intake & Output 12/22/18 12/22/18 12/22/18 06:59 14:59 22:59 Intake Total 1125 Output Total 200 Balance 925 Intake: IV 1125 Left Antecubital 1125 Oral 0 Output: Stool 200 - Medications Active Medications: Active Medications Generic Name Dose Route Start Last Admin Trade Name Freq PRN Reason Stop Dose Admin Albuterol/Ipratropium 3 ml 12/21/18 12:11 Duoneb 3 Mg/0.5 Mg (3 Ml) Ud IH Q2H PRN Shortness of Breath Albuterol/Ipratropium 3 ml 12/21/18 14:00 12/22/18 13:11 Duoneb 3 Mg/0.5 Mg (3 Ml) Ud IH 3 ml [id number] MARIELA Administration Arformoterol Tartrate 15 mcg 12/21/18 20:00 12/22/18 07:20 Brovana IH 15 mcg [id number] MARIELA Administration Aspirin 81 mg 12/22/18 10:00 12/22/18 09:24 Ecotrin PO Not Given DAILY MARIELA Budesonide 0.5 mg 12/21/18 20:00 12/22/18 07:21 Pulmicort Respules IH 0.5 mg [id number] MARIELA Administration Digoxin 0.25 mg 12/21/18 14:00 12/22/18 14:01 Lanoxin PO Not Given 1400 [facility] Ceftriaxone Sodium 1 gm in 100 mls @ 100 mls/hr 12/22/18 10:00 12/22/18 09:29 Rocephin 1 Gram Ivpb IVPB 100 mls/hr DAILY MARIELA Administration Protocol Azithromycin 500 mg in 250 mls @ 167 mls/hr 12/22/18 10:00 12/22/18 09:28 Zithromax 500mg In Ns IVPB 167 mls/hr DAILY MARIELA Administration Protocol Dextrose/Sodium Chloride 1,000 mls @ 125 mls/hr 12/21/18 21:45 12/22/18 06:08 Dextrose 5%/0.9% Ns 1000 Ml IV 125 mls/hr .Q8H MARIELA Administration Lisinopril 2.5 mg 12/22/18 10:00 12/22/18 09:25 Zestril PO Not Given DAILY MARIELA Methylprednisolone 40 mg 12/21/18 22:00 12/22/18 09:28 Solu-Medrol IVP 40 mg Q12 MARIELA Administration Mupirocin 1 gm 12/21/18 18:00 12/22/18 18:00 Bactroban Ointment TOP Not Given BID [facility] Ondansetron HCl 4 mg 12/22/18 15:41 Zofran Inj IVP 12/22/18 23:59 ONCE PRN Nausea/Vomiting Oxycodone/Acetaminophen 1 tab 12/22/18 16:18 Percocet 5/325 Mg Tab PO 12/25/18 16:19 Q6H PRN Pain, moderate (4-7) Pantoprazole Sodium 40 mg 12/22/18 10:00 12/22/18 09:28 Protonix Inj IVP 40 mg DAILY MARIELA Administration - Patient Studies Lab Studies: Microbiology Studies 12/21/18 17:00 MRSA Culture (Admit) - Final Nose MRSA NOT DETECTED 12/21/18 08:34 Blood Culture - Preliminary Blood NO GROWTH AFTER 24 HOURS 12/21/18 08:04 Blood Culture - Preliminary Blood NO GROWTH AFTER 24 HOURS Lab Studies 12/22/18 12/22/18 12/22/18 Range/Units 12:45 07:23 06:20 WBC (4.5-11.0) 10^3/uL RBC (3.5-6.1) 10^6/uL Hgb (14.0-18.0) g/dL Hct (42.0-52.0) % MCV (80.0-105.0) fl MCH (25.0-35.0) pg MCHC (31.0-37.0) g/dl RDW (11.5-14.5) % Plt Count (120.0-450.0) 10^3/uL MPV (7.0-11.0) fl Neut % (Auto) (50.0-68.0) % Lymph % (Auto) (22.0-35.0) % Snyder % (Auto) (1.0-6.0) % Eos % (Auto) (1.5-5.0) % Baso % (Auto) (0.0-3.0) % Lymph # (Auto) (1.2-3.4) Snyder # (Auto) (0.1-0.6) Eos # (Auto) (0.0-0.7) Baso # (Auto) (0.0-2.0) K/mm3 Absolute Neuts (auto) (1.4-6.5) pCO2 (35-45) mm/Hg pO2 (80-100) mm/Hg HCO3 (21-28) mmol/L ABG pH (7.35-7.45) ABG Total CO2 (22-28) mmol.L ABG O2 Saturation (95-98) % ABG O2 Content (15-23) ML/dl ABG Base Excess (-2.0-3.0) mmol/L ABG Hemoglobin (11.7-17.4) g/dL ABG Carboxyhemoglobin (0.5-1.5) % POC ABG HHb (Measured) (0-5) % ABG Methemoglobin (0.0-3.0) % ABG O2 Capacity (16-24) mL/dl Hgb O2 Saturation (95.0-98.0) % FiO2 % Crit Value Called To Crit Value Called By Blood Gas Notified Time Sodium 135 (132-148) mmol/L Potassium 4.1 (3.6-5.0) mmol/L Chloride 89 L (98-107) mmol/L Carbon Dioxide 42 H (21-33) mmol/L Anion Gap 8 L (10-20) BUN 18 (7-21) mg/dL Creatinine 0.4 L (0.8-1.5) mg/dl Est GFR ( Amer) > 60 Est GFR (Non-Af Amer) > 60 POC Glucose (mg/dL) 134 H 161 H (65-110) mg/dL Random Glucose 139 H (70-110) mg/dL Calcium 8.7 (8.4-10.5) mg/dL Total Bilirubin 0.3 (0.2-1.3) mg/dL AST 20 (17-59) U/L ALT 15 (7-56) U/L Alkaline Phosphatase 61 (38-126) U/L Total Protein 6.0 (5.8-8.3) g/dL Albumin 3.2 (3.0-4.8) g/dL Globulin 2.8 gm/dL Albumin/Globulin Ratio 1.1 (1.1-1.8) Urine Color (YELLOW) Urine Appearance (CLEAR) Urine pH (4.7-8.0) Ur Specific [place] (1.005-1.035) Urine Protein (<30 mg/dL) mg/dL Urine Glucose (UA) (NEGATIVE) mg/dL Urine Ketones (NEGATIVE) mg/dL Urine Blood (NEGATIVE) Urine Nitrate (NEGATIVE) Urine Bilirubin (NEGATIVE) Urine Urobilinogen (<1 E.U./dL) E.U./dL Ur Leukocyte Esterase (NEGATIVE) Piter/uL Urine RBC (0-2) /hpf Urine WBC (0-6) /hpf Ur Epithelial Cells (0-5) /hpf Urine Bacteria (NONE) /hpf Urine Other /hpf 04/09/19 04/09/19 04/08/19 Range/Units 06:20 05:10 22:49 WBC 17.9 H D (4.5-11.0) 10^3/uL RBC 3.94 (3.5-6.1) 10^6/uL Hgb 11.8 L D (14.0-18.0) g/dL Hct 38.8 L (42.0-52.0) % MCV 98.5 (80.0-105.0) fl MCH 29.9 (25.0-35.0) pg MCHC 30.4 L (31.0-37.0) g/dl RDW 14.2 (11.5-14.5) % Plt Count 156 (120.0-450.0) 10^3/uL MPV 10.3 (7.0-11.0) fl Neut % (Auto) 94.9 H (50.0-68.0) % Lymph % (Auto) 1.5 L (22.0-35.0) % [place] % (Auto) 3.6 (1.0-6.0) % Eos % (Auto) 0.0 L (1.5-5.0) % Baso % (Auto) 0.0 (0.0-3.0) % Lymph # (Auto) 0.3 L (1.2-3.4) [place] # (Auto) 0.7 H (0.1-0.6) Eos # (Auto) 0.0 (0.0-0.7) Baso # (Auto) 0.00 (0.0-2.0) K/mm3 Absolute Neuts (auto) 16.98 H (1.4-6.5) pCO2 61 H (35-45) mm/Hg pO2 73.0 L (80-100) mm/Hg HCO3 42.4 H* (21-28) mmol/L ABG pH 7.45 (7.35-7.45) ABG Total CO2 44.3 H (22-28) mmol.L ABG O2 Saturation 97.8 (95-98) % ABG O2 Content 16.2 (15-23) ML/dl ABG Base Excess 15.6 H (-2.0-3.0) mmol/L ABG Hemoglobin 12.2 (11.7-17.4) g/dL ABG Carboxyhemoglobin 2.7 H (0.5-1.5) % POC ABG HHb (Measured) 2.1 (0-5) % ABG Methemoglobin 1.1 (0.0-3.0) % ABG O2 Capacity 16.6 (16-24) mL/dl Hgb O2 Saturation 94.1 L (95.0-98.0) % FiO2 50.0 % Crit Value Called To [place] Crit Value Called By [facility] Blood Gas Notified Time 531 Sodium (132-148) mmol/L Potassium (3.6-5.0) mmol/L Chloride (98-107) mmol/L Carbon Dioxide (21-33) mmol/L Anion Gap (10-20) BUN (7-21) mg/dL Creatinine (0.8-1.5) mg/dl Est GFR ( Amer) Est GFR (Non-Af Amer) POC Glucose (mg/dL) (65-110) mg/dL Random Glucose (70-110) mg/dL Calcium (8.4-10.5) mg/dL Total Bilirubin (0.2-1.3) mg/dL AST (17-59) U/L ALT (7-56) U/L Alkaline Phosphatase (38-126) U/L Total Protein (5.8-8.3) g/dL Albumin (3.0-4.8) g/dL Globulin gm/dL Albumin/Globulin Ratio (1.1-1.8) Urine Color Yellow (YELLOW) Urine Appearance Sl cloudy (CLEAR) Urine pH 6.0 (4.7-8.0) Ur Specific [place] 1.025 (1.005-1.035) Urine Protein Trace H (<30 mg/dL) mg/dL Urine Glucose (UA) Negative (NEGATIVE) mg/dL Urine Ketones >=80 (NEGATIVE) mg/dL Urine Blood Negative (NEGATIVE) Urine Nitrate Negative (NEGATIVE) Urine Bilirubin Small H (NEGATIVE) Urine Urobilinogen 1.0 H (<1 E.U./dL) E.U./dL Ur Leukocyte Esterase Negative (NEGATIVE) Piter/uL Urine RBC 0 - 2 (0-2) /hpf Urine WBC 0 - 2 (0-6) /hpf Ur Epithelial Cells 1 - 3 (0-5) /hpf Urine Bacteria None (NONE) /hpf Urine Other Mucus /hpf Laboratory Results - last 24 hr 12/21/18 12/22/18 12/22/18 22:49 05:10 06:20 WBC 17.9 H D RBC 3.94 Hgb 11.8 L D Hct 38.8 L MCV 98.5 MCH 29.9 MCHC 30.4 L RDW 14.2 Plt Count 156 MPV 10.3 Neut % (Auto) 94.9 H Lymph % (Auto) 1.5 L Snyder % (Auto) 3.6 Eos % (Auto) 0.0 L Baso % (Auto) 0.0 Lymph # (Auto) 0.3 L Snyder # (Auto) 0.7 H Eos # (Auto) 0.0 Baso # (Auto) 0.00 Absolute Neuts (auto) 16.98 H pCO2 61 H pO2 73.0 L HCO3 42.4 H* ABG pH 7.45 ABG Total CO2 44.3 H ABG O2 Saturation 97.8 ABG O2 Content 16.2 ABG Base Excess 15.6 H ABG Hemoglobin 12.2 ABG Carboxyhemoglobin 2.7 H POC ABG HHb (Measured) 2.1 ABG Methemoglobin 1.1 ABG O2 Capacity 16.6 Hgb O2 Saturation 94.1 L FiO2 50.0 Crit Value Called To Luis Crit Value Called By [facility] Blood Gas Notified Time 531 Sodium Potassium Chloride Carbon Dioxide Anion Gap BUN Creatinine Est GFR ( Amer) Est GFR (Non-Af Amer) POC Glucose (mg/dL) Random Glucose Calcium Total Bilirubin AST ALT Alkaline Phosphatase Total Protein Albumin Globulin Albumin/Globulin Ratio Urine Color Yellow Urine Appearance Sl cloudy Urine pH 6.0 Ur Specific [place] 1.025 Urine Protein Trace H Urine Glucose (UA) Negative Urine Ketones >=80 Urine Blood Negative Urine Nitrate Negative Urine Bilirubin Small H Urine Urobilinogen 1.0 H Ur Leukocyte Esterase Negative Urine RBC 0 - 2 Urine WBC 0 - 2 Ur Epithelial Cells 1 - 3 Urine Bacteria None Urine Other Mucus 12/22/18 12/22/18 12/22/18 06:20 07:23 12:45 WBC RBC Hgb Hct MCV MCH MCHC RDW Plt Count MPV Neut % (Auto) Lymph % (Auto) Snyder % (Auto) Eos % (Auto) Baso % (Auto) Lymph # (Auto) Snyder # (Auto) Eos # (Auto) Baso # (Auto) Absolute Neuts (auto) pCO2 pO2 HCO3 ABG pH ABG Total CO2 ABG O2 Saturation ABG O2 Content ABG Base Excess ABG Hemoglobin ABG Carboxyhemoglobin POC ABG HHb (Measured) ABG Methemoglobin ABG O2 Capacity Hgb O2 Saturation FiO2 Crit Value Called To Crit Value Called By Blood Gas Notified Time Sodium 135 Potassium 4.1 Chloride 89 L Carbon Dioxide 42 H Anion Gap 8 L BUN 18 Creatinine 0.4 L Est GFR ( Amer) > 60 Est GFR (Non-Af Amer) > 60 POC Glucose (mg/dL) 161 H 134 H Random Glucose 139 H Calcium 8.7 Total Bilirubin 0.3 AST 20 ALT 15 Alkaline Phosphatase 61 Total Protein 6.0 Albumin 3.2 Globulin 2.8 Albumin/Globulin Ratio 1.1 Urine Color Urine Appearance Urine pH Ur Specific [place] Urine Protein Urine Glucose (UA) Urine Ketones Urine Blood Urine Nitrate Urine Bilirubin Urine Urobilinogen Ur Leukocyte Esterase Urine RBC Urine WBC Ur Epithelial Cells Urine Bacteria Urine Other Critical Care Progress Note - Nutrition Nutrition: Nutrition Category Date Time Status Heart Healthy Diet [DIET] Diets 12/22/18 Dinner Active Addendum Addendum: 12/22/18 18:10 MICU Attending Addendum: Patient seen and examined with housestaff, case discussed on rounds. I agree with resident note above with the following additions/exceptions: 68M with a past medical history significant for COPD (on home oxygen), tobacco abuse, SHORTY, HTN, colon cancer s/p resection, and perirectal abscess who presents with shortness of breath in a COPD exascerbation. Tolerated Bipap overnight much more awake and alert today can stop bipap and use only for the night oxygen to keep sat 88-92% duonebs steroids abx - azithro f/u surgical rec for abscess hepSQ for dvt ppx ppi for gi ppx stable for transfer out of ICU Rest of care as per resident note above Marija Choi MD Attending Pulmonary Critical Care Sleep Medicine
[2018-12-22] MEDS: MethylPREDNISolone 40 mg Vial IVP SCH ×2 (09:28→21:49)
[2018-12-22] MEDS: Azithromycin 500MG/NS 250ml 500 MG/250 ML BAG IVPB SCH (09:28)
[2018-12-22] MEDS: cefTRIAXone 1 gm 1 GM/100 ML BAG IVPB SCH (09:29)
[2018-12-22] MEDS: Mupirocin 2% Ointment 15 GM TUBE TOP SCH ×2 (09:31→18:00)
[2018-12-22] MEDS ORDERED: Enoxaparin 40 mg Syringe SC SCH (10:00)
[2018-12-22] MEDS: Digoxin 250 mcg (0.25 mg) Tab PO SCH (14:01)
[2018-12-22] MEDS ORDERED: HYDROmorphone 0.5 mg/0.5 ml ISec IVP PRN (15:41)
[2018-12-22] MEDS ORDERED: Sodium Chloride 0.9% 1,000 ML IV SCH (15:45)
[2018-12-22] MEDS ORDERED: Midazolam 2 MG/2 ML VIAL ONE (15:47)
[2018-12-22] MEDS ORDERED: Oxycodone/Acetaminophen 5/325 mg Tab PO PRN (16:18)
[2018-12-22] MEDS ORDERED: Bupivacaine 0.5% 50 ML IJ ONE (16:18)
--- NOTE | 2018-12-22 16:22 | PCM.SURG1 ---
Surgeon's Initial Post Op Note - Surgeon's Notes Surgeon: Dr. Gallegos Head Kiln Operator: Dr. Pearl PGY1 Type of Anesthesia: Local Anesthesia Administered By: Dr. Gaston Pre-Operative Diagnosis: perianal abscess Operative Findings: see operative dictation Post-Operative Diagnosis: same Operation Performed: I&D of perianal abscess Specimen/Specimens Removed: n/a Estimated Blood Loss: EBL {In ML}: 5 Blood Products Given: N/A Drains Used: No Drains Post-Op Condition: Good Date of Surgery/Procedure: 12/22/18 Time of Surgery/Procedure: 16:21
--- NOTE | 2018-12-22 20:26 | PN ---
DATE: 12/22/2018 SUBJECTIVE: The patient is 68-year-old, seen and examined, much more alert, off of BiPAP, doing well. PHYSICAL EXAMINATION: VITAL SIGNS: He is afebrile, pulse 100, respirations 18, blood pressure 117/62. LUNGS: Bilateral diffusely decreased breath sounds. Occasional expiratory rhonchi. HEART: S1, S2 audible. ABDOMEN: Soft, nontender. No rebound. No guarding. NEUROLOGIC: The patient is awake and alert, able to communicate. LABORATORY DATA: WBC 17.9, hemoglobin 11.8, hematocrit 38.8, platelets 156. Chemistry; sodium 135, potassium 4.1, chloride 89, CO2 of 42, BUN 18, creatinine 0.4. Blood sugar is 161. ASSESSMENT: 1. Chronic obstructive pulmonary disease exacerbation. 2. History of chronic obstructive pulmonary disease. 3. History of carcinoma of colon. 4. Perianal abscess that as per patient broke last night. 5. Ischemic cardiomyopathy. 6. Status post carbon dioxide retention. 7. Status post partial colectomy. PLAN: Continue the patient on Brovana. The patient is on IV fluids. Continue nebulizer treatment. He is on aspirin 81 daily, digoxin 0.25 daily, Protonix 40 mg daily. We will continue on Rocephin. He is on 40 mg of methylprednisolone. The patient is scheduled to have I and D done today afternoon. We will re-evaluate the patient in a.m. Follow up CBC and CMP in a.m. Juan Bertrand MD
[2018-12-23] MEDS: Albuterol-Ipratrop 3 mg / 0.5 (3 ml) UD IH SCH ×4 (03:00→20:05)
[2018-12-23] MEDS: Dextrose 5%/0.9% NS 1,000 ML IV SCH ×2 (06:04→10:15)
[2018-12-23] MEDS: Arformoterol 15 mcg/2 ml Inh Sol IH SCH ×2 (07:15→20:05)
[2018-12-23] MEDS: Budesonide 0.5 mg/2 ml Inhal Susp UD IH SCH ×2 (07:16→20:06)
--- NOTE | 2018-12-23 09:01 | OP ---
PROCEDURE DATE: 12/22/2018 He is admitted on 12/21/2018 (intensive care unit), and he is operated on 12/22/2018. SURGEON: Eric Gallegos MD WELDER FITTER GAS: Boom Pearl D.O., PGY-1. SALES EXPERT HOME THEATER: Dr. Keller. ANESTHESIA: MAC - sedation - Marcaine 0.5 - 11 mL. PREOPERATIVE DIAGNOSES: 1. Recurrent left perirectal abscess. 2. Severe chronic obstructive broncho-pulmonary disease. 3. Cardiomyopathy (ejection fraction 35%). POSTOPERATIVE DIAGNOSES: 1. Recurrent left perirectal abscess. 2. Severe chronic obstructive broncho-pulmonary disease. 3. Cardiomyopathy (ejection fraction 35%). PROCEDURE: Incision and drainage of a recurrent perirectal abscess. OPERATIVE INDICATIONS: The patient is a 68-year-old male who is admitted to the hospital with progressive shortness of breath due to chronic emphysema and cardiomyopathy. He is transferred also immediately to the intensive care unit where he was stabilized and found to have an elevated white blood count, fever, and a large bulging area in the left perianal space consistent with an abscess and the same region was drained approximately 03/2017. The patient is improving in the intensive care unit, was unable to undergo CAT scan to evaluate for rectal fistula formation but is very amenable to undergoing IV sedation and local drainage of the infection. OPERATIVE NOTE: The patient was brought to the operating room from the intensive care [place]. He is remained on the [place] and is given intravenous sedation by the anesthesiologist following identification of his wrist band and time-out procedure. The buttocks were widely exposed, prepped with Hibiclens chlorhexidine preparation, and the patient was then aseptically draped. Infiltration of the region at the 3 o'clock position with the patient in the right lateral Canales position was performed and a cruciate incision is made to widely expose the abscess cavity. It is apparent recurrence is that the patient's abscess cavity closed off before the drainage completely ended, and this was corrected by opening up the deeper portion of the cavity and breaking up loculations. The wound was now packed with 1-inch iodoform gauze and a dry dressing placed over the same. The patient was now transported to the recovery room in satisfactory condition. Sponge, instrument, and suture count were verified as correct at the end of the procedure. Estimated blood loss during this procedure was less than 10 mL of blood. This dictation will be electronically signed without being read. The assembler surgical garment was present throughout the procedure from beginning to end and was extremely helpful in localizing and draining the abscess and completing the procedure. Eric Gallegos MD
[2018-12-23] MEDS: cefTRIAXone 1 gm 1 GM/100 ML BAG IVPB SCH (10:29)
[2018-12-23] MEDS: Lubricant Eye Drops UD OU SCH ×3 (10:29→17:43)
[2018-12-23] MEDS: MethylPREDNISolone 40 mg Vial IVP SCH ×2 (10:30→21:19)
[2018-12-23] MEDS: Azithromycin 500MG/NS 250ml 500 MG/250 ML BAG IVPB SCH (10:30)
--- NOTE | 2018-12-23 10:35 | CP.PCM.PN ---
Subjective - Date & Time of Evaluation Date of Evaluation: 12/23/18 Time of Evaluation: 10:35 - Subjective Subjective: General surgery progress note for Dr. Kimberly Gallegos Pt seen and examined at bedside. Pt resting comfortably on NC. Denies fever, chills, chest pain, sob, abdominal pain, n/v/d. Complaints of minimal pain in the perianal area. Objective - Vital Signs/Intake and Output Vital Signs (last 24 hours): Temp Pulse Resp BP Pulse Ox 97.6 F 72 18 118/71 99 12/23/18 06:00 12/23/18 06:00 12/23/18 06:00 12/23/18 06:00 12/23/18 06:00 Intake and Output: 12/23/18 12/23/18 06:59 18:59 Intake Total 1845 Output Total 300 Balance 1545 - Medications Medications: Current Medications Albuterol/Ipratropium (Duoneb 3 Mg/0.5 Mg (3 Ml) Ud) 3 ml IH Q2H PRN PRN Reason: Shortness of Breath Albuterol/Ipratropium (Duoneb 3 Mg/0.5 Mg (3 Ml) Ud) 3 ml IH [id number] [facility] Last Admin: 12/23/18 07:15 Dose: 3 ml Arformoterol Tartrate (Brovana) 15 mcg IH [id number] [facility] Last Admin: 12/23/18 07:15 Dose: 15 mcg Artificial Tears (Refresh Opth Soln) 0.3 ml OU TID [facility] Last Admin: 12/23/18 10:29 Dose: 1 drop Aspirin (Ecotrin) 81 mg PO DAILY [facility] Last Admin: 12/23/18 10:27 Dose: 81 mg Budesonide (Pulmicort Respules) 0.5 mg IH [id number] [facility] Last Admin: 12/23/18 07:16 Dose: 0.5 mg Digoxin (Lanoxin) 0.25 mg PO 1400 [facility] Last Admin: 12/22/18 14:01 Dose: Not Given Ceftriaxone Sodium (Rocephin 1 Gram Ivpb) 1 gm in 100 mls @ 100 mls/hr IVPB DAILY [facility]; Protocol Last Admin: 12/23/18 10:29 Dose: 100 mls/hr Azithromycin (Zithromax 500mg In Ns) 500 mg in 250 mls @ 167 mls/hr IVPB DAILY [facility]; Protocol Last Admin: 12/23/18 10:30 Dose: 167 mls/hr Dextrose/Sodium Chloride (Dextrose 5%/0.9% Ns 1000 Ml) 1,000 mls @ 125 mls/hr IV .Q8H [facility] Last Admin: 12/23/18 10:15 Dose: Not Given Lisinopril (Zestril) 2.5 mg PO DAILY [facility] Last Admin: 12/23/18 10:30 Dose: 2.5 mg Methylprednisolone (Solu-Medrol) 40 mg IVP Q12 [facility] Last Admin: 12/23/18 10:30 Dose: 40 mg Mupirocin (Bactroban Ointment) 1 gm TOP BID [facility] Last Admin: 12/22/18 18:00 Dose: Not Given Oxycodone/Acetaminophen (Percocet 5/325 Mg Tab) 1 tab PO Q6H PRN PRN Reason: Pain, moderate (4-7) Stop: 12/25/18 16:19 Pantoprazole Sodium (Protonix Ec Tab) 40 mg PO ACB [facility] - Labs Labs: 12/22/18 06:20 12/22/18 06:20 PT 12.2 SECONDS (9.4-12.5) 12/21/18 08:04 INR 1.08 12/21/18 08:04 APTT 31.6 Seconds (26.9-38.3) 12/21/18 08:04 - Constitutional Appears: Non-toxic, No Acute Distress - Head Exam Head Exam: ATRAUMATIC, NORMAL INSPECTION - Eye Exam Eye Exam: EOMI, Normal appearance - ENT Exam ENT Exam: Mucous Membranes Moist - Respiratory Exam Respiratory Exam: Decreased Breath Sounds, NORMAL BREATHING PATTERN. absent: Rales, Rhonchi, Wheezes, Respiratory Distress - Cardiovascular Exam Cardiovascular Exam: REGULAR RHYTHM, +S1, +S2 - GI/Abdominal Exam GI & Abdominal Exam: Soft (obese), Normal Bowel Sounds. absent: Distended, Firm, Guarding, Tenderness, Rebound - Skin Additional comments: (+) 10 o'clock wound s/p I and D, no erythema, no warmth, no tenderness, (-) active drainage or bleeding. Assessment and Plan - Assessment and Plan (Free Text) Assessment: This is a 68 year old male with PMH of advanced COPD, HTN, HLD, colon CA (s/p partial colectomy 2013), perianal abscess drainage multiple times who complains of sob for the past few days. Placed on BPAP, and was admitted to ICU for COPD exacerbation. Surgical team consulted due to pt reporting mukul-anal swelling and pain, requesting medical attention. Plan: Perianal abscess S/p I and D in the OR 4/ POD#1 Mupirocin to the area bid Abd/Pelv CT with po and IV contrast not indicated as per Dr. Gallegos. Study cancelled. Packing changed today, area healing appropriately. Covered with 4x4 sponge ga uze. Continue to monitor Medical management as per primary team. Further recommendations as per Dr. Nirmala Winn PGY1 Pager#[phone]
--- NOTE | 2018-12-23 12:05 | CP.PCM.CON ---
History of Present Illness - History of Present Illness History of Present Illness: Palliative consult requested by Dr Leonard Bertrand Reason: Advance care planning This is a 68 year old male with a history significant of COPD, SHORTY, HTN, colon cancer and perirectal abscess who presented to the ED on with worsening felipe rtness of breath for several days. Patient stated that although taking his prescribed medications, he experienced little relief. He was found to be hypercapneic and was started on BiPAP. Patient also complained of mild pain associated with his rectal abscess. He denied fevers,chills, sore throat, chest pain, wheezing, and productive cough. Chest x ray: No active disease EKG: ST w occ. PVC's, septal infarct age undetermined PMH: COPD (on home oxygen), SHORTY, HTN, colon cancer, mukul rectal abscess PSH: Colon resection (2013) Family History: Non-contributory Social History: Current smoker, social alcohol consumption and no illicit drug use. Lives with spouse Advance Care Planning: The patient has an advanced Directive but can't find it states he is DNR/DNI Review of Systems: As per HPI, 12 point ROS otherwise negative Past Patient History - Infectious Disease Hx of Infectious Diseases: None - Past Social History Smoking Status: Current Some Days Smoker - CARDIAC Hx Hypertension: Yes - PULMONARY Hx Chronic Obstructive Pulmonary Disease (COPD): Yes - NEUROLOGICAL Hx Paralysis: No - HEENT Hx HEENT Problems: No - RENAL Hx Chronic Kidney Disease: No - ENDOCRINE/METABOLIC Hx Endocrine Disorders: No - HEMATOLOGICAL/ONCOLOGICAL Hx Blood Disorders: No - INTEGUMENTARY Hx Dermatological Problems: Yes (PERIRECTAL ABSCESS 04-09-17) - MUSCULOSKELETAL/RHEUMATOLOGICAL Hx Musculoskeletal Disorders: No - GASTROINTESTINAL Hx Gastrointestinal Disorders: Yes (PERIRECTAL ABSCESS 04-09-17,PERIANAL ABSCESS ) Other/Comment: COLON RESECTION-COLON CA COMPLETED CHEMO. - GENITOURINARY/GYNECOLOGICAL Hx Genitourinary Disorders: No - PSYCHIATRIC Hx Psychophysiologic Disorder: Yes (H/O SMOKING CIGARETTES,DRINKS BEER OCCASIONALLY) Hx Emotional Abuse: No Hx Physical Abuse: No Hx Substance Use: No - SURGICAL HISTORY Other/Comment: umbilical hernia sx, colon resection 2013, vascular acces device r pac 09/2014 rermoved 2 2015, i and d perianal abcess, colonoscopy 2013 and 2014 - ANESTHESIA Hx Anesthesia Reactions: No Hx Malignant Hyperthermia: No Meds Allergies/Adverse Reactions: Allergies Allergy/AdvReac Type Severity Reaction Status Date / Time No Known Allergies Allergy Verified 11/28/18 17:56 - Medications Medications: Current Medications Albuterol/Ipratropium (Duoneb 3 Mg/0.5 Mg (3 Ml) Ud) 3 ml IH Q2H PRN PRN Reason: Shortness of Breath Albuterol/Ipratropium (Duoneb 3 Mg/0.5 Mg (3 Ml) Ud) 3 ml IH [id number] [facility] Last Admin: 12/23/18 07:15 Dose: 3 ml Arformoterol Tartrate (Brovana) 15 mcg IH [id number] [facility] Last Admin: 12/23/18 07:15 Dose: 15 mcg Artificial Tears (Refresh Opth Soln) 0.3 ml OU TID [facility] Last Admin: 12/23/18 10:29 Dose: 1 drop Aspirin (Ecotrin) 81 mg PO DAILY [facility] Last Admin: 12/23/18 10:27 Dose: 81 mg Budesonide (Pulmicort Respules) 0.5 mg IH [id number] [facility] Last Admin: 12/23/18 07:16 Dose: 0.5 mg Digoxin (Lanoxin) 0.25 mg PO 1400 [facility] Last Admin: 12/22/18 14:01 Dose: Not Given Ceftriaxone Sodium (Rocephin 1 Gram Ivpb) 1 gm in 100 mls @ 100 mls/hr IVPB DAILY [facility]; Protocol Last Admin: 12/23/18 10:29 Dose: 100 mls/hr Azithromycin (Zithromax 500mg In Ns) 500 mg in 250 mls @ 167 mls/hr IVPB DAILY [facility]; Protocol Last Admin: 12/23/18 10:30 Dose: 167 mls/hr Dextrose/Sodium Chloride (Dextrose 5%/0.9% Ns 1000 Ml) 1,000 mls @ 125 mls/hr IV .Q8H [facility] Last Admin: 12/23/18 10:15 Dose: Not Given Lisinopril (Zestril) 2.5 mg PO DAILY [facility] Last Admin: 12/23/18 10:30 Dose: 2.5 mg Methylprednisolone (Solu-Medrol) 40 mg IVP Q12 [facility] Last Admin: 12/23/18 10:30 Dose: 40 mg Mupirocin (Bactroban Ointment) 1 gm TOP BID [facility] Last Admin: 12/22/18 18:00 Dose: Not Given Oxycodone/Acetaminophen (Percocet 5/325 Mg Tab) 1 tab PO Q6H PRN PRN Reason: Pain, moderate (4-7) Stop: 12/25/18 16:19 Pantoprazole Sodium (Protonix Ec Tab) 40 mg PO ACB [facility] Physical Exam - Constitutional Appears: Chronically Ill Additional comments: obese - Head Exam Head Exam: NORMOCEPHALIC - Eye Exam Eye Exam: Normal appearance, PERRL - ENT Exam ENT Exam: Mucous Membranes Moist - Respiratory Exam Respiratory Exam: Decreased Breath Sounds Additional comments: dyspnea on exertion - Cardiovascular Exam Cardiovascular Exam: Tachycardia, +S1, +S2 - GI/Abdominal Exam GI & Abdominal Exam: Normal Bowel Sounds, Soft Additional comments: no tenderness - Rectal Exam Additional comments: abcess with packing - Extremities Exam Extremities exam: Positive for: pedal pulses present Additional comments: PVD - Back Exam Back exam: NORMAL INSPECTION - Neurological Exam Neurological exam: Alert, Oriented x3 - Skin Skin Exam: Dry, Pallor - Additional Findings Additional findings: Palliative performance scale rating 40% Results - Vital Signs Recent Vital Signs: Last Vital Signs Temp 97.6 F 12/23/18 06:00 Pulse 72 12/23/18 06:00 Resp 18 12/23/18 06:00 BP 118/71 12/23/18 06:00 Pulse Ox 99 12/23/18 06:00 - Labs Result Diagrams: 12/22/18 06:20 12/22/18 06:20 Labs: Laboratory Results - last 24 hr 12/22/18 12:45 POC Glucose (mg/dL) 134 H Assessment & Plan - Assessment and Plan (Free Text) Assessment: This is a 68 year old male with PMH of advanced COPD, HTN, HLD, colon CA (s/p partial colectomy 2013), perianal abscess who is admitted with COPD exacerbation and mukul rectal abcess now s/p I& D. The patient is alert and oriented, offers no complaints. Advance care plannig discussed. Patient states that his has the papers at home. Patient states that his coming to the hospital and ask that I speak with her at that time I met with Carlie who states she has POLST form but can't find it. She state s the patient is DNR/DNI which he re affirms. requested we do another POLST directive. We also spoke about future goals of care. verbalizing that patient has very advanced COPD and that she has been in discussion with her family about tranasioing to hsoice care> This is a choice she will make once he is discharged home and will follow up with his PCP, Dr Clary Roa of care and advanced care planning, 35 minutes Plan: Goals of care and advance care planning; POLST DNR/DNI COPD exacerbation: Continue Brovana, Duonebs,Soumedrol. O2 Rectal abscess: Surgery following, s/p I&D, Mupirocin to the area bid. Continue Zithromax and Rocephin Continue Digoxin, ASA and Lisinopril
--- NOTE | 2018-12-23 13:22 | PN ---
DATE: 12/23/2018 SUBJECTIVE: The patient is 68-year-old, seen and examined. Looks much better. Had I and D done yesterday. Had packing done and was changed this morning. No chest pain. No shortness of breath. Eating and tolerating. PHYSICAL EXAMINATION: VITAL SIGNS: He is afebrile. Pulse 72, respiration 18 and blood pressure 118/71. LUNGS: Bilateral fair airflow. No rhonchi or crackle. HEART: S1 and S2, audible. ABDOMEN: Soft and nontender. No rebound. No guarding. NEUROLOGIC: The patient is awake, alert and able to communicate. LABORATORY DATA: There is no new lab available today. Blood sugar is 134. ASSESSMENT: 1. Perirectal abscess, status post incision and draining. 2. Carbon dioxide narcosis. 3. Chronic obstructive pulmonary disease exacerbation. 4. Coronary artery disease. 5. Hypertension. PLAN: Currently, the patient is on Brovana. The patient is eating well. We will discontinue his IV fluids. He is on nebulizer treatment. He is on aspirin 81 daily. He is on digoxin and Percocet as needed. He is on Protonix and Pulmicort. He is getting Rocephin. We will start him on MiraLax. Start him on physical therapy. We will cut down his steroid to . Was clear by surgery. We will make discharge plan. Juan Bertrand MD
[2018-12-23] MEDS: Mupirocin 2% Ointment 15 GM TUBE TOP SCH ×2 (13:44→17:41)
[2018-12-23] MEDS: Digoxin 250 mcg (0.25 mg) Tab PO SCH (13:44)
[2018-12-23] MEDS: Enoxaparin 30 mg Syringe SC SCH (13:52)
[2018-12-23] MEDS: POLYETHYLENE GLYCOL 3350 17 GM/Dose PACKET PO SCH (13:54)
--- NOTE | 2018-12-23 15:57 | CP.PCM.APN ---
Subjective - Date & Time of Evaluation Date of Evaluation: 12/23/18 Time of Evaluation: 12:30 - Subjective Subjective: Pt. seen, sitting up in bed, states he feels better, breathing is better, denied chest pain, is s/p I and D of perirectal abscess, denied fever chills. Noted to have ecchymosis to arms b/l. Objective - Vital Signs/Intake and Output Vital Signs (last 24 hours): Temp Pulse Resp BP Pulse Ox 97.6 F 72 18 118/71 99 12/23/18 06:00 12/23/18 06:00 12/23/18 06:00 12/23/18 06:00 12/23/18 06:00 Intake and Output: 12/23/18 12/23/18 06:59 18:59 Intake Total 1845 Output Total 300 300 Balance 1545 -300 - Medications Medications: Current Medications Albuterol/Ipratropium (Duoneb 3 Mg/0.5 Mg (3 Ml) Ud) 3 ml IH Q2H PRN PRN Reason: Shortness of Breath Albuterol/Ipratropium (Duoneb 3 Mg/0.5 Mg (3 Ml) Ud) 3 ml IH [id number] [facility] Last Admin: 12/23/18 13:17 Dose: 3 ml Arformoterol Tartrate (Brovana) 15 mcg IH [id number] [facility] Last Admin: 12/23/18 07:15 Dose: 15 mcg Artificial Tears (Refresh Opth Soln) 0.3 ml OU TID [facility] Last Admin: 12/23/18 13:55 Dose: 1 drop Aspirin (Ecotrin) 81 mg PO DAILY [facility] Last Admin: 12/23/18 10:27 Dose: 81 mg Budesonide (Pulmicort Respules) 0.5 mg IH [id number] [facility] Last Admin: 12/23/18 07:16 Dose: 0.5 mg Digoxin (Lanoxin) 0.25 mg PO 1400 [facility] Last Admin: 12/23/18 13:44 Dose: 0.25 mg Enoxaparin Sodium (Lovenox) 30 mg SC DAILY [facility]; Protocol Last Admin: 12/23/18 13:52 Dose: 30 mg Ceftriaxone Sodium (Rocephin 1 Gram Ivpb) 1 gm in 100 mls @ 100 mls/hr IVPB DAILY [facility]; Protocol Last Admin: 12/23/18 10:29 Dose: 100 mls/hr Azithromycin (Zithromax 500mg In Ns) 500 mg in 250 mls @ 167 mls/hr IVPB DAILY [facility]; Protocol Last Admin: 12/23/18 10:30 Dose: 167 mls/hr Lisinopril (Zestril) 2.5 mg PO DAILY [facility] Last Admin: 12/23/18 10:30 Dose: 2.5 mg Methylprednisolone (Solu-Medrol) 30 mg IVP Q12 [facility] Mupirocin (Bactroban Ointment) 1 gm TOP BID [facility] Last Admin: 12/23/18 13:44 Dose: 1 applic Oxycodone/Acetaminophen (Percocet 5/325 Mg Tab) 1 tab PO Q6H PRN PRN Reason: Pain, moderate (4-7) Stop: 12/25/18 16:19 Pantoprazole Sodium (Protonix Ec Tab) 40 mg PO ACB [facility] Polyethylene Glycol (Miralax) 17 gm PO DAILY [facility] Last Admin: 12/23/18 13:54 Dose: 17 gm - Labs Labs: 12/22/18 06:20 12/22/18 06:20 PT 12.2 SECONDS (9.4-12.5) 12/21/18 08:04 INR 1.08 12/21/18 08:04 APTT 31.6 Seconds (26.9-38.3) 12/21/18 08:04 - Constitutional Appears: Well, Non-toxic - Head Exam Head Exam: NORMOCEPHALIC - Eye Exam Eye Exam: Normal appearance - ENT Exam ENT Exam: Mucous Membranes Moist, Normal Exam - Neck Exam Neck Exam: Full ROM - Respiratory Exam Respiratory Exam: Wheezes - Cardiovascular Exam Cardiovascular Exam: REGULAR RHYTHM, +S1, +S2 - GI/Abdominal Exam GI & Abdominal Exam: Soft - Rectal Exam Rectal Exam: Deferred - Exam Exam: absent: Circumcision, NORMAL INSPECTION, Scrotal Swelling, Testicular Tenderness, Uretheral Discharge, Testicular Vertical Lie, Bladder Distension External exam: absent: Ecchymosis, Erythema, Lacerations, Lesions, NORMAL EXTERNAL EXAM, Swelling Speculum exam: absent: Cervical Discharge, Erythema, Foreign Body, Laceration, NORMAL SPECULUM EXAM, Tissue, Vaginal Bleeding, Vaginal Discharge Bimanual exam: absent: Adenexal Mass, Adnexal, Cervical Motion Tendernes, NORMAL BIMANUAL EXAM, Uterine Enlargement, Uterine Tenderness - Extremities Exam Extremities Exam: Full ROM, Normal Inspection - Back Exam Back Exam: Full ROM - Neurological Exam Neurological Exam: Alert, Awake, Oriented x3 - Psychiatric Exam Psychiatric exam: Normal Affect - Skin Additional comments: ecchymosis noted to forearms b/l, chronic Assessment and Plan - Assessment and Plan (Free Text) Assessment: ITS Impressions Chest X-Ray 12/21/18 07:39 IMPRESSION: No active disease. ITS Impressions Chest X-Ray 12/21/18 07:39 IMPRESSION: No active disease. Assessment: 68 year old male with a history significant of COPD, SHORTY, HTN, colon cancer and perirectal abscess who presented to the ED on with worsening shortness of breath for several days, admitted with COPD exacerb, for further eval and treatment. Plan: 1. COPD Exac. IV Steroids tapered today, cont. to monitor resp. status, cont. Duonebs, Bronchodilators, supplemental oxygen. 2. Perirectal abscess- s/p I & D dressings as per Dr. Gallegos, antibx PT eval pending. Will continue to monitor clinical status and follow closely.
--- NOTE | 2018-12-23 20:49 | CP.PCM.PCO ---
Physician Communication Note - Physician Communication Note Physician Communication Note: Pack out/Rx: DSD-await c/s
[2018-12-24] MEDS: Albuterol-Ipratrop 3 mg / 0.5 (3 ml) UD IH SCH ×4 (03:00→22:07)
[2018-12-24 07:15] LABS: HEMOGLOBIN 10.7 g/dL (14.0-18.0); MEAN CELL VOLUME 98.4 fl (80.0-105.0); MEAN CORPUSCULAR HEMOGLOBIN 28.9 pg (25.0-35.0); MEAN CORPUSCULAR HGB CONC 29.4 g/dl (31.0-37.0); MEAN PLATELET VOLUME 10.5 fl (7.0-11.0); RBC 3.7 10^6/uL (3.5-6.1); RED CELL DISTRIBUTION WIDTH 14.6 % (11.5-14.5)
[2018-12-24 07:53] LABS: ALB/GLOB RATIO 1.1 (1.1-1.8); ALBUMIN 2.8 g/dL (3.0-4.8); ALT/SGPT 25 U/L (7-56); AST/SGOT 22 U/L (17-59); BLOOD UREA NITROGEN 14 mg/dL (7-21); CALCIUM 8.7 mg/dL (8.4-10.5); GFR NON-AFRICAN AMERICAN > 60
[2018-12-24] MEDS: Arformoterol 15 mcg/2 ml Inh Sol IH SCH ×2 (08:33→22:07)
[2018-12-24] MEDS: Budesonide 0.5 mg/2 ml Inhal Susp UD IH SCH ×2 (08:33→22:07)
[2018-12-24 08:42] VITALS: RESP 20; O2SAT 95
--- NOTE | 2018-12-24 08:50 | CP.PCM.PN ---
Subjective - Date & Time of Evaluation Date of Evaluation: 12/24/18 Time of Evaluation: 08:47 - Subjective Subjective: Surgery Progress Note for Dr. Gallegos 68M seen and evaluated at bedside this morning. No acute events overnight. No complaints overnight. Packing removed this morning. Dressing was c/d/i. Denies f/c, n/v/d, SOB, CP, or urinary symptoms. Objective - Vital Signs/Intake and Output Vital Signs (last 24 hours): Temp Pulse Resp BP Pulse Ox 97.5 F L 55 L 20 128/71 95 12/24/18 08:42 12/24/18 08:42 12/24/18 08:42 12/24/18 08:42 12/24/18 08:42 Intake and Output: 12/24/18 12/24/18 06:59 18:59 Intake Total 360 Output Total 800 Balance -440 - Medications Medications: Current Medications Albuterol/Ipratropium (Duoneb 3 Mg/0.5 Mg (3 Ml) Ud) 3 ml IH Q2H PRN PRN Reason: Shortness of Breath Albuterol/Ipratropium (Duoneb 3 Mg/0.5 Mg (3 Ml) Ud) 3 ml IH [id number] [facility] Last Admin: 12/24/18 08:33 Dose: 3 ml Arformoterol Tartrate (Brovana) 15 mcg IH [id number] [facility] Last Admin: 12/24/18 08:33 Dose: 15 mcg Artificial Tears (Refresh Opth Soln) 0.3 ml OU TID [facility] Last Admin: 12/23/18 17:43 Dose: 1 drop Aspirin (Ecotrin) 81 mg PO DAILY [facility] Last Admin: 12/23/18 10:27 Dose: 81 mg Azithromycin (Zithromax) 500 mg PO DAILY [facility] Budesonide (Pulmicort Respules) 0.5 mg IH [id number] [facility] Last Admin: 12/24/18 08:33 Dose: 0.5 mg Cefpodoxime Proxetil (Vantin) 200 mg PO Q12 [facility] Digoxin (Lanoxin) 0.25 mg PO 1400 [facility] Last Admin: 12/23/18 13:44 Dose: 0.25 mg Enoxaparin Sodium (Lovenox) 30 mg SC DAILY [facility]; Protocol Last Admin: 12/23/18 13:52 Dose: 30 mg Lisinopril (Zestril) 2.5 mg PO DAILY [facility] Last Admin: 12/23/18 10:30 Dose: 2.5 mg Methylprednisolone (Solu-Medrol) 30 mg IVP Q12 [facility] Last Admin: 12/23/18 21:19 Dose: 30 mg Mupirocin (Bactroban Ointment) 1 gm TOP BID [facility] Last Admin: 12/23/18 17:41 Dose: 1 applic Oxycodone/Acetaminophen (Percocet 5/325 Mg Tab) 1 tab PO Q6H PRN PRN Reason: Pain, moderate (4-7) Stop: 12/25/18 16:19 Pantoprazole Sodium (Protonix Ec Tab) 40 mg PO ACB [facility] Polyethylene Glycol (Miralax) 17 gm PO DAILY [facility] Last Admin: 12/23/18 13:54 Dose: 17 gm - Labs Labs: 12/24/18 07:00 12/24/18 07:00 PT 12.2 SECONDS (9.4-12.5) 12/21/18 08:04 INR 1.08 12/21/18 08:04 APTT 31.6 Seconds (26.9-38.3) 12/21/18 08:04 - Constitutional Appears: Non-toxic, No Acute Distress - Head Exam Head Exam: ATRAUMATIC, NORMAL INSPECTION, NORMOCEPHALIC - Eye Exam Eye Exam: EOMI - ENT Exam ENT Exam: Mucous Membranes Moist - Respiratory Exam Respiratory Exam: NORMAL BREATHING PATTERN. absent: Wheezes, Respiratory Distress - Cardiovascular Exam Cardiovascular Exam: REGULAR RHYTHM, +S1, +S2. absent: Murmur - GI/Abdominal Exam GI & Abdominal Exam: Soft, Normal Bowel Sounds. absent: Tenderness - Rectal Exam Rectal Exam: absent: Bloody Stool Additional comments: incision and drainage site c/d/i - packing removed, no drainage noted, no bleeding noted - Neurological Exam Neurological Exam: Alert, Awake, Oriented x3 - Psychiatric Exam Psychiatric exam: Normal Affect, Normal Mood - Skin Skin Exam: Dry, Intact, Normal Color, Warm Assessment and Plan - Assessment and Plan (Free Text) Assessment: 68M s/p I&D of perianal abscess POD2 Plan: Packing removed - continue dressing changes as needed Please follow up with Dr. Gallegos outpatient - call office to make an appointment within 7 days Cleared for discharge from a surgical standpoint Medical management per primary team Please reconsult as needed Boom Pearl PGY1
[2018-12-24] MEDS: POLYETHYLENE GLYCOL 3350 17 GM/Dose PACKET PO SCH (10:13)
[2018-12-24] MEDS: Enoxaparin 30 mg Syringe SC SCH (10:13)
[2018-12-24] MEDS: Pantoprazole 40 mg EC Tab PO SCH (10:14)
[2018-12-24] MEDS: Lubricant Eye Drops UD OU SCH ×2 (10:14→14:02)
[2018-12-24] MEDS: Cefpodoxime (Vantin) 200 mg Tab PO SCH ×2 (10:14→21:27)
[2018-12-24] MEDS: MethylPREDNISolone 40 mg Vial IVP SCH ×2 (10:24→21:45)
[2018-12-24] MEDS: Digoxin 250 mcg (0.25 mg) Tab PO SCH (14:01)
[2018-12-24 14:02] VITALS: PULSE 62
--- NOTE | 2018-12-24 16:24 | PN ---
DATE: 12/24/2018 SUBJECTIVE: The patient is 68-year-old, seen and examined. Complained of shortness of breath more so on walking; complained of perirectal discomfort. PHYSICAL EXAMINATION: VITAL SIGNS: He is afebrile, pulse 55, respiration 20, and blood pressure 128/74. LUNGS: Bilateral diffusely decreased breath sounds. HEART: S1 and S2 audible. ABDOMEN: Soft, obese, and nontender. No rebound. No guarding. NEUROLOGIC: The patient is awake and alert; able to communicate. EXTREMITIES: Bilateral leg, no edema. LABORATORY DATA: WBC is 9.0, hemoglobin 10.7, hematocrit 36.4, and platelet 209. Chemistry; sodium 138, potassium 4.3, chloride 101, CO2 of 36, BUN 14, and creatinine 0.4. Blood sugar 114. Blood culture and urine culture are negative. ASSESSMENT: 1. Status post chronic obstructive pulmonary disease exacerbation. 2. Perirectal abscess. 3. Status post anti-inflammatory response syndrome. 4. Hypertension. 5. History of coronary artery disease. PLAN: Currently the patient is on nebulizer treatment. He is on digoxin. He is on laxatives. He is being given analgesic as needed. We will cut down his steroid, and we will reevaluate in a.m. The patient remains stable. Possible discharge home in a.m. Juan Bertrand MD
--- NOTE | 2018-12-24 16:55 | CP.PCM.PCO ---
Physician Communication Note - Physician Communication Note Physician Communication Note: Pt. sitting up, resp status improved,solumedrol tapered 20 q12,PT rec.hws
[2018-12-25] MEDS: Albuterol-Ipratrop 3 mg / 0.5 (3 ml) UD IH SCH ×3 (02:31→13:45)
[2018-12-25] MEDS: Pantoprazole 40 mg EC Tab PO SCH (08:01)
[2018-12-25] MEDS: Arformoterol 15 mcg/2 ml Inh Sol IH SCH (08:14)
[2018-12-25] MEDS: Budesonide 0.5 mg/2 ml Inhal Susp UD IH SCH (08:14)
[2018-12-25 08:49] VITALS: BP 129/61; PULSE 87; TEMP 97.7
[2018-12-25] MEDS: MethylPREDNISolone 40 mg Vial IVP SCH (09:53)
[2018-12-25] MEDS: Enoxaparin 30 mg Syringe SC SCH (09:54)
[2018-12-25] MEDS: POLYETHYLENE GLYCOL 3350 17 GM/Dose PACKET PO SCH (09:54)
[2018-12-25] MEDS: Cefpodoxime (Vantin) 200 mg Tab PO SCH (09:54)
[2018-12-25] MEDS: Lubricant Eye Drops UD OU SCH (09:55)
[2018-12-25] MEDS: Mupirocin 2% Ointment 15 GM TUBE TOP SCH (13:28)
--- NOTE | 2018-12-25 13:30 | PN ---
DATE: 12/25/2018 SUBJECTIVE: The patient is 68 years old, seen and examined, seems to be comfortable. Flank pain has improved. No nausea or vomiting. No fever or chills. PHYSICAL EXAMINATION VITAL SIGNS: He is afebrile, pulse 87, respirations 20, and blood pressure 129/61. LUNGS: Bilateral fair airflow. No rhonchi or crackles. HEART: S1 and S2 audible. ABDOMEN: Soft and nontender. No rebound. No guarding. NEUROLOGIC: The patient is awake and alert, able to communicate. LABORATORY DATA: WBC 7.0, hemoglobin 13.4, hematocrit 40, platelets 249. Chemistry; sodium 139, potassium 4.4, chloride 100, CO2 of 29, BUN , creatinine 0.9, blood sugar 112. Urine positive for ESBL E. coli. ASSESSMENT 1. Extended-spectrum beta-lactamase positive Escherichia coli urinary tract infection. 2. Right injury from previous surgery for renal stone. 3. Non-insulin dependent diabetes. 4. History of hypertension. PLAN: We will continue the patient on IV antibiotics. We will continue , continue to monitor blood sugar and awaiting TCU evaluation and authorization to complete his course of IV antibiotics for ESBL positive E. coli UTI. Once the patient is accepted, he will be transferred to TCU. Juan Bertrand MD
--- NOTE | 2018-12-26 03:49 | DS ---
HISTORY OF PRESENT ILLNESS: The patient is 68 years old, seen and examined, doing very well. Less shortness of breath. No cough or congestion. Scanty cough here and there. Perirectal pain and discomfort have improved. PHYSICAL EXAMINATION: VITAL SIGNS: He is afebrile, pulse 87, respirations 20, and blood pressure 129/61. LUNGS: Bilateral diffusely decreased breath sounds. HEART: S1 and S2 audible. ABDOMEN: Soft and nontender. No rebound. No guarding. NEUROLOGIC: The patient is awake and alert, able to communicate, ambulatory. ASSESSMENT: 1. Chronic obstructive pulmonary disease exacerbation. 2. Status post carbon dioxide narcosis. 3. Perirectal abscess status post incision and drainage. 4. Ischemic cardiomyopathy. 5. Active smoker. 6. Morbid obesity. PLAN: The patient is being discharged home today. He will resume his medications that include Spiriva, digoxin, Brovana. He is on aspirin. We will give him 20 mg of prednisone for three days and then 20 mg daily for five days, and he will continue his stool softener. He will follow with Dr. Malagon as outpatient. DISCHARGE DIAGNOSES: 1. Chronic obstructive pulmonary disease exacerbation. 2. Carbon dioxide narcosis. 3. Perirectal abscess status post incision and drainage. 4. History of carcinoma of the colon status post partial colectomy. 5. Cardiomyopathy. 6. Hypertension. Juan Bertrand MD
== END 2018-12-25 15:10 | disposition home health service (06) | DRG 190 ==
LOC: ED 07:25 → ERH 09:36 → CCU 11:05 → 3RSO 12-22 17:24
PROVIDERS: ADMIT Internal Medicine; ATTEND Internal Medicine
PROC: 5A09457 Assistance with Respiratory Ventilation, 24-96 Consecutive Hours, Continuous Positive Airway Pressure (ICD-10-PCS; 2018-12-21)
PROC: 0D9P3ZZ Drainage of Rectum, Percutaneous Approach (ICD-10-PCS; principal; 2018-12-22 13:30)
DX: J43.9 Emphysema, unspecified (principal); J96.22 Acute and chronic respiratory failure with hypercapnia; I42.0 Dilated cardiomyopathy; E87.2 Acidosis; K61.2 Anorectal abscess; I50.22 Chronic systolic (congestive) heart failure; N39.0 Urinary tract infection, site not specified; G47.33 Obstructive sleep apnea (adult) (pediatric); Z99.81 Dependence on supplemental oxygen; F17.200 Nicotine dependence, unspecified, uncomplicated; E78.5 Hyperlipidemia, unspecified; Z90.49 Acquired absence of other specified parts of digestive tract; Z85.038 Personal history of other malignant neoplasm of large intestine; I25.5 Ischemic cardiomyopathy; B96.20 Unspecified Escherichia coli [E. coli] as the cause of diseases classified elsewhere; Z16.12 Extended spectrum beta lactamase (ESBL) resistance; E11.9 Type 2 diabetes mellitus without complications; E66.01 Morbid (severe) obesity due to excess calories; I11.0 Hypertensive heart disease with heart failure; I25.10 Atherosclerotic heart disease of native coronary artery without angina pectoris; I49.3 Ventricular premature depolarization; Z66 Do not resuscitate; Z79.84 Long term (current) use of oral hypoglycemic drugs; Z87.442 Personal history of urinary calculi; Z68.27 Body mass index [BMI] 27.0-27.9, adult